=== PATIENT | male | born 1980 | race Caucasian/White ===

== ENCOUNTER 2017-12-28 00:28 | Inpatient (IN) | payer OTHER ==
--- NOTE | 2017-12-28 00:44 | EDPHY ---
H & P Stated Complaint: PS, NOT TALKING MUCH AT TRIAGE Source: Patient - Personal History Current Tetanus/Diphtheria Vaccine: Yes Current Tetanus Diphtheria and Acellular Pertussis (TDAP): Yes - Medical/Surgical History Hx Asthma: No Hx Chronic Respiratory Disease: No Hx Diabetes: No Hx Cardiac Disease: No Hx Renal Disease: No Hx Cirrhosis: No Hx Alcoholism: No Hx HIV/AIDS: No Hx Splenectomy or Spleen Trauma: No Other PMH: [id number], major depression. hx Grave's disease per mother. hx Asperger syndrome per mother - Social History Smoking Status: Never smoked Time Seen by Provider: 12/28/17 00:44 HPI/ROS: HPI CHIEF COMPLAINT: Not taking medications. Left assisted living facility. HISTORY OF PRESENT ILLNESS: 37-year-old male, presents emergency room by private vehicle with his mom. He lives in assisted living facility. He has severe schizophrenia, and at times had ECT. Suffers from catatonia. He left his assisted living facility early this morning. Was gone for over 8 hr they became concerned found him walking in the street. He did not have anything to eat or drink. His mom got involved in his care he appears catatonic and more flat than normal. She brought here by private vehicle. The patient refused answer any of my questions. Appears flat. Slow movements. Past Medical History: Past medical history significant for schizophrenia, catatonia, Asperger's, previous hospitalizations at [address] [place] [address]. Past Surgical History: No recent surgical history Social History: Denies daily use of drugs alcohol tobacco. Family History: Noncontributory ROS REVIEW OF SYSTEMS: Limited due to patient's interaction. Clinical state. Exam Constitutional nontoxic, triage nursing summary reviewed, vital signs reviewed , awake/alert. Eyes normal conjunctivae and sclera, EOMI, PERRLA. HENT normal inspection, atraumatic, moist mucus membranes, no epistaxis, neck supple/ no meningismus, no raccoon eyes. Respiratory clear to auscultation bilaterally, normal breath sounds, no respiratory distress, no wheezing. Cardiovascular rate normal, regular rhythm, no murmur, no edema, distal pulses normal. Gastrointestinal soft, non-tender, no rebound, no guarding, normal bowel sounds, no distension, no pulsatile mass. Genitourinary no CVA tenderness. Musculoskeletal no midline vertebral tenderness, full range of motion, no calf swelling, no tenderness of extremities, no meningismus, good pulses, neurovascularly intact. Skin pink, warm, & dry, no rash, skin atraumatic. Neurologic awake, alert and oriented x 3, AAOx3, moves all 4 extremities equally, motor intact, sensory intact, CN II-XII intact, normal cerebellar, normal vision, normal speech. Psychiatric flat affect, catatonic, slow movements. Heme/Lymph/Immune no lymphadenopathy. Differential Diagnosis: Includes but is not limited to in a particular order acute gaetano, depression, schizoaffective disorder, schizophrenia, catatonia Medical Decision Making: IV establishment blood draw, medical clearance. Patient need mental evaluation. M1 hold. Re-evaluation: Patient be placed on M1 hold for grave disability. Patient will need blood draw for medical clearance. Patient suffers from severe schizophrenia, catatonia, left [facility] earlier today. Mom concerned about and brought to the emergency room. Patient will need mental health evaluation and most likely hospitalization due to great disability , catatonia, schizophrenia. 0539: Patient resting no complaints. Patient signed over to Dr. Ron at 7:00 a.m. Shift change. Patient here schizophrenia. Gravely disabled. Catatonia. Left assisted living. On M1 home. Will need inpatient psychiatric hospitalization [facility]. (Samir Espinoza) Constitutional: Initial Vital Signs Temperature (C) 37.9 C 12/28/17 00:29 Heart Rate 114 H 12/28/17 00:29 Respiratory Rate 18 12/28/17 00:29 Blood Pressure 107/79 12/28/17 00:29 O2 Sat (%) 91 L 12/28/17 00:29 O2 Delivery Mode Room Air Allergies/Adverse Reactions: olanzapine [From Zyprexa] Allergy (Severe, Verified 12/28/17 00:34) catatonea propylthiouracil Allergy (Severe, Verified 12/28/17 00:34) impulsivity methazolamide Allergy (Unknown, Verified 12/28/17 00:34) Unknown risperidone [From Risperdal] Allergy (Unknown, Verified 12/28/17 00:34) Unknown Home Medications: Medication Instructions Recorded LORazepam [Ativan (*)] 1 mg PO TID #90 tab 06/02/15 cloZAPine [Clozaril (*)] 50 mg PO BID 12/28/17 Medical Decision Making - Diagnostics Imaging Results: Imaging Impressions Chest X-Ray 12/28/17 15:23 Impression: Nothing acute identified. No pneumonia. ED Course/Re-evaluation: I took over care of this patient at 3:00 p.m.. This patient is on an M1 hold for schizophrenia and catatonia. The patient is to be admitted to [address] [place] [address]. We are currently awaiting transfer. 3:50 p.m., the patient will be transferred to [address] [place] [address]. I filled out the appropriate transfer paperwork. The patient was given 1 mg of oral Ativan for anxiety under my care. The patient's remaining emergency department course under my care has been uneventful. The patient was transferred in stable condition. (Clair Melchor) Other Provider: Patient stable over course of my shift. Signed out to Dr. Melchor. ( Jori Ron) - Data Points Laboratory Results: Laboratory Results 12/28/17 00:57 12/28/17 00:57 12/28/17 00:58 TSH Pending Medications Given: Discontinued Medications Clozapine (Clozaril) 50 mg PO EDNOW ONE Stop: 12/28/17 11:44 Last Admin: 12/28/17 12:50 Dose: 50 mg Sodium Chloride (Ns) 1,000 mls @ 0 mls/hr IV EDNOW ONE; Wide Open PRN Reason: Protocol Stop: 12/28/17 01:03 Last Admin: 12/28/17 01:09 Dose: 1,000 mls Lorazepam (Ativan) 1 mg PO EDNOW ONE Stop: 12/28/17 11:45 Last Admin: 12/28/17 12:50 Dose: 1 mg Departure - Departure Disposition: [facility] IP Clinical Impression: Schizophrenia Condition: Fair Referrals: ROBE HEADLEY [Primary Care Provider] - As per Instructions
[2017-12-28] MEDS ORDERED: NS 1,000 ML IV ONE (01:02)
[2017-12-28 01:04] LABS: PLATELET COUNT 187 10^3/uL (150-400)
[2017-12-28] MEDS ORDERED: cloZAPine 25 MG TAB PO ONE (11:43)
[2017-12-28] MEDS ORDERED: LORazepam 1 MG TAB PO ONE ×2 (11:44→15:55)
--- NOTE | 2017-12-28 16:00 | ASMTTLCEVL ---
TLC Evaluation - Basic Information Evaluation Start Date and 12/28/2017 01:00 PM Time Hospital Status Answers: Voluntary 72-hr M1 Hold Start Date 12/28/2017 01:07 AM and Time Patient statement Notes: "We're stil waiting". Narrative Notes: Pt is a 37y/o male whose mother brought him to the ED with diagnosis of catatonia, schizoaffective disorder, bipolar type and Aspergers. Pt lives at an assisted living facility in [place]. His mother was notified that he had gone off the property and had been missing for 8 hours. They eventually found him near the facility. He has been increasingly internally preoccupied this past month and there are concerns that he is not swallowing his medication. The ED physician placed him on an M1, per M1, "Patient catatonic, hx schizophrenia, gravely disabled. The clinician met with pt and his mother. Clinician attempted to interact with pt. Pt remained unresponsive and internally preoccupied. T During the entire assessment pt sat on the bed, looked away from clinician, moved his right hand repetitively and stated "We're still waiting". His mother shared that he had been like that since 30 minutes prior to the assessment. because of pt being in this state clinician was unable to determine thought content or process, nor mood. Due to pt being unresponsive the information for this assessment was gathered from pt's mother and previous records.Pt has an extensive mental health hx complicated by a developmental disorder. He has previously been on [facility]'s behavioral unit and prior to that was in [facility]. Although he has never been aggressive his first 3 psychiatric admissions followed agitation and SI. He has never attempted suicide. He does have a hx of gaetano in which he acts on impulses. He once drove 100s of miles to [place] and was once arrested for evading police. Over the years he has been treated with both psychotropics and ECT. Diagnosis History Notes: Schizoaffective, bipolar type Catatonia Aspergers Prior suicide attempts Notes: None Prior hospitalizations Notes: Prior to 2010 he had 3 hospitalizations, 2 at [facility] and 1 at [facility] 01/2011 - [facility] following catatonia 11/2013 - catatonia 04/2014 - hearing voices that are threatening 05/2015 - [facility] with symptoms of severe negativism around fluid and food intake, where he is refusing to eat and has lost weight, being mute and immobile and at other times wandering away with no clear purpose. Treatment Responses Notes: Pt appears to responsd well to a series of ECT treatments followed by psychotropic medication. History of violence Notes: [facility] denies. Psychiatrist: Dr John Lewis at [facility] Medications (name, dosage, route, freq uency) Notes: Clozapine, 100mg at bedtime Clozapine, 50 mg at bedtime Ativan, 1mg, 3x daily Allergies/Reaction Notes: Olanzapine Propylthiouracil methazolamide Risperidone Sleep Notes: Unknown Appetite Notes: Weight appears normal to his mother, but he has not eaten since admission to ED. he states he will only drink Mountain dew. he has had 1 and is drinking a second soda. Medical/Surgical history Notes: Graves disease, PEG tube placement in 2009 and craniosynostosis. Substance use history (frequency, intensity, his tory, duration) Notes: None Family composition Notes: Mother, father has . Multiple siblings who do not live close by. Need for family Answers: Yes participation in patient's care Family psychiatric/substance abuse history Notes: FOP was a recovering alcoholic before he 2 years ago. He had been sober for 25 years. Pt's brother has served time in shelter for methamphetamine violations. One older sister has a hx of bipolar disorder. Developmental history Notes: Pt was born and raised in [place]. [facility] reports that he was "happy" while growing up. He earned a high school diploma. he has never had social relationshipsdiagnosed with pervasive development disorder. Abuse concerns Answers: None Marital status/children Notes: No Living situation Notes: Lives in an assisted living facility in [facility]. 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 Notes: None Legal Notes: None Faith/Spiritual Notes: None Leisure Notes: Computers Collateral Notes: [facility] and previous records. Patient's strengths Answers: Supportive Family (Please select at least TWO strengths): Willingness TLC Evaluation - Mental Status Exam Appearance: Answers: Appropriate Clean Eye Contact: Answers: Avoiding Affect: Answers: Flat Behavior: Answers: Inappropriate Cooperative Withdrawn Speech: Answers: Mumbling Perseverating Insight: Answers: Poor Judgement: Answers: Poor Depression Answers: Flat Affect Signs/Symptoms: Withdrawn Pt reported to have Answers: No suicidal/self-injuring ideation/behavior? Pt reported to be making Answers: No suicidal/self-injuring threats? Pt reported to have Answers: No aggression/assault ideation/behavior? Pt reported to be making Answers: No aggression/assault threats? Pt exhibits inability to Answers: Yes care for self/grave disability? Ideation/behavior is Answers: No chronic? Patient has a specific Answers: No plan? Pt has access to means to Answers: No execute the plan? Ideation involves Answers: No serious/lethal intent? Ideation has Answers: No delusional/hallucinatory content? History of Answers: Yes suicidal/self-injuring ideation, behavior, or threats? History of Answers: No aggressive/assaultive ideation, behavior, or threats? History of serious Answers: No physical harm to self/others while in treatment setting? TLC Evaluation - Suicide/Homicide Risk Suicide Risk Factors: Answers: Flat Affect Schizoaffective Disorder Homicide/violence risk Answers: None factors: Current Suicidal Answers: No Ideation? Current Suicidal Ideation Answers: No in the Past 48 Hours? Current Suicidal Answers: No Ideation, Worst Ever? Suicide Internal Answers: None Protective Factors: Suicide External Answers: Other Notes: Support from his mother Protective Factors: Ranking of patient's Answers: Low suicidal risk: Ranking of patient's Answers: Low homicidal risk: TLC Evaluation - Wrap-up BDI Total Score: Not completed BDI Question #2 Score: Not completed AXIS I Diagnosis (include DSM-V and ICD-10 codes), must also be entered in [place], which is the source of truth. Notes: Schizoaffective Disorder, Bipolar Type 295.70 (F25.0) Catatonia associated with another mental disorder 293.89 (F06.1) Autism Spectrum Disorder 299.0 (F84.0) Schizoaffective Disorder, Bipolar Type 295.70 (F25.0) In consultation with [facility] ED physician,Dr Ariadne MD ,and on-call psychiatrist, Dr Gautam MD , both concurred that Pt appears to meet 27-65 criteria requiring psychiatric hospitalization as Pt appears to be at risk of harm due to grave disability due to a mental illness condition. Pt was given the 3[facility] prohibited belongings list while in the ED. Evaluation End Date and 12/28/2017 03:30 PM Time (HH:MM): Date Signed: 12/28/2017 03:59 PM Electronically Signed By:Meggan Son
--- NOTE | 2017-12-28 16:00 | ASMTTCLDSP ---
TLC Discharge Disposition Disposition: Answers: Admit Discharge Concerns/Recommendations: Notes: In consultation with [facility] ED physician,Dr Ariadne MD ,and on-call psychiatrist, Dr Gautam MD , both concurred that Pt appears to meet 27-65 criteria requiring psychiatric hospitalization as Pt appears to be at risk of harm due to grave disability due to a mental illness condition. Pt was given the 3N prohibited belongings list while in the ED. Was patient given the Answers: Yes Inpatient Behavioral Health Prohibited Belongings List while in the ED? For inpatient Dr Gautam MD admission, the following psychiatrist agreed to accept patient for admission to Behavior[facility] ([facility]): Hold initiated by: Answers: ED Physician Date Signed: 12/28/2017 04:00 PM Electronically Signed By:Meggan Son
--- NOTE | 2017-12-28 18:51 | PDGENHP ---
History and Physical - Chief Complaint Acute catatonia - History of Present Illness Primary mental health provider: [facility] HPI: 37-year-old male presents with acute catatonia characterized as unresponsiveness with associated increasingly flat affect, with onset of symptoms noted on the day of presentation after he was found to be off of the grounds of his assisted living facility for approximately 8 hr. The patient was found wandering and was unable to provide any explanation. He had notably slow movements, flat affect, and then resultant catatonia. They also endorse that he has had reportedly low oral intake recently. The duration of his catatonia is ongoing, present on this evaluation of the patient several hours after presentation. The patient does not otherwise provide any additional history, but he is visibly coughing during our exam. I receive secondhand information that the patient may have been off of his home medications for the past couple months. In the emergency department he received 1 dose of Clozaril 50 mg as well as 1 dose of Ativan. History Information - Allergies/Home Medication List Allergies/Adverse Reactions: olanzapine [From Zyprexa] Allergy (Severe, Verified 12/28/17 00:34) catatonea propylthiouracil Allergy (Severe, Verified 12/28/17 00:34) impulsivity methazolamide Allergy (Unknown, Verified 12/28/17 00:34) Unknown risperidone [From Risperdal] Allergy (Unknown, Verified 12/28/17 00:34) Unknown Home Medications: cloZAPine [Clozaril (*)] 50 mg PO BID 12/28/17 [Last Taken Unknown] I have personally reviewed and updated: family history, medical history, social history, surgical history - Past Medical History Additional medical history: Schizoaffective disorder with catatonic features, requiring ECT therapy. Asperger's with developmental delay. Graves disease. Craniosynostosis treated as a child. Malnutrition requiring PEG tube in past - Surgical History Additional surgical history: Peg tube placement, removal - Family History Additional family history: Bipolar disease and alcoholism - Social History Smoking Status: Never smoked Alcohol Use: None Drug Use: None Additional social history: Lives in an assisted living facility locally Review of Systems Review of Systems: ROS: 10pt was reviewed & negative except for what was stated in HPI & below Respiratory: Reports: cough Neurological: Reports: other (Catatonia) Physical Exam Physical Exam: Temp Pulse Resp BP Pulse Ox 36.3 C 85 14 117/76 95 12/28/17 16:49 12/28/17 16:49 12/28/17 16:49 12/28/17 16:49 12/28/17 16:49 Constitutional: no apparent distress, appears nourished, not in pain, unkempt, other (Mildly malodorous) Eyes: PERRL, anicteric sclera, EOMI Ears, Nose, Mouth, Throat: moist mucous membranes, hearing normal, ears appear normal, no oral mucosal ulcers Cardiovascular: regular rate and rhythym, no murmur, rub, or gallop, No edema Respiratory: reduced air movement (Poor inspiratory effort bilaterally), No expiratory wheeze, No inspiratory crackles, No bronchial breath sounds, No respiratory distress Gastrointestinal: normoactive bowel sounds, soft, non-tender abdomen, no palpable masses, No distension Skin: warm, other (Flushed face) Neurologic: other (Normal muscular bulk and tone, no rigidity, does not follow 1 step commands consistently), No facial droop Psychiatric: not anxious, flat affect, other (Eyes open to voice, but otherwise unresponsive), No agitated Lab Data & Imaging Review 12/28/17 00:57 12/28/17 00:57 WBC 10.95 10^3/uL (3.80-9.50) H 12/28/17 00:57 RBC 4.41 10^6/uL (4.40-6.38) 12/28/17 00:57 Hgb 14.6 g/dL (13.7-17.5) 12/28/17 00:57 Hct 43.2 % (40.0-51.0) 12/28/17 00:57 MCV 98.0 fL (81.5-99.8) 12/28/17 00:57 MCH 33.1 pg (27.9-34.1) 12/28/17 00:57 MCHC 33.8 g/dL (32.4-36.7) 12/28/17 00:57 RDW 12.8 % (11.5-15.2) 12/28/17 00:57 Plt Count 187 10^3/uL (150-400) 12/28/17 00:57 MPV 11.6 fL (8.7-11.7) 12/28/17 00:57 Neut % (Auto) 71.9 % (39.3-74.2) 12/28/17 00:57 Lymph % (Auto) 16.5 % (15.0-45.0) 12/28/17 00:57 Mchenry % (Auto) 10.2 % (4.5-13.0) 12/28/17 00:57 Eos % (Auto) 0.1 % (0.6-7.6) L 12/28/17 00:57 Baso % (Auto) 0.6 % (0.3-1.7) 12/28/17 00:57 Nucleat RBC Rel Count 0.0 % (0.0-0.2) 12/28/17 00:57 Absolute Neuts (auto) 7.86 10^3/uL (1.70-6.50) H 12/28/17 00:57 Absolute Lymphs (auto) 1.81 10^3/uL (1.00-3.00) 12/28/17 00:57 Absolute Monos (auto) 1.12 10^3/uL (0.30-0.80) H 12/28/17 00:57 Absolute Eos (auto) 0.01 10^3/uL (0.03-0.40) L 12/28/17 00:57 Absolute Basos (auto) 0.07 10^3/uL (0.02-0.10) 12/28/17 00:57 Absolute Nucleated RBC 0.00 10^3/uL (0-0.01) 12/28/17 00:57 Immature Gran % 0.7 % (0.0-1.1) 12/28/17 00:57 Immature Gran # 0.08 10^3/uL (0.00-0.10) 12/28/17 00:57 Sodium 141 mEq/L (135-145) 12/28/17 00:57 Potassium 4.5 mEq/L (3.3-5.0) 12/28/17 00:57 Chloride 108 mEq/L (97-110) 12/28/17 00:57 Carbon Dioxide 20 mEq/l (22-31) L 12/28/17 00:57 Anion Gap 13 mEq/L (6-14) 12/28/17 00:57 BUN 14 mg/dL (7-23) 12/28/17 00:57 Creatinine 0.9 mg/dL (0.7-1.3) 12/28/17 00:57 Estimated GFR > 60 12/28/17 00:57 Glucose 107 mg/dL (70-100) H 12/28/17 00:57 Calcium 9.3 mg/dL (8.5-10.4) 12/28/17 00:57 TSH 2.150 uIU/mL (0.465-4.680) 12/28/17 00:58 Urine Opiates Screen NEGATIVE (NEGATIVE) 12/28/17 00:44 Urine Barbiturates NEGATIVE (NEGATIVE) 12/28/17 00:44 Ur Phencyclidine Scrn NEGATIVE (NEGATIVE) 12/28/17 00:44 Ur Amphetamine Screen NEGATIVE (NEGATIVE) 12/28/17 00:44 U Benzodiazepines Scrn NON-NEGATIVE (NEGATIVE) H 12/28/17 00:44 Urine Cocaine Screen NEGATIVE (NEGATIVE) 12/28/17 00:44 U Marijuana (THC) Screen NEGATIVE (NEGATIVE) 12/28/17 00:44 Ethyl Alcohol < 10 mg/dL (0-10) 12/28/17 00:57 Visualized and Interpreted Chest x-ray results: Yes Chest X-Ray results: no infiltrate, other (Gas in stomach, raised left diaphragm ) Assessment & Plan Assessment: 37-year-old male presents with acute catatonia in the setting of schizoaffective disorder with catatonic features Plan: 1. Catatonia. Acute, recurrent, new problem this provider, further workup indicated. Resulting in grave disability an M1 hold -potentially related to discontinuation of home medications a couple months ago , does not appear to have neuroleptic malignant syndrome -received Clozaril and Ativan in the emergency department -defer formal diagnosis and treatment to the primary mental health team -he is at risk for aspiration, and with white count of 11,000, reduced air movement in the bases, cough and some skin flushing, getting it is prudent to rule out pneumonia and URI with chest x-ray, respiratory viral panel -if both of those studies are negative, consider treat his cough with some Tessalon and Mucinex if needed 2. Graves disease. Reportedly untreated, repeated TSH and is within normal limits, no further treatment indicated at this time 3. Craniosynostosis. Reportedly treated as a child, review of his brain MRI from 11/18/2013 demonstrates a completely normal brain 4. Schizoaffective disorder with catatonic features and Asperger's with developmental delay. Reviewed outside records from 06/02/[address] Rey Merlos, he is assigned these diagnosis, reports the patient was started on Clozaril 50 mg and was continued on ECT therapy after discharge -is important to note that the discharge summary also mentions that the patient is particularly triggered by some conflicts which occasionally arise with the patient interacts with his mother, with concern that she may struggle with alcohol abuse, exacerbating these conflicts Hospital Medicine will sign off on this patient, please re-consult at or discussed with Dr. Aguilar if further assistance is required.
[2017-12-28] MEDS ORDERED: BENZONATATE 100 MG CAP PO PRN (19:01)
[2017-12-28] MEDS ORDERED: MAGNESIUM HYDROXIDE 30 ML UDCUP PO PRN (19:31)
[2017-12-28] MEDS ORDERED: ACETAMINOPHEN 325 MG TAB PO PRN (19:31)
[2017-12-28] MEDS ORDERED: LORazepam 0.5 MG TAB PO PRN (19:31)
[2017-12-28] MEDS ORDERED: MAG HYDROX/AL HYDROX/SIMETH 30 ML UDCUP PO PRN (19:31)
[2017-12-28] MEDS ORDERED: NICOTINE POLACRILEX 2 MG GUM B PRN (19:31)
[2017-12-28] MEDS: LORazepam 1 MG TAB PO SCH (21:03)
[2017-12-29] MEDS: LORazepam 1 MG TAB PO SCH ×4 (08:45→21:51)
--- NOTE | 2017-12-29 09:07 | ASMTBHMTP ---
Master Treatment Plan Master Treatment Plan Answers: Mood Instability with for: Psychosis Date: 12/29/2017 Diagnosis on Admission: Schizoaffective Disorder, Bipolar Type 295.70 Expected length of stay: 3-5 Days Reason for admission: Notes: Per TLC evaluation - Pt. is a 37 year old male whose mother brought him to the ED with diagnosis of catatonia, schizoaffective disorder, Biploar type and Asperger's Pt. lives at an assisted living facility in [place]. His mother was notified that he had gone off property and had been missing for 8 hours. They eventually found him near the facility. He has been increasingly internally preoccupied this past month and there are concerns that he is not swallowing his medication. The ED physician placed him on an M1, per M1 "Patient catatonic, hx schizophrenia gravely disabled. Patient's stated presenting problems: Notes: Patient unable to participated in MTP at this time. Patient's goals for treatment: Notes: Patient unable to participated in MTP at this time. Patient's strengths: Notes: Patient unable to participated in MTP at this time. Identify supports outside of hospital: Notes: Patient unable to participated in MTP at this time. Discharge criteria: Notes: Patient will demonstrate more stable mood by discharge. Initial disposition plan/considerations: Notes: Patient unable to participated in MTP at this time. Master Treatment Plan Required Signatures Psychiatrist signature: Answers: Psychiatrist: RN on-shift signature: Answers: RN: Patient signature: Answers: Patient: Date Signed: 12/29/2017 09:07 AM Electronically Signed By:Tanesha Boudreaux
[2017-12-29] MEDS ORDERED: ONDANSETRON DISINTEGRATING 4 MG TAB PO PRN (09:39)
[2017-12-29] MEDS ORDERED: CITRIC ACID/SODIUM CITRATE 30 ML UDCUP PO PRN (09:39)
[2017-12-29] MEDS ORDERED: CITRIC ACID/SODIUM CITRATE 30 ML UDCUP ONE (14:31)
[2017-12-29] MEDS ORDERED: ONDANSETRON DISINTEGRATING 4 MG TAB ONE (14:31)
[2017-12-29] MEDS: NS 1,000 ML IV PRN (14:51)
[2017-12-29] MEDS ORDERED: METHOHEXITAL SODIUM 100 MG/10 ML SYR IVP ONE (15:18)
[2017-12-29] MEDS ORDERED: MIDAZOLAM 2 MG/2 ML VIAL ONE (15:18)
[2017-12-29] MEDS ORDERED: GLYCOPYRROLATE 0.2 MG/1 ML VIAL ONE (15:19)
[2017-12-29] MEDS ORDERED: fentaNYL 100 MCG/2 ML INJ ONE (15:19)
[2017-12-29] MEDS ORDERED: ONDANSETRON 4 MG/2 ML VIAL ONE (15:19)
--- NOTE | 2017-12-29 15:21 | PDANEPAE ---
ECT Pre Anesthetic Evaluation Allergies/Adverse Reactions: olanzapine [From Zyprexa] Allergy (Severe, Verified 12/28/17 00:34) catatonea propylthiouracil Allergy (Severe, Verified 12/28/17 00:34) impulsivity methazolamide Allergy (Unknown, Verified 12/28/17 00:34) Unknown risperidone [From Risperdal] Allergy (Unknown, Verified 12/28/17 00:34) Unknown Patient ID confirmed: Yes H&P reviewed: Yes Pre-anesthetic history reviewed: Yes Heart: regular rate and rhythym, no murmur, rub, or gallop, pulses symmetric bilaterally Lungs: no respiratory distress, no rales or rhonchi, clear to auscultation Mallampati Score: Class 1 ASA Status: III Home Medications: Medication Instructions Recorded LORazepam [Ativan (*)] 1 mg PO TID #90 tab 06/02/15 cloZAPine [Clozaril (*)] 50 mg PO BID 12/28/17 Medication review: completed Patient interviewed: Yes Patient examined: Yes Anesthetic plan discussed with patient: Yes Anesthetic risks discussed with patient: Yes ECT Pre-Anesthetic History - Height & Weight Height: 182.88 cm Weight: 99.79 kg BMI: 29.86 - Anesthesia History Hx Anesthesia Complications (with details): Denies. Family Hx Anesthesia Complications: Denies. 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 - Pulmonary History ECT Hx Asthma: No Hx Abnormal Chest X-Ray: No Hx Oxygen in Use at Home: No - Cardiovascular History Hx Hypertension: No Currently Uses Hypertension Medication: No Hx Arrhythmias: No Hx Palpitations: No Hx Chest Pain: No Hx Coronary Artery / Peripheral Vascular Disease: No Hx Blood Clot: No - Neurologic History Hx Cerebrovascular Accident: No Hx CT Scan Or MRI Of The Brain: No Hx Epilepsy, Convulsions, Seizures, Or Blackouts: No Hx Frequent Or Severe Headaches: No Hx Numbness: No Hx Neurologic Disorder: No - Dental History Current Dental Issues: Dentures Dental History Comment: top and bottom - Endocrine History Hx Diabetes: No Current Daily Insulin Injections: No Hx Thyroid Problems: Yes Endocrine History Comment: hyperthyroidism resolved in 2008 - Renal/Urologic History Hx Renal Disorders: No Hx Urinary Tract Problems: No - Liver History Hx Hepatic Disorders: No - Cancer History Hx Cancer: No - Hematology History Hx Unexplained Bleeding Of Any Type: No Hx Ease Of Bruising: No Hx Anemia: No - Gastrointestinal History Hx Gastroesophogeal Reflux Disease: No Hx Ulcers: No Hx Hiatal Hernia: No Hx Difficulty Swallowing: No - Musculoskeletal Hisory Hx Chronic Pain: No Hx Arthritis: No - Opthalmic History Hx Glaucoma: No Visual Assistive Devices: Glasses Hx Opthalmic Disorders: No - Other Health History Physical Disabililty: No Recent Cough, Cold, or Fever: No Significant Weight Loss In The Last 4 Months: No Possible the Patient Might be : No
--- NOTE | 2017-12-29 15:21 | PDHPUP ---
History & Physical Update H&P update statement: This history and physical update is based on an assessment of the patient which was completed after admission or registration (within 24 hours), but prior to the surgery/procedure. H&P update: H&P reviewed & patient examined, no change in patient's condition since H&P completed
[2017-12-29] MEDS ORDERED: LORazepam 2 MG/ML INJ ONE (15:29)
--- NOTE | 2017-12-29 15:32 | PDECTPN ---
ECT Progress Note Patient Problems: Problems Problem Status Onset Code Schizoaffective disorder Acute F25.9 Schizophrenia Acute F20.9 Date: 12/29/17 Treatment#: 1 ECT provider: Forrest Mancilla Anesthesia: Sally Mahoney Stimulus dose (%): 50 Pulse width: 0.5 ECT EMG (sec): 27 ECT EEG (sec): 44 ECT treatment type: bilateral Next ECT date: 12/31/17 Next ECT time: 11:30 O/P psychiatrist follow up with Dr.: Dahiana Lewis O/P psychiatrist follow up: phone, voice message Home medications: Medication Instructions Recorded LORazepam [Ativan (*)] 1 mg PO TID #90 tab 06/02/15 cloZAPine [Clozaril (*)] 50 mg PO BID 12/28/17 Medication review: completed Current treatment plan: acute phase Treatment plan frequency: 3 times per week ECT narrative: see admit note. Of note, pt revealed his tacit willingness to undergo the ECT today in a number of ways observed by RNs,. For instance, he got right into wheelchair and, when rolled into ECT suite, got out of chair and walked on his own volition to [facility]. Likewise, he put his index finger out when the RN had pulsox finger monitor in eye shot, revealing his understanding of what was needed and not reacting negativistically to it. On the contrary....
[2017-12-29] MEDS ORDERED: PROMETHAZINE HCL 25 MG TAB PO PRN (15:33)
[2017-12-29] MEDS ORDERED: IBUPROFEN 600 MG TAB PO PRN (15:33)
[2017-12-29] MEDS ORDERED: HYDROCODONE/APAP 5/325 TAB PO PRN (15:33)
[2017-12-29] MEDS ORDERED: NALOXONE HCL 0.4 MG/ML INJ IVP PRN (15:33)
--- NOTE | 2017-12-29 15:36 | POSTANESTH ---
Post Anesthetic Evaluation Cardiovascular Status: Normal, Stable, Similar to Pre-Op Cond Respiratory Status: Normal, Stable, Similar to Pre-op Cond. Level of Consciousness/Mental Status: Unconscious Pain Control: Adequate, Prn Tx Ordered Nausea/Vomiting Control: Adequate, Prn Tx Ordered Complications Possibly Related to Anesthesia: None Noted
--- NOTE | 2017-12-29 16:26 | BAPA ---
IDENTIFYING DATA: The patient is a 37-year-old single white male well known to this business writer who had been treating him with maintenance ECT and multiple prior hospitalizations over the last 8 years. However, he had chosen to terminate maintenance ECT in February 2017 and had been lost to followup by our clinic. He is seen by Anant Lewis MD, at [facility]. His last psychiatric hospitalization at [facility] was in May 2015. Please consult the admission workup dated 05/26/15 for more information. Present sources of information include the patient's mother, with whom the business writer spoke by phone, as well as Dr. Lewis , who also provided collateral information by phone. The patient himself is unable to provide history given his catatonic/mute state. This patient carries a longstanding diagnosis of schizoaffective disorder, bipolar type; catatonia; and autism spectrum disorder. He had been at a stable, albeit quite impaired, baseline when he and Mother chose to discontinue ECT almost 1 year ago. He has followed up around medications with Dr. Lewis, who expressed to this business writer that there had been great resistance on Mother's part around medication choices. He understands by history that has been our experience working with patient and Mother; namely, that she has her own idiosyncratic beliefs about what has made him ill and what he needs for treatment and that often stands in contrast to the recommendations being made by the physicians. Mother presents that over the last year, he has been not having problems with behavioral dyscontrol but rather is isolative and had had virtually no interaction with her or anyone else for the last 10 months. She states that she had been giving medication to him as prescribed when he was under her care. However, her feelings about certain of those medications, such as clozapine, were made clear to Dr. Lewis, who shares this business writer's skepticism that the patient would have been receiving the full complement of medication as prescribed. Approximately 1 month ago, the patient was transferred from home to an assisted living program. It appears in good part as though Mother is getting older and feels unable to care for him much longer. In the assisted living program, he is supposed to have help and encouragement with meals and medication but it is unlikely that he is actually monitored for medication compliance. Mother-- revealing some irony--noted that he possibly would not have been taking his medication at the assisted living for that reason. Per Dr. Lewis, the prescribed medications are supposed to be: 1. Clozapine 50 mg p.o. b.i.d. 2. Ativan 1 mg p.o. t.i.d. In the last 24 hours, the patient had gone awol from the assisted living program and police were dispatched to find him. Mother then brought him to emergency room first at [facility] but then ultimately took him to [place], wishing him to have ECT and knowing that would be the easiest place for him to restart treatment. Dr. Lewis also provided his verbal acknowledgement to the business writer that ECT treatment for this patient's exacerbation of catatonic symptoms is indicated at this point. In the last 24 hours, he has refused food and fluid in the ER setting and hospital setting, perhaps indicative of some paranoia. While he was at home and in the assisted living program more recently , the patient has been eating at least 3 meals a day and, indeed, has gained weight as would be expected in a patient who has been compliant with clozapine. This is notable to this business writer as the patient had been thinner a year ago when he was also supposed to be on clozapine. The absence of weight gain a year ago might have indicated more evidence for noncompliance with the medication at that time. The patient does have history of Graves disease and his TSH was within normal limits. Other basic laboratory tests were done, including a CBC, that did reveal an elevated white count as well as elevated neutrophils. The patient was found to have a cough and did have chest x-ray that was negative and respiratory panel that was also negative. His vital signs are stable. He is afebrile and has 95% oxygen saturation on room air. His urine drug screen was only positive, as would be expected, for benzodiazepine. Mother is not aware of any other substance use history or change in medical status that could be contributing to this present clinical state. Other than going awol from the assisted living, the other behavioral change is psychomotor agitation in the form of pacing with nonsensical and mumbled repetition of the same statement repeatedly. Mother called it a form of chanting and believes he is saying the words "now I've seen it all." There was negativism, mutism. The pacing, according to Mother, had led to some skin abrasion on the bottom of his feet. For prior psychiatric history, medical history, family history, social history, alcohol and drug history, please see prior consultations by this business writer. MENTAL STATUS EXAM: Patient is a 37-year-old male appearing his stated age. He is overweight, which is a dramatic change from his last presentation. He is unkempt, disheveled, and edentulous, needing full dentures. He was engaged while pacing the hallways of [address] [place] [address], muttering incomprehensibly under his breath. There is virtually no engagement or eye contact with the business writer. However, he did shrug his shoulders finally in response to the question "you'll let me know if there is anything I can do for you while you are here?" While shrugging his shoulders, he gave a very brief glance in this business writer's direction as well. This small interaction leads me to believe that he is somewhat aware of his surroundings despite his degree of internal preoccupation. At present, he is nonverbal and too involuted to reveal any indication of delusional material or hallucinations, but by history, he has experienced these psychotic symptoms. Judgement and insight are grossly impaired. His recent impulse control is also clearly impaired given his recent awol from the assisted living program. IMPRESSION: Catatonia associated with schizoaffective disorder, bipolar type; autism spectrum disorder; history of Graves disease and craniosynostosis. Recent cough with elevated white blood cell count with normal chest x-ray and negative respiratory panel. RECOMMENDATIONS: There is some uncertainty as to the degree of adherence this patient has had on psychotropic medications prescribed by Dr. Lewis. The patient himself is a poor historian, even by history, and this is especially true at the present time. Mother furthermore has been so averse to medication, that it is unclear whether he was truly being treated adequately under her care , and furthermore, at the assisted living program, I would not expect there to be this sort of monitoring for medication adherence one would expect in a long term or inpatient facility. We do have a clozapine level pending that will help provide some evidence. The fact that he has gained weight would indicate that he is finally compliant with that medication. Dr. Lewis and this business writer agree that he is likely subtherapeutic in his dose at 100 mg total per day. Once a level is received, we will make the determination about how to titrate the medication further. If, in fact, he has been compliant with clozapine and Ativan (which seems more likely given the positive urine drug screen for benzodiazepine) and he is developing this catatonic excitement intermixed with periods of near immobility, unresponsiveness, and mutism, then ECT is clearly the treatment of choice. Historically, it has helped him come out of such states of grave disability, which would become life-threatening over time. The mother has medical power of securities attorney and has thus far given her thankfully unambivalent approval to reinitiate electroconvulsive therapy. Dr. Lewis had done likewise. We will clearly use bilateral treatment and provide intravenous Ativan following the treatment as we typically would have the inpatient unit hold the dose prior to that day's treatment. I will await clozapine and norclozapine level and then make decisions about further titration at that point in consultation with Dr. Lewis. Reviewed risks and side effects associated with ECT with Mother, who acknowledges the much greater risk of NOT treating pt with ECT /[id number]/MODL MTDD
[2017-12-29] MEDS: cloZAPine 25 MG TAB PO SCH ×2 (21:42→21:50)
[2017-12-30] MEDS: LORazepam 1 MG TAB PO SCH ×3 (08:24→18:05)
--- NOTE | 2017-12-30 09:37 | SOAPPROG ---
ROBBIE Progress Note Assessment/Plan: Assessment: Catatonia asscoicated with Schizoaffective Disorder; Autism Spectrum Disorder by history Plan: Pt s/p ECT #1. Pt noted to be alternating between pacing the unit, and then sitting in day area. The whole while, he was repeating the same non-sensical 4 word phrase, "Yep, now I see". He does not attend to even simple, structured questions, but clearly is aware that business writer is sitting (or walking) next to him as he glances my way briefly when a question is asked. Per RNs, he has asked--at times--for things with one word (ie, "soda", "ketchup"). He is eating and drinking ( arguably a change from last couple of days). Yesterday, he revealed waxy flexibility while on ECT catrina pre treatment. Awaiting CLoz level. SPoke with Dr Lewis about increasing this med. Notably, mother reported to RN that "he becomes agitated or aggressive on Clozapine" but mother, in a long standing way , often attributes what is truly SYMPTOM of disorder, to SIDE EFFECT of very treatment for that disorder....a commonly expressed bias which rendered her not the most reliable historian at times. One might consider other glutamate modulating medications, however, such as Depakote, to address the catatonia. Helio to call Assisted Living and determine if they will keep his space there and establish if they have a mechanism to ensure medication compliance (ie, monitored med intake, versus simply leaving meds in patient's possession to do as pt sees fit). Mostly, he requires an acute course of ECT, which has historically worked nicely to bring him out of these more severe catatonic exacerbations (back to a baseline that is marginally functional, but involves no behavior dyscontrol, or disorganized behavior and cooperativeness). At baseline, he is flat, quiet, poorly related. Only sporadically has this treatment team seen him in a different clinical state, marked by disorganized speech and eccentric TP, but at least brighter in affect, more engaged interpersonally, and more loquacious. Presently, no cough, VSS, afebrile, Pulsox 95% 12/30/17 09:21 12/30/17 09:37 Objective: Vital Signs Temp Pulse Resp BP Pulse Ox 36.9 C 96 14 115/59 L 95 10/15/18 18:36 12/30/17 06:00 12/30/17 06:00 12/30/17 06:00 12/30/17 06:00 12/29/17 12/30/17 12/31/17 05:59 05:59 05:59 Intake Total 1000 Balance 1000 ICD10 Worksheet Patient Problems: Problems Problem Status Onset Schizophrenia Acute Schizoaffective disorder Acute
--- NOTE | 2017-12-30 10:23 | CPEKG ---
Test Reason : OPEN Blood Pressure : / mmHG Vent. Rate : 111 BPM Atrial Rate : 112 BPM P-R Int : 160 ms QRS Dur : 080 ms QT Int : 344 ms P-R-T Axes : 050 043 043 degrees QTc Int : 468 ms SINUS TACHYCARDIA Confirmed by Trent Kilgore ([id number]) on 12/30/2017 10:22:59 AM Referred By: Confirmed By:Trent Kilgore
[2017-12-30] MEDS: cloZAPine 25 MG TAB PO SCH (19:20)
[2017-12-31] MEDS: LORazepam 1 MG TAB PO SCH ×3 (07:20→20:03)
[2017-12-31] MEDS: cloZAPine 25 MG TAB PO SCH ×2 (08:01→20:03)
--- NOTE | 2017-12-31 11:56 | ASMTCMCOM ---
CM Note CM Note Notes: CC contacts Marylou at [phone]; no answer left detailed VM with all necessary return contact information. Date Signed: 12/31/2017 11:55 AM Electronically Signed By:Helio Harrison
[2017-12-31] MEDS ORDERED: NS 1,000 ML IV PRN (11:59)
[2017-12-31] MEDS ORDERED: CITRIC ACID/SODIUM CITRATE 30 ML UDCUP PO PRN (11:59)
[2017-12-31] MEDS ORDERED: ONDANSETRON DISINTEGRATING 4 MG TAB PO PRN (11:59)
[2017-12-31] MEDS ORDERED: ONDANSETRON DISINTEGRATING 4 MG TAB ONE (12:05)
[2017-12-31] MEDS ORDERED: CITRIC ACID/SODIUM CITRATE 30 ML UDCUP ONE (12:05)
[2017-12-31] MEDS: NS 1,000 ML IV PRN (12:08)
--- NOTE | 2017-12-31 12:18 | PDANEPAE ---
ECT Pre Anesthetic Evaluation Allergies/Adverse Reactions: olanzapine [From Zyprexa] Allergy (Severe, Verified 12/28/17 00:34) catatonea propylthiouracil Allergy (Severe, Verified 12/28/17 00:34) impulsivity methazolamide Allergy (Unknown, Verified 12/28/17 00:34) Unknown risperidone [From Risperdal] Allergy (Unknown, Verified 12/28/17 00:34) Unknown Patient ID confirmed: Yes H&P reviewed: Yes Pre-anesthetic history reviewed: Yes Heart: regular rate and rhythym Lungs: no respiratory distress, no rales or rhonchi, clear to auscultation Mallampati Score: Class 1 ASA Status: III Home Medications: Medication Instructions Recorded LORazepam [Ativan (*)] 1 mg PO TID #90 tab 06/02/15 cloZAPine [Clozaril (*)] 50 mg PO BID 12/28/17 Medication review: completed Patient interviewed: Yes Patient examined: Yes Anesthetic plan discussed with patient: Yes Anesthetic risks discussed with patient: Yes ECT Pre-Anesthetic History - Height & Weight Height: 182.88 cm Weight: 99.79 kg BMI: 29.86 - Anesthesia History Hx Anesthesia Complications (with details): Denies. Family Hx Anesthesia Complications: Denies. 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 - Pulmonary History ECT Hx Asthma: No Hx Abnormal Chest X-Ray: No Hx Oxygen in Use at Home: No - Cardiovascular History Hx Hypertension: No Currently Uses Hypertension Medication: No Hx Arrhythmias: No Hx Palpitations: No Hx Chest Pain: No Hx Coronary Artery / Peripheral Vascular Disease: No Hx Blood Clot: No - Neurologic History Hx Cerebrovascular Accident: No Hx CT Scan Or MRI Of The Brain: No Hx Epilepsy, Convulsions, Seizures, Or Blackouts: No Hx Frequent Or Severe Headaches: No Hx Numbness: No Hx Neurologic Disorder: No - Dental History Current Dental Issues: Dentures Dental History Comment: top and bottom - Endocrine History Hx Diabetes: No Current Daily Insulin Injections: No Hx Thyroid Problems: Yes Endocrine History Comment: hyperthyroidism resolved in 2008 - Renal/Urologic History Hx Renal Disorders: No Hx Urinary Tract Problems: No - Liver History Hx Hepatic Disorders: No - Cancer History Hx Cancer: No - Hematology History Hx Unexplained Bleeding Of Any Type: No Hx Ease Of Bruising: No Hx Anemia: No - Gastrointestinal History Hx Gastroesophogeal Reflux Disease: No Hx Ulcers: No Hx Hiatal Hernia: No Hx Difficulty Swallowing: No - Musculoskeletal Hisory Hx Chronic Pain: No Hx Arthritis: No - Opthalmic History Hx Glaucoma: No Visual Assistive Devices: Glasses Hx Opthalmic Disorders: No - Other Health History Physical Disabililty: No Recent Cough, Cold, or Fever: No Significant Weight Loss In The Last 4 Months: No Possible the Patient Might be : No
[2017-12-31] MEDS ORDERED: MIDAZOLAM 2 MG/2 ML VIAL ONE (12:23)
[2017-12-31] MEDS ORDERED: LORazepam 2 MG/ML INJ ONE (12:23)
[2017-12-31] MEDS ORDERED: METHOHEXITAL SODIUM 100 MG/10 ML SYR IVP ONE (12:23)
[2017-12-31] MEDS ORDERED: fentaNYL 100 MCG/2 ML INJ ONE (12:23)
--- NOTE | 2017-12-31 12:31 | PDECTPN ---
ECT Progress Note Patient Problems: Problems Problem Status Onset Code Schizophrenia Acute F20.9 Schizoaffective disorder Acute F25.9 Date: 12/31/17 Treatment#: 2 ECT provider: Forrest Mancilla Anesthesia: Sally Stoabigail Stimulus dose (%): 55 Pulse width: 0.5 ECT EMG (sec): 35 ECT EEG (sec): 106 ECT treatment type: bilateral QIDS-SR Total Score: 12 QIDS-SR Question #12 Score: 1 Next ECT date: 01/02/18 Next ECT time: 13:00 O/P psychiatrist follow up with Dr.: Dahiana Lewis O/P psychiatrist follow up: phone, voice message Home medications: Medication Instructions Recorded LORazepam [Ativan (*)] 1 mg PO TID #90 tab 06/02/15 cloZAPine [Clozaril (*)] 50 mg PO BID 12/28/17 Medication review: completed Current treatment plan: acute phase Treatment plan frequency: 3 times per week ECT narrative: see admit note. Of note, pt revealed his tacit willingness to undergo the ECT today in a number of ways observed by RNs,. For instance, he got right into wheelchair and, when rolled into ECT suite, got out of chair and walked on his own volition to [facility]. Likewise, he put his index finger out when the RN had pulsox finger monitor in eye shot, revealing his understanding of what was needed and not reacting negativistically to it. On the contrary.... 12/31 Pt VSS stable. Afebrile Remains mute and yet able to follow simple commands, without negativism. No resistance at all to any facet of prepping him for treatment today, as on Friday. Received second opinion letter from Dr Lewis. CLoz level pnd for Friday. It appears, per the MAY, that patient is complying with meds. THis am, pre ECT, he reveals PMR, flat affect, nil eye contact, mutism, and slight waxy flexibility. Plan is to cont acute Bilateral ECT, titrate Cloz after level drawn and as tolerated. Cont Loraz. holding dose prior to ECT, but receiving IV lorazepam.
[2018-01-01] MEDS: LORazepam 1 MG TAB PO SCH ×3 (07:47→20:09)
[2018-01-01] MEDS: cloZAPine 25 MG TAB PO SCH ×2 (07:47→20:08)
--- NOTE | 2018-01-01 11:07 | SOAPPROG ---
ROBBIE Progress Note Assessment/Plan: Assessment: Catatonia asscoicated with Schizoaffective Disorder; Autism Spectrum Disorder by history Plan: Pt s/p ECT #1. Pt noted to be alternating between pacing the unit, and then sitting in day area. The whole while, he was repeating the same non-sensical 4 word phrase, "Yep, now I see". He does not attend to even simple, structured questions, but clearly is aware that video game script writer is sitting (or walking) next to him as he glances my way briefly when a question is asked. Per RNs, he has asked--at times--for things with one word (ie, "soda", "ketchup"). He is eating and drinking ( arguably a change from last couple of days). Yesterday, he revealed waxy flexibility while on ECT catrina pre treatment. Awaiting CLoz level. SPoke with Dr Lewis about increasing this med. Notably, mother reported to RN that "he becomes agitated or aggressive on Clozapine" but mother, in a long standing way , often attributes what is truly SYMPTOM of disorder, to SIDE EFFECT of very treatment for that disorder....a commonly expressed bias which rendered her not the most reliable historian at times. One might consider other glutamate modulating medications, however, such as Depakote, to address the catatonia. Helio to call Assisted Living and determine if they will keep his space there and establish if they have a mechanism to ensure medication compliance (ie, monitored med intake, versus simply leaving meds in patient's possession to do as pt sees fit). Mostly, he requires an acute course of ECT, which has historically worked nicely to bring him out of these more severe catatonic exacerbations (back to a baseline that is marginally functional, but involves no behavior dyscontrol, or disorganized behavior and cooperativeness). At baseline, he is flat, quiet, poorly related. Only sporadically has this treatment team seen him in a different clinical state, marked by disorganized speech and eccentric TP, but at least brighter in affect, more engaged interpersonally, and more loquacious. Presently, no cough, VSS, afebrile, Pulsox 95% 12/30/17 09:21 12/30/17 09:37 01/01/18 11:01 Pt has VSS, afebrile, Pulsox 95%, eating and drinking, and accepting medications. Will draw Cloz level in ECT Friday AM. Still mute. Interviewed while he was sitting along at dinning table in TV area, staring out window initially but clearly aware and non-verbally engaged with video game script writer when I sat across from him and asked him structured questions. he responsed non verbally and ambiguously with a shrug to most questions. He made some eye contact, which itself was an improvement as was the absence of pacing (or immobility for that matter) and of incessant repetition of same non sensical phrase. COnt acute ECT. Consider depakote vs further titration of CLoz. Objective: Vital Signs Temp Pulse Resp BP Pulse Ox 36.8 C 76 14 94/52 L 95 01/01/18 06:00 01/01/18 06:00 01/01/18 06:00 01/01/18 06:00 01/01/18 06:00 12/31/17 01/01/18 01/02/18 05:59 05:59 05:59 Intake Total 995 Balance 995 ICD10 Worksheet Patient Problems: Problems Problem Status Onset Schizophrenia Acute Schizoaffective disorder Acute
--- NOTE | 2018-01-01 11:54 | ASMTCMCOM ---
CM Note CM Note Notes: The patient was not responsive to this lead technical writer initially. The patient eventually shook his head "no" in response. He denied support at this time. This lead technical writer spoke with the patient's mother Angela [C#[phone], H#[phone]}, who reported that she planned to connect with [facility] and would notify [facility] with any updates. In addition, this lead technical writer contacted [facility] to confirm services with no response. Date Signed: 01/01/2018 11:53 AM Electronically Signed By:Elise Palomino
[2018-01-02] MEDS ORDERED: LIDOCAINE 2% 5 ML SDV ONE (05:28)
[2018-01-02] MEDS ORDERED: ONDANSETRON DISINTEGRATING 4 MG TAB ONE (10:31)
[2018-01-02] MEDS ORDERED: CITRIC ACID/SODIUM CITRATE 30 ML UDCUP ONE (10:31)
[2018-01-02] MEDS: NS 1,000 ML IV PRN (10:43)
[2018-01-02] MEDS ORDERED: NS 1,000 ML IV PRN (10:56)
[2018-01-02] MEDS ORDERED: CITRIC ACID/SODIUM CITRATE 30 ML UDCUP PO PRN (10:56)
[2018-01-02] MEDS ORDERED: ONDANSETRON DISINTEGRATING 4 MG TAB PO PRN (10:56)
[2018-01-02] MEDS ORDERED: NALOXONE HCL 0.4 MG/ML INJ IVP PRN (11:22)
[2018-01-02] MEDS ORDERED: HYDROCODONE/APAP 5/325 TAB PO PRN (11:22)
[2018-01-02] MEDS ORDERED: PROMETHAZINE HCL 25 MG TAB PO PRN (11:22)
--- NOTE | 2018-01-02 11:27 | PDECTPN ---
ECT Progress Note Patient Problems: Problems Problem Status Onset Code Schizophrenia Acute F20.9 Schizoaffective disorder Acute F25.9 Date: 01/02/18 Treatment#: 3 ECT provider: Forrest Mancilla Stimulus dose (%): 60 Pulse width: 0.5 ECT EMG (sec): 26 ECT EEG (sec): 52 ECT treatment type: bilateral QIDS-SR Total Score: 12 QIDS-SR Question #12 Score: 1 MMSE Total Score (Max = 21): 19 Next ECT date: 01/05/18 Next ECT time: 09:30 O/P psychiatrist follow up with Dr.: Dahiana Lewis O/P psychiatrist follow up: phone, voice message Home medications: Medication Instructions Recorded LORazepam [Ativan (*)] 1 mg PO TID #90 tab 06/02/15 cloZAPine [Clozaril (*)] 50 mg PO BID 12/28/17 Current treatment plan: acute phase Treatment plan frequency: 3 times per week ECT narrative: see admit note. Of note, pt revealed his tacit willingness to undergo the ECT today in a number of ways observed by RNs,. For instance, he got right into wheelchair and, when rolled into ECT suite, got out of chair and walked on his own volition to [facility]. Likewise, he put his index finger out when the RN had pulsox finger monitor in eye shot, revealing his understanding of what was needed and not reacting negativistically to it. On the contrary.... 12/31 Pt VSS stable. Afebrile Remains mute and yet able to follow simple commands, without negativism. No resistance at all to any facet of prepping him for treatment today, as on Friday. Received second opinion letter from Dr Lewis. CLoz level pnd for Friday. It appears, per the MAY, that patient is complying with meds. THis am, pre ECT, he reveals PMR, flat affect, nil eye contact, mutism, and slight waxy flexibility. Plan is to cont acute Bilateral ECT, titrate Cloz after level drawn and as tolerated. Cont Loraz. holding dose prior to ECT, but receiving IV lorazepam. 01/02 Pt cooperative with all aspect of ECT. Near Mute but answered personal information during time out with soft, monotone voice. No other spontaneous speech. PMR rather than agitation. Affect flat. Eye contact intermittant. Reviewed Psych testing re his Autism spectrum disorder. Full scale IQ 72. CLoz level drawn pre ECT today. Cont acute ECT into next week.
[2018-01-02] MEDS: LORazepam 1 MG TAB PO SCH ×3 (12:23→20:02)
[2018-01-02] MEDS: cloZAPine 25 MG TAB PO SCH ×2 (12:24→20:02)
--- NOTE | 2018-01-02 14:50 | ASMTCMCOM ---
CM Note CM Note Notes: CC spoke with [facility], who confirmed that the patient is able to return to the facility upon discharge. Angela Tammy confirmed that she was able to provide transportation at the time of discharge. Date Signed: 01/02/2018 02:49 PM Electronically Signed By:Elise Palomino
[2018-01-03] MEDS: cloZAPine 25 MG TAB PO SCH ×2 (08:04→19:25)
[2018-01-03] MEDS: LORazepam 1 MG TAB PO SCH ×3 (08:05→19:25)
--- NOTE | 2018-01-03 14:45 | ASMTCMCOM ---
CM Note CM Note Notes: CC attempted to meet with pt, but pt declined to respond to CC. Staff report pt. sleeping 10 hours and being medication compliant. Staff report pt. receiving ECT on Friday and is on the schedule for ECT on Friday. Date Signed: 01/03/2018 02:44 PM Electronically Signed By:Tanesha Boudreaux
--- NOTE | 2018-01-03 17:40 | SOAPPROG ---
SOAP Progress Note Assessment/Plan: Assessment: Per Dr. Mancilla's note: Pt s/p ECT #1. Pt noted to be alternating between pacing the unit, and then sitting in day area. The whole while, he was repeating the same non-sensical 4 word phrase, "Yep, now I see". He does not attend to even simple, structured questions, but clearly is aware that quality analyst/technical writer is sitting (or walking) next to him as he glances my way briefly when a question is asked. Per RNs, he has asked--at times--for things with one word (ie, "soda", "ketchup"). He is eating and drinking ( arguably a change from last couple of days). Yesterday, he revealed waxy flexibility while on ECT catrina pre treatment. Awaiting CLoz level. SPoke with Dr Lewis about increasing this med. Notably, mother reported to RN that "he becomes agitated or aggressive on Clozapine" but mother, in a long standing way , often attributes what is truly SYMPTOM of disorder, to SIDE EFFECT of very treatment for that disorder....a commonly expressed bias which rendered her not the most reliable historian at times. One might consider other glutamate modulating medications, however, such as Depakote, to address the catatonia. Helio to call Assisted Living and determine if they will keep his space there and establish if they have a mechanism to ensure medication compliance (ie, monitored med intake, versus simply leaving meds in patient's possession to do as pt sees fit). Mostly, he requires an acute course of ECT, which has historically worked nicely to bring him out of these more severe catatonic exacerbations (back to a baseline that is marginally functional, but involves no behavior dyscontrol, or disorganized behavior and cooperativeness). At baseline, he is flat, quiet, poorly related. Only sporadically has this treatment team seen him in a different clinical state, marked by disorganized speech and eccentric TP, but at least brighter in affect, more engaged interpersonally, and more loquacious. Presently, no cough, VSS, afebrile, Pulsox 95% 12/30/17 09:21 12/30/17 09:37 01/01/18 11:01 Pt has VSS, afebrile, Pulsox 95%, eating and drinking, and accepting medications. Will draw Cloz level in ECT Friday AM. Still mute. Interviewed while he was sitting along at dinning table in TV area, staring out window initially but clearly aware and non-verbally engaged with quality analyst/technical writer when I sat across from him and asked him structured questions. he responsed non verbally and ambiguously with a shrug to most questions. He made some eye contact, which itself was an improvement as was the absence of pacing (or immobility for that matter) and of incessant repetition of same non sensical phrase. COnt acute ECT. Consider depakote vs further titration of CLoz. PLAN: 01/03/18 17:36 1. Patient sitting at table staring out window. Other times he is pacing halls or sitting at desks in hallway. No verbal responses to questions, only shrugs his shoulders. 2. Per Dr. Mancilla's note, patient has responded well to ECT in past, likely will have positive response given sufficient time. Will await more ECT before deciding about med adjustments. 3. Patient ate 50% of lunch today. He slept 10hrs last night. Subjective: Patient presents very similar to the way Dr. Mancilla describes in his note. When this MD approached patient, he was sitting at table near TV area staring out window. He barely glanced at MD and showed minimal recognition that MD was present. He did not respond verbally to any of MD's questions, but occasionally shrugged his shoulders. Objective: Vital Signs Temp Pulse Resp BP Pulse Ox 36.8 C 78 14 98/54 L 98 01/03/18 06:00 01/03/18 06:00 01/03/18 06:00 01/03/18 06:00 01/03/18 06:00 01/02/18 01/03/18 01/04/18 05:59 05:59 05:59 Intake Total 1000 Balance 1000 MSE: Affect: Constricted Mood: No response TP: Paucity of speech TC: Impoverishment, mute Insight/Judgment: Impaired - Time Spent With Patient Time Spent With Patient: 15" - Pending Discharge Pending Discharge Within 24 Hours: No Pending Discharge Within 48 Hours: No ICD10 Worksheet Patient Problems: Problems Problem Status Onset Schizophrenia Acute Schizoaffective disorder Acute
[2018-01-04] MEDS: cloZAPine 25 MG TAB PO SCH ×2 (07:35→19:47)
[2018-01-04] MEDS: LORazepam 1 MG TAB PO SCH ×3 (07:35→15:51)
--- NOTE | 2018-01-04 16:13 | SOAPPROG ---
SOAP Progress Note Assessment/Plan: Assessment: Per Dr. Mancilla's note: Pt s/p ECT #1. Pt noted to be alternating between pacing the unit, and then sitting in day area. The whole while, he was repeating the same non-sensical 4 word phrase, "Yep, now I see". He does not attend to even simple, structured questions, but clearly is aware that commercial underwriter is sitting (or walking) next to him as he glances my way briefly when a question is asked. Per RNs, he has asked--at times--for things with one word (ie, "soda", "ketchup"). He is eating and drinking ( arguably a change from last couple of days). Yesterday, he revealed waxy flexibility while on ECT catrina pre treatment. Awaiting CLoz level. SPoke with Dr Lewis about increasing this med. Notably, mother reported to RN that "he becomes agitated or aggressive on Clozapine" but mother, in a long standing way , often attributes what is truly SYMPTOM of disorder, to SIDE EFFECT of very treatment for that disorder....a commonly expressed bias which rendered her not the most reliable historian at times. One might consider other glutamate modulating medications, however, such as Depakote, to address the catatonia. Helio to call Assisted Living and determine if they will keep his space there and establish if they have a mechanism to ensure medication compliance (ie, monitored med intake, versus simply leaving meds in patient's possession to do as pt sees fit). Mostly, he requires an acute course of ECT, which has historically worked nicely to bring him out of these more severe catatonic exacerbations (back to a baseline that is marginally functional, but involves no behavior dyscontrol, or disorganized behavior and cooperativeness). At baseline, he is flat, quiet, poorly related. Only sporadically has this treatment team seen him in a different clinical state, marked by disorganized speech and eccentric TP, but at least brighter in affect, more engaged interpersonally, and more loquacious. Presently, no cough, VSS, afebrile, Pulsox 95% 12/30/17 09:21 12/30/17 09:37 01/01/18 11:01 Pt has VSS, afebrile, Pulsox 95%, eating and drinking, and accepting medications. Will draw Cloz level in ECT Friday AM. Still mute. Interviewed while he was sitting along at dinning table in TV area, staring out window initially but clearly aware and non-verbally engaged with commercial underwriter when I sat across from him and asked him structured questions. he responsed non verbally and ambiguously with a shrug to most questions. He made some eye contact, which itself was an improvement as was the absence of pacing (or immobility for that matter) and of incessant repetition of same non sensical phrase. COnt acute ECT. Consider depakote vs further titration of CLoz. PLAN: 01/03/18 17:36 1. Patient sitting at table staring out window. Other times he is pacing halls or sitting at desks in hallway. No verbal responses to questions, only shrugs his shoulders. 2. Per Dr. Mancilla's note, patient has responded well to ECT in past, likely will have positive response given sufficient time. Will await more ECT before deciding about med adjustments. 3. Patient ate 50% of lunch today. He slept 10hrs last night. PLAN: 01/04/18 16:09 1. Not much change from yesterday. Patient still paces in halls and sits staring out the window. MD attempts to communicate with patient while he is walking. He glances at MD once, but after that keeps walking without looking in MD's direction. 2. Patient did do his laundry by himself once staff showed him where it was. He was also able to respond appropriately to question from RN about his . 3. Patient ate 95-100% of meals today. 4. CCM Subjective: Patient still pacing the halls or sitting staring out window. He asked RN to do his laundry and staff report he was able to wash his clothes by himself. He is eating > 95% of meals today. Objective: Vital Signs Temp Pulse Resp BP Pulse Ox 36.5 C 110 H 14 160/81 H 95 01/04/18 06:00 01/04/18 06:00 01/04/18 06:00 01/04/18 06:00 01/04/18 06:00 01/03/18 01/04/18 01/05/18 05:59 05:59 05:59 Intake Total 1000 Balance 1000 MSE: Affect: Blunted Mood: No response TP: Paucity of speech, almost nonverbal TC: Impoverishment Insight/Judgment: Impaired - Time Spent With Patient Time Spent With Patient: 15" - Pending Discharge Pending Discharge Within 24 Hours: No Pending Discharge Within 48 Hours: No ICD10 Worksheet Patient Problems: Problems Problem Status Onset Schizophrenia Acute Schizoaffective disorder Acute
[2018-01-05] MEDS ORDERED: MIDAZOLAM 2 MG/2 ML VIAL ONE (06:50)
[2018-01-05] MEDS ORDERED: fentaNYL 100 MCG/2 ML INJ ONE (06:50)
[2018-01-05] MEDS ORDERED: GLYCOPYRROLATE 0.2 MG/1 ML VIAL ONE (06:51)
[2018-01-05] MEDS ORDERED: ONDANSETRON 4 MG/2 ML VIAL ONE (06:51)
[2018-01-05] MEDS ORDERED: LORazepam 2 MG/ML INJ ONE (06:51)
[2018-01-05] MEDS ORDERED: SUCCINYLCHOLINE CHLORIDE 200 MG/10 ML VIAL ONE (06:52)
[2018-01-05] MEDS ORDERED: ROCURONIUM 50 MG/5 ML VIAL ONE (06:52)
[2018-01-05] MEDS ORDERED: METHOHEXITAL SODIUM 100 MG/10 ML SYR IVP ONE (06:52)
[2018-01-05] MEDS: cloZAPine 25 MG TAB PO SCH ×2 (09:24→19:41)
[2018-01-05] MEDS: LORazepam 1 MG TAB PO SCH ×3 (09:25→19:41)
[2018-01-05] MEDS ORDERED: NS 1,000 ML IV PRN (09:43)
[2018-01-05] MEDS ORDERED: CITRIC ACID/SODIUM CITRATE 30 ML UDCUP PO PRN (09:43)
[2018-01-05] MEDS ORDERED: ONDANSETRON DISINTEGRATING 4 MG TAB PO PRN (09:43)
[2018-01-05] MEDS ORDERED: CITRIC ACID/SODIUM CITRATE 30 ML UDCUP ONE (09:56)
[2018-01-05] MEDS ORDERED: ONDANSETRON DISINTEGRATING 4 MG TAB ONE (09:56)
--- NOTE | 2018-01-05 10:05 | PDANEPAE ---
ECT Pre Anesthetic Evaluation Allergies/Adverse Reactions: olanzapine [From Zyprexa] Allergy (Severe, Verified 12/28/17 00:34) catatonea propylthiouracil Allergy (Severe, Verified 12/28/17 00:34) impulsivity methazolamide Allergy (Unknown, Verified 12/28/17 00:34) Unknown risperidone [From Risperdal] Allergy (Unknown, Verified 12/28/17 00:34) Unknown Patient ID confirmed: Yes H&P reviewed: Yes Pre-anesthetic history reviewed: Yes Heart: regular rate and rhythym Lungs: no respiratory distress Mallampati Score: Class 1 ASA Status: I Home Medications: Medication Instructions Recorded LORazepam [Ativan (*)] 1 mg PO TID #90 tab 06/02/15 cloZAPine [Clozaril (*)] 50 mg PO BID 12/28/17 Medication review: completed Patient interviewed: Yes Patient examined: Yes Anesthetic plan discussed with patient: Yes Anesthetic risks discussed with patient: Yes ECT Pre-Anesthetic History - Height & Weight Height: 182.88 cm Weight: 93.576 kg BMI: 28.00 - Anesthesia History Hx Anesthesia Complications (with details): Denies. Family Hx Anesthesia Complications: Denies. 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 - Pulmonary History ECT Hx Asthma: No Hx Abnormal Chest X-Ray: No Hx Oxygen in Use at Home: No - Cardiovascular History Hx Hypertension: No Currently Uses Hypertension Medication: No Hx Arrhythmias: No Hx Palpitations: No Hx Chest Pain: No Hx Coronary Artery / Peripheral Vascular Disease: No Hx Blood Clot: No - Neurologic History Hx Cerebrovascular Accident: No Hx CT Scan Or MRI Of The Brain: No Hx Epilepsy, Convulsions, Seizures, Or Blackouts: No Hx Frequent Or Severe Headaches: No Hx Numbness: No Hx Neurologic Disorder: No - Dental History Current Dental Issues: Dentures Dental History Comment: top and bottom - Endocrine History Hx Diabetes: No Current Daily Insulin Injections: No Hx Thyroid Problems: Yes Endocrine History Comment: hyperthyroidism resolved in 2008 - Renal/Urologic History Hx Renal Disorders: No Hx Urinary Tract Problems: No - Liver History Hx Hepatic Disorders: No - Cancer History Hx Cancer: No - Hematology History Hx Unexplained Bleeding Of Any Type: No Hx Ease Of Bruising: No Hx Anemia: No - Gastrointestinal History Hx Gastroesophogeal Reflux Disease: No Hx Ulcers: No Hx Hiatal Hernia: No Hx Difficulty Swallowing: No - Musculoskeletal Hisory Hx Chronic Pain: No Hx Arthritis: No - Opthalmic History Hx Glaucoma: No Visual Assistive Devices: Glasses Hx Opthalmic Disorders: No - Other Health History Physical Disabililty: No Recent Cough, Cold, or Fever: No Significant Weight Loss In The Last 4 Months: No Possible the Patient Might be : No
--- NOTE | 2018-01-05 10:29 | PDECTPN ---
ECT Progress Note Patient Problems: Problems Problem Status Onset Code Schizophrenia Acute F20.9 Schizoaffective disorder Acute F25.9 Date: 01/05/18 ECT provider: Forrest Mancilla Stimulus dose (%): 100 Pulse width: 0.5 ECT EMG (sec): 41 ECT EEG (sec): 41 ECT treatment type: bilateral QIDS-SR Total Score: 6 QIDS-SR Question #12 Score: 0 MMSE Total Score (Max = 21): 19 Next ECT date: 01/07/18 Next ECT time: 10:45 O/P psychiatrist follow up with Dr.: Dahiana Lewis O/P psychiatrist follow up: phone, voice message Home medications: Medication Instructions Recorded LORazepam [Ativan (*)] 1 mg PO TID #90 tab 06/02/15 cloZAPine [Clozaril (*)] 50 mg PO BID 12/28/17 Current treatment plan: acute phase Treatment plan frequency: 3 times per week ECT narrative: see admit note. Of note, pt revealed his tacit willingness to undergo the ECT today in a number of ways observed by RNs,. For instance, he got right into wheelchair and, when rolled into ECT suite, got out of chair and walked on his own volition to [facility]. Likewise, he put his index finger out when the RN had pulsox finger monitor in eye shot, revealing his understanding of what was needed and not reacting negativistically to it. On the contrary.... 12/31 Pt VSS stable. Afebrile Remains mute and yet able to follow simple commands, without negativism. No resistance at all to any facet of prepping him for treatment today, as on Friday. Received second opinion letter from Dr Lewis. CLoz level pnd for Friday. It appears, per the MAY, that patient is complying with meds. THis am, pre ECT, he reveals PMR, flat affect, nil eye contact, mutism, and slight waxy flexibility. Plan is to cont acute Bilateral ECT, titrate Cloz after level drawn and as tolerated. Cont Loraz. holding dose prior to ECT, but receiving IV lorazepam. 01/02 Pt cooperative with all aspect of ECT. Near Mute but answered personal information during time out with soft, monotone voice. No other spontaneous speech. PMR rather than agitation. Affect flat. Eye contact intermittant. Reviewed Psych testing re his Autism spectrum disorder. Full scale IQ 72. CLoz level drawn pre ECT today. Cont acute ECT into next week. 01/05 Pt appears improving as he was more quick to respond, albeit still non- verbally, to questions. For instance, he was able to give his opinion about his mother's wish to have him off the Clozaril. He agreed with at least an affirming shrug. I do not feel he would fully be able to appreciated the necessary requirements to provide a fully informed decision about that change, but he is at least making a wish clear. He is not resistant to any aspect of ECT. I likewise indicated to him that if we d/c Cloz, then his reliance on mECT will be that much greater. He appears to be ok with that, in that he provided an affirming shrug and nod of head when telegraphic typewriter repairer indicated this plan to him. Mother has POA, and, in a written note, has emphatically asked that Onel be taken off Clozapine. In my opinion, however, she is misattributing some clinical worsening to a treatment intervention rather than an exacerbation of the illness itself (a common error of judgement she is wont to make, by history) . I called her and explained this but stated I would follow her wish. Truth is, the ECT and Lorazepam are FAR more important interventions for catanonia and the antipsychotics can indeed make things worse. IF allying with her around this decision increases her likelihood of promoting adeherence to mECT, it is worthwhile to do so. I will research other less well known interventions such as memantine or valproate. Also, a virtue of stopping CLoz is weight control, which is needed.
--- NOTE | 2018-01-05 12:46 | POSTANESTH ---
Post Anesthetic Evaluation Cardiovascular Status: Normal, Stable Respiratory Status: Normal, Stable Level of Consciousness/Mental Status: Can Participate in Eval Pain Control: Adequate, Prn Tx Ordered Nausea/Vomiting Control: Adequate, Prn Tx Ordered Complications Possibly Related to Anesthesia: None Noted
[2018-01-06] MEDS: cloZAPine 25 MG TAB PO SCH ×2 (07:50→19:04)
[2018-01-06] MEDS: LORazepam 1 MG TAB PO SCH ×2 (07:50→16:09)
[2018-01-06 08:11] LABS: PLATELET COUNT 239 10^3/uL (150-400)
--- NOTE | 2018-01-06 11:28 | SOAPPROG ---
ROBBIE Progress Note Assessment/Plan: Assessment: Catatonia asscoicated with Schizoaffective Disorder; Autism Spectrum Disorder by history Plan: Pt s/p ECT #1. Pt noted to be alternating between pacing the unit, and then sitting in day area. The whole while, he was repeating the same non-sensical 4 word phrase, "Yep, now I see". He does not attend to even simple, structured questions, but clearly is aware that typewriters functional tester is sitting (or walking) next to him as he glances my way briefly when a question is asked. Per RNs, he has asked--at times--for things with one word (ie, "soda", "ketchup"). He is eating and drinking ( arguably a change from last couple of days). Yesterday, he revealed waxy flexibility while on ECT catrina pre treatment. Awaiting CLoz level. SPoke with Dr Lewis about increasing this med. Notably, mother reported to RN that "he becomes agitated or aggressive on Clozapine" but mother, in a long standing way , often attributes what is truly SYMPTOM of disorder, to SIDE EFFECT of very treatment for that disorder....a commonly expressed bias which rendered her not the most reliable historian at times. One might consider other glutamate modulating medications, however, such as Depakote, to address the catatonia. Helio to call Assisted Living and determine if they will keep his space there and establish if they have a mechanism to ensure medication compliance (ie, monitored med intake, versus simply leaving meds in patient's possession to do as pt sees fit). Mostly, he requires an acute course of ECT, which has historically worked nicely to bring him out of these more severe catatonic exacerbations (back to a baseline that is marginally functional, but involves no behavior dyscontrol, or disorganized behavior and cooperativeness). At baseline, he is flat, quiet, poorly related. Only sporadically has this treatment team seen him in a different clinical state, marked by disorganized speech and eccentric TP, but at least brighter in affect, more engaged interpersonally, and more loquacious. Presently, no cough, VSS, afebrile, Pulsox 95% 12/30/17 09:21 12/30/17 09:37 01/01/18 11:01 Pt has VSS, afebrile, Pulsox 95%, eating and drinking, and accepting medications. Will draw Cloz level in ECT Friday AM. Still mute. Interviewed while he was sitting along at dinning table in TV area, staring out window initially but clearly aware and non-verbally engaged with typewriters functional tester when I sat across from him and asked him structured questions. he responsed non verbally and ambiguously with a shrug to most questions. He made some eye contact, which itself was an improvement as was the absence of pacing (or immobility for that matter) and of incessant repetition of same non sensical phrase. COnt acute ECT. Consider depakote vs further titration of CLoz. 01/06/18 11:25 Pt case reviewed in Tx planning, and he presented there for Rounds with the team. He was more verbal than I have seen in years, albeit still impoverished and monotone. Able to even make jokes (ie, when queried why he was not showing up in groups, he stated with a wry grin "I'm not a social butterfly"). Pt even willing to allow staff to take his wallet for safe keeping, despite his seeming inflexibility prior to that in relinquishing it to anyone. He affirmed that he preferred to be taken off CLozapine and that he was willing to do mECT after the acute course again. Cont Acute B ECT, taper Cloz, Cont ativan Objective: Vital Signs Temp Pulse Resp BP Pulse Ox 36.3 C 110 H 16 123/76 H 92 01/06/18 06:00 01/06/18 06:00 01/06/18 06:00 01/06/18 06:00 01/06/18 06:00 Laboratory Results 01/06/18 06:45 01/05/18 01/06/18 01/07/18 05:59 05:59 05:59 Intake Total 1020 Balance 1020 ICD10 Worksheet Patient Problems: Problems Problem Status Onset Schizophrenia Acute Schizoaffective disorder Acute
[2018-01-07] MEDS: cloZAPine 25 MG TAB PO SCH ×2 (07:30→20:44)
[2018-01-07] MEDS ORDERED: CITRIC ACID/SODIUM CITRATE 30 ML UDCUP ONE (10:35)
[2018-01-07] MEDS ORDERED: ONDANSETRON DISINTEGRATING 4 MG TAB ONE (10:35)
[2018-01-07] MEDS ORDERED: NS 1,000 ML IV PRN (11:03)
[2018-01-07] MEDS ORDERED: CITRIC ACID/SODIUM CITRATE 30 ML UDCUP PO PRN (11:03)
[2018-01-07] MEDS ORDERED: ONDANSETRON DISINTEGRATING 4 MG TAB PO PRN (11:03)
[2018-01-07] MEDS ORDERED: LORazepam 2 MG/ML INJ ONE (11:09)
[2018-01-07] MEDS ORDERED: GLYCOPYRROLATE 0.2 MG/1 ML VIAL ONE (11:09)
[2018-01-07] MEDS ORDERED: MIDAZOLAM 2 MG/2 ML VIAL ONE (11:09)
[2018-01-07] MEDS ORDERED: ROCURONIUM 50 MG/5 ML VIAL ONE (11:09)
[2018-01-07] MEDS ORDERED: fentaNYL 100 MCG/2 ML INJ ONE (11:09)
[2018-01-07] MEDS ORDERED: ONDANSETRON 4 MG/2 ML VIAL ONE (11:09)
[2018-01-07] MEDS ORDERED: METHOHEXITAL SODIUM 100 MG/10 ML SYR IVP ONE (11:10)
[2018-01-07] MEDS ORDERED: SUCCINYLCHOLINE CHLORIDE 200 MG/10 ML VIAL ONE (11:10)
[2018-01-07] MEDS ORDERED: PROMETHAZINE HCL 25 MG TAB PO PRN (11:23)
[2018-01-07] MEDS ORDERED: NALOXONE HCL 0.4 MG/ML INJ IVP PRN (11:23)
[2018-01-07] MEDS ORDERED: HYDROCODONE/APAP 5/325 TAB PO PRN (11:23)
--- NOTE | 2018-01-07 11:28 | PDECTPN ---
ECT Progress Note Patient Problems: Problems Problem Status Onset Code Schizophrenia Acute F20.9 Schizoaffective disorder Acute F25.9 Date: 01/07/18 Treatment#: 5 ECT provider: Forrest Mancilla Anesthesia: Scotty Weissjeffery Stimulus dose (%): 100 Pulse width: 0.5 ECT EMG (sec): 36 ECT EEG (sec): 39 ECT treatment type: bilateral QIDS-SR Total Score: 6 QIDS-SR Question #12 Score: 0 MMSE Total Score (Max = 21): 21 Next ECT date: 01/09/18 Next ECT time: 10:00 O/P psychiatrist follow up with Dr.: Dahiana Lewis O/P psychiatrist follow up: phone, voice message Home medications: Medication Instructions Recorded LORazepam [Ativan (*)] 1 mg PO TID #90 tab 06/02/15 cloZAPine [Clozaril (*)] 50 mg PO BID 12/28/17 Medication review: completed Current treatment plan: acute phase Treatment plan frequency: 3 times per week ECT narrative: see admit note. Of note, pt revealed his tacit willingness to undergo the ECT today in a number of ways observed by RNs,. For instance, he got right into wheelchair and, when rolled into ECT suite, got out of chair and walked on his own volition to [facility]. Likewise, he put his index finger out when the RN had pulsox finger monitor in eye shot, revealing his understanding of what was needed and not reacting negativistically to it. On the contrary.... 12/31 Pt VSS stable. Afebrile Remains mute and yet able to follow simple commands, without negativism. No resistance at all to any facet of prepping him for treatment today, as on Friday. Received second opinion letter from Dr Lewis. CLoz level pnd for Friday. It appears, per the MAY, that patient is complying with meds. THis am, pre ECT, he reveals PMR, flat affect, nil eye contact, mutism, and slight waxy flexibility. Plan is to cont acute Bilateral ECT, titrate Cloz after level drawn and as tolerated. Cont Loraz. holding dose prior to ECT, but receiving IV lorazepam. 01/02 Pt cooperative with all aspect of ECT. Near Mute but answered personal information during time out with soft, monotone voice. No other spontaneous speech. PMR rather than agitation. Affect flat. Eye contact intermittant. Reviewed Psych testing re his Autism spectrum disorder. Full scale IQ 72. CLoz level drawn pre ECT today. Cont acute ECT into next week. 01/05 Pt appears improving as he was more quick to respond, albeit still non- verbally, to questions. For instance, he was able to give his opinion about his mother's wish to have him off the Clozaril. He agreed with at least an affirming shrug. I do not feel he would fully be able to appreciated the necessary requirements to provide a fully informed decision about that change, but he is at least making a wish clear. He is not resistant to any aspect of ECT. I likewise indicated to him that if we d/c Cloz, then his reliance on mECT will be that much greater. He appears to be ok with that, in that he provided an affirming shrug and nod of head when rewriter indicated this plan to him. Mother has POA, and, in a written note, has emphatically asked that Onel be taken off Clozapine. In my opinion, however, she is misattributing some clinical worsening to a treatment intervention rather than an exacerbation of the illness itself (a common error of judgement she is wont to make, by history) . I called her and explained this but stated I would follow her wish. Truth is, the ECT and Lorazepam are FAR more important interventions for catanonia and the antipsychotics can indeed make things worse. IF allying with her around this decision increases her likelihood of promoting adeherence to mECT, it is worthwhile to do so. I will research other less well known interventions such as memantine or valproate. Also, a virtue of stopping CLoz is weight control, which is needed. 01/07 Pt continues to show some improvement. Better eye contact, more verbal ( albeit still taciturn), PMR (but not immobile, and certainly no agitation or pacing). Tapering off Clozapine without problem. More aware of and engaged with surroundings, responding appropriately to RN and MD questions or directions, in preparation for ECT
--- NOTE | 2018-01-07 13:25 | ASMTCMCOM ---
CM Note CM Note Notes: The patient appears to be improving. He is speaking in full sentences with less delay. He is observed participating in groups and engaging in the milieu. He achieved 8.5 hours of sleep overnight and is completing 80% of his meals. The patient participated in ECT treatment this morning. Date Signed: 01/07/2018 12:44 PM Electronically Signed By:Elise Palomino
[2018-01-07] MEDS: LORazepam 1 MG TAB PO SCH ×2 (16:02→20:44)
--- NOTE | 2018-01-08 06:48 | ASMTCMCOM ---
CM Note CM Note Notes: CC observed client briefly during check-in today while in the hallway of the unit. Client presents as alert, semi-focused, affect is appropriate to situation with slight delay in response to questions asked by short story writer. Client is doing better than previous days; however, slowly. Client describes his mood this morning as "alright," while denying any feelings of anxiety, depression, S/I-H/I or AVH. Patient did note, that "[my] sleep has been rough... I think I got 5 or 6 hours of sleep last night. Please, note that client was observed pacing hallway of the unit at 6:30am this morning. CC will check in with provider regarding any questions about ECT, etc. Date Signed: 01/08/2018 06:47 AM Electronically Signed By:Helio Harrison
[2018-01-08] MEDS: LORazepam 1 MG TAB PO SCH (11:08)
[2018-01-08] MEDS: cloZAPine 25 MG TAB PO SCH ×2 (11:08→19:15)
--- NOTE | 2018-01-08 15:48 | SOAPPROG ---
ROBBIE Progress Note Assessment/Plan: Assessment: Catatonia asscoicated with Schizoaffective Disorder; Autism Spectrum Disorder by history Plan: Pt s/p ECT #1. Pt noted to be alternating between pacing the unit, and then sitting in day area. The whole while, he was repeating the same non-sensical 4 word phrase, "Yep, now I see". He does not attend to even simple, structured questions, but clearly is aware that advertising copy writer is sitting (or walking) next to him as he glances my way briefly when a question is asked. Per RNs, he has asked--at times--for things with one word (ie, "soda", "ketchup"). He is eating and drinking ( arguably a change from last couple of days). Yesterday, he revealed waxy flexibility while on ECT catrina pre treatment. Awaiting CLoz level. SPoke with Dr Lewis about increasing this med. Notably, mother reported to RN that "he becomes agitated or aggressive on Clozapine" but mother, in a long standing way , often attributes what is truly SYMPTOM of disorder, to SIDE EFFECT of very treatment for that disorder....a commonly expressed bias which rendered her not the most reliable historian at times. One might consider other glutamate modulating medications, however, such as Depakote, to address the catatonia. Helio to call Assisted Living and determine if they will keep his space there and establish if they have a mechanism to ensure medication compliance (ie, monitored med intake, versus simply leaving meds in patient's possession to do as pt sees fit). Mostly, he requires an acute course of ECT, which has historically worked nicely to bring him out of these more severe catatonic exacerbations (back to a baseline that is marginally functional, but involves no behavior dyscontrol, or disorganized behavior and cooperativeness). At baseline, he is flat, quiet, poorly related. Only sporadically has this treatment team seen him in a different clinical state, marked by disorganized speech and eccentric TP, but at least brighter in affect, more engaged interpersonally, and more loquacious. Presently, no cough, VSS, afebrile, Pulsox 95% 12/30/17 09:21 12/30/17 09:37 01/01/18 11:01 Pt has VSS, afebrile, Pulsox 95%, eating and drinking, and accepting medications. Will draw Cloz level in ECT Friday AM. Still mute. Interviewed while he was sitting along at dinning table in TV area, staring out window initially but clearly aware and non-verbally engaged with advertising copy writer when I sat across from him and asked him structured questions. he responsed non verbally and ambiguously with a shrug to most questions. He made some eye contact, which itself was an improvement as was the absence of pacing (or immobility for that matter) and of incessant repetition of same non sensical phrase. COnt acute ECT. Consider depakote vs further titration of CLoz. 01/06/18 11:25 Pt case reviewed in Tx planning, and he presented there for Rounds with the team. He was more verbal than I have seen in years, albeit still impoverished and monotone. Able to even make jokes (ie, when queried why he was not showing up in groups, he stated with a wry grin "I'm not a social butterfly"). Pt even willing to allow staff to take his wallet for safe keeping, despite his seeming inflexibility prior to that in relinquishing it to anyone. He affirmed that he preferred to be taken off CLozapine and that he was willing to do mECT after the acute course again. Cont Acute B ECT, taper Cloz, Cont ativan 01/08/18 15:45 Onel is arguably the best I have seen him in years. He is able to make some "small talk" ("did you see that blackwood last night? really big, halloween blackwood") Made fair eye contact. was pleasant and engaged. A dramatic shift from his admission state of catatonia. he recognizes a shift, too. I indicated to him that we would likely wish to do 2-3 more acute ECTs, and then will dispo back to AL facility, with plans to resume mECT. He was agreeable to that. No ill effect in taper off Cloz. Objective: Vital Signs Temp Pulse Resp BP Pulse Ox 36.7 C 107 H 20 123/78 H 93 01/08/18 06:00 01/08/18 06:00 01/08/18 06:00 01/08/18 06:00 01/08/18 06:00 Laboratory Results 01/06/18 06:45 01/07/18 01/08/18 01/09/18 05:59 05:59 05:59 Intake Total 900 Balance 900 ICD10 Worksheet Patient Problems: Problems Problem Status Onset Schizophrenia Acute Schizoaffective disorder Acute
[2018-01-09] MEDS ORDERED: ONDANSETRON DISINTEGRATING 4 MG TAB PO PRN ×2 (04:00→10:33)
[2018-01-09] MEDS ORDERED: NS 1,000 ML IV PRN ×2 (04:00→10:33)
[2018-01-09] MEDS ORDERED: CITRIC ACID/SODIUM CITRATE 30 ML UDCUP PO PRN ×2 (04:00→10:33)
[2018-01-09] MEDS ORDERED: ONDANSETRON 4 MG/2 ML VIAL ONE (07:52)
[2018-01-09] MEDS ORDERED: LORazepam 2 MG/ML INJ ONE (07:52)
[2018-01-09] MEDS ORDERED: GLYCOPYRROLATE 0.2 MG/1 ML VIAL ONE (07:52)
[2018-01-09] MEDS ORDERED: MIDAZOLAM 2 MG/2 ML VIAL ONE (07:52)
[2018-01-09] MEDS ORDERED: fentaNYL 100 MCG/2 ML INJ ONE (07:52)
[2018-01-09] MEDS ORDERED: ROCURONIUM 50 MG/5 ML VIAL ONE (07:53)
[2018-01-09] MEDS ORDERED: METHOHEXITAL SODIUM 100 MG/10 ML SYR IVP ONE (07:53)
[2018-01-09] MEDS ORDERED: SUCCINYLCHOLINE CHLORIDE 200 MG/10 ML VIAL ONE (07:53)
[2018-01-09] MEDS ORDERED: CITRIC ACID/SODIUM CITRATE 30 ML UDCUP ONE (09:57)
[2018-01-09] MEDS ORDERED: ONDANSETRON DISINTEGRATING 4 MG TAB ONE (09:57)
[2018-01-09] MEDS ORDERED: PROMETHAZINE HCL 25 MG TAB PO PRN (10:33)
[2018-01-09] MEDS ORDERED: NALOXONE HCL 0.4 MG/ML INJ IVP PRN (10:33)
[2018-01-09] MEDS ORDERED: HYDROCODONE/APAP 5/325 TAB PO PRN (10:33)
--- NOTE | 2018-01-09 10:40 | PDECTPN ---
ECT Progress Note Patient Problems: Problems Problem Status Onset Code Schizophrenia Acute F20.9 Schizoaffective disorder Acute F25.9 Date: 01/09/18 ECT provider: Forrest Mancilla Anesthesia: Scotty Weissjeffery Stimulus dose (%): 100 Pulse width: 0.5 ECT EMG (sec): 23 ECT EEG (sec): 25 ECT treatment type: bilateral QIDS-SR Total Score: 3 QIDS-SR Question #12 Score: 0 MMSE Total Score (Max = 21): 20 Next ECT date: 01/12/18 Next ECT time: 11:00 O/P psychiatrist follow up with Dr.: Dahiana Lewis O/P psychiatrist follow up: phone, voice message Home medications: Medication Instructions Recorded LORazepam [Ativan (*)] 1 mg PO TID #90 tab 06/02/15 cloZAPine [Clozaril (*)] 50 mg PO BID 12/28/17 Medication review: completed Current treatment plan: acute phase Treatment plan frequency: 3 times per week ECT narrative: see admit note. Of note, pt revealed his tacit willingness to undergo the ECT today in a number of ways observed by RNs,. For instance, he got right into wheelchair and, when rolled into ECT suite, got out of chair and walked on his own volition to [facility]. Likewise, he put his index finger out when the RN had pulsox finger monitor in eye shot, revealing his understanding of what was needed and not reacting negativistically to it. On the contrary.... 12/31 Pt VSS stable. Afebrile Remains mute and yet able to follow simple commands, without negativism. No resistance at all to any facet of prepping him for treatment today, as on Friday. Received second opinion letter from Dr Lewis. CLoz level pnd for Friday. It appears, per the MAY, that patient is complying with meds. THis am, pre ECT, he reveals PMR, flat affect, nil eye contact, mutism, and slight waxy flexibility. Plan is to cont acute Bilateral ECT, titrate Cloz after level drawn and as tolerated. Cont Loraz. holding dose prior to ECT, but receiving IV lorazepam. 01/02 Pt cooperative with all aspect of ECT. Near Mute but answered personal information during time out with soft, monotone voice. No other spontaneous speech. PMR rather than agitation. Affect flat. Eye contact intermittant. Reviewed Psych testing re his Autism spectrum disorder. Full scale IQ 72. CLoz level drawn pre ECT today. Cont acute ECT into next week. 01/05 Pt appears improving as he was more quick to respond, albeit still non- verbally, to questions. For instance, he was able to give his opinion about his mother's wish to have him off the Clozaril. He agreed with at least an affirming shrug. I do not feel he would fully be able to appreciated the necessary requirements to provide a fully informed decision about that change, but he is at least making a wish clear. He is not resistant to any aspect of ECT. I likewise indicated to him that if we d/c Cloz, then his reliance on mECT will be that much greater. He appears to be ok with that, in that he provided an affirming shrug and nod of head when scenario writer indicated this plan to him. Mother has POA, and, in a written note, has emphatically asked that Onel be taken off Clozapine. In my opinion, however, she is misattributing some clinical worsening to a treatment intervention rather than an exacerbation of the illness itself (a common error of judgement she is wont to make, by history) . I called her and explained this but stated I would follow her wish. Truth is, the ECT and Lorazepam are FAR more important interventions for catanonia and the antipsychotics can indeed make things worse. IF allying with her around this decision increases her likelihood of promoting adeherence to mECT, it is worthwhile to do so. I will research other less well known interventions such as memantine or valproate. Also, a virtue of stopping CLoz is weight control, which is needed. 01/07 Pt continues to show some improvement. Better eye contact, more verbal ( albeit still taciturn), PMR (but not immobile, and certainly no agitation or pacing). Tapering off Clozapine without problem. More aware of and engaged with surroundings, responding appropriately to RN and MD questions or directions, in preparation for ECT 01/09 Pt a bit more quiet than yesterday, likely due to holding ativan pre ECT. Still quite a bit improved compared to pre ECT. Will cont acute ECT. Pt to be fully tapered off Clozaril--his wish--by Friday.
--- NOTE | 2018-01-09 11:12 | POSTANESTH ---
Post Anesthetic Evaluation Cardiovascular Status: Normal, Stable Respiratory Status: Normal, Stable Level of Consciousness/Mental Status: Mildly Sleepy, Arousable Pain Control: Adequate, Prn Tx Ordered Nausea/Vomiting Control: Adequate, Prn Tx Ordered Complications Possibly Related to Anesthesia: None Noted
[2018-01-09] MEDS: cloZAPine 25 MG TAB PO SCH ×2 (13:35→20:25)
[2018-01-09] MEDS: LORazepam 1 MG TAB PO SCH ×2 (16:07→20:25)
[2018-01-10] MEDS: LORazepam 1 MG TAB PO SCH ×3 (07:35→20:08)
--- NOTE | 2018-01-10 15:11 | ASMTCMCOM ---
CM Note CM Note Notes: Pt. reports feeling "alright". Pt. stated he slept "alright". Pt. reports eating well and attending "some" groups. Pt. reports no issues with his current medications. Pt. stated he had ECT on Friday, adding it went "just fine". Pt. stated he has ECT on Friday. When asked how he is keeping busy, pt stated "I just (pretended to zip mouth closed). That's all I do". Pt. denied SI, HI, AVH and paranoia. Pt. presents as alert, calm, soft spoken, engaging more with CC, smiling more, good eye contact and appearing groomed. Staff report pt. sleeping 9.5 hours and being medication complaint. Date Signed: 01/10/2018 03:10 PM Electronically Signed By:Tanesha Boudreaux
--- NOTE | 2018-01-10 18:53 | SOAPPROG ---
SOAP Progress Note Assessment/Plan: Assessment: Per Dr. Mancilla's note: Pt case reviewed in Tx planning, and he presented there for Rounds with the team. He was more verbal than I have seen in years, albeit still impoverished and monotone. Able to even make jokes (ie, when queried why he was not showing up in groups, he stated with a wry grin "I'm not a social butterfly"). Pt even willing to allow staff to take his wallet for safe keeping, despite his seeming inflexibility prior to that in relinquishing it to anyone. He affirmed that he preferred to be taken off CLozapine and that he was willing to do mECT after the acute course again. Cont Acute B ECT, taper Cloz, Cont ativan 01/08/18 15:45 Onel is arguably the best I have seen him in years. He is able to make some "small talk" ("did you see that blackwood last night? really big, halloween blackwood") Made fair eye contact. was pleasant and engaged. A dramatic shift from his admission state of catatonia. he recognizes a shift, too. I indicated to him that we would likely wish to do 2-3 more acute ECTs, and then will dispo back to [facility] facility, with plans to resume mECT. He was agreeable to that. No ill effect in taper off Cloz. PLAN: 01/10/18 18:49 1. Patient presented with more affect and increase speech, significantly improved since admission. 2. Much more engaged with surroundings, not staring out window, and responding to peers/staff. 3. CCM Subjective: Patient presents much different than last weekend. He is more engaged, responsive and alert. Last weekend, patient did not acknowledge MD or make eye contact. Today, he stopped pacing when MD inquired how he was doing. He met MD' s gaze and even volunteered answers to questions before MD could complete sentences. His responses are still brief, often 1-2 word answers. He seems to have much more awareness of what's going on around him. He doesn't just sit and stare out window. Objective: Vital Signs Temp Pulse Resp BP Pulse Ox 36.5 C 80 14 109/67 94 01/10/18 06:00 01/10/18 06:00 01/10/18 06:00 01/10/18 06:00 01/10/18 06:00 Laboratory Results 01/06/18 06:45 01/09/18 01/10/18 01/11/18 05:59 05:59 05:59 Intake Total 750 Balance 750 MSE: Affect: More range, but still pretty flat Mood: "OK" TP: More fluent and spontaneous TC: No SI/HI Insight/Judgment: Improving - Time Spent With Patient Time Spent With Patient: 15" - Pending Discharge Pending Discharge Within 24 Hours: No Pending Discharge Within 48 Hours: No ICD10 Worksheet Patient Problems: Problems Problem Status Onset Schizophrenia Acute Schizoaffective disorder Acute
[2018-01-10] MEDS: cloZAPine 25 MG TAB PO SCH (20:08)
[2018-01-11] MEDS: LORazepam 1 MG TAB PO SCH (07:38)
--- NOTE | 2018-01-11 14:25 | ASMTCMCOM ---
CM Note CM Note Notes: Pt. reports feeling "fine, beside being woken up early". Pt. stated he "slept though" the night. Pt. reports eating well and attending groups. Pt. report no issues with his medications "not that I am aware of". CC mentioned pt getting ECT tomorrow, pt stated "hoping it's the last". Pt. stated [place] [facility] and is wanting to return after discharge. Pt. stated he is fine with his mother's involvement with his care. Pt. denied SI, HI, AVH and paranoia. Pt. stated he is annoyed with a peer pt who is loud. Pt. presents as alert, good eye contact, engaging, cooperative, and with a friendly demeanor. Staff report pt. sleeping 8.5 hours and being medication compliant. Pt. was observed joking and being friendly with staff. Pt. is scheduled for ECT on Friday at 11:00am Date Signed: 01/11/2018 02:24 PM Electronically Signed By:Tanesha Boudreaux
--- NOTE | 2018-01-11 17:34 | SOAPPROG ---
SOAP Progress Note Assessment/Plan: Assessment: Per Dr. Mancilla's note: Pt case reviewed in Tx planning, and he presented there for Rounds with the team. He was more verbal than I have seen in years, albeit still impoverished and monotone. Able to even make jokes (ie, when queried why he was not showing up in groups, he stated with a wry grin "I'm not a social butterfly"). Pt even willing to allow staff to take his wallet for safe keeping, despite his seeming inflexibility prior to that in relinquishing it to anyone. He affirmed that he preferred to be taken off CLozapine and that he was willing to do mECT after the acute course again. Cont Acute B ECT, taper Cloz, Cont ativan 01/08/18 15:45 Onel is arguably the best I have seen him in years. He is able to make some "small talk" ("did you see that blackwood last night? really big, halloween blackwood") Made fair eye contact. was pleasant and engaged. A dramatic shift from his admission state of catatonia. he recognizes a shift, too. I indicated to him that we would likely wish to do 2-3 more acute ECTs, and then will dispo back to [facility] facility, with plans to resume mECT. He was agreeable to that. No ill effect in taper off Cloz. PLAN: 01/10/18 18:49 1. Patient presented with more affect and increase speech, significantly improved since admission. 2. Much more engaged with surroundings, not staring out window, and responding to peers/staff. 3. CCM PLAN: 01/11/18 17:31 1. Patient continues to show signs of significant improvement, much more expressive and interactive (relative to his presentation on admission). 2. Patient acknowledges he is doing "better." 3. CCM Subjective: Patient is sitting in chair watching football on TV. MD asks if patient likes football. He says "yes" and then holds up his thumb and smiles. This is the most expressive display MD has witnessed from patient since admission. Patient is now making appropriate eye contact, responding to questions, making requests of staff. Objective: Vital Signs Temp Pulse Resp BP Pulse Ox 36.6 C 106 H 16 114/73 93 01/11/18 06:00 01/11/18 06:00 01/11/18 06:00 01/11/18 06:00 01/11/18 06:00 Laboratory Results 01/06/18 06:45 01/10/18 01/11/18 01/12/18 05:59 05:59 05:59 Intake Total 750 Balance 750 MSE: Affect: More range of expression relative to admission Mood: "OK" TP: More fluency of speech TC: Denies SI/HI Insight/Judgment: Improving - Time Spent With Patient Time Spent With Patient: 15" - Pending Discharge Pending Discharge Within 24 Hours: No Pending Discharge Within 48 Hours: No ICD10 Worksheet Patient Problems: Problems Problem Status Onset Schizophrenia Acute Schizoaffective disorder Acute
[2018-01-11] MEDS: cloZAPine 25 MG TAB PO SCH (19:39)
[2018-01-12] MEDS ORDERED: ONDANSETRON DISINTEGRATING 4 MG TAB ONE (08:52)
[2018-01-12] MEDS ORDERED: CITRIC ACID/SODIUM CITRATE 30 ML UDCUP ONE (08:53)
[2018-01-12] MEDS ORDERED: METHOHEXITAL SODIUM 100 MG/10 ML SYR IVP ONE (09:15)
[2018-01-12] MEDS ORDERED: fentaNYL 100 MCG/2 ML INJ ONE (09:15)
[2018-01-12] MEDS ORDERED: MIDAZOLAM 2 MG/2 ML VIAL ONE (09:15)
[2018-01-12] MEDS ORDERED: LORazepam 2 MG/ML INJ ONE (09:16)
--- NOTE | 2018-01-12 09:17 | PDANEPAE ---
ECT Pre Anesthetic Evaluation Allergies/Adverse Reactions: olanzapine [From Zyprexa] Allergy (Severe, Verified 12/28/17 00:34) catatonea propylthiouracil Allergy (Severe, Verified 12/28/17 00:34) impulsivity methazolamide Allergy (Unknown, Verified 12/28/17 00:34) Unknown risperidone [From Risperdal] Allergy (Unknown, Verified 12/28/17 00:34) Unknown Patient ID confirmed: Yes H&P reviewed: Yes Pre-anesthetic history reviewed: Yes Heart: regular rate and rhythym, no murmur, rub, or gallop Lungs: no respiratory distress, no rales or rhonchi Mallampati Score: Class 1 ASA Status: II, III Home Medications: Medication Instructions Recorded LORazepam [Ativan (*)] 1 mg PO TID #90 tab 06/02/15 cloZAPine [Clozaril (*)] 50 mg PO BID 12/28/17 Medication review: completed Patient interviewed: Yes Patient examined: Yes Anesthetic plan discussed with patient: Yes Anesthetic risks discussed with patient: Yes ECT Pre-Anesthetic History - Height & Weight Height: 182.88 cm Weight: 95.51 kg BMI: 28.58 - Anesthesia History Hx Anesthesia Complications (with details): Denies. Family Hx Anesthesia Complications: Denies. 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 - Pulmonary History ECT Hx Asthma: No Hx Abnormal Chest X-Ray: No Hx Oxygen in Use at Home: No - Cardiovascular History Hx Hypertension: No Currently Uses Hypertension Medication: No Hx Arrhythmias: No Hx Palpitations: No Hx Chest Pain: No Hx Coronary Artery / Peripheral Vascular Disease: No Hx Blood Clot: No - Neurologic History Hx Cerebrovascular Accident: No Hx CT Scan Or MRI Of The Brain: No Hx Epilepsy, Convulsions, Seizures, Or Blackouts: No Hx Frequent Or Severe Headaches: No Hx Numbness: No Hx Neurologic Disorder: No - Dental History Current Dental Issues: Dentures Dental History Comment: top and bottom - Endocrine History Hx Diabetes: No Current Daily Insulin Injections: No Hx Thyroid Problems: Yes Endocrine History Comment: hyperthyroidism resolved in 2009 - Renal/Urologic History Hx Renal Disorders: No Hx Urinary Tract Problems: No - Liver History Hx Hepatic Disorders: No - Cancer History Hx Cancer: No - Hematology History Hx Unexplained Bleeding Of Any Type: No Hx Ease Of Bruising: No Hx Anemia: No - Gastrointestinal History Hx Gastroesophogeal Reflux Disease: No Hx Ulcers: No Hx Hiatal Hernia: No Hx Difficulty Swallowing: No - Musculoskeletal Hisory Hx Chronic Pain: No Hx Arthritis: No - Opthalmic History Hx Glaucoma: No Visual Assistive Devices: Glasses Hx Opthalmic Disorders: No - Other Health History Physical Disabililty: No Recent Cough, Cold, or Fever: No Significant Weight Loss In The Last 4 Months: No Possible the Patient Might be : No
--- NOTE | 2018-01-12 09:40 | PDECTPN ---
ECT Progress Note Patient Problems: Problems Problem Status Onset Code Schizophrenia Acute F20.9 Schizoaffective disorder Acute F25.9 Date: 01/12/18 Treatment#: 7 ECT provider: Forrest Mancilla Anesthesia: Sally Stoabigail Stimulus dose (%): 100 Pulse width: 0.5 ECT EMG (sec): 31 ECT EEG (sec): 57 ECT treatment type: bilateral QIDS-SR Total Score: 0 QIDS-SR Question #12 Score: 0 MMSE Total Score (Max = 21): 20 Next ECT date: 01/16/18 Next ECT time: 10:45 O/P psychiatrist follow up with Dr.: Dahiana Lewis O/P psychiatrist follow up: phone, voice message Home medications: Medication Instructions Recorded LORazepam [Ativan (*)] 1 mg PO TID #90 tab 06/02/15 cloZAPine [Clozaril (*)] 50 mg PO BID 12/28/17 Current treatment plan: acute phase Treatment plan frequency: 3 times per week ECT narrative: see admit note. Of note, pt revealed his tacit willingness to undergo the ECT today in a number of ways observed by RNs,. For instance, he got right into wheelchair and, when rolled into ECT suite, got out of chair and walked on his own volition to [facility]. Likewise, he put his index finger out when the RN had pulsox finger monitor in eye shot, revealing his understanding of what was needed and not reacting negativistically to it. On the contrary.... 12/31 Pt VSS stable. Afebrile Remains mute and yet able to follow simple commands, without negativism. No resistance at all to any facet of prepping him for treatment today, as on Friday. Received second opinion letter from Dr Lewis. CLoz level pnd for Friday. It appears, per the MAR, that patient is complying with meds. THis am, pre ECT, he reveals PMR, flat affect, nil eye contact, mutism, and slight waxy flexibility. Plan is to cont acute Bilateral ECT, titrate Cloz after level drawn and as tolerated. Cont Loraz. holding dose prior to ECT, but receiving IV lorazepam. 01/02 Pt cooperative with all aspect of ECT. Near Mute but answered personal information during time out with soft, monotone voice. No other spontaneous speech. PMR rather than agitation. Affect flat. Eye contact intermittant. Reviewed Psych testing re his Autism spectrum disorder. Full scale IQ 72. CLoz level drawn pre ECT today. Cont acute ECT into next week. 01/05 Pt appears improving as he was more quick to respond, albeit still non- verbally, to questions. For instance, he was able to give his opinion about his mother's wish to have him off the Clozaril. He agreed with at least an affirming shrug. I do not feel he would fully be able to appreciated the necessary requirements to provide a fully informed decision about that change, but he is at least making a wish clear. He is not resistant to any aspect of ECT. I likewise indicated to him that if we d/c Cloz, then his reliance on mECT will be that much greater. He appears to be ok with that, in that he provided an affirming shrug and nod of head when sign writer hand indicated this plan to him. Mother has POA, and, in a written note, has emphatically asked that Onel be taken off Clozapine. In my opinion, however, she is misattributing some clinical worsening to a treatment intervention rather than an exacerbation of the illness itself (a common error of judgement she is wont to make, by history) . I called her and explained this but stated I would follow her wish. Truth is, the ECT and Lorazepam are FAR more important interventions for catanonia and the antipsychotics can indeed make things worse. IF allying with her around this decision increases her likelihood of promoting adeherence to mECT, it is worthwhile to do so. I will research other less well known interventions such as memantine or valproate. Also, a virtue of stopping CLoz is weight control, which is needed. 01/07 Pt continues to show some improvement. Better eye contact, more verbal ( albeit still taciturn), PMR (but not immobile, and certainly no agitation or pacing). Tapering off Clozapine without problem. More aware of and engaged with surroundings, responding appropriately to RN and MD questions or directions, in preparation for ECT 01/09 Pt a bit more quiet than yesterday, likely due to holding ativan pre ECT. Still quite a bit improved compared to pre ECT. Will cont acute ECT. Pt to be fully tapered off Clozaril--his wish--by Friday. 01/12 Pt markedly improved. Talking fluently and yet still impoverished overall. WIll likely discharge tomorrow and follow up with ECT on Friday with plan then to go to weekly. Pt off Cloz. Joshua CBC today. WIll need to cont to monitor ANCs for a period of time post discontiuation per package insert. (this states that one must check ANC "Weekly for at least 4 weeks from day of discontinuation or until WBC 3500/mm3 and ANC >2000/mm")
[2018-01-12] MEDS ORDERED: CITRIC ACID/SODIUM CITRATE 30 ML UDCUP PO PRN (09:48)
[2018-01-12] MEDS ORDERED: HYDROCODONE/APAP 5/325 TAB PO PRN (09:48)
[2018-01-12] MEDS ORDERED: ONDANSETRON DISINTEGRATING 4 MG TAB PO PRN (09:48)
[2018-01-12] MEDS ORDERED: NS 1,000 ML IV PRN (09:48)
[2018-01-12] MEDS ORDERED: NALOXONE HCL 0.4 MG/ML INJ IVP PRN (09:48)
[2018-01-12 13:20] LABS: PLATELET COUNT 188 10^3/uL (150-400)
[2018-01-12] MEDS: LORazepam 1 MG TAB PO SCH ×2 (16:02→20:29)
[2018-01-13] MEDS: LORazepam 1 MG TAB PO SCH ×3 (08:21→18:01)
--- NOTE | 2018-01-13 12:34 | SOAPPROG ---
SOAP Progress Note Assessment/Plan: Assessment: Plan: 01/13/18 12:33 Mood: Much improved over catatonic presentation at admission. CCM with plan per Dr. Mancilla. Subjective: Pt seen in coverage for Dr. Mancilla. Case discussed with staff and Dr. Mancilla, chart reviewed. He is up and about the unit today, walking in the halls and talking with staff and other patients. He is cheerful and interactive with me. Notes subjective improvement with ECT. Voices desire to continue maintenance ECT after d/c. Compliant with all therapies and medications. Aware of his scheduled meds. Objective: Vital Signs Temp Pulse Resp BP Pulse Ox 36.3 C 76 14 125/69 H 96 01/13/18 06:00 01/13/18 06:00 01/13/18 06:00 01/13/18 06:00 01/13/18 06:00 Laboratory Results 01/12/18 09:26 01/12/18 01/13/18 01/14/18 05:59 05:59 05:59 Intake Total 350 Balance 350 MSE: Calm, coop, appropriately interactive. Affect is blunted, stable. Mood is "good." TP is slightly delayed, slow, but linear. TC reveals no overt psychosis. Denies any SI/HI/. - Time Spent With Patient Time Spent With Patient: 15" ICD10 Worksheet Patient Problems: Problems Problem Status Onset Schizophrenia Acute Schizoaffective disorder Acute
[2018-01-14] MEDS ORDERED: CITRIC ACID/SODIUM CITRATE 30 ML UDCUP PO PRN (04:00)
[2018-01-14] MEDS ORDERED: ONDANSETRON DISINTEGRATING 4 MG TAB PO PRN (04:00)
[2018-01-14] MEDS ORDERED: NS 1,000 ML IV PRN (04:00)
[2018-01-14] MEDS ORDERED: ONDANSETRON DISINTEGRATING 4 MG TAB ONE (10:36)
[2018-01-14] MEDS ORDERED: CITRIC ACID/SODIUM CITRATE 30 ML UDCUP ONE (10:36)
[2018-01-14] MEDS ORDERED: MIDAZOLAM 2 MG/2 ML VIAL ONE (11:17)
[2018-01-14] MEDS ORDERED: fentaNYL 100 MCG/2 ML INJ ONE (11:17)
[2018-01-14] MEDS ORDERED: PROPOFOL 200 MG/20 ML VIAL ONE (11:21)
[2018-01-14] MEDS ORDERED: LORazepam 2 MG/ML INJ ONE (11:21)
--- NOTE | 2018-01-14 11:24 | PDANEPAE ---
ECT Pre Anesthetic Evaluation Allergies/Adverse Reactions: olanzapine [From Zyprexa] Allergy (Severe, Verified 12/28/17 00:34) catatonea propylthiouracil Allergy (Severe, Verified 12/28/17 00:34) impulsivity methazolamide Allergy (Unknown, Verified 12/28/17 00:34) Unknown risperidone [From Risperdal] Allergy (Unknown, Verified 12/28/17 00:34) Unknown Patient ID confirmed: Yes H&P reviewed: Yes Pre-anesthetic history reviewed: Yes Heart: regular rate and rhythym, no murmur, rub, or gallop Lungs: no respiratory distress, no rales or rhonchi Mallampati Score: Class 1 ASA Status: II Home Medications: Medication Instructions Recorded LORazepam [Ativan (*)] 1 mg PO TID #90 tab 01/12/18 Medication review: completed Patient interviewed: Yes Patient examined: Yes See previous record: Yes Anesthetic plan discussed with patient: Yes Anesthetic risks discussed with patient: Yes ECT Pre-Anesthetic History - Height & Weight Height: 182.88 cm Weight: 95.51 kg BMI: 28.58 - Anesthesia History Hx Anesthesia Complications (with details): Denies. Family Hx Anesthesia Complications: Denies. 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 - Pulmonary History ECT Hx Asthma: No Hx Abnormal Chest X-Ray: No Hx Oxygen in Use at Home: No - Cardiovascular History Hx Hypertension: No Currently Uses Hypertension Medication: No Hx Arrhythmias: No Hx Palpitations: No Hx Chest Pain: No Hx Coronary Artery / Peripheral Vascular Disease: No Hx Blood Clot: No - Neurologic History Hx Cerebrovascular Accident: No Hx CT Scan Or MRI Of The Brain: No Hx Epilepsy, Convulsions, Seizures, Or Blackouts: No Hx Frequent Or Severe Headaches: No Hx Numbness: No Hx Neurologic Disorder: No - Dental History Current Dental Issues: Dentures Dental History Comment: top and bottom - Endocrine History Hx Diabetes: No Current Daily Insulin Injections: No Hx Thyroid Problems: Yes Endocrine History Comment: hyperthyroidism resolved in 2008 - Renal/Urologic History Hx Renal Disorders: No Hx Urinary Tract Problems: No - Liver History Hx Hepatic Disorders: No - Cancer History Hx Cancer: No - Hematology History Hx Unexplained Bleeding Of Any Type: No Hx Ease Of Bruising: No Hx Anemia: No - Gastrointestinal History Hx Gastroesophogeal Reflux Disease: No Hx Ulcers: No Hx Hiatal Hernia: No Hx Difficulty Swallowing: No - Musculoskeletal Hisory Hx Chronic Pain: No Hx Arthritis: No - Opthalmic History Hx Glaucoma: No Visual Assistive Devices: Glasses Hx Opthalmic Disorders: No - Other Health History Physical Disabililty: No Recent Cough, Cold, or Fever: No Significant Weight Loss In The Last 4 Months: No Possible the Patient Might be : No
[2018-01-14] MEDS ORDERED: PROMETHAZINE HCL 25 MG TAB PO PRN (11:38)
[2018-01-14] MEDS ORDERED: NALOXONE HCL 0.4 MG/ML INJ IVP PRN (11:38)
[2018-01-14] MEDS ORDERED: HYDROCODONE/APAP 5/325 TAB PO PRN (11:38)
--- NOTE | 2018-01-14 11:38 | PDECTPN ---
ECT Progress Note Patient Problems: Problems Problem Status Onset Code Schizophrenia Acute F20.9 Schizoaffective disorder Acute F25.9 Date: 01/14/18 ECT provider: Forrest Mancilla Anesthesia: Sally Stoabigail Stimulus dose (%): 100 Pulse width: 0.5 ECT EMG (sec): 19 ECT EEG (sec): 34 ECT treatment type: bilateral QIDS-SR Total Score: 0 QIDS-SR Question #12 Score: 0 MMSE Total Score (Max = 21): 18 Next ECT date: 01/16/18 Next ECT time: 10:45 O/P psychiatrist follow up with Dr.: Dahiana Lewis O/P psychiatrist follow up: phone, voice message Home medications: Medication Instructions Recorded LORazepam [Ativan (*)] 1 mg PO TID #90 tab 01/12/18 Current treatment plan: acute phase Treatment plan frequency: 3 times per week ECT narrative: see admit note. Of note, pt revealed his tacit willingness to undergo the ECT today in a number of ways observed by RNs,. For instance, he got right into wheelchair and, when rolled into ECT suite, got out of chair and walked on his own volition to [facility]. Likewise, he put his index finger out when the RN had pulsox finger monitor in eye shot, revealing his understanding of what was needed and not reacting negativistically to it. On the contrary.... 12/31 Pt VSS stable. Afebrile Remains mute and yet able to follow simple commands, without negativism. No resistance at all to any facet of prepping him for treatment today, as on Friday. Received second opinion letter from Dr Lewis. CLoz level pnd for Friday. It appears, per the MAR, that patient is complying with meds. THis am, pre ECT, he reveals PMR, flat affect, nil eye contact, mutism, and slight waxy flexibility. Plan is to cont acute Bilateral ECT, titrate Cloz after level drawn and as tolerated. Cont Loraz. holding dose prior to ECT, but receiving IV lorazepam. 01/02 Pt cooperative with all aspect of ECT. Near [place] but answered personal information during time out with soft, monotone voice. No other spontaneous speech. PMR rather than agitation. Affect flat. Eye contact intermittant. Reviewed Psych testing re his Autism spectrum disorder. Full scale IQ 72. CLoz level drawn pre ECT today. Cont acute ECT into next week. 01/05 Pt appears improving as he was more quick to respond, albeit still non- verbally, to questions. For instance, he was able to give his opinion about his mother's wish to have him off the Clozaril. He agreed with at least an affirming shrug. I do not feel he would fully be able to appreciated the necessary requirements to provide a fully informed decision about that change, but he is at least making a wish clear. He is not resistant to any aspect of ECT. I likewise indicated to him that if we d/c Cloz, then his reliance on mECT will be that much greater. He appears to be ok with that, in that he provided an affirming shrug and nod of head when commercial loan underwriter indicated this plan to him. Mother has POA, and, in a written note, has emphatically asked that Onel be taken off Clozapine. In my opinion, however, she is misattributing some clinical worsening to a treatment intervention rather than an exacerbation of the illness itself (a common error of judgement she is wont to make, by history) . I called her and explained this but stated I would follow her wish. Truth is, the ECT and Lorazepam are FAR more important interventions for catanonia and the antipsychotics can indeed make things worse. IF allying with her around this decision increases her likelihood of promoting adeherence to mECT, it is worthwhile to do so. I will research other less well known interventions such as memantine or valproate. Also, a virtue of stopping CLoz is weight control, which is needed. 01/07 Pt continues to show some improvement. Better eye contact, more verbal ( albeit still taciturn), PMR (but not immobile, and certainly no agitation or pacing). Tapering off Clozapine without problem. More aware of and engaged with surroundings, responding appropriately to RN and MD questions or directions, in preparation for ECT 01/09 Pt a bit more quiet than yesterday, likely due to holding ativan pre ECT. Still quite a bit improved compared to pre ECT. Will cont acute ECT. Pt to be fully tapered off Clozaril--his wish--by Friday. 01/12 Pt markedly improved. Talking fluently and yet still impoverished overall. WIll likely discharge tomorrow and follow up with ECT on Friday with plan then to go to weekly. Pt off Cloz. Joshua CBC today. WIll need to cont to monitor ANCs for a period of time post discontiuation per package insert. (this states that one must check ANC "Weekly for at least 4 weeks from day of discontinuation or until WBC 3500/mm3 and ANC >2000/mm") 01/14/18 Pt continues to show excellent benefits from acute ECT. Better eye contact, more conversational (albeit with some odd TC, c/w his schizotypal or autism spectrum issues), No catatonic symptoms. Off Cloz at this point with no W/D phenomenon.
[2018-01-14] MEDS: LORazepam 1 MG TAB PO SCH ×3 (13:27→20:41)
[2018-01-15] MEDS: LORazepam 1 MG TAB PO SCH ×3 (09:32→20:20)
[2018-01-16] MEDS ORDERED: NS 1,000 ML IV PRN (04:00)
[2018-01-16] MEDS ORDERED: CITRIC ACID/SODIUM CITRATE 30 ML UDCUP PO PRN (04:00)
[2018-01-16] MEDS ORDERED: ONDANSETRON DISINTEGRATING 4 MG TAB PO PRN (04:00)
[2018-01-16] MEDS ORDERED: LIDOCAINE 2% 5 ML SDV ONE (05:30)
[2018-01-16] MEDS ORDERED: ONDANSETRON DISINTEGRATING 4 MG TAB ONE (10:23)
[2018-01-16] MEDS ORDERED: fentaNYL 100 MCG/2 ML INJ ONE (11:18)
[2018-01-16] MEDS ORDERED: METHOHEXITAL SODIUM 100 MG/10 ML SYR IVP ONE (11:18)
[2018-01-16] MEDS ORDERED: MIDAZOLAM 2 MG/2 ML VIAL ONE (11:18)
[2018-01-16] MEDS ORDERED: LORazepam 2 MG/ML INJ ONE (11:19)
--- NOTE | 2018-01-16 11:24 | PDECTPN ---
ECT Progress Note Patient Problems: Problems Problem Status Onset Code Schizophrenia Acute F20.9 Schizoaffective disorder Acute F25.9 Date: 01/16/18 Treatment#: 9 ECT provider: Forrest Mancilla Anesthesia: Sally Stoabigail Stimulus dose (%): 100 Pulse width: 0.5 ECT EMG (sec): 40 ECT EEG (sec): 123 ECT treatment type: bilateral QIDS-SR Total Score: 3 QIDS-SR Question #12 Score: 0 MMSE Total Score (Max = 21): 18 Next ECT date: 01/23/18 Next ECT time: 10:00 O/P psychiatrist follow up with Dr.: Dahiana Lewis O/P psychiatrist follow up: phone, voice message Home medications: Medication Instructions Recorded LORazepam [Ativan (*)] 1 mg PO TID #90 tab 01/12/18 Current treatment plan: acute phase ECT narrative: see admit note. Of note, pt revealed his tacit willingness to undergo the ECT today in a number of ways observed by RNs,. For instance, he got right into wheelchair and, when rolled into ECT suite, got out of chair and walked on his own volition to [facility]. Likewise, he put his index finger out when the RN had pulsox finger monitor in eye shot, revealing his understanding of what was needed and not reacting negativistically to it. On the contrary.... 12/31 Pt VSS stable. Afebrile Remains mute and yet able to follow simple commands, without negativism. No resistance at all to any facet of prepping him for treatment today, as on Friday. Received second opinion letter from Dr Lewis. CLoz level pnd for Friday. It appears, per the MAY, that patient is complying with meds. THis am, pre ECT, he reveals PMR, flat affect, nil eye contact, mutism, and slight waxy flexibility. Plan is to cont acute Bilateral ECT, titrate Cloz after level drawn and as tolerated. Cont Loraz. holding dose prior to ECT, but receiving IV lorazepam. 01/02 Pt cooperative with all aspect of ECT. Near Mute but answered personal information during time out with soft, monotone voice. No other spontaneous speech. PMR rather than agitation. Affect flat. Eye contact intermittant. Reviewed Psych testing re his Autism spectrum disorder. Full scale IQ 72. CLoz level drawn pre ECT today. Cont acute ECT into next week. 01/05 Pt appears improving as he was more quick to respond, albeit still non- verbally, to questions. For instance, he was able to give his opinion about his mother's wish to have him off the Clozaril. He agreed with at least an affirming shrug. I do not feel he would fully be able to appreciated the necessary requirements to provide a fully informed decision about that change, but he is at least making a wish clear. He is not resistant to any aspect of ECT. I likewise indicated to him that if we d/c Cloz, then his reliance on mECT will be that much greater. He appears to be ok with that, in that he provided an affirming shrug and nod of head when jingle writer indicated this plan to him. Mother has POA, and, in a written note, has emphatically asked that Onel be taken off Clozapine. In my opinion, however, she is misattributing some clinical worsening to a treatment intervention rather than an exacerbation of the illness itself (a common error of judgement she is wont to make, by history) . I called her and explained this but stated I would follow her wish. Truth is, the ECT and Lorazepam are FAR more important interventions for catanonia and the antipsychotics can indeed make things worse. IF allying with her around this decision increases her likelihood of promoting adeherence to mECT, it is worthwhile to do so. I will research other less well known interventions such as memantine or valproate. Also, a virtue of stopping CLoz is weight control, which is needed. 01/07 Pt continues to show some improvement. Better eye contact, more verbal ( albeit still taciturn), PMR (but not immobile, and certainly no agitation or pacing). Tapering off Clozapine without problem. More aware of and engaged with surroundings, responding appropriately to RN and MD questions or directions, in preparation for ECT 01/09 Pt a bit more quiet than yesterday, likely due to holding ativan pre ECT. Still quite a bit improved compared to pre ECT. Will cont acute ECT. Pt to be fully tapered off Clozaril--his wish--by Friday. 01/12 Pt markedly improved. Talking fluently and yet still impoverished overall. WIll likely discharge tomorrow and follow up with ECT on [place] with plan then to go to weekly. Pt off Cloz. Joshua CBC today. WIll need to cont to monitor ANCs for a period of time post discontiuation per package insert. (this states that one must check ANC "Weekly for at least 4 weeks from day of discontinuation or until WBC 3500/mm3 and ANC >2000/mm") 01/14/18 Pt continues to show excellent benefits from acute ECT. Better eye contact, more conversational (albeit with some odd TC, c/w his schizotypal or autism spectrum issues), No catatonic symptoms. Off Cloz at this point with no W/D phenomenon. 01/16 Pt continues to do very well with no sign of catatonia, mood stable. Still quiet but this is his baseline. Plan to d/c to assisted living.
--- NOTE | 2018-01-16 11:57 | PDECTPN ---
ECT Progress Note Patient Problems: Problems Problem Status Onset Code Schizophrenia Acute F20.9 Schizoaffective disorder Acute F25.9 Date: 01/16/18 ECT provider: Forrest Mancilla Anesthesia: Sally Mahoney Stimulus dose (%): 100 Pulse width: 0.5 ECT EMG (sec): 40 ECT EEG (sec): 123 ECT treatment type: bilateral QIDS-SR Total Score: 3 QIDS-SR Question #12 Score: 0 MMSE Total Score (Max = 21): 18 Next ECT date: 01/23/18 Next ECT time: 11:30 O/P psychiatrist follow up with Dr.: Dahiana Lewis O/P psychiatrist follow up: phone, voice message Home medications: Medication Instructions Recorded LORazepam [Ativan (*)] 1 mg PO TID #90 tab 01/12/18 Medication review: completed Current treatment plan: maintenance Treatment plan frequency: 1 time per week ECT narrative: see admit note. Of note, pt revealed his tacit willingness to undergo the ECT today in a number of ways observed by RNs,. For instance, he got right into wheelchair and, when rolled into ECT suite, got out of chair and walked on his own volition to [facility]. Likewise, he put his index finger out when the RN had pulsox finger monitor in eye shot, revealing his understanding of what was needed and not reacting negativistically to it. On the contrary.... 12/31 Pt VSS stable. Afebrile Remains mute and yet able to follow simple commands, without negativism. No resistance at all to any facet of prepping him for treatment today, as on Friday. Received second opinion letter from Dr Lewis. CLoz level pnd for Friday. It appears, per the MAY, that patient is complying with meds. THis am, pre ECT, he reveals PMR, flat affect, nil eye contact, mutism, and slight waxy flexibility. Plan is to cont acute Bilateral ECT, titrate Cloz after level drawn and as tolerated. Cont Loraz. holding dose prior to ECT, but receiving IV lorazepam. 01/02 Pt cooperative with all aspect of ECT. Near Mute but answered personal information during time out with soft, monotone voice. No other spontaneous speech. PMR rather than agitation. Affect flat. Eye contact intermittant. Reviewed Psych testing re his Autism spectrum disorder. Full scale IQ 72. CLoz level drawn pre ECT today. Cont acute ECT into next week. 01/05 Pt appears improving as he was more quick to respond, albeit still non- verbally, to questions. For instance, he was able to give his opinion about his mother's wish to have him off the Clozaril. He agreed with at least an affirming shrug. I do not feel he would fully be able to appreciated the necessary requirements to provide a fully informed decision about that change, but he is at least making a wish clear. He is not resistant to any aspect of ECT. I likewise indicated to him that if we d/c Cloz, then his reliance on mECT will be that much greater. He appears to be ok with that, in that he provided an affirming shrug and nod of head when publicity writer indicated this plan to him. Mother has POA, and, in a written note, has emphatically asked that Onel be taken off Clozapine. In my opinion, however, she is misattributing some clinical worsening to a treatment intervention rather than an exacerbation of the illness itself (a common error of judgement she is wont to make, by history) . I called her and explained this but stated I would follow her wish. Truth is, the ECT and Lorazepam are FAR more important interventions for catanonia and the antipsychotics can indeed make things worse. IF allying with her around this decision increases her likelihood of promoting adeherence to mECT, it is worthwhile to do so. I will research other less well known interventions such as memantine or valproate. Also, a virtue of stopping CLoz is weight control, which is needed. 01/07 Pt continues to show some improvement. Better eye contact, more verbal ( albeit still taciturn), PMR (but not immobile, and certainly no agitation or pacing). Tapering off Clozapine without problem. More aware of and engaged with surroundings, responding appropriately to RN and MD questions or directions, in preparation for ECT 01/09 Pt a bit more quiet than yesterday, likely due to holding ativan pre ECT. Still quite a bit improved compared to pre ECT. Will cont acute ECT. Pt to be fully tapered off Clozaril--his wish--by Friday. 01/12 Pt markedly improved. Talking fluently and yet still impoverished overall. WIll likely discharge tomorrow and follow up with ECT on Friday with plan then to go to weekly. Pt off Cloz. Joshua CBC today. WIll need to cont to monitor ANCs for a period of time post discontiuation per package insert. (this states that one must check ANC "Weekly for at least 4 weeks from day of discontinuation or until WBC 3500/mm3 and ANC >2000/mm") 01/14/18 Pt continues to show excellent benefits from acute ECT. Better eye contact, more conversational (albeit with some odd TC, c/w his schizotypal or autism spectrum issues), No catatonic symptoms. Off Cloz at this point with no W/D phenomenon. 01/16 Pt continues to do very well with no sign of catatonia, mood stable. Still quiet but this is his baseline. Plan to d/c to assisted living.
--- NOTE | 2018-01-16 14:14 | ASMTBHDC ---
Notes Note: Notes: CC spoke with pt's mother, Angela. [facility] stated she can pick pt. up on Friday01/17/18 around 1:00pm. [facility] requested that pt's prescriptions be faxed and a copy given to pt when he discharges. CC briefly met with pt after ECT today. Pt. reports feeling fine, adding ECT when "fine". Pt. denies any headaches or nausea. Date Signed: 01/16/2018 02:13 PM Electronically Signed By:Tanesha Boudreaux
[2018-01-16] MEDS: LORazepam 1 MG TAB PO SCH ×2 (16:25→21:00)
--- NOTE | 2018-01-16 20:51 | GDS ---
IDENTIFYING DATA: The patient is a 37-year-old single, white male, well known to this press writer, who has been treating him with maintenance ECT and on multiple prior hospitalizations over the past 8 years. Outpatient, he is treated by Anant Lewis MD, at [facility]. He was last hospitalized at [facility] in May 2016. He decided to terminate maintenance ECT almost 1 year ago, in February 2017, against medical advice. The patient was admitted on 12/28/2017, and will be discharged on 01/17/2018. REASON FOR ADMISSION: The patient presented to the emergency room in a catatonic state, with periods of near immobility, varying with agitation and purposeless pacing, and repeating of the same phrase, diminished p.o. intake, and negativism. He had been transferred from his mother's home to assisted living a month prior, and it is unclear whether he had remained compliant with his medications, which included lorazepam and clozapine, during that time. He was clearly gravely disabled, prompting the admission. The press writer had spoken to Mother at time of admission, who was adamant that she wanted the patient off clozapine, feeling that it historically had made things worse. She also acknowledged that maintenance ECT likely had been helping for all those years, and as his medical [id number]-[id number], provided her opinion and consent that he resume acute ECT and continue with maintenance beyond that. PHYSICAL EXAMINATION: Done by Trent Mendoza, which reveals: 1. Catatonia, acute, recurrent. Potentially related to discontinuation of home medications a couple months ago. He has at high risk for aspiration and had a white count of 11,000, with reduced air movement at the bases, along with cough and skin flushing. He wished to rule out pneumonia and URI with chest x-ray and respiratory viral panel. Those tests were negative. He did provide treatment with Tessalon and Mucinex. 2. Graves disease. Reportedly untreated. Repeated TSH and is within normal limits. No further treatment indicated at this time. 3. Craniosynostosis. Reportedly treated as a child. Review of his brain MRI of 11/2013 demonstrates a completely normal brain. 4. Schizoaffective disorder with catatonic features and Asperger's with developmental delay. LABORATORY DATA: Routine lab work: Patient's serial white blood cell counts done because of his clozapine. The white blood cell was initially elevated, as just discussed, but did revert to normal. He did not have any indication of reduced absolute neutrophil count. Biochem profile was within normal limits. Calcium was normal at 9.3. TSH was normal at 2.15. Urine drug screen was positive only for benzodiazepines, as expected. His clozapine level reflective of a dose of 100 mg was low at 111, with combined clozapine and norclozapine at 167. EKG results read by Dr. Kilgore which reveals sinus tachycardia with a rate of 111. His QTc interval was 468. Chest x-ray done in the emergency department was read as "Nothing acute identified. No pneumonia." HOSPITAL COURSE: The patient underwent a taper off clozapine even though it was unclear whether the patient had been compliant with that medication at his assisted living program. He tolerated that well and discontinued it 3 days prior to this discharge. He remained on Ativan 1 mg p.o. t.i.d. throughout the course of hospitalization. He underwent a total of 7 bilateral acute ECT treatments. All of this was to good clinical effect, as he fairly quickly emerged from his severe catatonic state, back to a baseline that, in this press writer 's assessment, is arguably the best he has seen this patient in these last 8 years. He is still impoverished in speech and constricted, if not blunted, in affect, but can speak cogently and fluently in full sentences, and even reveals some wry sense of humor. When asked for instance, by the press writer and nurse case manager, why he was not attending groups, he said with a smirk "I'm not really a social butterfly." He is eating and drinking adequately. He is compliant with medication and has complied from the start, even when in the initial catatonic state, with the ECT treatments. He expressed an interest consistent with his mother's of coming off the Clozaril and the willingness to continue with maintenance ECT as he had done for many years, acknowledging that it had helped him and kept him out of the hospital. DISCHARGE MEDICATION: Lorazepam 1 mg p.o. t.i.d. DISPOSITION: The patient is to return to his assisted living facility. It should be emphasized to them that he should have his medications dispensed to him with the staff ensuring that he is actually taking them rather than just leaving them for him. I would recommend that this process continue beyond the next few weeks when cognitive impairment from ECT may be a limiting factor, and continue indefinitely, given the nature of this patient's condition and need for that sort of monitoring. He is scheduled for outpatient ECT next on 2017. He should follow up with Dr. Lewis and his primary care provider. Although he is off clozapine, he will need 3 more weekly complete blood count tests, the next one being on about 01/19/2018, to ensure that he does not have a drop in his absolute neutrophil count. DISCHARGE DIAGNOSIS: [place]: Schizoaffective disorder, bipolar type; autism spectrum disorder; recent catatonia. /[id number]/MODL and [id number]/[facility]L [facility]
[2018-01-17 07:04] VITALS: BP 124/87
[2018-01-17] MEDS: LORazepam 1 MG TAB PO SCH (08:03)
--- NOTE | 2018-01-17 14:05 | ASMTBHDC ---
Notes Note: Notes: Pt. reports feeling "decent". Pt. stated he slept "decent". When asked how he feels about discharging, pt stated "decent" and began to smile and joke with CC. Pt. stated he has been attending some groups. Pt. reports eating fine. Pt. stated he had no issues from ECT yesterday. Pt. stated he would like to do his laundry at home. Pt. denied SI, HI, AVH and paranoia. When asked how he has changed while in the hospital, pt stated he's "not sure what's changed". Pt. presents as alert, calm, good eye contact, joking with CC, and with a friendly demeanor. Staff report pt. sleeping 8.5 hours and being medication compliant. Pt's follow up appointments are: [facility] [address] [place] [address], 2nd [place] [address] O#[phone] M/W: 09:00-14:[address] Lewis on January 22 (01/22/18) at 9:45am* Date Signed: 01/17/2018 02:04 PM Electronically Signed By:Tanesha Boudreaux
== END 2018-01-17 14:35 | DRG 885 ==
LOC: BBEH 16:35
PROVIDERS: ADMIT Psychiatry & Neurology Psychiatry; ATTEND Psychiatry & Neurology Psychiatry
PROC: GZB2ZZZ Electroconvulsive Therapy, Bilateral-Single Seizure (ICD-10-PCS; principal; 2017-12-29)
DX: F20.2 Catatonic schizophrenia (principal); E86.9 Volume depletion, unspecified; T43.506A Underdosing of unspecified antipsychotics and neuroleptics, initial encounter; E05.00 Thyrotoxicosis with diffuse goiter without thyrotoxic crisis or storm; F84.5 Asperger's syndrome
CPT/HCPCS: 80159-90; 80305; G0480; J0330; J2060; J2250; J2405; J2704; J3010

== ENCOUNTER 2018-02-04 10:35 | Inpatient (IN) | payer OTHER ==
--- NOTE | 2018-02-04 10:44 | EDPHY ---
H & P Stated Complaint: depression/sent for ect Source: Family (Mother), RN/MD, Old records Exam Limitations: Clinical condition - Personal History Current Tetanus Diphtheria and Acellular Pertussis (TDAP): Yes - Medical/Surgical History Hx Asthma: No Hx Chronic Respiratory Disease: No Hx Diabetes: No Hx Cardiac Disease: No Hx Renal Disease: No Hx Cirrhosis: No Hx Alcoholism: No Hx HIV/AIDS: No Hx Splenectomy or Spleen Trauma: No Other PMH: lfofw-bftwli-yrdzzsryp, major depression. hx Grave's disease per mother. hx Asperger syndrome per mother. craniosynostosis - Social History Smoking Status: Former smoker Time Seen by Provider: 02/04/18 10:43 HPI/ROS: HPI: This is a 37-year-old male who presents with Chief Complaint: Medical clearance for ECT Location: psych Quality: Medical clearance Duration: catatonic Signs and Symptoms: No suicidal ideation, no homicidal ideation Timing: Acute on chronic Severity: Severe Context: Patient has a history of schizoaffective disorder as well as ECT therapy presents for medical clearance prior to admission to [address] [place] [address] for electroconvulsive therapy. [facility] is following the patient. Mother reports that patient had ECT on Friday but patient continues to be nonverbal and non interactive. He has been receiving ECT for 10 years. Modifying Factors: Takes Ativan as needed Comment: ROS: A comprehensive 10 system review of systems is otherwise negative aside from elements mentioned in the history of present illness. MEDICAL/SURGICAL/SOCIAL HISTORY: Medical history: [id number]-sshxsy-ctzhaifcm, major depression, hx Grave's disease per mother, hx Asperger syndrome per mother Surgical history: craniosynostosis Social history: Former smoker. Denies drug, alcohol, tobacco use. Family history noncontributory. CONSTITUTIONAL: awake and alert, no obvious distress HEENT: Atraumatic and normocephalic, PERRL, EOMI. Nares patent; no rhinorrhea; no nasal mucosal edema. Tympanic membranes clear. Oropharynx clear, no exudate and moist pink mucosa. Airway patent. No lymphadenopathy. No meningismus. Cardiovascular: Normal S1/S2, regular rate, regular rhythm, without murmur rub or gallop. PULMONARY/CHEST: Symmetrical and nontender. Clear to auscultation bilaterally. Good air movement. No accessory muscle usage. ABDOMEN: Soft, nondistended, nontender, no rebound, no guarding, no peritoneal signs, no masses or organomegaly. No CVAT. EXTREMITIES: 2/2 pulses, strength 5/5, no deformities, no clubbing, no cyanosis or edema. NEUROLOGICAL: no focal neuro deficits. GCS 15. SKIN: Warm and dry, no erythema. no rash. Good capillary refill. PSYCH: Poor eye contact, non interactive, will not speak to me or his mother, does not eye track, look straight ahead at all times. (Ines Norris) Constitutional: Initial Vital Signs Temperature (C) 37.2 C 02/04/18 10:39 Heart Rate 88 02/04/18 10:39 Respiratory Rate 18 02/04/18 10:39 Blood Pressure 120/69 02/04/18 10:39 O2 Sat (%) 98 02/04/18 10:39 O2 Delivery Mode Room Air Allergies/Adverse Reactions: olanzapine [From Zyprexa] Allergy (Severe, Verified 02/04/18 10:38) catatonea propylthiouracil Allergy (Severe, Verified 02/04/18 10:38) impulsivity methazolamide Allergy (Unknown, Verified 02/04/18 10:38) Unknown risperidone [From Risperdal] Allergy (Unknown, Verified 02/04/18 10:38) Unknown Home Medications: Medication Instructions Recorded LORazepam [Ativan (*)] 1 mg PO TID #90 tab 01/12/18 Medical Decision Making ED Course/Re-evaluation: Vital signs reviewed and stable upon arrival. Labs and UDS ordered. I agree that patient does need admission to [address] [place] [address] for continued inpatient psychiatric treatment and ECT therapy. 1135: Labs and grossly unremarkable. Urine drug screen positive for benzos. Patient has a prescription for Ativan. Medically clear for mental health evaluation. 1155: Accepted by Dr. Merlos for transfer to [address] [place] [address]. EMTALA form completed. This patient was seen under the supervision of my secondary supervising physician. I evaluated care for this patient independently. Discussed this patient with Dr. Dela Cruz who did not see the patient. (Ines Norris) Differential Diagnosis: Differential diagnosis includes but is not limited to major depression, anxiety disorder, schizophrenia, bipolar disorder, intoxicant use, suicidal ideation, psychosis, gaetano. (Ines Norris) Other Provider: The patient was evaluated and managed by the Physician Harvest Supervisor. I discussed the patient's presentation and course with the midlevel provider with them and agree with the evaluation. My co-signature indicates that I have reviewed this chart and I agree with the findings and plan of care as documented. I am the secondary supervising physician. (Vida Dela Cruz) - Data Points Laboratory Results: Laboratory Results 02/04/18 10:50 02/04/18 10:50 Medications Given: Lorazepam (Ativan) 0.5 - 1 mg PO Q6HRS PRN PRN Reason: Anxiety, Able to Take PO Stop: 08/03/18 14:20 Last Admin: 02/08/18 07:11 Dose: 1 mg Lorazepam (Ativan) 1 mg PO TID SAMPSON Stop: 08/03/18 15:59 Last Admin: 02/08/18 08:17 Dose: 1 mg Discontinued Medications Citric Acid/Sodium Citrate (Bicitra) 30 ml PO ONCALL PRN PRN Reason: Pre ECT Last Admin: 02/06/18 07:24 Dose: 30 ml Sodium Chloride (Ns) 1,000 mls @ 1,000 mls/hr IV PRN PRN PRN Reason: Pre ECT Stop: 08/05/18 04:59 Last Admin: 02/06/18 07:24 Dose: 1,000 mls Ondansetron HCl (Zofran Odt) 4 mg PO ONCALL PRN PRN Reason: Pre ECT Last Admin: 02/06/18 07:24 Dose: 4 mg Departure - Departure Disposition: [facility] IP Clinical Impression: Schizoaffective disorder, bipolar type, with catatonia Condition: Fair
[2018-02-04 11:05] LABS: PLATELET COUNT 192 10^3/uL (150-400)
--- NOTE | 2018-02-04 12:04 | ASMTTLCEVL ---
TLC Evaluation - Basic Information Evaluation Start Date and 02/04/2018 11:30 AM Time Hospital Status Answers: Voluntary Narrative Notes: Pt is a 37 yo, single, male, well known to [facility] with history of schizoaffective disorder bipolar type with catatonic features and Aspergers with developmental delay, whose mother brought him to the ED at the advisement of [facility] psychiatrist, Rey Merlos MD to come to the ED for medical clearance then voluntary admission to . Pt had been living at an assisted living facility in [place]. He had recently been acting violent and throwing things and [facility] wanted for pt to come in for outpatient ECT today, however, Dr. Merlos advised from [facility] to bring pt to the ED. [facility] reported that pt had ECT on Friday but pt continues to be nonverbal and non-interactive. Pt has an extensive mental health history complicated by a developmental disorder. He has previously been on [facility]'s behavioral unit and prior to that was at [facility]. Although he has never been aggressive, his first 3 psychiatric admissions followed agitation and SI. He has never attempted suicide. He does have a history of gaetano in which he acts on impulses. He once drove 100s of miles to [place] and was once arrested for evading police. Over the years he has been treated with both psychotropics and ECT. Diagnosis History Notes: Schizoaffective disorder bipolar type with catatonic features and Aspergers with developmental delay. Prior suicide attempts Notes: None. Prior hospitalizations Notes: Prior to 2010 he had 3 hospitalizations, 2 at [facility] and 1 at [facility] 01/2011 - [facility] following catatonia 11/2013 - catatonia 04/2014 - hearing voices that are threatening 05/2015 - [facility] with symptoms of severe negativism around fluid and food intake, where he is refusing to eat and has lost weight, being mute and immobile and at other times wandering away with no clear purpose. 12/28/17 to 01/16/18 [facility] for catatonic state, periods of near immobility, varying with agitation and purposeless pacing, repeating of the same phrase, diminished oral intake, and negativism. Treatment Responses Notes: Pt appears to respond well to a series of ECT treatments followed by psychotropic medication. History of violence Notes: [facility] denies. Psychiatrist: Dr John Lewis at [facility] Medications (name, dosage, route, freq uency) Notes: Upon his discharge on 01/16/18, Lorazepam 1 mg po tid. Allergies/Reaction Notes: Olanzapine Propylthiouracil Methazolamide Risperidone Sleep Notes: Decreased. Appetite Notes: MOC reported that pts weight appears normal. Medical/Surgical history Notes: Graves disease, PEG tube placement in 2009 and craniosynostosis. MRI 11/2013 demonstated a completely normal brain. Substance use history (frequency, intensity, his tory, duration) Notes: None. Family composition Notes: Mother still living and supportive. Father had . Multiple siblings who do not live close by. Need for family Answers: Yes participation in patient's care Family psychiatric/substance abuse history Notes: FOC was a recovering alcoholic before he 2 years ago. He had been sober for 25 years. Pt's brother has served time in [facility] for methamphetamine violations. One older sister has a history of bipolar disorder. Developmental history Notes: Pt was born and raised in [place]. [facility] reports that he was "happy" while growing up. He earned a high school diploma. He has never had social relationships and was diagnosed with pervasive development disorder. Abuse concerns Answers: None Marital status/children Notes: Single, never , no dependents. Living situation Notes: Lives in an assisted living facility in [facility]. Sexual history/orientation Notes: Not active. Heterosexual. Peer support/family strengths Notes: Mother. Education level/history Notes: High school diploma. 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 Notes: None. Legal Notes: He once drove 100s of miles to [place] and was once arrested for evading police Hindu/Spiritual Notes: None identified which might impact treatment. Leisure Notes: Computers. Collateral Notes: Per mother and prior [facility] records. Patient's strengths Answers: Supportive Family (Please select at least TWO strengths): Willingness TLC Evaluation - Mental Status Exam Appearance: Answers: Appropriate Clean Neat Eye Contact: Answers: Avoiding Mood: Answers: Depressed Irritable Affect: Answers: Angry Blunted Congruent w/ Mood Guarded Sad Subdued Behavior: Answers: Uncooperative Guarded Passive Withdrawn Speech: Answers: Mute Thought Process: Answers: Disorganized Alert Insight: Answers: Poor Judgement: Answers: Poor Manic Signs/Symptoms Answers: Distractibility Impulsivity Irritability Mood Swings Depression Answers: Difficulty Concentrating Signs/Symptoms: Flat Affect Psychomotor Retardation Sad Mood Hallucinations: Answers: None Pt reported to have Answers: No suicidal/self-injuring ideation/behavior? Pt reported to be making Answers: No suicidal/self-injuring threats? Pt reported to have Answers: No aggression/assault ideation/behavior? Pt reported to be making Answers: No aggression/assault threats? Pt exhibits inability to Answers: Yes care for self/grave disability? Ideation/behavior is Answers: Yes chronic? Pt has access to means to Answers: No execute the plan? Ideation involves Answers: No serious/lethal intent? Ideation has Answers: No delusional/hallucinatory content? History of Answers: No aggressive/assaultive ideation, behavior, or threats? History of serious Answers: No physical harm to self/others while in treatment setting? TLC Evaluation - Suicide/Homicide Risk Suicide Risk Factors: Answers: Agitation Anhedonia Bipolar Disorder Flat Affect Impulsivity Lack of Hindu Support Schizoaffective Disorder Single Current Suicidal Answers: No Ideation? Current Suicidal Ideation Answers: No in the Past 48 Hours? Current Suicidal Answers: No Ideation, Worst Ever? Suicide Internal Answers: Meredith with Stress Protective Factors: Suicide External Answers: Positive Therapeutic Protective Factors: Relationships Ranking of patient's Answers: Low suicidal risk: Ranking of patient's Answers: Low homicidal risk: TLC Evaluation - Wrap-up AXIS I Diagnosis (include DSM-V and ICD-10 codes), must also be entered in [place], which is the source of truth. Notes: Pt unable to complete BDI/BSS questionnaires as pt appears catatonic. Schizoaffective Disorder, Bipolar Type 295.70 (F25.0) Autism Spectrum Disorder (Aspergers) 299.00 (F84.0) Per directive and order from [facility] on-call psychiatrist, Rey Merlos MD, Dr. Merlos agreed to accept pt for voluntary admission to . Evaluation End Date and 02/04/2018 12:00 PM Time (HH:MM): Date Signed: 02/04/2018 12:04 PM Electronically Signed By:Daniel Porter
--- NOTE | 2018-02-04 12:05 | ASMTTCLDSP ---
TLC Discharge Disposition Disposition: Answers: Admit Disposition Notes: Notes: Admit 3N. Discharge Concerns/Recommendations: Notes: Per directive and order from [facility] on-call psychiatrist, Rey Merlos MD, Dr. Merlos agreed to accept pt for voluntary admission to . Was patient given the Answers: Yes Inpatient [facility] Prohibited Belongings List while in the ED? For inpatient Rey Merlos MD admission, the following psychiatrist agreed to accept patient for admission to [facility]): Date Signed: 02/04/2018 12:05 PM Electronically Signed By:Daniel Porter
--- NOTE | 2018-02-04 14:17 | ASMTBHMTP ---
Master Treatment Plan Master Treatment Plan Answers: Impaired Reality for: Date: 02/04/2018 Diagnosis on Admission: Schizoaffective Disorder Expected length of stay: 3-5 days Reason for admission: Notes: Per Report: Pt is a 37 yo, single, male, well known to [facility] with history of schizoaffective disorder bipolar type with catatonic features and Aspergers with developmental delay, whose mother brought him to the ED at the advisement of [facility] psychiatrist, Rey Merlos MD to come to the ED for medical clearance then voluntary admission to . Pt had been living at an assisted living facility in [place]. He had recently been acting violent and throwing things and [facility] wanted for pt to come in for outpatient ECT today, however, Dr. Merlos advised from [facility] to bring pt to the ED. [facility] reported that pt had ECT on Friday but pt continues to be nonverbal and non-interactive. Pt has an extensive mental health history complicated by a developmental disorder. He has previously been on [facility]'s behavioral unit and prior to that was at [facility]. Although he has never been aggressive, his first 3 psychiatric admissions followed agitation and SI. He has never attempted suicide. He does have a history of gaetano in which he acts on impulses. He once drove 100s of miles to [place] and was once arrested for evading police. Over the years he has been treated with both psychotropics and ECT. Patient's stated presenting problems: Notes: Client was unable to answer Patient's goals for treatment: Notes: Client was unable to answer Patient's strengths: Notes: Client was unable to answer Identify supports outside of hospital: Notes: Client was unable to answer Discharge criteria: Notes: Psychotic symptoms will be reduced or eliminated with return to baseline functioning in affect, thinking and behavior prior to discharge. Initial disposition plan/considerations: Notes: Client was unable to answer Master Treatment Plan Required Signatures Psychiatrist signature: Answers: Psychiatrist: RN on-shift signature: Answers: RN: Patient signature: Answers: Patient: Date Signed: 02/04/2018 02:16 PM Electronically Signed By:Helio Harrison
[2018-02-04] MEDS ORDERED: MAG HYDROX/AL HYDROX/SIMETH 30 ML UDCUP PO PRN (14:21)
[2018-02-04] MEDS ORDERED: OLANZapine DISINTEGR 10 MG TAB PO PRN (14:21)
[2018-02-04] MEDS ORDERED: ACETAMINOPHEN 325 MG TAB PO PRN (14:21)
[2018-02-04] MEDS ORDERED: MAGNESIUM HYDROXIDE 30 ML UDCUP PO PRN (14:21)
[2018-02-04] MEDS: LORazepam 1 MG TAB PO SCH ×2 (15:44→19:05)
--- NOTE | 2018-02-04 16:56 | PDHOSCONS ---
History and Physical - Chief Complaint medical mgmt - History of Present Illness We have been asked by Chelita Pan to provide medical mgmt for this pt who is being admitted to our behavioral unit for ECT. He has a hx of schizoaffective d/ o bipolar type with catatonic symptoms. There has been some concern about violent behavior while at his assisted living. He had ECT on Friday but continues to be non verbal and non interactive. He has a hx of ECT treatments for 10 years. Mother denies any fever, n/v/d, cough, sob. ROS: unable to obtain other than what mother reported Medical history: [id number], major depression, hx Grave's disease per mother, hx Asperger syndrome per mother Surgical history: craniosynostosis Social history: Former smoker. Denies drug, alcohol, tobacco use. Family history noncontributory. Labs: reviewed, no abnormalities noted Tox Screen: positive for Benzo (he is chronically on this) Vital signs stable, afebrile History Information - Allergies/Home Medication List Allergies/Adverse Reactions: olanzapine [From Zyprexa] Allergy (Severe, Verified 02/04/18 10:38) catatonea propylthiouracil Allergy (Severe, Verified 02/04/18 10:38) impulsivity methazolamide Allergy (Unknown, Verified 02/04/18 10:38) Unknown risperidone [From Risperdal] Allergy (Unknown, Verified 02/04/18 10:38) Unknown I have personally reviewed and updated: medical history, social history - Past Medical History Additional medical history: Schizoaffective disorder with catatonic features, requiring ECT therapy. Asperger's with developmental delay. Graves disease. Craniosynostosis treated as a child. Malnutrition requiring PEG tube in past - Surgical History Additional surgical history: Peg tube placement, removal - Family History Additional family history: Bipolar disease and alcoholism - Social History Smoking Status: Former smoker Additional social history: Lives in an assisted living facility locally Review of Systems Review of Systems: Physical Exam Physical Exam: Temp Pulse Resp BP Pulse Ox 37.0 C 88 14 120/79 93 02/04/18 14:56 02/04/18 14:56 02/04/18 14:56 02/04/18 14:56 02/04/18 14:56 Constitutional: no apparent distress Eyes: PERRL, EOMI Ears, Nose, Mouth, Throat: moist mucous membranes Cardiovascular: regular rate and rhythym, No edema Respiratory: no respiratory distress Gastrointestinal: soft, non-tender abdomen Skin: warm Neurologic: No AAOx3 Psychiatric: No interacting appropriately Lymph, Heme, Immunologic: No petechiae Lab Data & Imaging Review 02/04/18 10:50 02/04/18 10:50 WBC 8.33 10^3/uL (3.80-9.50) 02/04/18 10:50 RBC 4.51 10^6/uL (4.40-6.38) 02/04/18 10:50 Hgb 14.9 g/dL (13.7-17.5) 02/04/18 10:50 Hct 44.2 % (40.0-51.0) 02/04/18 10:50 MCV 98.0 fL (81.5-99.8) 02/04/18 10:50 MCH 33.0 pg (27.9-34.1) 02/04/18 10:50 MCHC 33.7 g/dL (32.4-36.7) 02/04/18 10:50 RDW 13.0 % (11.5-15.2) 02/04/18 10:50 Plt Count 192 10^3/uL (150-400) 02/04/18 10:50 MPV 11.3 fL (8.7-11.7) 02/04/18 10:50 Neut % (Auto) 66.1 % (39.3-74.2) 02/04/18 10:50 Lymph % (Auto) 25.1 % (15.0-45.0) 02/04/18 10:50 Burke % (Auto) 6.7 % (4.5-13.0) 02/04/18 10:50 Eos % (Auto) 0.7 % (0.6-7.6) 02/04/18 10:50 Baso % (Auto) 0.6 % (0.3-1.7) 02/04/18 10:50 Nucleat RBC Rel Count 0.0 % (0.0-0.2) 02/04/18 10:50 Absolute Neuts (auto) 5.50 10^3/uL (1.70-6.50) 02/04/18 10:50 Absolute Lymphs (auto) 2.09 10^3/uL (1.00-3.00) 02/04/18 10:50 Absolute Monos (auto) 0.56 10^3/uL (0.30-0.80) 02/04/18 10:50 Absolute Eos (auto) 0.06 10^3/uL (0.03-0.40) 02/04/18 10:50 Absolute Basos (auto) 0.05 10^3/uL (0.02-0.10) 02/04/18 10:50 Absolute Nucleated RBC 0.00 10^3/uL (0-0.01) 02/04/18 10:50 Immature Gran % 0.8 % (0.0-1.1) 02/04/18 10:50 Immature Gran # 0.07 10^3/uL (0.00-0.10) 02/04/18 10:50 Sodium 142 mEq/L (135-145) 02/04/18 10:50 Potassium 3.4 mEq/L (3.3-5.0) 02/04/18 10:50 Chloride 105 mEq/L (97-110) 02/04/18 10:50 Carbon Dioxide 29 mEq/l (22-31) 02/04/18 10:50 Anion Gap 8 mEq/L (6-14) 02/04/18 10:50 BUN 10 mg/dL (7-23) 02/04/18 10:50 Creatinine 0.8 mg/dL (0.7-1.3) 02/04/18 10:50 Estimated GFR > 60 02/04/18 10:50 Glucose 88 mg/dL (70-100) 02/04/18 10:50 Calcium 9.4 mg/dL (8.5-10.4) 02/04/18 10:50 Urine Opiates Screen NEGATIVE (NEGATIVE) 02/04/18 11:06 Urine Barbiturates NEGATIVE (NEGATIVE) 02/04/18 11:06 Ur Phencyclidine Scrn NEGATIVE (NEGATIVE) 02/04/18 11:06 Ur Amphetamine Screen NEGATIVE (NEGATIVE) 02/04/18 11:06 U Benzodiazepines Scrn NON-NEGATIVE (NEGATIVE) H 02/04/18 11:06 Urine Cocaine Screen NEGATIVE (NEGATIVE) 02/04/18 11:06 U Marijuana (THC) Screen NEGATIVE (NEGATIVE) 02/04/18 11:06 Ethyl Alcohol < 10 mg/dL (0-10) 02/04/18 10:50 Assessment & Plan Assessment: Schizoaffective disorder, bipolar type, with catatonia (Acute) Plan: proceed with ECT per Psych will check TSH please call if questions
[2018-02-05] MEDS: LORazepam 1 MG TAB PO SCH ×2 (08:31→16:20)
--- NOTE | 2018-02-05 10:22 | BAPA ---
REASON FOR ADMISSION: Patient is a 37-year-old male, well known to us from previous admiss ions, who was actually here most recently from 12/28/2017 until 01/17/2018. He is an outpatient of [facility] and has received maintenance ECT for some time. He had been actually out of treat ment for about a year, living in an assisted living facility and apparently had regressed and become more psychotic and catatonic. He has a history of developmental issues and schizoaffective disorder and had typically lived with his mother throughout his life. He moved to the independent [facility] where he had maintained without any ECT treatment for approximately a year. He is followed by Dinorah Lewis at [facility], but had taken primarily Ativan for the last several year s. Dr. Mancilla treated him with ECT during his stay here for 5 weeks and he improved greatly. He was discharged back to the assisted living circumstance. His mother states that he did well until about 5 days prior to this admission. At that time, she stated he was becoming more agitated, "like jenny morfin flipped a switch." She was concerned that he was going to act out at the facility, so she cony t him to her house where he remained agitated. She states that he was pacing and would abruptly jump up and yell at her or make statements such as "I am out of here." She states that this is something he says when he is feeling suicidal. He then would leave her home and go for a walk or just disappe ar with her having no idea where he went for approximately an hour at a time and then returned. This gradually progressed to where he was more physically aggressive and did destroy some property in the home and his mother called our outpatient ECT office on the day of admission. She was instructed sp ecifically to call the police and have them take him to the nearest emergency department, but instead she put him in her car and drove him across the [facility] area to our office. When she arrived a t her office, we instructed her again to take him to the emergency department or offered to call the police and she took him to the emergency department where he was evaluated and admitted. When I see him today, he is moderately agitated, pacing, though slept well last night and has not had any aggres sive behaviors. He is completely mute, will not answer any questions, but he does engage for brief p eriods of time, maintaining reasonable eye contact before he will suddenly turn and walk off. I aske d him if he believes he needs to continue ECT treatment and he does not give any indication 1 way or the other. PAST PSYCHIATRIC HISTORY: Largely as above. He is currently seen by Dr. Lewis at [facility] and Dr. Mancilla through the [facility] for maintenance ECT. It is not known to me at this moment what his ongoing ECT plan is. ALLERGIES: Listed to olanzapine, propylthiouracil, methazolamide, and risperidone. CURRENT MEDICATIONS: Ativan 1 mg p.o. t.i.d. PAST MEDICAL HISTORY: Graves disease, cranial synostosis. Developmental delay. SOCIAL HISTORY: Patient lives alone in the assisted living. His mother is his primary support in [facility] [place]. He receives disability income and has never worked or lived independently. SUBSTANCE ABUSE HISTORY: Noncontributory. ADMITTING LABORATORY: CBC is normal. Serum chemistries are normal. Urine drug screen is positive f or benzodiazepines only. MENTAL STATUS EXAMINATION: Reveals a moderately obese, adequately groomed male. He appear s anxious, severely agitated, pacing. His affect is constricted, almost flat. His mood is not descr ibed. He is nonverbal and will not respond even with head nods or other indications to yes or no que stions. He maintains brief eye contact and will abruptly terminate interaction in the middle of a se ntence indicating significant level of disorganization. IMPRESSION: Schizoaffective disorder, bipolar type, chronic with acute exacerbation, unspecified dev elopmental disorder, chronic illness, recurrent illness, recent agitation, recent suicidal thinking. The patient is a 37-year-old male, well known to us with a history of schizoaffective disor giacomo and developmental issues. He presents here due to the acute agitation and thoughts of suicide. I neglected to mention in the history of present illness that he actually began taking his fingernail s and scratching at his wrist, stating to his mother that he wanted to prior to her taking him to the hospital. PLAN: 1. Admit to [facility] inpatient unit on an M1 hold. 2. Continue his outpatient medications. I noticed that he was treated with Clozaril at 1 point, but apparently was not discharged on that. I assume that he is being actively managed between Dr. Kaylee malcolm and Dr. Lewis and as today is Thanksgiving, I know I cannot reach Dr. Lewis. I will therefore de brigid this until the of the week when I am able to discuss with both of them or hand the case back to Dr. Mancilla, who presumably knows that plan. Will begin ECT treatment tomorrow as patient is not d isagreeable with this and his mother is supportive. Will also schedule for treatment on Friday matthew marin and defer to Dr. Mancilla's preference on that. Estimated length of stay is 5-7 days. /[id number]/MODL
--- NOTE | 2018-02-05 11:29 | ASMTCMCOM ---
CM Note CM Note Notes: Pt. unable to participated in daily check in with CC. Pt. observed pacing the halls. Staff report pt. sleeping 11.5 hours and being medication complaint. Pt. is scheduled for ECT on Friday at 0730 Date Signed: 02/05/2018 11:28 AM Electronically Signed By:Tanesha Boudreaux
[2018-02-06] MEDS ORDERED: NS 1,000 ML IV PRN (05:00)
[2018-02-06] MEDS ORDERED: ONDANSETRON DISINTEGRATING 4 MG TAB PO PRN (05:00)
[2018-02-06] MEDS ORDERED: CITRIC ACID/SODIUM CITRATE 30 ML UDCUP PO PRN (05:00)
[2018-02-06] MEDS ORDERED: ROCURONIUM 50 MG/5 ML VIAL ONE (07:45)
[2018-02-06] MEDS ORDERED: GLYCOPYRROLATE 0.2 MG/1 ML VIAL ONE (07:45)
[2018-02-06] MEDS ORDERED: ONDANSETRON 4 MG/2 ML VIAL ONE (07:45)
[2018-02-06] MEDS ORDERED: fentaNYL 100 MCG/2 ML INJ ONE (07:45)
[2018-02-06] MEDS ORDERED: LORazepam 2 MG/ML INJ ONE (07:45)
[2018-02-06] MEDS ORDERED: METHOHEXITAL SODIUM 100 MG/10 ML SYR IVP ONE (07:46)
[2018-02-06] MEDS ORDERED: SUCCINYLCHOLINE CHLORIDE 200 MG/10 ML VIAL ONE (07:46)
--- NOTE | 2018-02-06 07:49 | PDECTPN ---
ECT Progress Note Patient Problems: Problems Problem Status Onset Code Schizoaffective disorder, bipolar type, with catatonia Acute F25.0, F06.1 Schizoaffective disorder Acute F25.9 Schizophrenia Acute F20.9 Date: 02/06/18 ECT provider: Mango Merlos Anesthesia: Scotty Emerson Stimulus dose (%): 100 Pulse width: 0.5 ECT EMG (sec): 16 ECT EEG (sec): 30 ECT treatment type: bilateral QIDS-SR Total Score: 8 QIDS-SR Question #12 Score: 1 MMSE Total Score (Max = 21): 21 Next ECT date: 02/09/18 Next ECT time: 09:00 Home medications: Medication Instructions Recorded LORazepam [Ativan (*)] 1 mg PO TID #90 tab 01/12/18 Medication review: completed Current treatment plan: acute phase Treatment plan frequency: 3 times per week ECT narrative: Pt seen, discussed with staff. Calm and cooperative, though aloof and mute on the unit. Mute here this morning as well. Does not answer questions or interact meaningfully with staff or myself. Eating and sleeping adequately. Offers no c/o's. No aggression or agitation noted outside of pacing the halls. Mute, minimal eye contact. Affect flat, stable. Mood is not stated. TP appears disorganized, internally preoccupied. TC reveals possible AH's/RIS.
--- NOTE | 2018-02-06 08:32 | PDANEPAE ---
ECT Pre Anesthetic Evaluation Allergies/Adverse Reactions: olanzapine [From Zyprexa] Allergy (Severe, Verified 02/04/18 10:38) catatonea propylthiouracil Allergy (Severe, Verified 02/04/18 10:38) impulsivity methazolamide Allergy (Unknown, Verified 02/04/18 10:38) Unknown risperidone [From Risperdal] Allergy (Unknown, Verified 02/04/18 10:38) Unknown Patient ID confirmed: Yes H&P reviewed: Yes Pre-anesthetic history reviewed: Yes Heart: regular rate and rhythym Lungs: no respiratory distress Mallampati Score: Class 2 ASA Status: I Home Medications: Medication Instructions Recorded LORazepam [Ativan (*)] 1 mg PO TID #90 tab 01/12/18 Medication review: completed Patient interviewed: Yes Patient examined: Yes Anesthetic plan discussed with patient: Yes Anesthetic risks discussed with patient: Yes ECT Pre-Anesthetic History - Height & Weight Height: 175.26 cm Weight: 90 kg BMI: 29.32 - Anesthesia History Hx Anesthesia Complications (with details): Denies. Family Hx Anesthesia Complications: Denies. 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 - Pulmonary History ECT Hx Asthma: No Hx Abnormal Chest X-Ray: No Hx Oxygen in Use at Home: No - Cardiovascular History Hx Hypertension: No Currently Uses Hypertension Medication: No Hx Arrhythmias: No Hx Palpitations: No Hx Chest Pain: No Hx Coronary Artery / Peripheral Vascular Disease: No Hx Blood Clot: No - Neurologic History Hx Cerebrovascular Accident: No Hx CT Scan Or MRI Of The Brain: No Hx Epilepsy, Convulsions, Seizures, Or Blackouts: No Hx Frequent Or Severe Headaches: No Hx Numbness: No Hx Neurologic Disorder: No - Dental History Current Dental Issues: Dentures Dental History Comment: top and bottom - Endocrine History Hx Diabetes: No Current Daily Insulin Injections: No Hx Thyroid Problems: Yes Endocrine History Comment: hyperthyroidism resolved in 2008 - Renal/Urologic History Hx Renal Disorders: No Hx Urinary Tract Problems: No - Liver History Hx Hepatic Disorders: No - Cancer History Hx Cancer: No - Hematology History Hx Unexplained Bleeding Of Any Type: No Hx Ease Of Bruising: No Hx Anemia: No - Gastrointestinal History Hx Gastroesophogeal Reflux Disease: No Hx Ulcers: No Hx Hiatal Hernia: No Hx Difficulty Swallowing: No - Musculoskeletal Hisory Hx Chronic Pain: No Hx Arthritis: No - Opthalmic History Hx Glaucoma: No Visual Assistive Devices: Glasses Hx Opthalmic Disorders: No - Other Health History Physical Disabililty: No Recent Cough, Cold, or Fever: No Significant Weight Loss In The Last 4 Months: No Possible the Patient Might be : No
--- NOTE | 2018-02-06 09:11 | ASMTCMCOM ---
CM Note CM Note Notes: Client is observed on the unit pacing, non verbal when spoken to. Client presents as disorganized, non verbal, no eye contact, guarded body language, etc. Date Signed: 02/06/2018 09:10 AM Electronically Signed By:Helio Harrison
--- NOTE | 2018-02-06 10:12 | PDMN ---
Medical Necessity Medical [place] [facility] [id number] Schizophrenia Spectrum Disorders, Adult: Inpatient Care: 37 yo w/ schizoaffective d/o, bipolar type, acute on chronic, M1 hold for suicidal ideology. Hx Developmental d/o
[2018-02-06] MEDS: LORazepam 0.5 MG TAB PO PRN ×2 (14:08→20:07)
[2018-02-06] MEDS: LORazepam 1 MG TAB PO SCH ×2 (15:55→21:09)
[2018-02-07] MEDS: LORazepam 0.5 MG TAB PO PRN ×2 (07:16→14:03)
[2018-02-07] MEDS: LORazepam 1 MG TAB PO SCH ×3 (09:34→20:41)
--- NOTE | 2018-02-07 11:07 | SOAPPROG ---
SOAP Progress Note Assessment/Plan: Assessment: 37yo with Schizoaffective d/o bipolar type, acute exacerbation with recent increase in agitation and suicidality, and hx of unspecified developmental d/o, admitted for ECT and restabilization 02/07/18 15:00 per staff, slept well through night. has appeared tense, pacing, staff initiated placing pt on assault awareness given recent hx of throwing objects prior to admission. On interview, pt reports readmitted b/c "It was the Holidays, I got depressed, and violent, again." States his thoughts "weren't good when I got here...better now". Declined to elaborate. States ECT "treatment on Friday" and is in agreement to cont ECT. Initially didn't recall if had ECT yesterday. Otherwise "I just roam around". Declined having any interest in groups, reading or writing materials etc. fair e/c, casually dressed, allowed interview although seemed somewhat guarded. little/no spont speech but with normal rate and articulation when did respond to questions, although fairly monotonous. affect blunted/almost flat. mood "fine ". no overt delusions or paranoia, did respond linearly to some questions with brief responses as noted above, other times did not respond or gave brief response. admitted to thoughts being not good on admission but better now. Denied current physical problems or any medication s/e or issues with ECT. Denied SI or thoughts to harm others, "no", and regarding if he feels safe in hospital "yes". pt terminated interview by walking away. PLAN: seems may have had some benefit from ECT yesterday given his apparent slight incr in verbal responsiveness cont current meds Ativan 1mg TID and prn, and ECT course cont current precautions Objective: Vital Signs Temp Pulse Resp BP Pulse Ox 36.7 C 108 H 20 110/74 93 02/07/18 06:00 02/07/18 06:00 02/07/18 06:00 02/07/18 06:00 02/07/18 06:00 02/06/18 02/07/18 02/08/18 05:59 05:59 05:59 Intake Total 635 Balance 635 - Time Spent With Patient Time Spent With Patient: 10min - Pending Discharge Pending Discharge Within 24 Hours: No Pending Discharge Within 48 Hours: No ICD10 Worksheet Patient Problems: Problems Problem Status Onset Schizoaffective disorder, bipolar type, with catatonia Acute Schizoaffective disorder Acute Schizophrenia Acute
--- NOTE | 2018-02-07 13:18 | ASMTCMCOM ---
CM Note CM Note Notes: Pt. declined to speak with CC. Pt. has been pacing the halls most of the day. Staff report pt. sleeping 10.5 hours and is medication compliant. Date Signed: 02/07/2018 01:17 PM Electronically Signed By:Tanesha Boudreaux
[2018-02-08] MEDS: LORazepam 0.5 MG TAB PO PRN ×2 (07:11→14:12)
[2018-02-08] MEDS: LORazepam 1 MG TAB PO SCH ×3 (08:17→20:38)
--- NOTE | 2018-02-08 13:18 | ASMTBHDC ---
Notes Note: Notes: Pt. was pacing the halls when CC approached him. Pt. reports feeling "fine" and sleeping "fine". Pt. stated he "doesn't eat to much anymore". Pt. stated he thinks his last appointment with Dr. Lewis is in February, adding "don't think I'm going to see him anymore". Pt. stated he had ECT on Friday and will have it again on Friday. Pt. stated he hopes to discharge on Friday. Pt. presents as alert, calm, pacing, fair eye contact, cooperative, soft speech, and with a mostly friendly demeanor. Staff report pt. sleeping 11 hours and being medication compliant. Pt. is scheduled for ECT on Friday at 0900. Date Signed: 02/08/2018 01:18 PM Electronically Signed By:Tanesha Boudreaux
--- NOTE | 2018-02-08 23:59 | SOAPPROG ---
SOAP Progress Note Assessment/Plan: Assessment: 37yo with Schizoaffective d/o bipolar type, acute exacerbation with recent increase in agitation and suicidality, and hx of unspecified developmental d/o, admitted for ECT and restabilization 02/07/18 15:00 per staff, slept well through night. has appeared tense, pacing, staff initiated placing pt on assault awareness given recent hx of throwing objects prior to admission. On interview, pt reports readmitted b/c "It was the Holidays, I got depressed, and violent, again." States his thoughts "weren't good when I got here...better now". Declined to elaborate. States ECT "treatment on Friday" and is in agreement to cont ECT. Initially didn't recall if had ECT yesterday. Otherwise "I just roam around". Declined having any interest in groups, reading or writing materials etc. fair e/c, casually dressed, allowed interview although seemed somewhat guarded. little/no spont speech but with normal rate and articulation when did respond to questions, although fairly monotonous. affect blunted/almost flat. mood "fine ". no overt delusions or paranoia, did respond linearly to some questions with brief responses as noted above, other times did not respond or gave brief response. admitted to thoughts being not good on admission but better now. Denied current physical problems or any medication s/e or issues with ECT. Denied SI or thoughts to harm others, "no", and regarding if he feels safe in hospital "yes". pt terminated interview by walking away. PLAN: seems may have had some benefit from ECT yesterday given his apparent slight incr in verbal responsiveness cont current meds Ativan 1mg TID and prn, and ECT course cont current precautions 02/08/18 14:28 slept 11hr per staff. scheduled for ECT tomorrow. States he does not want Dr. Lewis. paces up/down halls. takes meds. often requesting prn ativan. unable to state to [facility] [place] [place] staff why he requests the ativan. pt briefly interviewed. aware he has ECT scheduled tomorrow. denied any concerns , denied problems with sleep, appetite. no physical compliants. fair e/c. gave brief yes/no responses to questions asked. flattened affect, mood "fine". denied SI or thoughts to harm others, denied AH/VH. poverty of speech content with little/no spontaneity. i/j limited PLAN: cont ECT as planned cont Ativan 1mg TID with prns avail staff report mother has questions about medications, will defer to primary team who is very familiar with pt Objective: Vital Signs Temp Pulse Resp BP Pulse Ox 36.7 C 107 H 16 137/93 H 93 02/08/18 06:00 02/08/18 06:00 02/08/18 06:00 02/08/18 06:00 02/08/18 06:00 02/07/18 02/08/18 02/09/18 05:59 05:59 05:59 Intake Total 635 Balance 635 - Time Spent With Patient Time Spent With Patient: 5min - Pending Discharge Pending Discharge Within 24 Hours: No Pending Discharge Within 48 Hours: No ICD10 Worksheet Patient Problems: Problems Problem Status Onset Schizoaffective disorder, bipolar type, with catatonia Acute Schizoaffective disorder Acute Schizophrenia Acute
[2018-02-09] MEDS ORDERED: CITRIC ACID/SODIUM CITRATE 30 ML UDCUP PO PRN (06:17)
[2018-02-09] MEDS ORDERED: ONDANSETRON DISINTEGRATING 4 MG TAB PO PRN (06:17)
[2018-02-09] MEDS ORDERED: NS 1,000 ML IV PRN (06:17)
[2018-02-09] MEDS: LORazepam 1 MG TAB PO SCH ×3 (07:37→19:17)
[2018-02-09] MEDS ORDERED: fentaNYL 100 MCG/2 ML INJ ONE (09:08)
[2018-02-09] MEDS ORDERED: GLYCOPYRROLATE 0.2 MG/1 ML VIAL ONE (09:09)
[2018-02-09] MEDS ORDERED: ONDANSETRON 4 MG/2 ML VIAL ONE (09:09)
[2018-02-09] MEDS ORDERED: LORazepam 2 MG/ML INJ ONE (09:09)
[2018-02-09] MEDS ORDERED: ROCURONIUM 50 MG/5 ML VIAL ONE (09:09)
[2018-02-09] MEDS ORDERED: METHOHEXITAL SODIUM 100 MG/10 ML SYR IVP ONE (09:09)
[2018-02-09] MEDS ORDERED: SUCCINYLCHOLINE CHLORIDE 200 MG/10 ML VIAL ONE (09:09)
--- NOTE | 2018-02-09 09:12 | PDANEPAE ---
ECT Pre Anesthetic Evaluation Allergies/Adverse Reactions: olanzapine [From Zyprexa] Allergy (Severe, Verified 02/04/18 10:38) catatonea propylthiouracil Allergy (Severe, Verified 02/04/18 10:38) impulsivity methazolamide Allergy (Unknown, Verified 02/04/18 10:38) Unknown risperidone [From Risperdal] Allergy (Unknown, Verified 02/04/18 10:38) Unknown Patient ID confirmed: Yes H&P reviewed: Yes Pre-anesthetic history reviewed: Yes Heart: regular rate and rhythym Lungs: no respiratory distress Mallampati Score: Class 1 ASA Status: I Home Medications: Medication Instructions Recorded LORazepam [Ativan (*)] 1 mg PO TID #90 tab 01/12/18 Medication review: completed Patient interviewed: Yes Patient examined: Yes Anesthetic plan discussed with patient: Yes Anesthetic risks discussed with patient: Yes ECT Pre-Anesthetic History - Height & Weight Height: 175.26 cm Weight: 92.6 kg BMI: 30.17 - Anesthesia History Hx Anesthesia Complications (with details): Denies. Family Hx Anesthesia Complications: Denies. 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 - Pulmonary History ECT Hx Asthma: No Hx Abnormal Chest X-Ray: No Hx Oxygen in Use at Home: No - Cardiovascular History Hx Hypertension: No Currently Uses Hypertension Medication: No Hx Arrhythmias: No Hx Palpitations: No Hx Chest Pain: No Hx Coronary Artery / Peripheral Vascular Disease: No Hx Blood Clot: No - Neurologic History Hx Cerebrovascular Accident: No Hx CT Scan Or MRI Of The Brain: No Hx Epilepsy, Convulsions, Seizures, Or Blackouts: No Hx Frequent Or Severe Headaches: No Hx Numbness: No Hx Neurologic Disorder: No - Dental History Current Dental Issues: Dentures Dental History Comment: top and bottom - Endocrine History Hx Diabetes: No Current Daily Insulin Injections: No Hx Thyroid Problems: Yes Endocrine History Comment: hyperthyroidism resolved in 2008 - Renal/Urologic History Hx Renal Disorders: No Hx Urinary Tract Problems: No - Liver History Hx Hepatic Disorders: No - Cancer History Hx Cancer: No - Hematology History Hx Unexplained Bleeding Of Any Type: No Hx Ease Of Bruising: No Hx Anemia: No - Gastrointestinal History Hx Gastroesophogeal Reflux Disease: No Hx Ulcers: No Hx Hiatal Hernia: No Hx Difficulty Swallowing: No - Musculoskeletal Hisory Hx Chronic Pain: No Hx Arthritis: No - Opthalmic History Hx Glaucoma: No Visual Assistive Devices: Glasses Hx Opthalmic Disorders: No - Other Health History Physical Disabililty: No Recent Cough, Cold, or Fever: No Significant Weight Loss In The Last 4 Months: No Possible the Patient Might be : No
[2018-02-09] MEDS ORDERED: NALOXONE HCL 0.4 MG/ML INJ IVP PRN (09:35)
[2018-02-09] MEDS ORDERED: PROMETHAZINE HCL 25 MG TAB PO PRN (09:35)
[2018-02-09] MEDS ORDERED: HYDROCODONE/APAP 5/325 TAB PO PRN (09:35)
--- NOTE | 2018-02-09 09:35 | PDECTPN ---
ECT Progress Note Patient Problems: Problems Problem Status Onset Code Schizoaffective disorder, bipolar type, with catatonia Acute F25.0, F06.1 Schizoaffective disorder Acute F25.9 Schizophrenia Acute F20.9 Date: 02/09/18 ECT provider: Forrest Mancilla Anesthesia: Scotty Emerson Stimulus dose (%): 100 Pulse width: 0.5 ECT EMG (sec): 18 ECT EEG (sec): 71 ECT treatment type: bilateral QIDS-SR Total Score: 0 QIDS-SR Question #12 Score: 0 MMSE Total Score (Max = 21): 20 Next ECT date: 02/11/18 Next ECT time: 10:45 O/P psychiatrist follow up with Dr.: Joshua O/P psychiatrist follow up: direct communication Home medications: Medication Instructions Recorded LORazepam [Ativan (*)] 1 mg PO TID #90 tab 01/12/18 Current treatment plan: acute phase Treatment plan frequency: 3 times per week ECT narrative: Reviewed Admit note, spoke with Dr Merlos, Genna Winters, mother Angela, and Dr Lewis today. Pt had been taken out of AL facility by mother for an overnight as he appeared worse to her there. But, once home, he became agitated and erratic in behavior "every couple of hours" in which he would yell, "I'm outta here!" and stomp loudly, then leave, but ultimately come back home. Mother feels he may need more medication. She also believes he feels she has abandoned him. I suspect that with his psychotic mood disorder (and the paranoia that comes with it) plus is ASD issues, changes in routine (i,e, being taken out of assisted living and then brought back) is destabilizing for him and I suggested she only visit him, but not take him home. Dr Lewis and mother agree to have trial for Onel of Depakote. Mother reports that his mind races, he has intermittant agitation, etc. This could all be c/w a mixed manic state or manic/catatonic excitement. These symptoms can be putatively addressable with Depakote given its anti manic benefits, mood stablilization, and through some glutaminergic modulation, some benefit in catatonia. It is certainly better tolerated than Clozaril. Mother consents and patient provides willingness to try it, too. he remains near mute, but answers concrete questions in monotone, low volume, impoverished way with only intermittant eye contact. No aggression or agitation noted today,nor clear responsding to internal stimuli. No odd repetition of phrases. His QIDS score of 0 is clearly not reliable. I query whether he is ingesting the ativan at the ID facility and brought that up with mom. She has asked the staff there who indicate that they are giving it to him. Unclear, if they actually watch him ingest it. I believe he has insight into ativan's benefit to him and would therefore not reject it. But, on the other hand,he is prone to paranoia and this may outweigh any rational ideas.
[2018-02-09] MEDS: LORazepam 0.5 MG TAB PO PRN (11:00)
--- NOTE | 2018-02-09 14:13 | ASMTCMCOM ---
CM Note CM Note Notes: Client continues to pace the hallways, however, was able to answer short "yes, or no" questions when asked. Client appears to be more vocal than previous days. Date Signed: 02/09/2018 02:12 PM Electronically Signed By:Helio Harrison
[2018-02-09] MEDS: DIVALPROEX ER 250 MG TAB PO SCH ×2 (15:13→19:17)
[2018-02-10] MEDS: LORazepam 0.5 MG TAB PO PRN ×2 (06:44→16:07)
[2018-02-10] MEDS: LORazepam 1 MG TAB PO SCH (07:44)
[2018-02-10] MEDS: DIVALPROEX ER 250 MG TAB PO SCH ×2 (07:44→16:07)
--- NOTE | 2018-02-10 11:08 | ASMTCMCOM ---
CM Note CM Note Notes: Client presents as non verbal (most of the time), during interaction. Client walks up and down the hallways. Affect restricted, guarded. Date Signed: 02/10/2018 11:07 AM Electronically Signed By:Helio Harrison
--- NOTE | 2018-02-10 16:26 | SOAPPROG ---
SOAP Progress Note Assessment/Plan: Assessment: Plan: 02/10/18 16:26 Catatonia: Appears brighter, perhaps more fluent. Plan per Dr. Mancilla with ECT tomorrow. Subjective: Pt seen in coverage for Dr. Mancilla, discussed with staff, chart reviewed. Case discussed in Treatment Team meeting. He remains generally mute, but more interactive. Pacing, but more calmly. Engages when approached, but does not speak. Able to nod his head to simple questions. Slept 10 hours last night. No behavioral issues or aggression noted. Tolerating ECT well with no c/o's or obvious side effects. Objective: Vital Signs Temp Pulse Resp BP Pulse Ox 36.6 C 101 H 16 114/69 94 02/10/18 06:00 02/10/18 06:00 02/10/18 06:00 02/10/18 06:00 02/10/18 06:00 02/09/18 02/10/18 02/11/18 05:59 05:59 05:59 Intake Total 950 Balance 950 MSE: Moderately agitated, pacing. Engages briefly with fleeting eye contact. Does not speak, but nods head appropriately. Affect is blunted to flat. Mood is not stated. No overt psychosis. - Time Spent With Patient Time Spent With Patient: 15" ICD10 Worksheet Patient Problems: Problems Problem Status Onset Schizoaffective disorder, bipolar type, with catatonia Acute Schizoaffective disorder Acute Schizophrenia Acute
[2018-02-11] MEDS ORDERED: ONDANSETRON DISINTEGRATING 4 MG TAB PO PRN (04:39)
[2018-02-11] MEDS ORDERED: CITRIC ACID/SODIUM CITRATE 30 ML UDCUP PO PRN (04:39)
[2018-02-11] MEDS ORDERED: NS 1,000 ML IV PRN (04:39)
[2018-02-11] MEDS ORDERED: THEOPHYLLINE ORAL SOLUTION 80 MG/15 ML UDCUP PO ONE ×2 (04:39→08:45)
[2018-02-11] MEDS ORDERED: LIDOCAINE 2% 5 ML SDV ONE (05:50)
[2018-02-11] MEDS ORDERED: fentaNYL 100 MCG/2 ML INJ ONE (11:27)
[2018-02-11] MEDS ORDERED: LORazepam 2 MG/ML INJ ONE ×2 (11:27→11:32)
[2018-02-11] MEDS ORDERED: PROMETHAZINE HCL 25 MG TAB PO PRN (12:10)
[2018-02-11] MEDS ORDERED: HYDROCODONE/APAP 5/325 TAB PO PRN (12:10)
--- NOTE | 2018-02-11 12:17 | PDECTPN ---
ECT Progress Note Patient Problems: Problems Problem Status Onset Code Schizoaffective disorder, bipolar type, with catatonia Acute F25.0, F06.1 Schizoaffective disorder Acute F25.9 Schizophrenia Acute F20.9 Date: 02/11/18 ECT provider: Forrest Mancilla Anesthesia: Sally Stoabigail Stimulus dose (%): 100 Pulse width: 0.5 ECT EMG (sec): 39 ECT EEG (sec): 42 ECT treatment type: bilateral QIDS-SR Total Score: 0 QIDS-SR Question #12 Score: 0 MMSE Total Score (Max = 21): 21 Next ECT date: 02/13/18 O/P psychiatrist follow up with Dr.: Joshua O/P psychiatrist follow up: direct communication Home medications: Medication Instructions Recorded LORazepam [Ativan (*)] 1 mg PO TID #90 tab 01/12/18 Medication review: completed Current treatment plan: acute phase Treatment plan frequency: 3 times per week ECT narrative: 02/09/18 Reviewed Admit note, spoke with Dr Merlos, Genna Winters, mother Angela, and Dr Lewis today. Pt had been taken out of AL facility by mother for an overnight as he appeared worse to her there. But, once home, he became agitated and erratic in behavior "every couple of hours" in which he would yell, "I'm outta here!" and stomp loudly, then leave, but ultimately come back home. Mother feels he may need more medication. She also believes he feels she has abandoned him. I suspect that with his psychotic mood disorder (and the paranoia that comes with it) plus is ASD issues, changes in routine (i,e, being taken out of assisted living and then brought back) is destabilizing for him and I suggested she only visit him, but not take him home. Dr Lewis and mother agree to have trial for Onel of Depakote. Mother reports that his mind races, he has intermittant agitation, etc. This could all be c/w a mixed manic state or manic/catatonic excitement. These symptoms can be putatively addressable with Depakote given its anti manic benefits, mood stablilization, and through some glutaminergic modulation, some benefit in catatonia. It is certainly better tolerated than Clozaril. Mother consents and patient provides willingness to try it, too. he remains near mute, but answers concrete questions in monotone, low volume, impoverished way with only intermittant eye contact. No aggression or agitation noted today,nor clear responsding to internal stimuli. No odd repetition of phrases. His QIDS score of 0 is clearly not reliable. I query whether he is ingesting the ativan at the [place] facility and brought that up with mom. She has asked the staff there who indicate that they are giving it to him. Unclear, if they actually watch him ingest it. I believe he has insight into ativan's benefit to him and would therefore not reject it. But, on the other hand,he is prone to paranoia and this may outweigh any rational ideas. 02/11/18 Reviewed chart notes and Dr Ugalde coverage. Pt clinically improving, albeit not back to baseline. He remains near mute, but was able to ask a question and express a SE in written note to me (he wishes to shave, and indicated "new med is making me dizzy"). I reassured him the VPA SE will marvin in next few days and if it did not, we would reduce dose. He nods to acknowledge information. Nil eye contact. Impov behavior, but not agitated or pacing erratically either. WIll cont acute B ECT on friday and cont VPA dose unchanged for now.
[2018-02-11] MEDS: DIVALPROEX ER 250 MG TAB PO SCH ×2 (15:51→20:19)
[2018-02-11] MEDS: LORazepam 1 MG TAB PO SCH ×2 (15:51→20:19)
[2018-02-12] MEDS: LORazepam 1 MG TAB PO SCH ×3 (07:46→17:10)
[2018-02-12] MEDS: DIVALPROEX ER 250 MG TAB PO SCH (07:46)
[2018-02-12] MEDS: LORazepam 0.5 MG TAB PO PRN (12:06)
--- NOTE | 2018-02-12 12:35 | ASMTCMCOM ---
CM Note CM Note Notes: Pt. was eating breakfast when CC approached. Pt. reports feeling "fine". Pt. stated he is eating well and not attending groups. Pt. stated he is "just wondering why I got a new pill added" notified. Pt. stated he had ECT yesterday, and will have it again on Friday. Pt. stated he is sleeping "much better". Pt. denied SI, HI, AVH and paranoia. Pt. stated he has been pacing because "that's what I do". Pt. presents as alert, calm, quiet, passive in his answers, cooperative, with fair eye contact, and with a mostly friendly demeanor. Staff report pt. sleeping 10 hours and being medication compliant. Pt. is scheduled for ECT tomorrow at 1030am Date Signed: 02/12/2018 12:34 PM Electronically Signed By:Tanesha Boudreaux
--- NOTE | 2018-02-12 21:39 | SOAPPROG ---
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 Still, however, is quite improverished in behavior and speech, he dressed casually in sweat pants and shirt. Ungroomed. No respnding to int stimuli. He endorses some on going dizziness with depakote, but has no objective ataxia, dysarthria. He was reassured re transitory nature of that SE. Plan to cont acute ECT for resovling catatonia. 02/12/18 21:34 Objective: Vital Signs Temp Pulse Resp BP Pulse Ox 36.3 C 106 H 16 112/63 91 L 02/12/18 06:00 02/12/18 06:00 02/12/18 06:00 02/12/18 06:00 02/12/18 06:00 02/11/18 02/12/18 02/13/18 05:59 05:59 05:59 Intake Total 1000 Balance 1000 ICD10 Worksheet Patient Problems: Problems Problem Status Onset Schizoaffective disorder, bipolar type, with catatonia Acute Schizoaffective disorder Acute Schizophrenia Acute
[2018-02-13] MEDS ORDERED: CITRIC ACID/SODIUM CITRATE 30 ML UDCUP PO PRN (04:12)
[2018-02-13] MEDS ORDERED: THEOPHYLLINE ORAL SOLUTION 80 MG/15 ML UDCUP PO ONE ×2 (04:12→08:15)
[2018-02-13] MEDS ORDERED: NS 1,000 ML IV PRN (04:12)
[2018-02-13] MEDS ORDERED: ONDANSETRON DISINTEGRATING 4 MG TAB PO PRN (04:12)
[2018-02-13] MEDS ORDERED: ONDANSETRON DISINTEGRATING 4 MG TAB ONE (10:38)
[2018-02-13] MEDS ORDERED: CITRIC ACID/SODIUM CITRATE 30 ML UDCUP ONE (10:38)
--- NOTE | 2018-02-13 10:52 | ASMTBHDC ---
Notes Note: Notes: CC met with pt while pacing the halls with him. Pt. reports feeling "just fine". Pt. stated he slept "just fine". Pt. stated he is getting "plenty" to eat. Pt. stated he attended the sound bath yesterday, adding "that was interesting". Pt. stated he is a little off balanced from his new medication. Pt. stated he will hopefully discuss his discharge plan with Dr. Mancilla today at ECT. Pt. is scheduled for ECT at 10:30am. Pt. denied SI, HI, AVH and paranoia. Pt. stated he plans to return to living at [facility]. Pt. presents as alert, calm, pacing, soft spoken, cooperative, lacking eye contact and with a mostly friendly demeanor. Staff report pt. sleeping 10.5 hours and being medication compliant. Pt. attended the treatment team meeting this morning as well. Date Signed: 02/13/2018 10:51 AM Electronically Signed By:Tanesha Boudreaux
--- NOTE | 2018-02-13 11:12 | PDANEPAE ---
ECT Pre Anesthetic Evaluation Allergies/Adverse Reactions: olanzapine [From Zyprexa] Allergy (Severe, Verified 02/04/18 10:38) catatonea propylthiouracil Allergy (Severe, Verified 02/04/18 10:38) impulsivity methazolamide Allergy (Unknown, Verified 02/04/18 10:38) Unknown risperidone [From Risperdal] Allergy (Unknown, Verified 02/04/18 10:38) Unknown Patient ID confirmed: Yes H&P reviewed: Yes Pre-anesthetic history reviewed: Yes Heart: regular rate and rhythym, no murmur, rub, or gallop Lungs: no respiratory distress, no rales or rhonchi Mallampati Score: Class 1 ASA Status: II Home Medications: Medication Instructions Recorded LORazepam [Ativan (*)] 1 mg PO TID #90 tab 01/12/18 Medication review: completed Patient interviewed: Yes Patient examined: Yes Anesthetic plan discussed with patient: Yes Anesthetic risks discussed with patient: Yes ECT Pre-Anesthetic History - Height & Weight Height: 175.26 cm Weight: 92.6 kg BMI: 30.17 - Anesthesia History Hx Anesthesia Complications (with details): Denies. Family Hx Anesthesia Complications: Denies. 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 - Pulmonary History ECT Hx Asthma: No Hx Abnormal Chest X-Ray: No Hx Oxygen in Use at Home: No - Cardiovascular History Hx Hypertension: No Currently Uses Hypertension Medication: No Hx Arrhythmias: No Hx Palpitations: No Hx Chest Pain: No Hx Coronary Artery / Peripheral Vascular Disease: No Hx Blood Clot: No - Neurologic History Hx Cerebrovascular Accident: No Hx CT Scan Or MRI Of The Brain: No Hx Epilepsy, Convulsions, Seizures, Or Blackouts: No Hx Frequent Or Severe Headaches: No Hx Numbness: No Hx Neurologic Disorder: No - Dental History Current Dental Issues: Dentures Dental History Comment: top and bottom - Endocrine History Hx Diabetes: No Current Daily Insulin Injections: No Hx Thyroid Problems: Yes Endocrine History Comment: hyperthyroidism resolved in 2008 - Renal/Urologic History Hx Renal Disorders: No Hx Urinary Tract Problems: No - Liver History Hx Hepatic Disorders: No - Cancer History Hx Cancer: No - Hematology History Hx Unexplained Bleeding Of Any Type: No Hx Ease Of Bruising: No Hx Anemia: No - Gastrointestinal History Hx Gastroesophogeal Reflux Disease: No Hx Ulcers: No Hx Hiatal Hernia: No Hx Difficulty Swallowing: No - Musculoskeletal Hisory Hx Chronic Pain: No Hx Arthritis: No - Opthalmic History Hx Glaucoma: No Visual Assistive Devices: Glasses Hx Opthalmic Disorders: No - Other Health History Physical Disabililty: No Recent Cough, Cold, or Fever: No Significant Weight Loss In The Last 4 Months: No Possible the Patient Might be : No
[2018-02-13] MEDS ORDERED: HYDROCODONE/APAP 5/325 TAB PO PRN (11:55)
[2018-02-13] MEDS ORDERED: NALOXONE HCL 0.4 MG/ML INJ IVP PRN (11:55)
[2018-02-13] MEDS ORDERED: PROMETHAZINE HCL 25 MG TAB PO PRN (11:55)
--- NOTE | 2018-02-13 11:55 | PDECTPN ---
ECT Progress Note Patient Problems: Problems Problem Status Onset Code Schizoaffective disorder, bipolar type, with catatonia Acute F25.0, F06.1 Schizoaffective disorder Acute F25.9 Schizophrenia Acute F20.9 Date: 02/13/18 ECT provider: Forrest Mancilla Anesthesia: Sally Stoabigail Stimulus dose (%): 100 Pulse width: 0.5 ECT EMG (sec): 36 ECT EEG (sec): 36 ECT treatment type: bilateral QIDS-SR Total Score: 0 QIDS-SR Question #12 Score: 0 MMSE Total Score (Max = 21): 19 Next ECT date: 02/16/18 Next ECT time: 11:30 O/P psychiatrist follow up with Dr.: Joshua O/P psychiatrist follow up: direct communication Home medications: Medication Instructions Recorded LORazepam [Ativan (*)] 1 mg PO TID #90 tab 01/12/18 Current treatment plan: acute phase Treatment plan frequency: 3 times per week ECT narrative: 02/09/18 Reviewed Admit note, spoke with Dr Merlos, Genna Winters, mother Angela, and Dr Lewis today. Pt had been taken out of AL facility by mother for an overnight as he appeared worse to her there. But, once home, he became agitated and erratic in behavior "every couple of hours" in which he would yell, "I'm outta here!" and stomp loudly, then leave, but ultimately come back home. Mother feels he may need more medication. She also believes he feels she has abandoned him. I suspect that with his psychotic mood disorder (and the paranoia that comes with it) plus is ASD issues, changes in routine (i,e, being taken out of assisted living and then brought back) is destabilizing for him and I suggested she only visit him, but not take him home. Dr Lewis and mother agree to have trial for Onel of Depakote. Mother reports that his mind races, he has intermittant agitation, etc. This could all be c/w a mixed manic state or manic/catatonic excitement. These symptoms can be putatively addressable with Depakote given its anti manic benefits, mood stablilization, and through some glutaminergic modulation, some benefit in catatonia. It is certainly better tolerated than Clozaril. Mother consents and patient provides willingness to try it, too. he remains near mute, but answers concrete questions in monotone, low volume, impoverished way with only intermittant eye contact. No aggression or agitation noted today,nor clear responsding to internal stimuli. No odd repetition of phrases. His QIDS score of 0 is clearly not reliable. I query whether he is ingesting the ativan at the [facility] facility and brought that up with mom. She has asked the staff there who indicate that they are giving it to him. Unclear, if they actually watch him ingest it. I believe he has insight into ativan's benefit to him and would therefore not reject it. But, on the other hand,he is prone to paranoia and this may outweigh any rational ideas. 02/11/18 Reviewed chart notes and Dr Ugalde coverage. Pt clinically improving, albeit not back to baseline. He remains near mute, but was able to ask a question and express a SE in written note to me (he wishes to shave, and indicated "new med is making me dizzy"). I reassured him the VPA SE will marvin in next few days and if it did not, we would reduce dose. He nods to acknowledge information. Nil eye contact. Impov behavior, but not agitated or pacing erratically either. WIll cont acute B ECT on friday and cont VPA dose unchanged for now. 02/13 Spoke with mother who is now "afraid of depakote" and correlates its being started to SEs that in this signwriter's opinion, are either more c/w ECT or simply have no association to anything ("he is eating chocolate candies...I've never seen him do that....Is that the Depakote?!"). This is repeated patter of mother who often misconstrues what are really SYMPTOMS of pts condition with SIDE EFFECT of whatever treatment, med or ECT , that is being done concurrently. Pt denies any significant dizziness. I encouraged mother to let us "see through " the Depakote and reminded her that acute ECT will affect memory and orientation, more so than low dose depakote. Will check level too to see.
[2018-02-13] MEDS: LORazepam 1 MG TAB PO SCH ×2 (15:36→20:48)
[2018-02-13] MEDS: DIVALPROEX ER 250 MG TAB PO SCH ×2 (15:36→20:48)
[2018-02-14] MEDS: DIVALPROEX ER 250 MG TAB PO SCH ×3 (08:25→20:23)
[2018-02-14] MEDS: LORazepam 1 MG TAB PO SCH ×3 (08:25→20:23)
--- NOTE | 2018-02-14 11:43 | ASMTCMCOM ---
CM Note CM Note Notes: Pt. was pacing the halls when CC approached to speak. Pt. stated he is feeling "fine". Pt. reports sleeping "fine". Pt. stated he is eating well and not attending groups. Pt. stated his medications are "fine". Pt. stated he had ECT yesterday and it went "fine". Pt. stated he is "just wondering when discharge will be". Pt. denied SI, HI, AVH and paranoia. Pt. presents as alert, calm, some eye contacts, cooperative, pacing, and with a friendly demeanor. Staff report pt. sleeping 10 hours and being medication compliant. Staff report pt speaking up more, but only a few words each time. Date Signed: 02/14/2018 11:43 AM Electronically Signed By:Tanesha Boudreaux
--- NOTE | 2018-02-14 19:13 | SOAPPROG ---
SOAP Progress Note Assessment/Plan: Assessment: 37yo with Schizoaffective d/o bipolar type, acute exacerbation with recent increase in agitation and suicidality, and hx of unspecified developmental d/o, admitted for ECT and restabilization. Improving. 02/14/18 12:42 per staff, slept 10hr. has been making appropriate requests, brief responses, more spontaneous in engaging verbally. continues to walk halls. started on depakote and c/o occ feeing off balance. On interview, pt reports feeling "stable". affect constricted but noted with more smiling at times during interview (appropriately) and more spontaneous verbally. states thoughts are "fine" and denies any SI or hallucinations. does not appear RIS. t/p are linear and goal-directed. does feel better since admission. denies problems with ECT, had ECT yesterday. denies physical complaints or s/e with new med depakote (250mg tid) except perhaps "bruising?"- asked to show what he is concerned about-pulls up pants legs and shows thighs with what appear to be notable varicose veins LLE>RLE. denies any pain from these and admits this is not new and thus do not seem to be related to medication. denies feeling presently off balance, altho states he has experienced such sensation occasionally. denies akathesia/restlessness, states he paces halls b/c that's what he likes to do. i/j seem improved. cognition conversationally intact. PLAN: cont ECT as planned cont current meds Objective: Vital Signs Temp Pulse Resp BP Pulse Ox 36.5 C 94 14 105/69 96 02/14/18 06:00 02/14/18 06:00 02/14/18 06:00 02/14/18 06:00 02/14/18 06:00 02/13/18 02/14/18 02/15/18 05:59 05:59 05:59 Intake Total 870 Balance 870 - Time Spent With Patient Time Spent With Patient: 15min - Pending Discharge Pending Discharge Within 24 Hours: No Pending Discharge Within 48 Hours: No ICD10 Worksheet Patient Problems: Problems Problem Status Onset Schizoaffective disorder, bipolar type, with catatonia Acute Schizoaffective disorder Acute Schizophrenia Acute
[2018-02-15 07:41] LABS: PLATELET COUNT 154 10^3/uL (150-400)
[2018-02-15] MEDS: DIVALPROEX ER 250 MG TAB PO SCH ×2 (08:13→15:22)
[2018-02-15] MEDS: LORazepam 1 MG TAB PO SCH ×2 (08:14→15:22)
--- NOTE | 2018-02-15 12:52 | SOAPPROG ---
SOAP Progress Note Assessment/Plan: Assessment: 37yo with Schizoaffective d/o bipolar type, acute exacerbation with recent increase in agitation and suicidality, and hx of unspecified developmental d/o, admitted for ECT and restabilization. Improving. 02/14/18 12:42 per staff, slept 10hr. has been making appropriate requests, brief responses, more spontaneous in engaging verbally. continues to walk halls. started on depakote and c/o occ feeing off balance. On interview, pt reports feeling "stable". affect constricted but noted with more smiling at times during interview (appropriately) and more spontaneous verbally. states thoughts are "fine" and denies any SI or hallucinations. does not appear RIS. t/p are linear and goal-directed. does feel better since admission. denies problems with ECT, had ECT yesterday. denies physical complaints or s/e with new med depakote (250mg tid) except perhaps "bruising?"- asked to show what he is concerned about-pulls up pants legs and shows thighs with what appear to be notable varicose veins LLE>RLE. denies any pain from these and admits this is not new and thus do not seem to be related to medication. denies feeling presently off balance, altho states he has experienced such sensation occasionally. denies akathesia/restlessness, states he paces halls b/c that's what he likes to do. i/j seem improved. cognition conversationally intact. PLAN: cont ECT as planned cont current meds 02/15/18 12:52 slept 10hr last night. no behav issues. has been compliant with meds and more engaged verbally on eval, pt with nml e/c, nml speech rate/vol, more spontaneous engagement, reports feeling "fine". affect quite constricted but somewhat more range noted with conversation. denied any SI or AH/VH. i'j seem improved. denied med s/e. no tremor or ataxia noted. asks if his primary team plans to d/c him on this new medication. (vpa 250 tid) discussed likely so since noted doing well clinically and improved, also noting this is a low dose for him given his body weight, and seems to be tolerating this well. offered to change med to BID or QHS dosing, but pt preferred to discuss any changes with Dr. Mancilla and Dr. Merlos. PLAN: cont ECT as planned cont current meds labs today: unremarkable chem panel, cbc, lfts. VPA 42. Objective: Vital Signs Temp Pulse Resp BP Pulse Ox 36.8 C 104 H 16 130/80 H 94 02/15/18 06:00 02/15/18 06:00 02/15/18 06:00 02/15/18 06:00 02/15/18 06:00 Laboratory Results 02/15/18 06:30 02/15/18 06:30 02/14/18 02/15/18 02/16/18 05:59 05:59 05:59 Intake Total 870 Balance 870 Medications Generic Name Dose Route Start Last Admin Trade Name Freq PRN Reason Stop Dose Admin Lorazepam 0.5 - 1 mg 02/04/18 14:21 02/10/18 16:07 Ativan PO 08/03/18 14:20 1 mg Q6HRS PRN Anxiety, Able to Take PO Lorazepam 1 mg 02/04/18 16:00 02/15/18 08:14 Ativan PO 08/03/18 15:59 1 mg TID SAMPSON Divalproex Sodium 250 mg 02/09/18 16:00 02/15/18 08:13 Depakote Er PO 08/08/18 15:59 250 mg TID SAMPSON - Time Spent With Patient Time Spent With Patient: 15min - Pending Discharge Pending Discharge Within 24 Hours: No Pending Discharge Within 48 Hours: No ICD10 Worksheet Patient Problems: Problems Problem Status Onset Schizoaffective disorder, bipolar type, with catatonia Acute Schizoaffective disorder Acute Schizophrenia Acute
[2018-02-16] MEDS ORDERED: DIVALPROEX ER 250 MG TAB PO SCH
[2018-02-16] MEDS ORDERED: THEOPHYLLINE ORAL SOLUTION 80 MG/15 ML UDCUP PO ONE ×3 (04:01→10:30)
[2018-02-16] MEDS ORDERED: CITRIC ACID/SODIUM CITRATE 30 ML UDCUP PO PRN (04:01)
[2018-02-16] MEDS ORDERED: NS 1,000 ML IV PRN (04:01)
[2018-02-16] MEDS ORDERED: ONDANSETRON DISINTEGRATING 4 MG TAB PO PRN (04:01)
--- NOTE | 2018-02-16 11:55 | POSTANESTH ---
Post Anesthetic Evaluation Cardiovascular Status: Normal, Stable Respiratory Status: Normal, Stable Level of Consciousness/Mental Status: Can Participate in Eval, Mildly Sleepy, Arousable Pain Control: Adequate, Prn Tx Ordered Nausea/Vomiting Control: Adequate, Prn Tx Ordered Complications Possibly Related to Anesthesia: None Noted
--- NOTE | 2018-02-16 11:56 | PDANEPAE ---
ECT Pre Anesthetic Evaluation Allergies/Adverse Reactions: olanzapine [From Zyprexa] Allergy (Severe, Verified 02/04/18 10:38) catatonea propylthiouracil Allergy (Severe, Verified 02/04/18 10:38) impulsivity methazolamide Allergy (Unknown, Verified 02/04/18 10:38) Unknown risperidone [From Risperdal] Allergy (Unknown, Verified 02/04/18 10:38) Unknown Patient ID confirmed: Yes H&P reviewed: Yes Pre-anesthetic history reviewed: Yes Heart: tachycardia Lungs: clear to auscultation Mallampati Score: Class 3 ASA Status: II Home Medications: Medication Instructions Recorded LORazepam [Ativan (*)] 1 mg PO TID #90 tab 01/12/18 Patient interviewed: Yes Patient examined: Yes See previous record: Yes Anesthetic plan discussed with patient: Yes Anesthetic risks discussed with patient: Yes ECT Pre-Anesthetic History - Height & Weight Height: 175.26 cm Weight: 92.079 kg BMI: 30.00 - Anesthesia History Hx Anesthesia Complications (with details): Denies. Family Hx Anesthesia Complications: Denies. 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 - Pulmonary History ECT Hx Asthma: No Hx Abnormal Chest X-Ray: No Hx Oxygen in Use at Home: No - Cardiovascular History Hx Hypertension: No Currently Uses Hypertension Medication: No Hx Arrhythmias: No Hx Palpitations: No Hx Chest Pain: No Hx Coronary Artery / Peripheral Vascular Disease: No Hx Blood Clot: No - Neurologic History Hx Cerebrovascular Accident: No Hx CT Scan Or MRI Of The Brain: No Hx Epilepsy, Convulsions, Seizures, Or Blackouts: No Hx Frequent Or Severe Headaches: No Hx Numbness: No Hx Neurologic Disorder: No - Dental History Current Dental Issues: Dentures Dental History Comment: top and bottom - Endocrine History Hx Diabetes: No Current Daily Insulin Injections: No Hx Thyroid Problems: Yes Endocrine History Comment: hyperthyroidism resolved in 2008 - Renal/Urologic History Hx Renal Disorders: No Hx Urinary Tract Problems: No - Liver History Hx Hepatic Disorders: No - Cancer History Hx Cancer: No - Hematology History Hx Unexplained Bleeding Of Any Type: No Hx Ease Of Bruising: No Hx Anemia: No - Gastrointestinal History Hx Gastroesophogeal Reflux Disease: No Hx Ulcers: No Hx Hiatal Hernia: No Hx Difficulty Swallowing: No - Musculoskeletal Hisory Hx Chronic Pain: No Hx Arthritis: No - Opthalmic History Hx Glaucoma: No Visual Assistive Devices: Glasses Hx Opthalmic Disorders: No - Other Health History Physical Disabililty: No Recent Cough, Cold, or Fever: No Significant Weight Loss In The Last 4 Months: No Possible the Patient Might be : No
--- NOTE | 2018-02-16 11:56 | PDHPUP ---
History & Physical Update H&P update statement: This history and physical update is based on an assessment of the patient which was completed after admission or registration (within 24 hours), but prior to the surgery/procedure. H&P update: H&P reviewed & patient examined, no change in patient's condition since H&P completed (no changes since last ECT treatment.)
--- NOTE | 2018-02-16 12:08 | PDECTPN ---
ECT Progress Note Patient Problems: Problems Problem Status Onset Code Schizoaffective disorder, bipolar type, with catatonia Acute F25.0, F06.1 Schizoaffective disorder Acute F25.9 Schizophrenia Acute F20.9 Date: 02/16/18 ECT provider: Forrest Mancilla Anesthesia: Symone Jamison Stimulus dose (%): 100 Pulse width: 0.5 ECT EMG (sec): 39 ECT EEG (sec): 53 ECT treatment type: bilateral QIDS-SR Total Score: 0 QIDS-SR Question #12 Score: 0 MMSE Total Score (Max = 21): 21 Next ECT date: 02/23/18 Next ECT time: 10:45 O/P psychiatrist follow up with Dr.: Joshua O/P psychiatrist follow up: direct communication Home medications: Medication Instructions Recorded LORazepam [Ativan (*)] 1 mg PO TID #90 tab 01/12/18 Current treatment plan: acute phase Treatment plan frequency: 3 times per week ECT narrative: 02/09/18 Reviewed Admit note, spoke with Dr Merlos, Genna Winters, mother Angela, and Dr Lewis today. Pt had been taken out of AL facility by mother for an overnight as he appeared worse to her there. But, once home, he became agitated and erratic in behavior "every couple of hours" in which he would yell, "I'm outta here!" and stomp loudly, then leave, but ultimately come back home. Mother feels he may need more medication. She also believes he feels she has abandoned him. I suspect that with his psychotic mood disorder (and the paranoia that comes with it) plus is ASD issues, changes in routine (i,e, being taken out of assisted living and then brought back) is destabilizing for him and I suggested she only visit him, but not take him home. Dr Lewis and mother agree to have trial for Onel of Depakote. Mother reports that his mind races, he has intermittant agitation, etc. This could all be c/w a mixed manic state or manic/catatonic excitement. These symptoms can be putatively addressable with Depakote given its anti manic benefits, mood stablilization, and through some glutaminergic modulation, some benefit in catatonia. It is certainly better tolerated than Clozaril. Mother consents and patient provides willingness to try it, too. he remains near mute, but answers concrete questions in monotone, low volume, impoverished way with only intermittant eye contact. No aggression or agitation noted today,nor clear responsding to internal stimuli. No odd repetition of phrases. His QIDS score of 0 is clearly not reliable. I query whether he is ingesting the ativan at the [place] facility and brought that up with mom. She has asked the staff there who indicate that they are giving it to him. Unclear, if they actually watch him ingest it. I believe he has insight into ativan's benefit to him and would therefore not reject it. But, on the other hand,he is prone to paranoia and this may outweigh any rational ideas. 02/11/18 Reviewed chart notes and Dr Ugalde coverage. Pt clinically improving, albeit not back to baseline. He remains near mute, but was able to ask a question and express a SE in written note to me (he wishes to shave, and indicated "new med is making me dizzy"). I reassured him the VPA SE will marvin in next few days and if it did not, we would reduce dose. He nods to acknowledge information. Nil eye contact. Impov behavior, but not agitated or pacing erratically either. WIll cont acute B ECT on friday and cont VPA dose unchanged for now. 02/13 Spoke with mother who is now "afraid of depakote" and correlates its being started to SEs that in this web content writer's opinion, are either more c/w ECT or simply have no association to anything ("he is eating chocolate candies...I've never seen him do that....Is that the Depakote?!"). This is repeated patter of mother who often misconstrues what are really SYMPTOMS of pts condition with SIDE EFFECT of whatever treatment, med or ECT , that is being done concurrently. Pt denies any significant dizziness. I encouraged mother to let us "see through " the Depakote and reminded her that acute ECT will affect memory and orientation, more so than low dose depakote. Will check level too to see. 02/16/18 Pt much improved and ready for d/c. Tolerating Depakote with no SEs, dizziness resolved.
--- NOTE | 2018-02-16 13:53 | GDS ---
IDENTIFYING DATA: The patient is a 37-year-old white male, well known to this marine underwriter, who is present ly living in an assisted living program. He is treated by Dr. Anant Lewis at [facility]. He was admitted on 02/04/2018 and discharged 02/16/2018. REASON FOR ADMISSION: The patient's mother had indicated that he had become more agitated while at t he assisted living facility and brought him home, where things only worsened. He went AWOL from her a number of times, returning an hour later, mumbling incoherently, making statements such as "I am ou t of here," which she associates in him with his being suicidal. PHYSICAL EXAMINATION: Physical exam performed by Rich Menard MD, which enumerated his prior medic al issues, including thyroid disturbance and craniosynostosis. He counseled about getting a thyroid function test. ROUTINE LAB WORK: The patient's CBC done twice revealed normal white blood cell count and absolute n eutrophil count (he is about a month out from being off clozapine). Bio Chem profile was within norm al limits. Urine toxicology was negative, except for benzodiazepine, which is a standing medication. His valproic acid level based on a dose of 750 mg was 42.2. HOSPITAL COURSE: The patient and mother consented to restart further acute ECT treatments. He had a total of 4 treatments. She also consented for him to start a new medication. I spoke with Dr. Jonny goode. He agreed with the marine underwriter's idea of starting Depakote ER 250 mg t.i.d. given the patient's recen t agitation and mood instability. There is also some putative evidence for having some benefit with catatonia given its glutamate modulating affect. The patient tolerated this medicine well after init ially having some dizziness with it. No GI upset, over sedation, ataxia, or increased LFTs or decrea sed white count noted with the medication. He had resolution of the catatonic excitement that cony t him in, and there was no evidence of agitation for the last few days at least. He is eating and dr inking and able to respond appropriately to questions with at least a sentence, which is far better t drake his baseline near mutism or gross impoverishment. DISPOSITION: The patient is to return to assisted living program. He should follow up with Dr. Almo ny as soon as possible. The Depakote dose can probably afford to be increased as his level was 42 on 750 mg, but this can be done slowly as an outpatient. I have scheduled him for weekly ECT, with his next treatment being Friday, 02/23. DISCHARGE MEDICATIONS: Lorazepam 1 mg p.o. t.i.d., divalproex ER 250 mg p.o. t.i.d. DISCHARGE DIAGNOSES: [place] I: Schizoaffective disorder, bipolar type; catatonia; autism spectrum dis order; history of hypothyroidism; and craniosynostosis. /[id number]/MODL
--- NOTE | 2018-02-16 14:06 | ASMTCMCOM ---
CM Note CM Note Notes: Ct. is being discharge this afternoon going back to [facility]. [facility] will pick him up. Date Signed: 02/16/2018 02:06 PM Electronically Signed By:Helena Velazquez
[2018-02-16 14:27] VITALS: BP 126/71
[2018-02-16] MEDS: LORazepam 1 MG TAB PO SCH (15:32)
[2018-02-16] MEDS: DIVALPROEX ER 250 MG TAB PO SCH (15:32)
[2018-02-17] MEDS ORDERED: DIVALPROEX ER 250 MG TAB PO SCH (09:00)
== END 2018-02-16 15:50 | DRG 885 ==
LOC: BBEH 13:30
PROVIDERS: ADMIT Psychiatry & Neurology Psychiatry; ATTEND Psychiatry & Neurology Psychiatry
PROC: GZB2ZZZ Electroconvulsive Therapy, Bilateral-Single Seizure (ICD-10-PCS; principal; 2018-02-06)
DX: F25.0 Schizoaffective disorder, bipolar type (principal); F84.0 Autistic disorder; E03.9 Hypothyroidism, unspecified; E66.9 Obesity, unspecified; Z75.0 Medical services not available in home
CPT/HCPCS: 80305; G0480; J0330; J2060; J2405; J3010

== ENCOUNTER 2018-03-16 11:37 | Emergency (ER) | payer OTHER, MEDICAID ==
--- NOTE | 2018-03-16 12:20 | EDPHY ---
HPI/HX/ROS/PE/MDM Narrative: CHIEF COMPLAINT: Bilateral swollen ankles HPI: 37 year old male with history of schizo-affective disorder, major depression. He was at his regularly scheduled ECT appointment this morning and nurses there recommended he present to the ED for evaluation of bilateral ankle swelling, left greater than left. Patient reportedly told ECT nurses they began hurting yesterday, but he is nonverbal here in the emergency department and does not confirm or deny this. No other known complaints at this time. HPI difficult to obtain as patient is nonverbal at this time. Limited HPI obtained from patient's mother at bedside. REVIEW OF SYSTEMS: A comprehensive 10 system review of systems is otherwise negative aside from elements mentioned in the history of present illness and medical decision making. PMH: Schizo-affective disorder, major depression. History of Grave's disease and Asperger's per mother. SOCIAL HISTORY: Single. Mother at bedside. Does not abuse tobacco, drugs, or alcohol. PHYSICAL EXAM: General:Patient is alert, in no acute distress. ENT:Eyes are normal to inspection. ENT inspection normal. Neck: Normal inspection. Full range of motion. Respiratory:No respiratory distress. Breath sounds normal bilaterally. Cardiovascular: Regular rate and rhythm. Strong peripheral pulses. Normal cap refill. Abdomen:The abdomen is nontender to palpation. There are no peritoneal signs. There are normal bowel sounds. Back: Normal to inspection. No tenderness to palpation. Skin: Normal color. No rash. Warm and dry. Extremities: 1+ pitting edema bilaterally. Ecchymosis, primarily to left ankle which is slightly bigger. Neuro: Normal motor function. Normal sensory function. ED Course: 37 y/o male presents with bilateral lower extremity edema. HPI limited as patient is not speaking and his mother does not have much information. 1+ pitting edema bilaterally. There is ecchymosis primarily to left ankle which is also slightly bigger. Plan for x-ray to r/o acute osseous abnormalities. X-rays show diffuse lower extremity edema and probable varicose veins in medial bilateral calves. Otherwise normal ankles. No bone lesion or arthropathy. 13:[address] Cary, radiologist. Negative US bilaterally. Reassessed. Discussed imaging results. Plan to discharge home in good condition. Follow up and return precautions discussed. The patient and his mother are comfortable with this plan. MDM: This patient presents with bilateral ankle swelling, left greater than right, that was noticed at ECT appointment today. Patient unable or unwilling to really provide us any history, and mother has no idea when this began. Given lack of reliable history, we performed an extensive workup including US, labs and XR, all of which are negative. I suspect the patient likely sprained his ankle and is just not telling us, but this is hard to determine. Regardless, I think he is safe for discharge home. - Data Points Imaging Results: Imaging Impressions Ankle X-Ray 03/16/18 12:20 Impression: 1. Diffuse lower extremity edema and probable varicose veins in medial bilateral calves. 2. Normal ankles. No bone lesion or arthropathy. Ankle X-Ray 03/16/18 12:20 Impression: 1. Diffuse lower extremity edema and probable varicose veins in medial bilateral calves. 2. Normal ankles. No bone lesion or arthropathy. Extremity Venous Study 03/16/18 13:06 Impression: No source for bilateral leg swelling identified. No deep vein thrombosis in the right or left lower extremity. Results discussed with Dr. Jori Casanova at 1:57 PM. Imaging: Discussed imaging studies w/ scalloper Radiologist Laboratory Results: Laboratory Results 03/16/18 12:29 03/16/18 12:29 03/16/18 03/16/18 03/16/18 12:29 12:29 12:29 WBC 6.83 10^3/uL 10^3/uL (3.80-9.50) RBC 4.34 10^6/uL L 10^6/uL (4.40-6.38) Hgb 14.6 g/dL g/dL (13.7-17.5) Hct 43.3 % % (40.0-51.0) MCV 99.8 fL fL (81.5-99.8) MCH 33.6 pg pg (27.9-34.1) MCHC 33.7 g/dL g/dL (32.4-36.7) RDW 12.5 % % (11.5-15.2) Plt Count 154 10^3/uL 10^3/uL (150-400) MPV 11.4 fL fL (8.7-11.7) Neut % (Auto) 74.0 % % (39.3-74.2) Lymph % (Auto) 16.8 % % (15.0-45.0) [place] % (Auto) 8.1 % % (4.5-13.0) Eos % (Auto) 0.3 % L % (0.6-7.6) Baso % (Auto) 0.4 % % (0.3-1.7) Nucleat RBC Rel Count 0.0 % % (0.0-0.2) Absolute Neuts (auto) 5.05 10^3/uL 10^3/uL (1.70-6.50) Absolute Lymphs (auto) 1.15 10^3/uL 10^3/uL (1.00-3.00) Absolute Monos (auto) 0.55 10^3/uL 10^3/uL (0.30-0.80) Absolute Eos (auto) 0.02 10^3/uL L 10^3/uL (0.03-0.40) Absolute Basos (auto) 0.03 10^3/uL 10^3/uL (0.02-0.10) Absolute Nucleated RBC 0.00 10^3/uL 10^3/uL (0-0.01) Immature Gran % 0.4 % % (0.0-1.1) Immature Gran # 0.03 10^3/uL 10^3/uL (0.00-0.10) Sodium 140 mEq/L mEq/L (135-145) Potassium 3.8 mEq/L mEq/L (3.5-5.2) Chloride 107 mEq/L mEq/L (97-110) Carbon Dioxide 28 mEq/l mEq/l (22-31) Anion Gap 5 mEq/L L mEq/L (6-14) BUN 8 mg/dL mg/dL (7-23) Creatinine 0.7 mg/dL mg/dL (0.7-1.3) Estimated GFR > 60 Glucose 101 mg/dL H mg/dL (70-100) Calcium 8.6 mg/dL mg/dL (8.5-10.4) Total Bilirubin 0.6 mg/dL mg/dL (0.1-1.4) Conjugated Bilirubin 0.3 mg/dL mg/dL (0.0-0.5) Unconjugated Bilirubin 0.3 mg/dL mg/dL (0.0-1.1) AST 15 IU/L L IU/L (17-59) ALT 13 IU/L L IU/L (21-72) Alkaline Phosphatase 63 IU/L IU/L (38-126) Total Protein 6.2 g/dL L g/dL (6.3-8.2) Albumin 3.7 g/dL g/dL (3.5-5.0) General Initial Vital Signs: Initial Vital Signs Temperature (C) 37 C 03/16/18 11:47 Heart Rate 107 H 03/16/18 11:47 Respiratory Rate 16 03/16/18 11:47 Blood Pressure 122/85 H 03/16/18 11:47 O2 Sat (%) 95 03/16/18 11:47 O2 Delivery Mode Room Air Allergies/Adverse Reactions: olanzapine [From Zyprexa] Allergy (Severe, Verified 03/16/18 11:47) catatonea propylthiouracil Allergy (Severe, Verified 03/16/18 11:47) impulsivity methazolamide Allergy (Unknown, Verified 03/16/18 11:47) Unknown risperidone [From Risperdal] Allergy (Unknown, Verified 03/16/18 11:47) Unknown Home Medications: Medication Instructions Recorded LORazepam [Ativan (*)] 1 mg PO TID #90 tab 01/12/18 LORazepam [Ativan (*)] 0.5 - 1 mg PO Q6HRS PRN tab 02/16/18 Divalproex ER [Depakote ER 250 MG 250 mg PO BID 03/13/18 (*)] Departure - Departure Disposition: Home, Routine, Self-Care Clinical Impression: Bilateral swelling of feet and ankles Condition: Good Instructions: Leg Edema (ED) Additional Instructions: Follow up with your primary care provider for further evaluation. Return to the emergency department for fever, chest pain, difficulty breathing, worsening pain or swelling in your legs, or other worsening of condition or further complaints. Referrals: ROBE HEADLEY [Primary Care Provider] - As per Instructions Report Scribed for: Jori Ron Report Scribed by: Delia Marquez Date of Report: 03/16/18 Time of Report: 13:57 Physician Review and Approval Statement: Portions of this note were transcribed by an ED scribe. I personally performed the history, physical exam, and medical decision making; and confirm the accuracy of the information in the transcribed note.
[2018-03-16 12:46] LABS: PLATELET COUNT 154 10^3/uL (150-400)
[2018-03-16 13:17] VITALS: BP 108/70
== END 2018-03-16 15:12 | disposition home or self-care (01) ==
DX: R60.0 Localized edema (principal)

== ENCOUNTER 2018-04-03 11:07 | Inpatient (IN) | payer OTHER ==
--- NOTE | 2018-04-03 11:43 | EDPHY ---
H & P Stated Complaint: Sent by psych for eval od "imagining things" (not a new problem for pt) - Personal History Current Tetanus Diphtheria and Acellular Pertussis (TDAP): Yes - Medical/Surgical History Hx Asthma: No Hx Chronic Respiratory Disease: No Hx Diabetes: No Hx Cardiac Disease: No Hx Renal Disease: No Hx Cirrhosis: No Hx Alcoholism: No Hx HIV/AIDS: No Hx Splenectomy or Spleen Trauma: No Other PMH: [id number], major depression. hx Grave's disease per mother. hx Asperger syndrome per mother. craniosynostosis - Social History Smoking Status: Former smoker Time Seen by Provider: 04/03/18 11:19 HPI/ROS: CHIEF COMPLAINT: Visual hallucination HISTORY OF PRESENT ILLNESS: 37 year old male history of schizophrenia, schizoaffective disorder, currently receiving ECT, sent by his psychiatrist for evaluation of visual hallucinations. No auditory hallucination. Denies suicidal or homicidal ideation. No complaints of pain or discomfort. REVIEW OF SYSTEMS: 10 systems reviewed and negative with the exception of the elements mentioned in the history of present illness PAST MEDICAL & SURGICAL HISTORY: Schizophrenia. Schizoaffective disorder. ECT. SOCIAL HISTORY:Denies acute alcohol or drug use PHYSICAL EXAM (Prior to examination, patient consented to physical exam, hands were washed and my usual and customary physical exam procedures followed) 1) GENERAL: Well-developed, well-nourished, alert and oriented. Appears to be in no acute distress. 2) HEAD: Normocephalic, atraumatic 3) HEENT: Pupils equal, round, reactive to light bilaterally. Sclera anicteric. 4) NECK: Full range of motion, no meningeal signs. 5) LUNGS: Clear auscultation bilaterally, no wheezes, no rhonchi, no retractions. 6) HEART: Regular rate and rhythm, no murmur, no heave, no gallop. 7) ABDOMEN: No guarding, no rebound, no focal tenderness, negative McBurney's, negative Ball's, negative Rovsing's, negative peritoneal sign, 8) MUSCULOSKELETAL: Moving all extremities, no focal areas of tenderness, no obvious trauma. No peripheral edema or discoloration. 9) BACK: No CVA tenderness, no midline vertebral tenderness, no fluctuance, no step-off, no obvious trauma, no visual or palpable abnormality. 10) SKIN: No rash, no petechiae. 11) Psychiatric: Patient is oriented X 3, there is no agitation. DIFFERENTIAL DIAGNOSIS: In no particular order including but not limited to schizophrenia, schizoaffective disorder, depression (Dinorah Velasquez Chioma) Constitutional: Initial Vital Signs Temperature (C) 36.8 C 04/03/18 11:09 Heart Rate 92 04/03/18 11:09 Respiratory Rate 16 04/03/18 11:09 Blood Pressure 122/76 H 04/03/18 11:09 O2 Sat (%) 98 04/03/18 11:09 O2 Delivery Mode Room Air Allergies/Adverse Reactions: olanzapine [From Zyprexa] Allergy (Severe, Verified 04/03/18 11:08) catatonea propylthiouracil Allergy (Severe, Verified 04/03/18 11:08) impulsivity clozapine Allergy (Mild, Verified 04/03/18 11:13) anger methazolamide Allergy (Unknown, Verified 04/03/18 11:08) Unknown risperidone [From Risperdal] Allergy (Unknown, Verified 04/03/18 11:08) Unknown Home Medications: Medication Instructions Recorded LORazepam [Ativan (*)] 1 mg PO TID #90 tab 01/12/18 Divalproex ER [Depakote ER 250 MG 250 mg PO BID 03/13/18 (*)] Medical Decision Making ED Course/Re-evaluation: 11:20 a.m.: Consulted with [facility] health [facility], has been contacted the patient's psychiatrist Dr. Mancilla recommended laboratory studies in the ER. Patient denies suicidal or homicidal ideation. I do not believe the patient is gravely disabled. He is in the ER voluntarily at this time. At this time I do not think he meets criteria for an M1 hold or mental health detainer. 3:29 p.m.: Informed By mental health library page the patient has been accepted for transfer , Dr. Aditya Merlos accepting physician, [address], indication: psychiatric services for schizoaffective disorder.. EMTALA paperwork completed. The patient was previously placed on M1 hold by the mental health library page. (Eva,D Chioma) Other Provider: PHYSICIAN DOCUMENTATION: The patient was evaluated and managed by the Physician Merchant Patroller and myself. I have reviewed the chart and agree with the findings and plan of care as documented. In addition, I examined the patient myself at 1520. History confirmed as history of schizoaffective disorder, confirmed by his family. Physical findings as follows: Patient is relatively quiet not really wanting to answer questions, wearing headphones. Patient placed on a mental health hold and consultation with library page for grave disability. He is"hallucinating and per caregiver continuing to decompensate. Patient is nonverbal and appears to be responding to internal stimuli." The patient will be transferred to [facility] for inpatient psychiatric hospital bed not available at this facility, in stable condition; accepting physician is Dr. Rey Merlos. EMTALA form completed. I am the secondary supervising physician. (Sage Begum) - Data Points Laboratory Results: Laboratory Results 04/03/18 12:25 04/03/18 12:25 04/03/18 04/03/18 04/03/18 13:00 12:25 12:25 WBC 6.53 10^3/uL 10^3/uL (3.80-9.50) RBC 4.74 10^6/uL 10^6/uL (4.40-6.38) Hgb 15.4 g/dL g/dL (13.7-17.5) Hct 46.2 % % (40.0-51.0) MCV 97.5 fL fL (81.5-99.8) MCH 32.5 pg pg (27.9-34.1) MCHC 33.3 g/dL g/dL (32.4-36.7) RDW 12.6 % % (11.5-15.2) Plt Count 166 10^3/uL 10^3/uL (150-400) MPV 11.4 fL fL (8.7-11.7) Neut % (Auto) 64.0 % % (39.3-74.2) Lymph % (Auto) 26.6 % % (15.0-45.0) [place] % (Auto) 6.9 % % (4.5-13.0) Eos % (Auto) 0.9 % % (0.6-7.6) Baso % (Auto) 1.1 % % (0.3-1.7) Nucleat RBC Rel Count 0.0 % % (0.0-0.2) Absolute Neuts (auto) 4.18 10^3/uL 10^3/uL (1.70-6.50) Absolute Lymphs (auto) 1.74 10^3/uL 10^3/uL (1.00-3.00) Absolute Monos (auto) 0.45 10^3/uL 10^3/uL (0.30-0.80) Absolute Eos (auto) 0.06 10^3/uL 10^3/uL (0.03-0.40) Absolute Basos (auto) 0.07 10^3/uL 10^3/uL (0.02-0.10) Absolute Nucleated RBC 0.00 10^3/uL 10^3/uL (0-0.01) Immature Gran % 0.5 % % (0.0-1.1) Immature Gran # 0.03 10^3/uL 10^3/uL (0.00-0.10) Sodium 139 mEq/L mEq/L (135-145) Potassium 3.8 mEq/L mEq/L (3.5-5.2) Chloride 106 mEq/L mEq/L (97-110) Carbon Dioxide 27 mEq/l mEq/l (22-31) Anion Gap 6 mEq/L mEq/L (6-14) BUN 11 mg/dL mg/dL (7-23) Creatinine 0.9 mg/dL mg/dL (0.7-1.3) Estimated GFR > 60 Glucose 88 mg/dL mg/dL (70-100) Calcium 8.9 mg/dL mg/dL (8.5-10.4) Salicylates < 1.0 mg/dL L mg/dL (2.0-20.0) Urine Opiates Screen NEGATIVE (NEGATIVE) Acetaminophen < 10 mcg/mL L mcg/mL (10-30) Urine Barbiturates NEGATIVE (NEGATIVE) Ur Phencyclidine Scrn NEGATIVE (NEGATIVE) Ur Amphetamine Screen NEGATIVE (NEGATIVE) U Benzodiazepines Scrn NEGATIVE (NEGATIVE) Urine Cocaine Screen NEGATIVE (NEGATIVE) U Marijuana (THC) Screen NEGATIVE (NEGATIVE) Ethyl Alcohol < 10 mg/dL mg/dL (0-10) Departure - Departure Disposition: [facility] IP Clinical Impression: Schizoaffective disorder Qualifiers: Schizoaffective disorder type: unspecified Qualified Code(s): F25.9 - Schizoaffective disorder, unspecified Condition: Fair
[2018-04-03 13:02] LABS: PLATELET COUNT 166 10^3/uL (150-400)
--- NOTE | 2018-04-03 14:23 | ASMTTLCEVL ---
[facility] Evaluation - Basic Information Evaluation Start Date and 04/03/2018 12:30 PM Time Hospital Status Answers: Voluntary Patient statement Notes: Pt is nonverbal at this time Narrative Notes: Pt is a 37 yo, single, male, well known to [facility] 3 with history of schizoaffective disorder bipolar type with catatonic features and Aspergers with developmental delay, whose mother brought him to the ED at the advisement of Dr Goodwin (ECT Psychiatrist's) office because the pt is having hallucinations and the pt's mother would like an ECT treatment. Pt has been having hallucinations and doing thing "like talking to Mountain Dew Bottles" [facility] reported that pt had ECT a couple weeks ago but has been decompensating. Per Previous records "The Pt has an extensive mental health history complicated by a developmental disorder. He has previously been on [facility]'s behavioral unit and prior to that was at [facility]. Although he has never been aggressiveon a unit , his first 3 psychiatric admissions followed agitation and SI. He has never attempted suicide. He does have a history of gaetano in which he acts on impulses. He once drove 100s of miles to [place] and was once arrested for evading police. Over the years he has been treated with both psychotropics and ECT. " Diagnosis History Notes: Schizoaffective disorder bipolar type with catatonic features and Aspergers with developmental delay. Prior suicide attempts Notes: None Prior hospitalizations Notes: Prior to 2010 he had 3 hospitalizations, 2 at [facility] and 1 at [facility] 01/2011 - [facility] following catatonia 11/2013 - catatonia 04/2014 - hearing voices that are threatening 05/2015 - [facility] with symptoms of severe negativism around fluid and food intake, where he is refusing to eat and has lost weight, being mute and immobile and at other times wandering away with no clear purpose. 12/28/17 to 01/16/18 [facility] for catatonic state, periods of near immobility, varying with agitation and purposeless pacing, repeating of the same phrase, diminished oral intake, and negativism. 02/04/18 - 02/16/18 The patient's mother had indicated that he had become more agitated while at the assisted living facility and brought him home, where things only worsened. He went AWOL from her a number of times, returning an hour later, mumbling incoherently, making statements such as "I am out of here," which she associates in him with his being suicidal. Treatment Responses Notes: Pt appears to respond well to a series of ECT treatments followed by psychotropic medication. === Pt's previous and most recent inpatient DC summary listed below: [facility] Patient Name: MARIEL HERNANDEZ Unit Number: [id number] Attending/ER Physician: Mango Merlos MD Patient Type: DIS IN Adm Date/Source: 02/04/18 EMR Discharge Date: 02/16/18 Primary Carrier: [employer] [facility] [employer] Signed General Discharge Summary IDENTIFYING DATA: The patient is a 37-year-old white male, well known to this commercial underwriter, who is presently living in an assisted living program. He is treated by Dr. Anant Leiws at [facility]. He was admitted on 02/04/2018 and discharged 02/16/2018. REASON FOR ADMISSION: The patient's mother had indicated that he had become more agitated while at the assisted living facility and brought him home, where things only worsened. He went AWOL from her a number of times, returning an hour later, mumbling incoherently, making statements such as "I am out of here," which she associates in him with his being suicidal. PHYSICAL EXAMINATION: Physical exam performed by Rich Menard MD, which enumerated his prior medical issues, including thyroid disturbance and craniosynostosis. He counseled about getting a thyroid function test. ROUTINE LAB WORK: The patient's CBC done twice revealed normal white blood cell count and absolute neutrophil count (he is about a month out from being off clozapine). Bio Chem profile was within normal limits. Urine toxicology was negative, except for benzodiazepine, which is a standing medication. His valproic acid level based on a dose of 750 mg was 42.2. HOSPITAL COURSE: The patient and mother consented to restart further acute ECT treatments. He had a total of 4 treatments. She also consented for him to start a new medication. I spoke with Dr. Lewis. He agreed with the commercial underwriter's idea of starting Depakote ER 250 mg t.i.d. given the patient's recent agitation and mood instability. There is also some putative evidence for having some benefit with catatonia given its glutamate modulating affect. The patient tolerated this medicine well after initially having some dizziness with it. No GI upset, over sedation, ataxia, or increased LFTs or decreased white count noted with the medication. He had resolution of the catatonic excitement that brought him in, and there was no evidence of agitation for the last few days at least. He is eating and drinking and able to respond appropriately to questions with at least a sentence, which is far better than his baseline near mutism or gross impoverishment. DISPOSITION: The patient is to return to assisted living program. He should follow up with Dr. Lewis as soon as possible. The Depakote dose can probably afford to be increased as his level was 42 on 750 mg, but this can be done slowly as an outpatient. I have scheduled him for weekly ECT, with his next treatment being Friday, 02/23. DISCHARGE MEDICATIONS: Lorazepam 1 mg p.o. t.i.d., divalproex ER 250 mg p.o. t.i.d. DISCHARGE DIAGNOSES: [place] I: Schizoaffective disorder, bipolar type; catatonia; autism spectrum disorder; history of hypothyroidism; and craniosynostosis. History of violence Notes: [facility] denies. Psychiatrist: Dr John Lewis at [facility] Medications (name, dosage, route, freq uency) Notes: Upon his discharge on 01/16/18, Lorazepam 1 mg po tid. Allergies/Reaction Notes: Olanzapine Propylthiouracil Methazolamide Risperidone Sleep Notes: Decreased Appetite Notes: Graves disease, PEG tube placement in 2009 and craniosynostosis. MRI 11/2013 demonstated a completely normal brain. Medical/Surgical history Notes: Graves disease, PEG tube placement in 2009 and craniosynostosis. MRI 11/2013 demonstated a completely normal brain. Substance use history (frequency, intensity, his tory, duration) Notes: None. Family composition Notes: Mother still living and supportive. Father had . Multiple siblings who do not live close by. Need for family Answers: Yes participation in patient's care Family psychiatric/substance abuse history Notes: FOC was a recovering alcoholic before he 2 years ago. He had been sober for 25 years. Pt's brother has served time in intermediate for methamphetamine violations. One older sister has a history of bipolar disorder. Developmental history Notes: Pt was born and raised in [place]. [facility] reports that he was "happy" while growing up. He earned a high school diploma. He has never had social relationships and was diagnosed with pervasive development disorder. Abuse concerns Answers: None Marital status/children Notes: Single, never , no dependents. Living situation Notes: Lives in an assisted living facility in [facility]. Sexual history/orientation Notes: Not active. Heterosexual. 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 Notes: None Legal Notes: He once drove 100s of miles to [place] and was once arrested for evading police Gnosticism/Spiritual Notes: None identified which might impact treatment. Leisure Notes: Computers Collateral Notes: Per mother and prior [facility] records. Patient's strengths Answers: Supportive Family (Please select at least TWO strengths): Willingness TLC Evaluation - Mental Status Exam Appearance: Answers: Appropriate Clean Bizarre Eye Contact: Answers: Staring Mood: Answers: Depressed Affect: Answers: Appropriate Blunted Calm Constricted Flat Guarded Subdued Behavior: Answers: Appropriate Cooperative Restless Speech: Answers: Mute Thought Process: Answers: Oriented Alert Insight: Answers: Poor Judgement: Answers: Poor Manic Signs/Symptoms Answers: Impulsivity Mood Swings Depression Answers: Difficulty Concentrating Signs/Symptoms: Diminished Interest Diminished Pleasure Flat Affect Withdrawn Hallucinations: Answers: Auditory Pt reported to have Answers: No suicidal/self-injuring ideation/behavior? Pt reported to be making Answers: No suicidal/self-injuring threats? Pt reported to have Answers: No aggression/assault ideation/behavior? Pt exhibits inability to Answers: No care for self/grave disability? Ideation/behavior is Answers: Yes chronic? Patient has a specific Answers: No plan? Pt has access to means to Answers: No execute the plan? Ideation involves Answers: No serious/lethal intent? Ideation has Answers: No delusional/hallucinatory content? History of Answers: No suicidal/self-injuring ideation, behavior, or threats? History of Answers: No aggressive/assaultive ideation, behavior, or threats? History of serious Answers: No physical harm to self/others while in treatment setting? TLC Evaluation - Suicide/Homicide Risk Suicide Risk Factors: Answers: Agitation Anhedonia Bipolar Disorder Flat Affect Impulsivity Lack of Gnosticism Support Schizoaffective Disorder Single Homicide/violence risk Answers: None factors: Current Suicidal Answers: No Ideation? Current Suicidal Ideation Answers: No in the Past 48 Hours? Current Suicidal Ideation Answers: No in the Past Month? Suicide Internal Answers: Meredith with Stress Protective Factors: Suicide External Answers: Positive Therapeutic Protective Factors: Relationships Ranking of patient's Answers: Low suicidal risk: Ranking of patient's Answers: Low homicidal risk: TLC Evaluation - Wrap-up AXIS I Diagnosis (include DSM-V and ICD-10 codes), must also be entered in [employer], which is the source of truth. Notes: Pt unable to complete BDI/BSS questionnaires as pt appears catatonic. Schizoaffective Disorder, Bipolar Type 295.70 (F25.0) Autism Spectrum Disorder (Aspergers) 299.00 (F84.0) Evaluation End Date and 04/03/2018 03:30 PM Time (HH:CHILO): Date Signed: 04/03/2018 02:22 PM Electronically Signed By:Jori Harrison
--- NOTE | 2018-04-03 14:47 | ASMTTCLDSP ---
TLC Discharge Disposition Disposition: Answers: Admit Disposition Notes: Notes: In consultation with [facility] ED physician, MD Lamine and on-call psychiatrist, Dr. Chelita MD, both concurred that pt appears to meet 27-65 criteria requiring psychiatric hospitalization as pt appears to be at gravely disabled due to a mental illness condition. For inpatient Rey Merlos MD admission, the following psychiatrist agreed to accept patient for admission to [facility] ([facility]): Type of Hold: Answers: M1/72-hour Hold Hold initiated by: Answers: ED Physician Date Signed: 04/03/2018 02:46 PM Electronically Signed By:Jori Harrison
[2018-04-03] MEDS ORDERED: ACETAMINOPHEN 325 MG TAB PO PRN (18:08)
[2018-04-03] MEDS ORDERED: MAGNESIUM HYDROXIDE 30 ML UDCUP PO PRN (18:08)
[2018-04-03] MEDS ORDERED: MAG HYDROX/AL HYDROX/SIMETH 30 ML UDCUP PO PRN (18:08)
[2018-04-03] MEDS: DIVALPROEX ER 250 MG TAB PO SCH (19:01)
[2018-04-03] MEDS: LORazepam 1 MG TAB PO SCH (20:43)
[2018-04-04] MEDS: LORazepam 1 MG TAB PO SCH ×2 (08:05→18:54)
[2018-04-04] MEDS: DIVALPROEX ER 250 MG TAB PO SCH ×2 (08:05→18:53)
--- NOTE | 2018-04-04 10:38 | ASMTBHMTP ---
Master Treatment Plan Master Treatment Plan Answers: Impaired Reality for: Date: 04/04/2018 Diagnosis on Admission: Schizoaffective Disorder, Bipolar Type (295.70) Expected length of stay: 5-7 Days Reason for admission: Notes: Per TLC Evaluation - Pt. is a 37 year old, single, male, well known to [facility] with history of schizoaffective disorder, bipolar type with catatonic features and Asperger's with developmental delay, whose mother brought him to the ED at the advisement of Dr. Mancilla (ECT Psychiatrist's) office because the pt is having hallucinations and the pt's mother would like an ECT treatment. Pt. has been having hallucinations and doing things "like talking to Mountain Dew Bottles" [facility] reported that pt had ECT a couple of weeks ago but has been decompensating. Patient's stated presenting problems: Notes: Patient unable to participated in MTP at this time Patient's goals for treatment: Notes: Patient unable to participated in MTP at this time Patient's strengths: Notes: Patient unable to participated in MTP at this time Identify supports outside of hospital: Notes: Patient unable to participated in MTP at this time Discharge criteria: Notes: Psychotic symptoms will be reduced or eliminated with return to baseline functioning in affect, thinking, and behavior prior to discharge. Initial disposition plan/considerations: Notes: Patient unable to participated in MTP at this time Master Treatment Plan Required Signatures Psychiatrist signature: Answers: Teddy Florez MD: RN on-shift signature: Answers: RN: Patient signature: Answers: Patient: Date Signed: 04/04/2018 10:37 AM Electronically Signed By:Tanehsa Boudreaux
--- NOTE | 2018-04-04 11:28 | GCON ---
INTERNAL MEDICINE CONSULTATION. DATE OF CONSULTATION: 04/04/2018 REASON FOR CONSULTATION: Medical opinion regarding stability for inpatient psychiatric hospitalizati on. HISTORY: The patient is a 37-year-old male with schizoaffective disorder, with catatonic features. He received ECT. Reported to his psychiatrist that he was having visual hallucinations. The psychia trist recommended coming to the emergency room. He was placed an M1 hold and accepted in the psychia tric unit. Reportedly, he was talking to Mountain Dew bottles. He is now catatonic and minimally ve rbal. When I see him, he answers yes/no questions appropriately, but is otherwise nonverbal and mini franklyn interactive. He denies any physical complaints, including pain, fever, GI disturbance, or any recent illnesses. PAST MEDICAL HISTORY: 1. Schizoaffective disorder with catatonic features. 2. Graves disease. 3. Asperger's with developmental delay. 4. Craniosynostosis. PAST SURGICAL HISTORY: Tonsillectomy, hernia repair, previous PEG tube. MEDICATIONS: Please see computerized record for full detailed list. ALLERGIES: Olanzapine, PTU, methazolamide, risperidone. SOCIAL HISTORY: No reported drug or alcohol abuse. He lives at [facility]. He has a supportive mother. REVIEW OF SYSTEMS: Negative regarding constitutional, HEENT, GI, pulmonary, vascular, , hematology , skin, muscle, endocrine, and psych, except for positives as in HPI. FAMILY HISTORY: Reviewed, noncontributory to presenting complaint. PHYSICAL EXAMINATION: GENERAL: Well-developed, well-nourished male, in no acute distress. Somewhat catatonic at this time. VITALS: Temperature is 36.5, pulse 84, blood pressure 124/71, saturating 9 5% on room air. EYES: Normal conjunctivae. Pupils react to light. ENT: Normal ears, nose. Heari ng intact. Normal teeth. Oropharynx moist. NECK: Trachea midline. No thyromegaly. CHEST: Rhianna l effort. LUNGS: Clear to auscultation bilaterally. CARDIOVASCULAR: Regular rhythm. No murmur. No lower extremity edema. ABDOMEN: Soft, nontender. No hepatosplenomegaly. SKIN: Warm, dry, inta ct. No rash. MUSCULOSKELETAL: No cyanosis or clubbing. Strength 5/5 upper and lower extremities. NEURO: Cranial nerves intact. Normal sensation to light touch. PSYCH: He is awake and alert, but nonverbal. Does answer appropriately yes and no questions with head nods or shakes. Catatonic, mini franklyn responsive otherwise, but looks around appropriately and follows directions regarding physical exam. LABORATORY DATA: White count 6.53, hematocrit 46.2, platelets 166. Sodium 139, potassium 3.8, chlor jesika 106, bicarb 27, BUN 11, creatinine 0.9, glucose 88. Tox screen is negative.0. MEDICAL RECORD REVIEW: He has not really had much in the way of medical care regarding medical diagn oses, but many, many admissions to the psychiatric unit. ASSESSMENT/PLAN: 1. Schizoaffective disorder with catatonia. [facility] is [facility], [facility] Visual hallucinations management per Psychiatry. He seems medically appropr iate at this time. 2. History of Graves disease. We will check a TSH. He is not on any thyroid medications. His TSH was normal last January. 3. Asperger's syndrome with developmental delay. He lives in assisted living. His mother does advo theodora for him. Thank you very much for this consultation. Please re-contact Hospitalist Medicine if anything furthe r is needed. /[id number]/MODL
--- NOTE | 2018-04-04 14:34 | BAPA ---
DATE OF SERVICE: 04/04/2018 INITIAL PSYCHIATRIC ASSESSMENT. CHIEF COMPLAINT: The patient endorsed visual hallucinations at his assisted living facility. HISTORY OF PRESENT ILLNESS: The patient is a 37-year-old, unmarried, unemployed, man, well known to [facility], recently discharged from [address] [place] [address] in February 2018, has a history of schizoaffective disorder, bipolar type, with catatonic features and developmental delay. His [facility] er brought him to the emergency department because the patient was reporting visual hallucinations an d mother, who is his primary caregiver, felt that the patient was decompensating, so she contacted Dr Soo Mancilla who had previously done ECT for the patient when he was on [address] [place] [address] in February, but Mother s aid that she would like the patient to get more ECT and was recommended that she bring him to the [facility] department for an evaluation. The patient told staff in the emergency department that he was "talking to Mountain Dew bottles." Mother says that the patient's last ECT treatment was a couple we eks ago, but says that he has been doing worse since then. He lives in an assisted living facility, [facility] in [place]. The patient was initially selectively mute in the ED, nonresponsive to questi ons by the ED staff, did not participate in the TLC evaluation, was very withdrawn, guarded, shut domingo n. On the inpatient Behavioral Health Unit when this MD met with the patient, he was pacing the halls, s tating that he was feeling anxious, saying that he was hearing voices that were "mean" and also repea branden several times, "I do not know why I am here." Other than those brief comments, the patient had v buddy little verbal interaction with staff or with peers. He stayed mostly in his room, except when he was pacing the halls. He did say that he was having thoughts about hurting himself, but denied havi ng any specific plan and denied having the intent to hurt himself while he was on the inpatient unit. He said that he was not planning on acting on his thoughts, and he was willing to engage in activit ies to distract himself, but said that mostly what he wanted to do was pace. PAST PSYCHIATRIC HISTORY: The patient is followed by Dr. Lewis at [facility]. He has b een hospitalized at [facility] twice in 2017. He was here from 12/28 to 01/17/2018, an d then he was here again 02/04 to 02/16. Prior to that, he had been admitted in April 2014 and [facility], and in May 2015. In December 2017, the patient was in a catatonic state, periods near immobility varied with periods of agitation and purposeless pacing. He was treated by Dr. Mancilla wi th ECT for 5 weeks and patient improved significantly. The patient was readmitted in February and re started further acute ECT treatments. He had 4 treatments while he was in the hospital. He was also started on Depakote 250 mg p.o. t.i.d. due to his recent agitation and mood instability. Depakote w as also recommended for putative benefits for catatonia. He tolerated this medication well and was d ischarged to follow up with Dr. Lewis. ALLERGIES: The patient has multiple drug allergies including allergy to propylthiouracil, methazolam jesika, clozapine, risperidone, and olanzapine. CURRENT MEDICATIONS: The patient is currently taking Depakote 250 mg p.o. twice daily and lorazepam 1 mg p.o. t.i.d. PAST MEDICAL HISTORY: The patient does have a history of Grave's disease and he had craniosynostosis in 2009. LABORATORY DATA: Labs from 04/03/2018 in the ED: White cell count 6.53, hemoglobin 15.4, hematocrit 46.2, platelet count 166, sodium 139, potassium 3.8, chloride 106, BUN 11, creatinine 0.9, glucose 8 8, calcium 8.9, TSH 1.620. Urine drug screen was negative for all drugs of abuse. SOCIAL HISTORY: Mother is still living. The patient's father has . He has multiple sibl ings, but none of them live close by. The patient is living in an assisted living facility at [facility]. He earned a high school diploma, but always had difficulty with social relationships due to hi s developmental delay. At times, he has been diagnosed with Asperger's disorder because of some of t hose social and emotional delays and his difficulty making and maintaining relationships. His mother is his primary caregiver. FAMILY HISTORY: Father was an alcoholic. Brother served time in [facility] for methamphetamine and 1 ol giacomo sister has a reported history of bipolar disorder. SUBSTANCE USE HISTORY: The patient denies using any illicit or recreational drugs. Denies alcohol u se. TRAUMA HISTORY: No report of physical, sexual, or emotional abuse. LEGAL HISTORY: No known legal issues have been reported. MENTAL STATUS EXAMINATION: This is an average height, overweight man, wearing baggy sweat pants and a russ sweatshirt, pacing in the halls. He is alert and oriented x4. His affect is anxious. His de meanor is restless. He does not make very good eye contact. He stares at the ground while he is pac ing. Patient is selectively mute, very minimal responses to questions. This is similar to prior pre sentations, although the patient is not nearly as immobile or catatonic as he has been on previous ad missions. His intellectual function is below average based upon his vocabulary, fund of knowledge, a nd educational history. He denies feeling helpless, hopeless, worthless, although he does endorse fe eling sad and anxious. He reports having thoughts about suicide, but denies any intent or plan to ac t on those thoughts. He denies currently experiencing hallucinations and denies paranoid delusions. However, he did endorse auditory and visual hallucination, which was one of his presenting symptoms. He does not appear to be responding to internal stimuli currently. There are no signs or symptoms of gaetano present. He does not have racing thoughts, pressured speech, increased goal-directed activi ty, or decreased need for sleep. His insight and judgment are both impaired. IMPRESSION: 1. Schizoaffective disorder, bipolar type, by history. 2. History of catatonia, not present on this admission. 3. History of pervasive developmental delay. 4. History of autism spectrum disorder. 5. Social isolation, limited family contact, living in assisted living facility, unemployed. PLAN: 1. Admit to the inpatient Behavioral Health Services Unit on [address] on an M1 hold. 2. We will continue his outpatient medications. The patient was discharged on Depakote and Ativan a fter his last admission. He had his dose of Depakote decreased by Dr. Lewis to 250 mg p.o. twice da maurice. We will continue that dose for now. Medication may need to be further adjusted during this adm ission. 3. We will continue to monitor and observe the patient. In the past, he has presented as nearly imm obile with catatonia. He does not have a catatonic presentation this time, although he is selectivel y mute and minimally engaged. 4. The patient will be evaluated by Dr. Mancilla to determine whether or not an acute course of ECT is necessary again. 5. Estimated length of stay is 3-5 days. /[id number]/MODL
[2018-04-04] MEDS: LORazepam 0.5 MG TAB PO PRN (14:40)
--- NOTE | 2018-04-05 06:58 | PDMN ---
Medical Necessity Medical necessity: Pt meets int criteria per MD order and [id number], 37 y/o admitted w/schizoaffective disorder w/catatonia, visual hallucinations, on M1 hold requiring inpt psychiatric hospitalization.
[2018-04-05] MEDS: DIVALPROEX ER 250 MG TAB PO SCH ×2 (08:13→18:56)
[2018-04-05] MEDS: LORazepam 1 MG TAB PO SCH ×3 (08:13→18:56)
--- NOTE | 2018-04-05 14:50 | ASMTCMCOM ---
CM Note CM Note Notes: Pt. reports feeling "just fine". Pt. stated he slept "just fine". Pt. shook his head "yes" when asked if he is getting enough to eat. Pt. shook his head "no" when asked if there were any issues with his current medications. Pt. shook his head "no" when asked about SI, HI, AVH and paranoia. Pt. gave a note to staff this morning, written to Dr. Merlos and Dr. Mancilla about pt. not needing ECT at this time. Pt. presents as alert, passive, not speaking much, fair to poor eye contact, pacing at times, guarded, and not very cooperative. Staff noticed pt's ankles are swollen but pt declined to let RN look at his ankles. Staff report pt. sleeping 11 hours and being medication compliant. Date Signed: 04/05/2018 02:50 PM Electronically Signed By:Tanesha Boudreaux
--- NOTE | 2018-04-05 16:28 | SOAPPROG ---
SOAP Progress Note Assessment/Plan: Assessment: 37 yo man with schizoaffective disorder and h/o catatonia came to ED at suggestion of ECT provider d/t MO's concerns that patient was becoming catatonic again. Patient was initially selectively mute with psychomotor retardation. Plan: 04/05/18 16:24 1. Patient out of his room, pacing more often. He will respond to brief questions with "yes" or "no" or shoulder shrug. 2. Patient doesn't want ECT b/c he doesn't think "I need it." 3. Denies any SI today. 4. CCM Subjective: Patient wearing same russ sweatpants and sweatshirt as prior admissions. He is pacing up and down hallway. When MD tries to engage him in conversation, patient keeps walking past MD without making eye contact. MD tries to walk with patient, but patient won't respond to questions. At one point, he turns and looks at MD and shrugs his shoulders, then walks away. Staff report he told them "Tell Dr. Mancilla and Dr. Merlos I don't need ECT." That was the most patient has talked since admission. Patient says "no" when asked if he is having any thoughts about suicide. Objective: Vital Signs Temp Pulse Resp BP Pulse Ox 36.7 C 88 16 110/52 L 99 04/05/18 06:00 04/05/18 06:00 04/05/18 06:00 04/05/18 06:00 04/05/18 06:00 MSE: Affect: Blunted Mood: "Just fine" TP: Slow, selectively mute TC: Paucity of speech, denies any SI Insight/Judgment: Poor a/e/b refusing ECT - Time Spent With Patient Time Spent With Patient: 15" - Pending Discharge Pending Discharge Within 24 Hours: No Pending Discharge Within 48 Hours: No ICD10 Worksheet Patient Problems: Problems Problem Status Onset Schizoaffective disorder Acute Schizoaffective disorder, bipolar type, with catatonia Acute Schizophrenia Acute
[2018-04-06] MEDS: LORazepam 1 MG TAB PO SCH ×3 (08:48→19:04)
[2018-04-06] MEDS: DIVALPROEX ER 250 MG TAB PO SCH ×2 (08:49→19:04)
--- NOTE | 2018-04-06 11:30 | SOAPPROG ---
SOAP Progress Note Assessment/Plan: Assessment: Major Depressive Disorder, Severe. Current severe depression with SI. No improvement noted (see subjective/objective note). Patient could benefit from continued inpatient hospitalization for crisis stabilization, safety, and medication evaluation. Consider ECT. Plan: 1. Psychotropic medications: After reviewing options, risks, and benefits patient agrees to continue current medications. No medication changes at this time as more time is needed to determine ongoing tolerability and efficacy. Plan is to continue to observe patient for response and side effects from medications, and ongoing monitoring and evaluation. 2. Review with patient informed consent and recommendations for psychotropic medication treatment listed below 3. Labs: no additional labs at this time 4. Therapy: continue milieu and group therapy 5. Further investigation including gathering information from patients relatives and review of past case records to inform treatment plan. 6. Safety/Wellness plan and follow-up outpatient appointments to be established prior to discharge. Next steps are for patient to meet with childcare provider to plan a safe discharge plan and establish outpatient services for ongoing treatment. 7. Confer with inpatient treatment team regarding treatment plan. 8. Psychosocial stressors addressed through director of casework services. 9. Legal status: voluntary 10. Consider discharge next week if patient is in stable condition, safe, and has a safe discharge plan. PSYCHOTROPIC MEDICATION TREATMENT INFORMED CONSENT and RECOMMENDATIONS: Review nature of condition, diagnosis, and prognosis. Review nature and purpose of psychotropic medication treatment. Review type of psychotropic medications being ordered. Review risk and benefits of psychotropic medication treatment. Review probable length of time patient will need to take medications. Review risk and benefits of not undergoing psychotropic medication treatment. Review alternative treatments to psychotropic medications. Review psychotropic medications contraindications, drug-drug interactions, side effects, and importance of reporting any side effects to a psychiatric provider or nurse during inpatient hospitalization, and upon discharge to patients psychiatric outpatient provider, primary care provider, or other health toddler caregiver. Review importance of asking a nurse, psychiatric provider, or primary care provider any questions or problems concerning the psychotropic medications. Verify patient understands the information that has been provided, and understands, accepts, and agrees to psychotropic medications. Review patients safety plan and importance of patient to report to staff while hospitalized if patient is ever a danger to self/others, or unable to care for self, and upon discharge, the importance for patient to contact [facility] or [facility], or go to the nearest emergency room, if patient is ever a danger to self/others, or unable to care for self. Recommend that upon discharge patient establish medication management treatment with a psychiatric provider, establishes routine therapy appointments, and follow-up with primary care provider. Verify patient understands and agrees to these recommendations. 04/06/18 11:30 Subjective: Following up with patient for evaluation of depression and safety. Patient reports, "Feeling pretty low." Patient expresses the following psychiatric symptoms severe depression. Patient reports taking medications as prescribed, and describes response to medications as not sure. Patient does not report undesirable side effects from the medications, and agrees to continue current medications. Patient agrees to stay in hospital voluntarily. Objective: Vital Signs Temp Pulse Resp BP Pulse Ox 36.3 C 67 20 104/64 89 L 04/06/18 06:00 04/06/18 06:00 04/06/18 06:00 04/06/18 06:00 04/06/18 06:00 NURSING REPORT: Consulted with nursing for update on patients progress in treatment. Nurses report patient is not engaged in treatment, is not attending groups, slept 8 hours, expresses the following psychiatric symptoms: severe depression, exhibits the following psychiatric symptoms: flat affect; nonverbal ; is eating all meals, is agreeable to medications and taking as prescribed with no report of side effects, with no s/s of EPS/akathisia, and denies HI, reports SI (8/10) denies A/V hallucinations, and denies delusions. MSE: The patient is a well-nourished male looking stated chronological age. Attire is appropriate dress is casual. Grooming status is appropriate. Ambulation is independent. Gait is normal and coordinated. Posture is normal and relaxed. Eye contact is appropriate. Motor activity is appropriate with purposeful, organized, coordinated movements; with no involuntary movements. Attitude is cooperative. Patient appears attentive and relates well to this interviewer. Language production is unspontaneous. Rate is hesitant, latency of response is prolonged, with low volume. Articulation is clear. Patient reports mood as depressed with congruent affect. Patients thought process is non-linear. Patient does report suicidal thoughts, denies homicidal thoughts. Patient denies auditory, visual hallucinations. Patient does not report delusions. Patient does not appear to be attending to internal stimuli. Patients attention and concentration are fair. Patient is oriented to person, place, time. Patients insight is poor. Patients judgment is poor. - Time Spent With Patient Time Spent With Patient: 15 minutes, patient met with this HUMAN RESOURCES COORDINATOR and treatment team. - Pending Discharge Pending Discharge Within 24 Hours: No Pending Discharge Within 48 Hours: No ICD10 Worksheet Patient Problems: Problems Problem Status Onset Schizoaffective disorder Acute Schizoaffective disorder, bipolar type, with catatonia Acute Schizophrenia Acute
[2018-04-07] MEDS: DIVALPROEX ER 250 MG TAB PO SCH ×2 (07:50→19:02)
[2018-04-07] MEDS: LORazepam 1 MG TAB PO SCH ×3 (07:50→18:37)
--- NOTE | 2018-04-07 11:59 | SOAPPROG ---
SOAP Progress Note Assessment/Plan: Assessment: Schizoaffective D/O bipolar type, H/O Catatonia; ASD by h/o Plan: Reviewed ER notes, RN Notes, MD notes. Unclear what prompted this admit, but I understand that mother is highly anxious and worried that his cardiac w/u was impeding his capacity to have mECT. My clinical assessment of pt today is that he is pacing and endorsing irritability and racing thoughts, but is not frankly catatonic, and is eating and drinking adequately. His mother has proclivity to induce increase in agitation in this patient. However, he is "late" in receiving mECT due to bilateral lower edema, with recent intraoperative episode of arrthymia during last ECT that prompted cardiac eval. My understanding is that ECHO is pending and without that, I am loathe to do ECT. RN to work on finding out if and when that is scheduled and to perhaps expedite that. On MSE, he makes intermittant eye contact, pacing through boyd while does interview, answers Qs with one work answers. Does endorse racing thoughts and nods yes that he is irritable. This status is not too different from his "baseline" but the pacing does reflect some agitation which has historically responds to ECT. 04/07/18 11:52 Objective: Vital Signs Temp Pulse Resp BP Pulse Ox 36.6 C 104 H 14 118/68 95 04/07/18 08:00 04/07/18 08:00 04/07/18 08:00 04/07/18 08:00 04/07/18 08:00 Laboratory Tests 02/15/18 04/03/18 04/03/18 06:30 12:25 12:25 WBC 6.53 Glucose 88 TSH Urine Opiates Screen Urine Barbiturates Valproic Acid 42.2 L Ur Phencyclidine Scrn Ur Amphetamine Screen U Benzodiazepines Scrn Urine Cocaine Screen U Marijuana (THC) Screen 04/03/18 04/03/18 12:25 13:00 WBC Glucose TSH 1.620 Urine Opiates Screen NEGATIVE Urine Barbiturates NEGATIVE Valproic Acid Ur Phencyclidine Scrn NEGATIVE Ur Amphetamine Screen NEGATIVE U Benzodiazepines Scrn NEGATIVE Urine Cocaine Screen NEGATIVE U Marijuana (THC) Screen NEGATIVE ICD10 Worksheet Patient Problems: Problems Problem Status Onset Schizoaffective disorder Acute Schizoaffective disorder, bipolar type, with catatonia Acute Schizophrenia Acute
[2018-04-07] MEDS ORDERED: CITRIC ACID/SODIUM CITRATE 30 ML UDCUP PO PRN (14:26)
[2018-04-07] MEDS ORDERED: ONDANSETRON DISINTEGRATING 4 MG TAB PO PRN (14:26)
[2018-04-08] MEDS ORDERED: fentaNYL 100 MCG/2 ML INJ ONE (06:44)
[2018-04-08] MEDS ORDERED: LORazepam 2 MG/ML INJ ONE (06:44)
[2018-04-08] MEDS ORDERED: METHOHEXITAL SODIUM 100 MG/10 ML SYR IVP ONE (06:45)
[2018-04-08] MEDS: LORazepam 1 MG TAB PO SCH ×3 (09:54→19:20)
[2018-04-08] MEDS: NS 1,000 ML IV PRN (11:18)
--- NOTE | 2018-04-08 11:18 | PDECTPN ---
ECT Progress Note Patient Problems: Problems Problem Status Onset Code Schizoaffective disorder Acute F25.9 Schizoaffective disorder, bipolar type, with catatonia Acute F25.0, F06.1 Schizophrenia Acute F20.9 Date: 04/08/18 ECT provider: Forrest Mancilla Anesthesia: Symone Jamison Stimulus dose (%): 100 Pulse width: 0.5 ECT EMG (sec): 21 ECT EEG (sec): 72 ECT treatment type: bilateral QIDS-SR Total Score: 12 QIDS-SR Question #12 Score: 1 MMSE Total Score (Max = 21): 21 Next ECT date: 04/10/18 Next ECT time: 12:30 O/P psychiatrist follow up with Dr.: Joshua O/P psychiatrist follow up: phone, voice message Home medications: Medication Instructions Recorded LORazepam [Ativan (*)] 1 mg PO TID #90 tab 01/12/18 Divalproex ER [Depakote ER 250 MG 250 mg PO BID 03/13/18 (*)] Medication review: completed Current treatment plan: acute phase Treatment plan frequency: 3 times per week ECT narrative: Pt able to re-start ECT. Discussed with anesthesia the Cardiology consult and ECHO findings (ruled out CHF). Pt remains near mute, and with poor eye contact , and relatedness, but o/w cooperative and not negativistic. Will plan to do at least a couple of acute treatments while in patient. Discussed case with Dr Lewis,who indicated that pt was supposed to be up to Depakote 500 bid, as his level on 250 TID was on 40. Will increase dose to 1000mg total and check level on Friday.
--- NOTE | 2018-04-08 11:25 | POSTANESTH ---
Post Anesthetic Evaluation Cardiovascular Status: Normal, Stable Respiratory Status: Normal, Stable Level of Consciousness/Mental Status: Other, See Comment (Pt not very communicative. Similar to baseline.) Pain Control: Adequate, Prn Tx Ordered Nausea/Vomiting Control: Adequate, Prn Tx Ordered Complications Possibly Related to Anesthesia: None Noted
--- NOTE | 2018-04-08 11:25 | PDHPUP ---
History & Physical Update H&P update statement: This history and physical update is based on an assessment of the patient which was completed after admission or registration (within 24 hours), but prior to the surgery/procedure. H&P update: H&P reviewed & patient examined, changes noted (Now inpt psych unit)
--- NOTE | 2018-04-08 11:26 | PDANEPAE ---
ECT Pre Anesthetic Evaluation Allergies/Adverse Reactions: olanzapine [From Zyprexa] Allergy (Severe, Verified 04/03/18 11:08) catatonea propylthiouracil Allergy (Severe, Verified 04/03/18 11:08) impulsivity clozapine Allergy (Mild, Verified 04/03/18 11:13) anger methazolamide Allergy (Unknown, Verified 04/03/18 11:08) Unknown risperidone [From Risperdal] Allergy (Unknown, Verified 04/03/18 11:08) Unknown Patient ID confirmed: Yes H&P reviewed: Yes Pre-anesthetic history reviewed: Yes Heart: tachycardia Lungs: clear to auscultation, reduced air movement Mallampati Score: Class 3 ASA Status: II Home Medications: Medication Instructions Recorded LORazepam [Ativan (*)] 1 mg PO TID #90 tab 01/12/18 Divalproex ER [Depakote ER 250 MG 250 mg PO BID 03/13/18 (*)] Medication review: completed Patient interviewed: Yes Patient examined: Yes See previous record: Yes Anesthetic plan discussed with patient: Yes Anesthetic risks discussed with patient: Yes ECT Pre-Anesthetic History - Height & Weight Height: 182.88 cm Weight: 89.896 kg BMI: 26.90 - Anesthesia History Hx Anesthesia Complications (with details): Denies. Family Hx Anesthesia Complications: Denies. - Tobacco/Alcohol/Drug Use Smoking Status: Former smoker Hx Drug/Substance Abuse: No Alcohol Use: No - Prior Surgeries/Hospitalizations Prior Surgeries: craniosynostosis (6mo old), tonsillectomy (3yo), umbilical hernia (5yo), knee scope (15yo) Prior Medical Hospitalizations: Denies. - Pulmonary History ECT Hx Asthma: No Hx Abnormal Chest X-Ray: No Hx Oxygen in Use at Home: No - Cardiovascular History Hx Hypertension: No Currently Uses Hypertension Medication: No Hx Arrhythmias: No Hx Palpitations: No Hx Chest Pain: No Hx Coronary Artery / Peripheral Vascular Disease: No Hx Blood Clot: No - Neurologic History Hx Cerebrovascular Accident: No Hx CT Scan Or MRI Of The Brain: No Hx Epilepsy, Convulsions, Seizures, Or Blackouts: No Hx Frequent Or Severe Headaches: No Hx Numbness: No Hx Neurologic Disorder: No - Dental History Current Dental Issues: Dentures Dental History Comment: top and bottom - Endocrine History Hx Diabetes: No Current Daily Insulin Injections: No Hx Thyroid Problems: Yes Endocrine History Comment: hyperthyroidism resolved in 2009 - Renal/Urologic History Hx Renal Disorders: No Hx Urinary Tract Problems: No - Liver History Hx Hepatic Disorders: No - Cancer History Hx Cancer: No - Hematology History Hx Unexplained Bleeding Of Any Type: No Hx Ease Of Bruising: No Hx Anemia: No - Gastrointestinal History Hx Gastroesophogeal Reflux Disease: No Hx Ulcers: No Hx Hiatal Hernia: No Hx Difficulty Swallowing: No - Musculoskeletal Hisory Hx Chronic Pain: No Hx Arthritis: No - Opthalmic History Hx Glaucoma: No Visual Assistive Devices: Glasses Hx Opthalmic Disorders: No - Other Health History Physical Disabililty: No Recent Cough, Cold, or Fever: No Significant Weight Loss In The Last 4 Months: No Possible the Patient Might be : No
[2018-04-08] MEDS ORDERED: PROMETHAZINE HCL 25 MG TAB PO PRN (11:36)
[2018-04-08] MEDS ORDERED: HYDROCODONE/APAP 5/325 TAB PO PRN (11:36)
[2018-04-08] MEDS ORDERED: NALOXONE HCL 0.4 MG/ML INJ IVP PRN (11:36)
[2018-04-08] MEDS: DIVALPROEX ER 250 MG TAB PO SCH ×2 (13:11→19:21)
--- NOTE | 2018-04-08 13:35 | ASMTCMCOM ---
CM Note CM Note Notes: CC attempted to meet with pt. Pt. was sitting on his bed prior to leaving for ECT. Pt. didn't speak with CC, but only nodded his head yes or no. Pt. declined to answer how he is feeling today. Pt. nodded yes when CC asked if staff can speak with his mom. Pt. didn't reply when CC asked how he feels about getting ECT today. Pt. nodded his head "no" when asked about SI, HI, AVH and paranoia. Pt. later approached CC after ECT and requested Mountain Dew and his lunch. Pt. presents as alert, guarded, quiet, lacking eye contact, and not cooperative. Staff report pt. sleeping 10.5 hours and being medication complaint. Staff report pt. pacing more outside his room. Pt. began his ECT treatments today, CC will reach out to Dr. Lewis after speaking with MD about pt's potential length of stay. Date Signed: 04/08/2018 01:35 PM Electronically Signed By:Tanesha Boudreaux
[2018-04-09] MEDS: DIVALPROEX ER 250 MG TAB PO SCH (08:28)
[2018-04-09] MEDS: LORazepam 1 MG TAB PO SCH ×3 (08:28→18:00)
--- NOTE | 2018-04-09 09:24 | SOAPPROG ---
SOAP Progress Note Assessment/Plan: Assessment: Schizoaffective D/O bipolar type, H/O Catatonia; ASD by h/o Plan: Reviewed ER notes, RN Notes, MD notes. Unclear what prompted this admit, but I understand that mother is highly anxious and worried that his cardiac w/u was impeding his capacity to have mECT. My clinical assessment of pt today is that he is pacing and endorsing irritability and racing thoughts, but is not frankly catatonic, and is eating and drinking adequately. His mother has proclivity to induce increase in agitation in this patient. However, he is "late" in receiving mECT due to bilateral lower edema, with recent intraoperative episode of arrthymia during last ECT that prompted cardiac eval. My understanding is that ECHO is pending and without that, I am loathe to do ECT. RN to work on finding out if and when that is scheduled and to perhaps expedite that. On MSE, he makes intermittant eye contact, pacing through boyd while does interview, answers Qs with one work answers. Does endorse racing thoughts and nods yes that he is irritable. This status is not too different from his "baseline" but the pacing does reflect some agitation which has historically responds to ECT. 04/07/18 11:52 04/09/18 09:15 Interviewed pt at 8:45 this am, while he was pacing the boyd. He remains with little eye contact, near mute, and only nods yes or no in a difficult to discern way to questions. Often, his gesture is a shrug that seems to indicate "not sure". He provided such a shrug to my question about whether he is continuing to feel irritable, agitated or having racing thoughts. He nodding no to ECT related SE yesterday (FRITZ and N/V). His very mutism and pacing suggest that there is little progress made thus far. He is made aware of re-increase in Depakote dose. He nods "yes" in agreement to doing ECT tomorrow (and likely into next week.) Vaplroic acid level pnd for SDunday. Objective: Vital Signs Temp Pulse Resp BP Pulse Ox 36.6 C 95 16 106/64 91 L 04/09/18 06:00 04/09/18 06:00 04/09/18 06:00 04/09/18 06:00 04/09/18 06:00 04/08/18 04/09/18 04/10/18 05:59 05:59 05:59 Intake Total 520 Balance 520 ICD10 Worksheet Patient Problems: Problems Problem Status Onset Schizoaffective disorder Acute Schizoaffective disorder, bipolar type, with catatonia Acute Schizophrenia Acute
--- NOTE | 2018-04-09 12:03 | ASMTCMCOM ---
CM Note CM Note Notes: Pt. was eating breakfast when CC approached. Pt. declined to speak with CC, but instead nodded his head "yes" or "no" when asked questions. Pt. reports getting enough to eat on his tray at each meal. Pt. nodded "yes" when asked if he slept well. Pt. nodded "no" when asked about any issues while on the unit. Pt. shrugged his shoulder "unknown" when asked if he was feeling any different since ECT. Pt. nodded "non" when asked about SI, HI, AVH and paranoia. Pt. presents as alert, calm, guarded, not speaking, lacking eye contact, and uncooperative. Staff report pt. sleeping 11 hours and being medication compliant. Pt. is scheduled for ECT on Monday 04/10 at 1:15pm. CC with speak with Dr. Mancilla about pt's estimated length of stay on Friday. Date Signed: 04/09/2018 12:02 PM Electronically Signed By:Tanesha Boudreaux
[2018-04-10] MEDS ORDERED: ONDANSETRON DISINTEGRATING 4 MG TAB PO PRN (04:00)
[2018-04-10] MEDS ORDERED: CITRIC ACID/SODIUM CITRATE 30 ML UDCUP PO PRN (04:00)
[2018-04-10] MEDS ORDERED: NS 1,000 ML IV PRN (04:00)
[2018-04-10] MEDS: LORazepam 1 MG TAB PO SCH ×3 (08:38→19:23)
[2018-04-10] MEDS: NS 1,000 ML IV PRN (13:23)
--- NOTE | 2018-04-10 13:51 | PDECTPN ---
ECT Progress Note Patient Problems: Problems Problem Status Onset Code Schizoaffective disorder Acute F25.9 Schizoaffective disorder, bipolar type, with catatonia Acute F25.0, F06.1 Schizophrenia Acute F20.9 Date: 04/10/18 ECT provider: Forrest Mancilla Anesthesia: Symone Jamison Stimulus dose (%): 100 Pulse width: 0.5 ECT EMG (sec): 23 ECT EEG (sec): 41 QIDS-SR Total Score: 4 QIDS-SR Question #12 Score: 0 MMSE Total Score (Max = 21): 21 Next ECT date: 04/13/18 Next ECT time: 09:15 O/P psychiatrist follow up with Dr.: Joshua O/P psychiatrist follow up: phone, voice message Home medications: Medication Instructions Recorded LORazepam [Ativan (*)] 1 mg PO TID #90 tab 01/12/18 Divalproex ER [Depakote ER 250 MG 250 mg PO BID 03/13/18 (*)] Medication review: completed Current treatment plan: acute phase Treatment plan frequency: 3 times per week ECT narrative: Pt able to re-start ECT. Discussed with anesthesia the Cardiology consult and ECHO findings (ruled out CHF). Pt remains near mute, and with poor eye contact , and relatedness, but o/w cooperative and not negativistic. Will plan to do at least a couple of acute treatments while in patient. Discussed case with Dr Lewis,who indicated that pt was supposed to be up to Depakote 500 bid, as his level on 250 TID was on 40. Will increase dose to 1000mg total and check level on Friday. 04/10/18 Pt is still virtually mute, but cooperative and non-negativistic, agreeable to complying with instructions during ECT, for instance. Nods head yes or no to basic questions, or shrugs shoulders in a "not sure" gesture. Eating/drinking. Was pacing yesterday. Anesthesia MD noted greater compliance with her instructions. Denies any GI upset with depakote increase.
--- NOTE | 2018-04-10 14:08 | PDANEPAE ---
ECT Pre Anesthetic Evaluation Allergies/Adverse Reactions: olanzapine [From Zyprexa] Allergy (Severe, Verified 04/03/18 11:08) catatonea propylthiouracil Allergy (Severe, Verified 04/03/18 11:08) impulsivity clozapine Allergy (Mild, Verified 04/03/18 11:13) anger methazolamide Allergy (Unknown, Verified 04/03/18 11:08) Unknown risperidone [From Risperdal] Allergy (Unknown, Verified 04/03/18 11:08) Unknown Patient ID confirmed: Yes H&P reviewed: Yes Pre-anesthetic history reviewed: Yes Heart: regular rate and rhythym Lungs: clear to auscultation, reduced air movement Mallampati Score: Class 2 ASA Status: II Home Medications: Medication Instructions Recorded LORazepam [Ativan (*)] 1 mg PO TID #90 tab 01/12/18 Divalproex ER [Depakote ER 250 MG 250 mg PO BID 03/13/18 (*)] Patient interviewed: Yes Patient examined: Yes See previous record: Yes Anesthetic plan discussed with patient: Yes Anesthetic risks discussed with patient: Yes ECT Pre-Anesthetic History - Height & Weight Height: 182.88 cm Weight: 89.896 kg BMI: 26.90 - Anesthesia History Hx Anesthesia Complications (with details): Denies. Family Hx Anesthesia Complications: Denies. - Tobacco/Alcohol/Drug Use Smoking Status: Former smoker Hx Drug/Substance Abuse: No Alcohol Use: No - Prior Surgeries/Hospitalizations Prior Surgeries: craniosynostosis (6mo old), tonsillectomy (3yo), umbilical hernia (5yo), knee scope (15yo) Prior Medical Hospitalizations: Denies. - Pulmonary History ECT Hx Asthma: No Hx Abnormal Chest X-Ray: No Hx Oxygen in Use at Home: No - Cardiovascular History Hx Hypertension: No Currently Uses Hypertension Medication: No Hx Arrhythmias: No Hx Palpitations: No Hx Chest Pain: No Hx Coronary Artery / Peripheral Vascular Disease: No Hx Blood Clot: No - Neurologic History Hx Cerebrovascular Accident: No Hx CT Scan Or MRI Of The Brain: No Hx Epilepsy, Convulsions, Seizures, Or Blackouts: No Hx Frequent Or Severe Headaches: No Hx Numbness: No Hx Neurologic Disorder: No - Dental History Current Dental Issues: Dentures Dental History Comment: top and bottom - Endocrine History Hx Diabetes: No Current Daily Insulin Injections: No Hx Thyroid Problems: Yes Endocrine History Comment: hyperthyroidism resolved in 2009 - Renal/Urologic History Hx Renal Disorders: No Hx Urinary Tract Problems: No - Liver History Hx Hepatic Disorders: No - Cancer History Hx Cancer: No - Hematology History Hx Unexplained Bleeding Of Any Type: No Hx Ease Of Bruising: No Hx Anemia: No - Gastrointestinal History Hx Gastroesophogeal Reflux Disease: No Hx Ulcers: No Hx Hiatal Hernia: No Hx Difficulty Swallowing: No - Musculoskeletal Hisory Hx Chronic Pain: No Hx Arthritis: No - Opthalmic History Hx Glaucoma: No Visual Assistive Devices: Glasses Hx Opthalmic Disorders: No - Other Health History Physical Disabililty: No Recent Cough, Cold, or Fever: No Significant Weight Loss In The Last 4 Months: No Possible the Patient Might be : No
--- NOTE | 2018-04-10 14:56 | ASMTBHFAM ---
Notes Note: Notes: CC spoke with STANFORD Angela ([phone]). MOC stated pt. is in the hospital due to not getting ECT for "2 1/2 - 3 months". MOC stated she "saw this coming", adding "wasn't anybody's fault". MOC stated pt often "thinks he's a idiot", and "thinks he's there because of his behavior", adding "he thinks he is doing something wrong". MOC stated she visits every night. MOC stated pt. "blanks out" and "doesn't remember doing or saying when doesn't get ECT". MOC stated pt "can't get him to reorganize when he's struggling". MOC stated pt. "has nothing to do" during the day, both in the hospital and at [facility]. MOC asked about services for pt to "find something for Onel to do". MOC shared about how pt volunteered in the past with [employer] and how that was beneficial for the pt. MOC stated pt needs help "reenforcing he's a good courtney". MOC asked about assisted living centers in [place]. MOC stated pt thinks Dr. Mancilla doesn't like him. MOC stated ECT nurse called and canceled pt's outpatient appointments since his admission. Date Signed: 04/10/2018 02:55 PM Electronically Signed By:Tanesha Boudreaux
[2018-04-10] MEDS: LORazepam 0.5 MG TAB PO PRN (19:02)
[2018-04-10] MEDS: DIVALPROEX ER 250 MG TAB PO SCH (19:02)
[2018-04-11] MEDS: DIVALPROEX ER 250 MG TAB PO SCH ×2 (08:49→19:00)
[2018-04-11] MEDS: LORazepam 1 MG TAB PO SCH ×3 (08:49→19:02)
--- NOTE | 2018-04-11 10:09 | ASMTCMCOM ---
CM Note CM Note Notes: CC checked in with ct. who said that he feels "the same, normal". Affect is flat and ct. has a hard time engaging in conversation. Date Signed: 04/11/2018 10:08 AM Electronically Signed By:Helena Velazquez
--- NOTE | 2018-04-11 15:21 | SOAPPROG ---
SOAP Progress Note Assessment/Plan: Assessment: 37yo with SZA d/o and hx of catatonia also developmental delay admitted due to decompensation in outpt setting, with VH and reported SI. Admitted for restabilization and ECT 04/11/18 14:11 per staff, slept 10.5hr. paces halls, prefers to not attend groups. on eval, pt with good eye contact, decr spont speech but appropriately engages in interview. nml speech rate/vol. calm and without any psychomotor agitation. no akathesia evident. states he paces halls b/c bored and prefers to do so. denied any experiences of AH or VH recently and denied SI/HI. Denied medication s/e. A&Ox3. reports sleeping well. mentioned family got him an iPod b/c he likes computer related things. 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 denied physical complaints, except some BLE swelling for which he is wearing compression stockings. and shows some varicose veins. denies any of this is new. PLAN: cont current meds and ECT seems improved from admission Objective: Vital Signs Temp Pulse Resp BP Pulse Ox 36.5 C 80 14 117/76 93 04/11/18 06:00 04/11/18 06:00 04/11/18 06:00 04/11/18 06:00 04/11/18 06:00 04/10/18 04/11/18 04/12/18 05:59 05:59 05:59 Intake Total 700 Balance 700 - Time Spent With Patient Time Spent With Patient: 15min - Pending Discharge Pending Discharge Within 24 Hours: No Pending Discharge Within 48 Hours: No ICD10 Worksheet Patient Problems: Problems Problem Status Onset Schizoaffective disorder Acute Schizoaffective disorder, bipolar type, with catatonia Acute Schizophrenia Acute
[2018-04-12] MEDS: LORazepam 1 MG TAB PO SCH ×3 (09:24→16:10)
[2018-04-12] MEDS: DIVALPROEX ER 250 MG TAB PO SCH ×2 (09:24→19:03)
--- NOTE | 2018-04-12 19:26 | SOAPPROG ---
SOAP Progress Note Assessment/Plan: Assessment: 37yo with SZA d/o and hx of catatonia also developmental delay admitted due to decompensation in outpt setting, with VH and reported SI. Admitted for restabilization and ECT 04/11/18 14:11 per staff, slept 10.5hr. paces halls, prefers to not attend groups. on eval, pt with good eye contact, decr spont speech but appropriately engages in interview. nml speech rate/vol. calm and without any psychomotor agitation. no akathesia evident. states he paces halls b/c bored and prefers to do so. denied any experiences of AH or VH recently and denied SI/HI. Denied medication s/e. A&Ox3. reports sleeping well. mentioned family got him an iPod b/c he likes computer related things. 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 denied physical complaints, except some BLE swelling for which he is wearing compression stockings. and shows some varicose veins. denies any of this is new. PLAN: cont current meds and ECT seems improved from admission 04/12/18 19:26 slept 12hr. requested to shave. taking meds. no complaints. sleeping well. reports feeling "fine". plans on ECT in AM. continues to prefer not to attend groups. denied med s/e. noted with mild tremor in BUE hands with outstretched arms, states he doesn't notice/not bothersome/not new. mse: good ec, nml speech, engaging in conversation, smiling briefly at times, but overall with restricted affect and some slight delay in response. did not appear responding to int stim. Denied AH/VH or any SI/HI. A&Ox3. PLAN: cont current meds and ECT. VPA this AM= 61 Objective: Vital Signs Temp Pulse Resp BP Pulse Ox 36.4 C 80 16 115/81 H 96 04/12/18 06:00 04/12/18 06:00 04/12/18 06:00 04/12/18 06:00 04/12/18 06:00 04/11/18 04/12/18 04/13/18 05:59 05:59 05:59 Intake Total 700 Balance 700 - Time Spent With Patient Time Spent With Patient: 10min - Pending Discharge Pending Discharge Within 24 Hours: No Pending Discharge Within 48 Hours: No ICD10 Worksheet Patient Problems: Problems Problem Status Onset Schizoaffective disorder Acute Schizoaffective disorder, bipolar type, with catatonia Acute Schizophrenia Acute
[2018-04-13] MEDS: DIVALPROEX ER 250 MG TAB PO SCH ×2 (09:06→19:02)
[2018-04-13] MEDS: LORazepam 1 MG TAB PO SCH ×3 (09:06→19:02)
[2018-04-13] MEDS ORDERED: CITRIC ACID/SODIUM CITRATE 30 ML UDCUP ONE (09:09)
[2018-04-13] MEDS ORDERED: ONDANSETRON DISINTEGRATING 4 MG TAB ONE (09:09)
[2018-04-13] MEDS: NS 1,000 ML IV PRN (09:10)
--- NOTE | 2018-04-13 09:49 | PDANEPAE ---
ANE Past Medical History - Cardiovascular History Hx Hypertension: No Hx Arrhythmias: No Hx Chest Pain: No Hx Coronary Artery / Peripheral Vascular Disease: No Hx Palpitations: No - Pulmonary History Hx COPD: No Hx Oxygen in Use at Home: No Hx Sleep Apnea: No - Neurologic History Hx Cerebrovascular Accident: No - Endocrine History Hx Diabetes: No - Renal History Hx Renal Disorders: No - Liver History Hx Hepatic Disorders: No - Cancer History Hx Cancer: No - Chronic Pain History Chronic Pain: No - Surgical History Prior Surgeries: craniosynostosis (6mo old), tonsillectomy (3yo), umbilical hernia (5yo), knee scope (15yo) ANE Review of Systems Review of Systems: ANE Patient History - Allergies Allergies/Adverse Reactions: olanzapine [From Zyprexa] Allergy (Severe, Verified 04/03/18 11:08) catatonea propylthiouracil Allergy (Severe, Verified 04/03/18 11:08) impulsivity clozapine Allergy (Mild, Verified 04/03/18 11:13) anger methazolamide Allergy (Unknown, Verified 04/03/18 11:08) Unknown risperidone [From Risperdal] Allergy (Unknown, Verified 04/03/18 11:08) Unknown - Home Medications Home Medications: Divalproex ER [Depakote ER 250 MG (*)] 250 mg PO BID 03/13/18 [Last Taken 19:30] - NPO status NPO Status: no food or drink >8 hours - Smoking Hx Smoking Status: Former smoker - Family Anes Hx Family Hx Anesthesia Complications: Denies. ANE Labs/Vital Signs - Labs Result Diagrams: 04/03/18 12:25 04/03/18 12:25 - Vital Signs Blood Pressure: 146/104 Heart Rate: 125 Respiratory Rate: 8 O2 Sat (%): 94 Height: 182.88 cm Weight: 90.718 kg ANE Physical Exam - Airway Neck exam: FROM Mallampati Score: Class 3 Mouth exam: normal dental/mouth exam - Pulmonary Pulmonary: no respiratory distress, no rales or rhonchi, clear to auscultation - Cardiovascular Cardiovascular: regular rate and rhythym, no murmur, rub, or gallop - ASA Status ASA Status: II ANE Anesthesia Plan Anesthesia Plan: GA with mask
[2018-04-13] MEDS ORDERED: ONDANSETRON DISINTEGRATING 4 MG TAB PO PRN (09:50)
[2018-04-13] MEDS ORDERED: CITRIC ACID/SODIUM CITRATE 30 ML UDCUP PO ONE (09:50)
--- NOTE | 2018-04-13 09:56 | PDECTPN ---
ECT Progress Note Patient Problems: Problems Problem Status Onset Code Schizoaffective disorder Acute F25.9 Schizoaffective disorder, bipolar type, with catatonia Acute F25.0, F06.1 Schizophrenia Acute F20.9 Date: 04/13/18 ECT provider: Forrest Mancilla Anesthesia: Samir Leal Stimulus dose (%): 100 Pulse width: 0.5 ECT EMG (sec): 23 ECT EEG (sec): 37 ECT treatment type: bilateral QIDS-SR Total Score: 0 QIDS-SR Question #12 Score: 0 MMSE Total Score (Max = 21): 20 Next ECT date: 04/15/18 Next ECT time: 12:00 O/P psychiatrist follow up with Dr.: Joshua O/P psychiatrist follow up: phone, voice message Home medications: Medication Instructions Recorded LORazepam [Ativan (*)] 1 mg PO TID #90 tab 01/12/18 Divalproex ER [Depakote ER 250 MG 250 mg PO BID 03/13/18 (*)] Current treatment plan: acute phase Treatment plan frequency: 3 times per week ECT narrative: Pt able to re-start ECT. Discussed with anesthesia the Cardiology consult and ECHO findings (ruled out CHF). Pt remains near mute, and with poor eye contact , and relatedness, but o/w cooperative and not negativistic. Will plan to do at least a couple of acute treatments while in patient. Discussed case with Dr Lewis,who indicated that pt was supposed to be up to Depakote 500 bid, as his level on 250 TID was on 40. Will increase dose to 1000mg total and check level on Friday. 04/10/18 Pt is still virtually mute, but cooperative and non-negativistic, agreeable to complying with instructions during ECT, for instance. Nods head yes or no to basic questions, or shrugs shoulders in a "not sure" gesture. Eating/drinking. Was pacing yesterday. Anesthesia MD noted greater compliance with her instructions. Denies any GI upset with depakote increase. 04/14 Read MD notes from weekend. Interviewed pt. He is more engaged, talking in short phrases, and making better eye contact. A clear improvement. VPA level is 61. Will cont acute ECT but likely d/c by friday if he remains this well or better.
--- NOTE | 2018-04-13 10:02 | POSTANESTH ---
Post Anesthetic Evaluation Cardiovascular Status: Normal, Stable, Similar to Pre-Op Cond Respiratory Status: Normal, Stable, Similar to Pre-op Cond. Level of Consciousness/Mental Status: Unconscious Complications Possibly Related to Anesthesia: None Noted
[2018-04-13] MEDS ORDERED: HYDROCODONE/APAP 5/325 TAB PO PRN (10:03)
[2018-04-13] MEDS ORDERED: PROMETHAZINE HCL 25 MG TAB PO PRN (10:03)
[2018-04-13] MEDS ORDERED: NALOXONE HCL 0.4 MG/ML INJ IVP PRN (10:03)
--- NOTE | 2018-04-13 13:27 | ASMTBHDC ---
Notes Note: Notes: Pt. was eating a late breakfast when CC approached. Pt. did not speak to CC, but nodded his head yes or no. Pt. stated he slept average, shrugging his shoulders when asked about sleep. Pt. nodded yes to eating well. Pt. nodded no when asked about any issues with his medications. Pt. nodded no when asked if he has a headache or nausea Pt. nodded yes when asked if his mom can pick him up at discharge. Pt. nodded no when asked about SI, HI, AVH and paranoia. Pt. presents as alert, calm, guarded, mute, lacking eye contact, and somewhat cooperative. Staff report pt. sleeping 10.5 hours, receiving ECT today and being medication compliant. Provider stated pt. will be discharging on Friday04/15/18. scheduled pt for next available appointment with provider, Dr. Lewis, which is on 05/20/18 at 10:30am. CC informed pt's mother about discharge date. CC left a message at [facility] about pt's discharge date. Date Signed: 04/13/2018 01:23 PM Electronically Signed By:Tanesha Boudreaux
--- NOTE | 2018-04-13 13:57 | ASMTBHDC ---
Notes Note: Notes: Update Pt's appointment has been changed to 04/16/18 @ 1:30pm Dr. John Lewis [address] [place] [id number] [address] Lewis - March (04/16/18) at 1:30pm Date Signed: 04/13/2018 01:57 PM Electronically Signed By:Tanesha Boudreaux
[2018-04-14] MEDS: DIVALPROEX ER 250 MG TAB PO SCH (07:29)
[2018-04-14] MEDS: LORazepam 1 MG TAB PO SCH ×3 (07:29→20:28)
[2018-04-14] MEDS ORDERED: IBUPROFEN 600 MG TAB PO PRN (14:06)
--- NOTE | 2018-04-14 16:21 | SOAPPROG ---
SOAP Progress Note Assessment/Plan: Assessment: Plan: 04/14/18 16:21 Mood: Much improved today. Is approximately baseline. Will treat tomorrow and then likely d/c. Plan per Dr. Mancilla. Subjective: Pt seen, discussed with staff and Dr. Mancilla, chart reviewed. He is quite animated today. Conversant with myself and staff. Making jokes and laughing. States he wants to work here as he knows all the protocols. Looking forward to going home tomorrow after treatment. Aware of his treatment and d/c plans. Compliant with meds. Minimal group participation. Slept well last night though he states he "woke up a lot" due to nasal congestion." He is insistent on getting ibuprofen to help with this and "body aches." Objective: Vital Signs Temp Pulse Resp BP Pulse Ox 36.9 C 99 16 115/79 99 04/14/18 06:00 04/14/18 06:00 04/14/18 06:00 04/14/18 06:00 04/14/18 06:00 04/13/18 04/14/18 04/15/18 05:59 05:59 05:59 Intake Total 600 Balance 600 MSE: Calm, coop., much more interactive. Affect is brighter, smiling, stable, approp. Mood is "pretty good." TP is generally linear, somewhat abbreviated. TC reveals no psychosis. No SI. - Time Spent With Patient Time Spent With Patient: 25" ICD10 Worksheet Patient Problems: Problems Problem Status Onset Schizoaffective disorder Acute Schizoaffective disorder, bipolar type, with catatonia Acute Schizophrenia Acute
[2018-04-15] MEDS ORDERED: NS 1,000 ML IV PRN (04:00)
[2018-04-15] MEDS ORDERED: CITRIC ACID/SODIUM CITRATE 30 ML UDCUP PO PRN (04:00)
[2018-04-15] MEDS ORDERED: ONDANSETRON DISINTEGRATING 4 MG TAB PO PRN (04:00)
[2018-04-15] MEDS ORDERED: fentaNYL 100 MCG/2 ML INJ ONE (06:51)
[2018-04-15] MEDS ORDERED: KETOROLAC 30 MG/1 ML SDV ONE (06:51)
[2018-04-15] MEDS ORDERED: GLYCOPYRROLATE 0.2 MG/1 ML VIAL ONE (06:52)
[2018-04-15] MEDS ORDERED: LORazepam 2 MG/ML INJ ONE (06:53)
[2018-04-15] MEDS ORDERED: SUCCINYLCHOLINE CHLORIDE 200 MG/10 ML VIAL ONE (06:53)
[2018-04-15] MEDS ORDERED: METHOHEXITAL SODIUM 100 MG/10 ML SYR IVP ONE (06:53)
--- NOTE | 2018-04-15 11:52 | ASMTBHDC ---
Notes Note: Notes: Pt. was pacing the hallways when CC approached. Pt. reports "feel great". Pt. stated he slept "okay". Pt. reports no issues with his current medications, adding he thinks he has a cold. Pt. reports eating well. Pt. stated ECT "it's going well". CC discussed pt's discharge today, which pt stated "fine by me". CC informed pt he will be leaving around 5:30pm, as his mom will pick him up and take him to [facility]. Pt. denied SI, HI, AVH and paranoia. Pt. presents as alert, calm, friendly, joking, more talkative than previously, good eye contact, and cooperative. Staff report pt. sleeping 10 hours and being medication compliant. Pt. will have ECT at noon and will be picked up by his mother at 5:30pm today. Date Signed: 04/15/2018 11:51 AM Electronically Signed By:Tanesha Boudreaxu
[2018-04-15] MEDS: LORazepam 1 MG TAB PO SCH ×2 (11:56→14:51)
--- NOTE | 2018-04-15 13:26 | PDANEPAE ---
ANE Past Medical History - Cardiovascular History Hx Hypertension: No Hx Arrhythmias: No Hx Chest Pain: No Hx Coronary Artery / Peripheral Vascular Disease: No Hx Palpitations: No - Pulmonary History Hx COPD: No Hx Oxygen in Use at Home: No Hx Sleep Apnea: No - Neurologic History Hx Cerebrovascular Accident: No - Endocrine History Hx Diabetes: No Obesity: mild - Renal History Hx Renal Disorders: No - Liver History Hx Hepatic Disorders: No - Cancer History Hx Cancer: No - Chronic Pain History Chronic Pain: No - Surgical History Prior Surgeries: craniosynostosis (6mo old), tonsillectomy (3yo), umbilical hernia (5yo), knee scope (15yo) ANE Review of Systems Review of Systems: ANE Patient History - Allergies Allergies/Adverse Reactions: olanzapine [From Zyprexa] Allergy (Severe, Verified 04/03/18 11:08) catatonea propylthiouracil Allergy (Severe, Verified 04/03/18 11:08) impulsivity clozapine Allergy (Mild, Verified 04/03/18 11:13) anger methazolamide Allergy (Unknown, Verified 04/03/18 11:08) Unknown risperidone [From Risperdal] Allergy (Unknown, Verified 04/03/18 11:08) Unknown - NPO status NPO Status: no food or drink >8 hours - Anes Hx Anes Hx: no prior problems - Smoking Hx Smoking Status: Former smoker - Family Anes Hx Family Hx Anesthesia Complications: Denies. ANE Labs/Vital Signs - Labs Result Diagrams: 04/03/18 12:25 04/03/18 12:25 - Vital Signs Blood Pressure: 132/80 Heart Rate: 122 Respiratory Rate: 16 O2 Sat (%): 93 Height: 182.88 cm Weight: 90.718 kg ANE Physical Exam - Airway Neck exam: FROM Mallampati Score: Class 3 Mouth exam: dentures - Pulmonary Pulmonary: no respiratory distress, no rales or rhonchi, clear to auscultation - Cardiovascular Cardiovascular: regular rate and rhythym, no murmur, rub, or gallop - ASA Status ASA Status: II ANE Anesthesia Plan Anesthesia Plan: GA with mask
--- NOTE | 2018-04-15 13:36 | PDECTPN ---
ECT Progress Note Patient Problems: Problems Problem Status Onset Code Schizoaffective disorder Acute F25.9 Schizoaffective disorder, bipolar type, with catatonia Acute F25.0, F06.1 Schizophrenia Acute F20.9 Date: 04/15/18 ECT provider: Forrest Mancilla Anesthesia: Samir Leal Stimulus dose (%): 100 Pulse width: 0.5 ECT EMG (sec): 16 ECT EEG (sec): 24 ECT treatment type: bilateral QIDS-SR Total Score: 0 QIDS-SR Question #12 Score: 0 MMSE Total Score (Max = 21): 21 Next ECT date: 04/20/18 Next ECT time: 09:30 O/P psychiatrist follow up with .: Joshua O/P psychiatrist follow up: phone, voice message Home medications: Medication Instructions Recorded LORazepam [Ativan (*)] 1 mg PO TID #90 tab 01/12/18 Divalproex ER [Depakote ER 250 MG 500 mg PO BID 30 Days #60 tab 04/15/18 (*)] LORazepam [Ativan (*)] 1 mg PO 0900,1400,2100 tab 04/15/18 Medication review: completed Current treatment plan: acute phase Treatment plan frequency: 3 times per week ECT narrative: Pt able to re-start ECT. Discussed with anesthesia the Cardiology consult and ECHO findings (ruled out CHF). Pt remains near mute, and with poor eye contact , and relatedness, but o/w cooperative and not negativistic. Will plan to do at least a couple of acute treatments while in patient. Discussed case with Dr Lewis,who indicated that pt was supposed to be up to Depakote 500 bid, as his level on 250 TID was on 40. Will increase dose to 1000mg total and check level on Friday. 04/10/18 Pt is still virtually mute, but cooperative and non-negativistic, agreeable to complying with instructions during ECT, for instance. Nods head yes or no to basic questions, or shrugs shoulders in a "not sure" gesture. Eating/drinking. Was pacing yesterday. Anesthesia MD noted greater compliance with her instructions. Denies any GI upset with depakote increase. 04/14 Read MD notes from weekend. Interviewed pt. He is more engaged, talking in short phrases, and making better eye contact. A clear improvement. VPA level is 61. Will cont acute ECT but likely d/c by friday if he remains this well or better. 04/15 Please see dictate discharge report as pt is going back to Assisted Living after tx today. Left message with Dr Lewis
--- NOTE | 2018-04-15 13:45 | POSTANESTH ---
Post Anesthetic Evaluation Cardiovascular Status: Similar to Pre-Op Cond Respiratory Status: Normal, Stable, Similar to Pre-op Cond. Level of Consciousness/Mental Status: Unconscious Complications Possibly Related to Anesthesia: None Noted
--- NOTE | 2018-04-15 14:18 | GDS ---
[f rep st] DISCHARGE SUMMARY IDENTIFYING DATA: This patient is a 37-year-old single white male, well known to the report writer and [facility]. He was recently discharged prior to this admission in February of 2018. He christianson s a longstanding history of schizoaffective disorder, bipolar type with catatonic features and develo pmental delay. REASON FOR ADMISSION: This patient's mother had brought him into the Emergency Department due to inc reased visual hallucinations and disorganized behavior and agitation. He was "talking to [place] [employer] bottles." He appeared selectively mute and nonresponsive to questions, withdrawn, guarded and shut down per Dr. Florez's admission workup. This is consistent with his presentation when he becomes psyc hotic and enters a near catatonic state. ROUTINE PHYSICAL EXAM: Performed by Luz Block which reveals: 1. Schizoaffective disorder with catatonia. He is undergoing E[facility], [facility] He seems medically appropriate at this time. 2. History of Graves disease. We will check a TSH. He is not on any thyroid medications. His TSH was normal last January. 3. Asperger syndrome with developmental delay. He lives in assisted living. His mother advocates f or him. LAB WORK: The patient's CBC was within normal limits. Bio Chem profile was within normal limits. T SH was normal at 1.62. Urine toxicology was negative for substances and his valproic acid level was 61.1, reflective of a dose of 500 mg twice b.i.d. HOSPITAL COURSE: The patient required cardiac testing in order to restart ECT. He had had some vent ricular arrhythmia noted during his last treatment prior to this inpatient stay, which coupled with h is bilateral lower extremity edema prompted the treatment team to recommend cardiology consultation a nd testing. He underwent that including echocardiogram which revealed no evidence of heart failure. We were able to restart acute ECT, therefore, while he was in the hospital and did 4 bilateral acute treatments to good effect. Also, his Depakote which mother had, against medical advice, reduced to 250 mg twice daily was increased back to 500 mg b.i.d. with a level in the low therapeutic range at 6 1. I have left a message for Dr. Lewis regarding this dose and level, as he may wish to further tit rate that medication. Otherwise, he was left on his lorazepam 1 mg t.i.d. During the last couple of days of his stay, he became much more verbal and engaged, albeit still ecce ntric and odd in his thought content, which is consistent with his illness. He was affable and denie d that he was having racing thoughts, irritability or agitation. He denied suicidal ideation. He wa s smiling. When asked if he felt confident and ready to return to the assisted living, he stated in some humorous but somewhat inappropriate way, "you should check out my CV." He nodded his head no wh en I asked if he was having severe racing thoughts or irritability. DISCHARGE MEDICATION: Lorazepam 1 mg p.o. t.i.d., divalproex ER 500 mg b.i.d. DISPOSITION: The patient will return to assisted living. coordinator of online programs has reached out to mother about this. They will provide the necessary 24/7 supervision. He gets his meals and medication man aged there. He is to not drive. His next ECT is scheduled in 5 days and he should be seeing Dr. Shanell marquez in the next few days. A text message was left about the Depakote level with the idea of possibly titrating his dose further as an outpatient. He is to hold his Depakote dose the nights prior to an y ECT treatment. I will likely keep him on at least a weekly ECT schedule for the foreseeable future . DISCHARGE DIAGNOSES: Schizoaffective disorder, bipolar type. Autism spectrum disorder/developmental delay. History of thyroid disturbance with normal TSH. History of craniosynostosis. History of cat atonia. /[id number]/MODL
[2018-04-15 14:42] VITALS: BP 107/60
== END 2018-04-15 18:00 | DRG 885 ==
LOC: BBEH 16:40
PROVIDERS: ADMIT Psychiatry & Neurology Psychiatry; ATTEND Psychiatry & Neurology Psychiatry
PROC: GZB2ZZZ Electroconvulsive Therapy, Bilateral-Single Seizure (ICD-10-PCS; principal; 2018-04-08)
DX: F25.0 Schizoaffective disorder, bipolar type (principal); F84.0 Autistic disorder; Z87.891 Personal history of nicotine dependence
CPT/HCPCS: 80305; G0480; J0330; J1885; J2060; J3010

== ENCOUNTER 2018-05-08 13:13 | Inpatient (IN) | payer OTHER ==
--- NOTE | 2018-05-08 14:09 | BAPA ---
[f rep st] ADMISSION PSYCHIATRIC ASSESSMENT IDENTIFYING DATA: The patient is a 37-year-old single white male, well known to this documentation writer who has been treating him with maintenance ECT and through multiple prior hospitalizations over the past 8 ye ars. He is treated outpatient by psychiatrist, Anant Lewis MD, at [facility]. He was l ast admitted to [facility] inpatient on 04/03/2018, and discharged on 04/15/2018. He has a long-standing hi story of schizoaffective disorder bipolar type with catatonic features and autism spectrum disorder. HISTORY OF PRESENT ILLNESS: This patient had a recent hospitalization in which he had a treatment co urse of 4 bilateral acute treatments. His medications have been left unchanged with Depakote at 500 mg twice daily with a level at 61, and lorazepam at 1 mg 3 times a day. At the end of that hospital stay, which was prompted by increased catatonic excitement, agitation and aggression, he was much mor e verbal and engaged, albeit still eccentric and odd in his thought content, which is consistent with his illness. He was affable and denied that he was having racing thoughts, irritability or agitatio n, or suicidal ideation. He was smiling. At that point, he returned to assisted living. Since then , he has followed up with weekly maintenance ECT treatment on 04/22/2018, 04/29/2018, and then again on 05/06/2018. Over the course of those few weeks, he did seem to become increasingly more reserved, internally preoccupied and impoverished in speech with psychomotor slowing. However, it was not unt il the last day that his mother noted more significant behavioral changes. He had been back at his a ssisted living program and went AWOL. When the nurse found him outside and asked him to return in to the building and to his room, he stared at her blankly. Mother came at midnight to retrieve him. Jesenia galloway has had diminished hygiene and self-care and he has been pacing with no clear purpose. Although he had dinner last night, he had refused to drink this morning. Mother brought him in for ECT 2 days a fter his last one due to this exacerbation of his catatonic state and presumed psychosis. In ECT, he is seen as mute, with nil eye contact, significant increased psychomotor slowing, more disheveled an d flat in affect. This is all consistent with mother's observations. She does not believe that ther e is any substance use playing a role. She also confirmed with assisted living that he had been gett ing his medication, although she questions their capacity to truly monitor and ensure that. He does appear internally preoccupied, but it is unclear whether he is responding to internal stimuli. He is an exceedingly poor historian given his mutism. PAST PSYCHIATRIC HISTORY: Please see prior consultations. SOCIAL HISTORY: Please see prior consultations. FAMILY HISTORY: Please see prior consultations. PAST MEDICAL HISTORY: The patient has no change in his medical status and remains with history of hy pothyroidism and craniosynostosis. Recent lab work from March revealed normal complete blood count and complete metabolic profile. TS H on 04/03/2018, was 1.62. Valproic acid level on 04/12/2018, was 61.1. Urine drug screens were neg ative except for benzodiazepine. MENTAL STATUS EXAM: The patient is a 37-year-old white male who appears his stated age. He is marke dly unkempt and disheveled, mute and near immobile with flat affect. He is able, however, to follow the requisite instructions required to undergo ECT and showed no negativism or resistance to undergoi ng the treatment. Judgment and insight are clearly impaired. Impulse control is somewhat impaired, but he is absent of any recent aggressive behavior, although his mother noted him to be pacing with n o apparent purpose, which sometimes seems to correlate with increasing agitation and tendency toward aggressive behaviors. ADMITTING DIAGNOSIS: [place] I: Schizoaffective disorder, bipolar type; catatonia; Graves disease by history; craniosynostos is; Asperger spectrum disorder by history. PLAN: The patient will be admitted given an exacerbation of his catatonic state with its unclear pre cipitant. My suspicion is that he is still dealing with the same relapse that brought him in in [facility], which had been symptomatically improved upon with acute ECT, but now that we have reverted back to weekly maintenance treatments, that has been inadequate to keep the symptoms fully at bay. It is, however, possible that he is not adhering fully to his medication regimen when he is at the assisted living. I will check blood level of valproic acid and urine drug screen to ensure there is benzodia zepine. Given his valproic acid level when he was last in the hospital with known compliance at 61.1 , it is reasonable to increase this dose to 1500 mg a day. Mother still would like him not to be jany k on antipsychotics such as clozapine, as she believes that he has had no episodes of outright aggres bhavesh since being off that medication. Clearly, he is also in a better state metabolically, having lo st quite a bit of weight since discontinuing that medication. I will also proceed with further [place] acute ECT treatments through the next week. This patient in truth may not be sustainable in an assisted living program and may need an increased level of support on a chronic inpatient unit if one is available to him. /[id number]/MODL
[2018-05-08] MEDS ORDERED: MAG HYDROX/AL HYDROX/SIMETH 30 ML UDCUP PO PRN (15:30)
[2018-05-08] MEDS ORDERED: MAGNESIUM HYDROXIDE 30 ML UDCUP PO PRN (15:30)
[2018-05-08] MEDS ORDERED: LORazepam 0.5 MG TAB PO PRN (15:30)
[2018-05-08] MEDS: LORazepam 1 MG TAB PO SCH ×2 (16:23→19:42)
--- NOTE | 2018-05-08 16:24 | ASMTTLCEVL ---
TLC Evaluation - Basic Information Evaluation Start Date and 05/08/2018 03:00 PM Time Hospital Status Answers: Voluntary Patient statement Notes: Pt to be admitted directly from outpt ECT due to functional decline and difficulty managing in the home environment. Pt was seen in ECT this morning and determined in need of inpt. admission. Information for the following assessment was obtained from previous records. Pt is well known to [facility] inpt unit. Narrative Notes: Pt is a 37 year old, single, male well known to [facility] with a hx of schizoaffective disorder bipolar type with catatonic features and Aspergers with developmental delay. Pt was brought to [facility] this am for ECT and determined in need of inpt admission due to decompensating mental health. Per previous records pt has an extensive mental health hx complicated by a developmental disorder. He has been on [facility] unit multiple times along with [facility]. Although pt has no hx of aggressive behavior on an inpt unit, his 1st 3 psychiatric admissions followed agitation and SI. Pt has no reported hx of suicide attempts. He does have a hx of gaetano in which he acts on impulses. He once drove 100 miles to [place] and was once arrested for evading a master police detective. Over the years he has been treated with both psychotropic medications and ECT. Diagnosis History Notes: Schizoaffective disorder bipolar type with catatonic features, and Aspergers with developmental delay. Prior suicide attempts Notes: No known suicide attempts. Prior hospitalizations Notes: Prior to 2010 he had 3 hospitalizations, 2 at [facility] and 1 at [facility], 01/2011 [facility] for Catatonia, 12/04/13 catatonia, 05/01 hearing voices and threatening others. [facility] 05/30 with symptoms of severe negativism around fluid and food intake, where he was refusing to eat and has lost weight, being mute and immobile and at other times wandering away with no clear purpose. 01/01 [facility] for catatonic state, periods of near immobility, varying with agitation and purposeless pacing, repeating of the same phrase, diminished oral intake, and negativism, 02/04/18 the pt.s mother had indicated that he became more agitated while at the [facility] and brought him home where things only worsened. He went AWOL from her a number of times, returning an hour later, mumbling incoherently, making statements such as am out of here, which she associates in him being suicidal. Pts last admission at [facility] was on 04/03/18 when pt had reported pt was again decompensating having hallucinations and doing things such as talking to [employer]. Treatment Responses Notes: Pt has a hx of ECT treatments. History of violence Notes: No hx of violence was reported. Psychiatrist: Referring Psychiatrist, Dr. Anant Hardin Medications (name, dosage, route, freq uency) Notes: Maalox Susp, Citric Acid/Soduim Citrate, Divalproex Sodium, Lorazepam, Magnesium Hydroxide, Ondansetron, Sodium Chloride, Ativan and Depakote. Allergies/Reaction Notes: Olanzapine, Propylthiouracil, Methazolamide, Risperidone, and Clozapine Sleep Notes: Decreased Appetite Notes: Not reported. Medical/Surgical history Notes: craniosynostosis (5mo old), tonsillectomy (3yo), umbilical hernia (5yo), knee scope (15yo). No prior medical hospitalizations reported. Substance use history (frequency, intensity, his tory, duration) Notes: No known substance abuse known. Family composition Notes: Pt is still living and supportive. Father is . Pt has multiple siblings but none of them live close by. Need for family Answers: Yes participation in patient's care Family psychiatric/substance abuse history Notes: Father was a recovering alcoholic before his over 2 years ago. He had been sober for 25 years. Pts brother has served time in [facility] for methamphetamine violations. One older sister has a hx of bipolar disorder. Developmental history Notes: Pt as born and raised in [place]. Mother reports that he was a happy child while growing up. He earned a high school diploma. He never had social relationships and was diagnosed with pervasive developmental disorder. Abuse concerns Answers: None Marital status/children Notes: Single, never with no children. Living situation Notes: Pt lives in an [facility]. Sexual history/orientation Notes: Heterosexual, not active. Peer support/family strengths Notes: Pts mother is his primary support. He has experienced difficulty with social relationships throughout his life. Education level/history Notes: Pt completed his high school education. 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 Notes: None Legal Notes: Pt once drove 100 miles to [place] and was once arrested for evading police. Congregational/Spiritual Notes: There was no report of any pentecostal or spiritual beliefs impacting his treatment. Leisure Notes: Pt enjoys working with computers. Collateral Notes: Collateral inform obtained from prior admissions. Patient's strengths Answers: Supportive Family (Please select at least TWO strengths): Willingness [facility] Evaluation - Mental Status Exam Appearance: Answers: Appropriate Eye Contact: Answers: Absent Affect: Answers: Guarded Indifferent Subdued Suspicious Behavior: Answers: Inappropriate Fearful Thought Process: Answers: Distracted Insight: Answers: Poor Judgement: Answers: Poor Depression Answers: Flat Affect Signs/Symptoms: Withdrawn Current Stage of Change Answers: Relapse Pt reported to be making Answers: No suicidal/self-injuring threats? Pt reported to have Answers: No aggression/assault ideation/behavior? Pt reported to be making Answers: No aggression/assault threats? Pt exhibits inability to Answers: Yes care for self/grave disability? [facility] Evaluation - Suicide/Homicide Risk Suicide Risk Factors: Answers: Bipolar Disorder Psychotic Disorder Schizoaffective Disorder None Current Suicidal Answers: No Ideation? Current Suicidal Ideation Answers: No in the Past 48 Hours? Current Suicidal Ideation Answers: No in the Past Month? Suicide Internal Answers: Other Notes: Unable to assess Protective Factors: None Suicide External Answers: Positive Therapeutic Protective Factors: Relationships Ranking of patient's Answers: Low suicidal risk: Ranking of patient's Answers: Low homicidal risk: [facility] Evaluation - Wrap-up AXIS I Diagnosis (include DSM-V and ICD-10 codes), must also be entered in [employer], which is the source of truth. Notes: Schizophrenia, Bipolar Type 295.70 (F25.0) Autism Spectrum Disorder (Aspergers) 299.00 (F84.0) Pt was admitted to [facility] 3N Evaluation End Date and 05/08/2018 04:20 PM Time (HH:MM): Date Signed: 05/08/2018 04:23 PM Electronically Signed By:Elodia Mack
--- NOTE | 2018-05-08 16:25 | ASMTTCLDSP ---
TLC Discharge Disposition Disposition: Answers: Admit Disposition Notes: Notes: Pt was seen in outpt. ECT treatment this am and determined in need of inpt admission. Discharge Concerns/Recommendations: Notes: Admit to 3 For inpatient Forrest Mancilla MD admission, the following psychiatrist agreed to accept patient for admission to [facility] ([facility]): Date Signed: 05/08/2018 04:25 PM Electronically Signed By:Elodia Mack
[2018-05-08] MEDS: DIVALPROEX ER 500 MG TAB PO SCH (19:42)
[2018-05-08] MEDS ORDERED: DIVALPROEX ER 500 MG TAB PO SCH (21:00)
[2018-05-09] MEDS: DIVALPROEX ER 500 MG TAB PO SCH ×2 (09:19→20:51)
[2018-05-09] MEDS: LORazepam 1 MG TAB PO SCH ×3 (09:19→20:51)
--- NOTE | 2018-05-09 15:16 | GCON ---
[f rep st] CONSULTATION MEDICINE CONSULTATION. This is a medicine consultation at the request of Psychiatric Service for medical clearance for ongoi ng treatment including ECT. It should be noted patient was actively pacing the floor and nonverbal, refused to answer any questio ns or stop pacing in order to allow me to examine him, therefore, this history is entirely obtained b y chart review. CHIEF COMPLAINT: Worsening catatonic features despite outpatient ECT treatment. HISTORY OF PRESENT ILLNESS: This is a 37-year-old man who has a past medical history that includes s chizoaffective disorder, bipolar type with catatonic features as well as autism spectrum who has rece ntly been residing at an assisted living and was noted to be showing features of increased catatonic- like symptoms with poor hygiene and self-care, noted to be pacing, and not interacting with family or other members of the assisted living facility. Again, this history is obtained per chart review, bu t it seems as though he has been treated recently as a with maintenance ECT following a last hospital ization at [facility] in March, at which time he was discharged on April 15. At th e end of that stay, apparently patient was more verbal and engaged and able to interact and answer qu estions appropriately. He has been on weekly maintenance ECT throughout the month of April, but h as been noted to be increasingly reserved, preoccupied and recently essentially went AWOL at his [facility]. When he was found and brought back to the facility, he was staring at people, n ot answering questions, pacing and otherwise unable to interact with others. At the time my evaluati on, patient continues to pace, again, does not make any eye contact. Does not respond to my request to speak with him and just continues pacing right past me. I am unable to obtain any answers to ques tions given his mental status. PAST MEDICAL HISTORY: 1. Schizoaffective disorder, bipolar type with catatonic features. 2. Autism spectrum. 3. Hypothyroidism. 4. Craniosynostosis. PAST SURGICAL HISTORY: Tonsillectomy, hernia repair, and previous PEG tube. FAMILY HISTORY: Nothing pertinent per chart review. SOCIAL HISTORY: Patient is residing at [facility]. His mother is involved in his car e. REVIEW OF SYSTEMS: Unobtainable secondary to patient's mental status. PHYSICAL EXAMINATION: VITAL SIGNS: BP 139/71, heart rate 115, respiratory rate 14, O2 sats 94% on r oom air, temperature is 36.9. GENERAL: The patient appears well nourished, well developed. Again, he is pacing. He has a normal gait. He does not make eye contact. He does not respond to questions . He does not slow down to speak to me. Remainder of exam is deferred given his mental status. CLINICAL DATA: Labs from March were reviewed. CBC and BMP were unremarkable. TSH was within norm al limits. U tox at that time was negative. ASSESSMENT AND PLAN: This is a 37-year-old man with schizoaffective disorder, bipolar type with meredith tonic features, presenting with decompensated schizoaffective disorder. 1. Decompensated schizoaffective disorder. In review of records, it does seem as though patient has had severe refractory disease, currently undergoing maintenance ECT as an outpatient, which he has f catalina to respond significantly to. He remains preoccupied with internal stimuli and does not interac t with me whatsoever. At this point, defer any further management to his psychiatric team. Do not s ee any reason to defer any treatment felt to be indicated by their care. 2. Autism. Again, patient is on the autism spectrum. This is likely contributing to above. 3. Reported history of Graves disease. Recent TSH is within normal limits. 4. Inpatient status. The patient is new to my care. Old records reviewed, summarized as per HPI an d Past Medical History. Care plan reviewed with psychiatric nurse. Thank you for this consultation. Medicine will be available peripherally should questions arise chasidy marin patient's hospitalization. /[id number]/MODL
--- NOTE | 2018-05-09 17:59 | ASMTBHMTP ---
Master Treatment Plan Master Treatment Plan Answers: Impaired Reality for: Date: 05/08/2018 Diagnosis on Admission: Schizoaffective Expected length of stay: 3-5 Days Reason for admission: Notes: Direct Admission from ECT per Dr. Mancilla Patient's stated presenting problems: Notes: Pt. stated he has "no idea" why he is in the hospital. Patient's goals for treatment: Notes: Pt. stated he doesn't have any goals. Patient's strengths: Notes: Pt. shrugged his shoulders unsure when asked about his strengths. Identify supports outside of hospital: Notes: Pt. stated his mom. Discharge criteria: Notes: Psychotic symptoms will be reduced or eliminated with return to baseline functioning in affect, thinking, and behavior prior to discharge. Initial disposition plan/considerations: Notes: Pt. stated he plans to return to [facility]. Master Treatment Plan Required Signatures Psychiatrist signature: Answers: Teddy Florez MD: RN on-shift signature: Answers: RN: Patient signature: Answers: Patient: Date Signed: 05/09/2018 05:59 PM Electronically Signed By:Elise Palomino
--- NOTE | 2018-05-09 19:16 | SOAPPROG ---
SOAP Progress Note Assessment/Plan: Assessment: 37 with h/o schizophrenia and prior trials of ECT. Decompensated recently and left his assisted living facility without permission. Plan: 05/09/18 19:[address] Mancilla recently increased patient's Depakote from 500mg BID to 500mg QAM and 1,000mg QHS. Patient has not reported any SE's. 2. Patient has been selectively mute. He paces in halls, but otherwise has little to no other goal-directed activity or engagement with staff. 3. Plan to increase ECT treatments. Subjective: Patient is pacing in halls, refuses to make eye contact or even turn his head when MD attempts to speak with him. MD tries to make eye contact while addressing patient, but he increases speed of his walking and continues to ignore MD. Other staff have tried to interact with patient today with no success. Objective: Vital Signs Temp Pulse Resp BP Pulse Ox 36.9 C 115 H 14 139/71 H 94 05/09/18 06:00 05/09/18 06:00 05/09/18 06:00 05/09/18 06:00 05/09/18 06:00 MSE: Affect: Blunted Mood: No response TP: Unable to assess TC: internally preoccupied, unable to assess delusional thoughts, etc Perception: Appears preoccupied by IS, does not appear to respond to external stimuli Insight/ Judgment: Poor - Time Spent With Patient Time Spent With Patient: 5" - Pending Discharge Pending Discharge Within 24 Hours: No Pending Discharge Within 48 Hours: No ICD10 Worksheet Patient Problems: Problems Problem Status Onset Schizoaffective disorder Acute Schizoaffective disorder, bipolar type, with catatonia Acute Schizophrenia Acute
[2018-05-10] MEDS: DIVALPROEX ER 500 MG TAB PO SCH ×2 (08:21→18:19)
[2018-05-10] MEDS: LORazepam 1 MG TAB PO SCH ×3 (08:21→15:39)
--- NOTE | 2018-05-10 15:57 | ASMTCMCOM ---
CM Note CM Note Notes: The patient was not verbally/nonverbally responsive to this sba underwriter. He was observed pacing the hallway. The patient wrote a note to nursing staff that read "E T C;" nursing responded with his next appointment date and time in writing. Nursing staff assisted the patient in completing his breakfast today; prior to this meal support he had reportedly not been completing meals. Date Signed: 05/10/2018 11:53 AM Electronically Signed By:Elise Palomino
[2018-05-10] MEDS ORDERED: ACETAMINOPHEN 325 MG TAB PO PRN (18:58)
--- NOTE | 2018-05-10 19:17 | SOAPPROG ---
SOAP Progress Note Assessment/Plan: Assessment: 37 with h/o schizophrenia and prior trials of ECT. Decompensated recently and left his assisted living facility without permission. Plan: 05/09/18 19:[address] Mancilla recently increased patient's Depakote from 500mg BID to 500mg QAM and 1,000mg QHS. Patient has not reported any SE's. 2. Patient has been selectively mute. He paces in halls, but otherwise has little to no other goal-directed activity or engagement with staff. 3. Plan to increase ECT treatments. 05/10/18 19:12 1. Patient with more psychomotor retardation and mutism today. 2. Patient did not eat any meals yesterday and only drank 1 cup of OJ. Today, RN helped patient eat his food, and he finished 100% of breakfast and lunch. 3. Patient approached MD several times throughout the day and stared intensely. MD asked multiple questions to understand if patient required any help. Occasionally patient would shake his head, but never answered verbally. He ate 50% of dinner per staff. 4. Continue to monitor for catatonia. Has responded well to ECT during prior episodes. 5. Anticipate ECT tomorrow. Subjective: Patient pacing in halls, but more slowly. He is moving around and not standing in one spot. He ate more of his meals today with assistance from staff. He also drank more fluids. Objective: Vital Signs Temp Pulse Resp BP Pulse Ox 36.9 C 115 H 14 139/71 H 94 05/09/18 06:00 05/09/18 06:00 05/09/18 06:00 05/09/18 06:00 05/09/18 06:00 MSE: Affect: Constricted Mood: No response TP: Unable to assess TC: Unable to assess Insight/Judgment: Impaired - Time Spent With Patient Time Spent With Patient: 15" - Pending Discharge Pending Discharge Within 24 Hours: No Pending Discharge Within 48 Hours: No ICD10 Worksheet Patient Problems: Problems Problem Status Onset Schizoaffective disorder Acute Schizoaffective disorder, bipolar type, with catatonia Acute Schizophrenia Acute
[2018-05-11] MEDS ORDERED: NS 1,000 ML IV PRN (04:00)
[2018-05-11] MEDS ORDERED: ONDANSETRON DISINTEGRATING 4 MG TAB PO PRN (04:00)
[2018-05-11] MEDS ORDERED: CITRIC ACID/SODIUM CITRATE 30 ML UDCUP PO PRN (04:00)
[2018-05-11] MEDS ORDERED: ONDANSETRON DISINTEGRATING 4 MG TAB ONE (08:27)
[2018-05-11] MEDS ORDERED: CITRIC ACID/SODIUM CITRATE 30 ML UDCUP ONE (08:28)
--- NOTE | 2018-05-11 08:48 | PDANEPAE ---
ANE Past Medical History - Cardiovascular History Hx Hypertension: No Hx Arrhythmias: No Hx Chest Pain: No Hx Coronary Artery / Peripheral Vascular Disease: No Hx Palpitations: No - Pulmonary History Hx COPD: No Hx Oxygen in Use at Home: No Hx Sleep Apnea: No - Neurologic History Hx Cerebrovascular Accident: No - Endocrine History Hx Diabetes: No Obesity: mild - Renal History Hx Renal Disorders: No - Liver History Hx Hepatic Disorders: No - Cancer History Hx Cancer: No - Chronic Pain History Chronic Pain: No - Surgical History Prior Surgeries: craniosynostosis (6mo old), tonsillectomy (3yo), umbilical hernia (5yo), knee scope (15yo) ANE Review of Systems Review of Systems: ANE Patient History - Allergies Allergies/Adverse Reactions: olanzapine [From Zyprexa] Allergy (Severe, Verified 04/03/18 11:08) catatonea propylthiouracil Allergy (Severe, Verified 04/03/18 11:08) impulsivity clozapine Allergy (Mild, Verified 04/03/18 11:13) anger methazolamide Allergy (Unknown, Verified 04/03/18 11:08) Unknown risperidone [From Risperdal] Allergy (Unknown, Verified 04/03/18 11:08) Unknown - Home Medications Home medications: home medication list seen and reviewed Home Medications: Divalproex ER [Depakote ER 500 MG (*)] 500 mg PO BID 05/06/18 [Last Taken 19:00] - NPO status NPO Status: no food or drink >8 hours - Anes Hx Anes Hx: no prior problems - Smoking Hx Smoking Status: Former smoker - Family Anes Hx Family Hx Anesthesia Complications: Denies. ANE Labs/Vital Signs - Vital Signs Blood Pressure: 139/71 Heart Rate: 115 Respiratory Rate: 14 O2 Sat (%): 94 Height: 177.8 cm Weight: 90.22 kg ANE Physical Exam - Airway Neck exam: FROM Mallampati Score: Class 3 Mouth exam: dentures - Pulmonary Pulmonary: no respiratory distress, no rales or rhonchi, clear to auscultation - Cardiovascular Cardiovascular: regular rate and rhythym, no murmur, rub, or gallop - ASA Status ASA Status: II ANE Anesthesia Plan Anesthesia Plan: GA with mask
[2018-05-11] MEDS ORDERED: NALOXONE HCL 0.4 MG/ML INJ IVP PRN (09:25)
[2018-05-11] MEDS ORDERED: HYDROCODONE/APAP 5/325 TAB PO PRN (09:25)
[2018-05-11] MEDS ORDERED: PROMETHAZINE HCL 25 MG TAB PO PRN (09:25)
--- NOTE | 2018-05-11 09:25 | PDECTPN ---
ECT Progress Note Patient Problems: Problems Problem Status Onset Code Schizoaffective disorder Acute F25.9 Schizoaffective disorder, bipolar type, with catatonia Acute F25.0, F06.1 Schizophrenia Acute F20.9 Date: 05/11/18 ECT provider: Forrest Mancilla Anesthesia: Samir Leal Stimulus dose (%): 100 Pulse width: 0.5 ECT EMG (sec): 18 ECT EEG (sec): 175 ECT treatment type: bilateral QIDS-SR Total Score: 0 QIDS-SR Question #12 Score: 0 MMSE Total Score (Max = 21): 18 Next ECT date: 05/13/18 Next ECT time: 11:30 O/P psychiatrist follow up with Dr.: sally O/P psychiatrist follow up: phone, voice message Home medications: Medication Instructions Recorded LORazepam [Ativan (*)] 1 mg PO TID #90 tab 01/12/18 Divalproex ER [Depakote ER 500 MG 500 mg PO BID 05/06/18 (*)] Medication review: completed Current treatment plan: acute phase, increased frequency cycle d/t exacerbation of symptoms Treatment plan frequency: 3 times per week ECT narrative: Laboratory Tests 04/12/18 05/08/18 05/08/18 08:58 16:03 16:03 Vitamin B12 746 TSH 0.826 Valproic Acid 61.1 65.9 Thyroperoxidase Ab 3.7 Thyroglobulin Ab Screen <1.8 Labs reveal no increase in anti thyroid Abs and nl B12, Tsh, and VPA level that is therapeutic but arguably with room for improvement, hence the increased dose to 1500 mg. Will cont acute ECT, as pt continues to have worsened catatonia, mutism, blunting, poor relatedness, psychomotor slowing bordering on catalepsy. Willingly undergoes ECT, with no resistance or negativism and even, in low volume and slowed speech, speaks his name and during the time out.
[2018-05-11] MEDS: DIVALPROEX ER 500 MG TAB PO SCH ×2 (11:41→19:31)
[2018-05-11] MEDS: LORazepam 1 MG TAB PO SCH ×3 (11:41→19:31)
[2018-05-12] MEDS: LORazepam 1 MG TAB PO SCH ×3 (08:15→18:34)
[2018-05-12] MEDS: DIVALPROEX ER 500 MG TAB PO SCH ×2 (08:15→18:34)
--- NOTE | 2018-05-12 11:47 | SOAPPROG ---
SOAP Progress Note Assessment/Plan: Assessment: 37-year-old male who was admitted voluntarily for inpatient ECT after outpatient treatment due to decompensation in functioning and concerns of catatonia while living at assisted living facility. 05/12/18 13:03 Pt seen and evaluated today, with VEGET[employer]LES [employer] student Ki Payne conducting primary interview I agree with assessment and plan as documented. Subjective: S: Patient states both his mood and cognition are "better". He notes that his sleep is "fine" and appetite is ok while eating 75% of meals though he's "not too hungry". He denies suicidal impulses and states his depression overall is "improving". He denies side effects related to recent increases in Depakote and feels ECT is helping, with scheduled session for tomorrow at 11:30. He denies AV/VH and shares that he's "closer to normal" but is unable to clarify what this truly means. He denies showering today and replies "I don't have any shower supplies. I do want to shave though". He denies wanting to participate in groups or socialize with peers and states for fun he likes "listening to music." He states he often "paces" on the unit to pass the time and looks forward to his Mom visiting him each day. His mother shows up during the interview and shares her concerns about his condition and ongoing psychiatric challenges, however the patient does not respond to her concerns nor feed into her worry for him. Objective: Vital Signs Temp Pulse Resp BP Pulse Ox 36.7 C 93 14 111/62 92 05/12/18 06:00 05/12/18 06:00 05/12/18 06:00 05/12/18 06:00 05/12/18 06:00 05/11/18 05/12/18 05/13/18 05:59 05:59 05:59 Intake Total 850 Balance 850 Patient presents unkempt and unclean without having showered, while still having piece of ECT electronic assembler his forehead from the day prior. He presents with poor, intermittent eye contact and relates reluctantly with this examiner. His speech is slowed and soft and his gait is slowed though steady, posture slumped, and he reveals no involuntary movements. His mood is "ok" and affect blunted, constricted, and flat. His TP is delayed and concrete and TC is limited and not spontaneous. He denies SI, HI, AV/VH, and reveals no delusions. He is oriented to person, place, and situation but not by time by a few days. His insight and judgment remain limited and attention and concentration are poor. Recent memory is limited but remote memory appears fair. Abstract thinking is poor. Sleep is good and appetite is fair. A: Improving cognition and mood with slowly resolving catatonic features. Still quite delayed and limited in motivation with noted behavioral inhibition. No current psychosis noted. P: Continue with ECT tomorrow at 1130 while continuing current medications. Encourage participation in groups and socialization with peers and staff as willing. Dr. Mancilla to write order "ok to use shaving device". Not currently on SP1. Dr. Mancilla to take over care tomorrow. - Time Spent With Patient Time Spent With Patient: 15 minutes - Pending Discharge Pending Discharge Within 24 Hours: No Pending Discharge Within 48 Hours: No ICD10 Worksheet Patient Problems: Problems Problem Status Onset Schizoaffective disorder Acute Schizoaffective disorder, bipolar type, with catatonia Acute Schizophrenia Acute
[2018-05-13] MEDS ORDERED: NS 1,000 ML IV PRN (04:00)
[2018-05-13] MEDS ORDERED: CITRIC ACID/SODIUM CITRATE 30 ML UDCUP PO PRN (04:00)
[2018-05-13] MEDS ORDERED: ONDANSETRON DISINTEGRATING 4 MG TAB PO PRN (04:00)
[2018-05-13] MEDS ORDERED: PROPOFOL 200 MG/20 ML VIAL ONE (06:55)
[2018-05-13] MEDS ORDERED: GLYCOPYRROLATE 0.2 MG/1 ML VIAL ONE (06:55)
[2018-05-13] MEDS ORDERED: fentaNYL 100 MCG/2 ML INJ ONE (06:55)
[2018-05-13] MEDS ORDERED: KETOROLAC 30 MG/1 ML SDV ONE (06:55)
[2018-05-13] MEDS ORDERED: LORazepam 2 MG/ML INJ ONE (06:55)
[2018-05-13] MEDS ORDERED: SUCCINYLCHOLINE CHLORIDE 200 MG/10 ML VIAL ONE (06:56)
[2018-05-13] MEDS ORDERED: METHOHEXITAL SODIUM 100 MG/10 ML SYR IVP ONE (06:57)
[2018-05-13] MEDS ORDERED: ONDANSETRON DISINTEGRATING 4 MG TAB ONE (11:57)
[2018-05-13] MEDS ORDERED: CITRIC ACID/SODIUM CITRATE 30 ML UDCUP ONE (11:57)
--- NOTE | 2018-05-13 12:32 | PDANEPAE ---
ANE Past Medical History - Cardiovascular History Hx Hypertension: No Hx Arrhythmias: No Hx Chest Pain: No Hx Coronary Artery / Peripheral Vascular Disease: No Hx Palpitations: No - Pulmonary History Hx COPD: No Hx Oxygen in Use at Home: No Hx Sleep Apnea: No - Neurologic History Hx Cerebrovascular Accident: No - Endocrine History Hx Diabetes: No Obesity: mild - Renal History Hx Renal Disorders: No - Liver History Hx Hepatic Disorders: No - Cancer History Hx Cancer: No - Chronic Pain History Chronic Pain: No - Surgical History Prior Surgeries: craniosynostosis (6mo old), tonsillectomy (3yo), umbilical hernia (5yo), knee scope (15yo) ANE Review of Systems Review of Systems: ANE Patient History - Allergies Allergies/Adverse Reactions: olanzapine [From Zyprexa] Allergy (Severe, Verified 04/03/18 11:08) catatonea propylthiouracil Allergy (Severe, Verified 04/03/18 11:08) impulsivity clozapine Allergy (Mild, Verified 04/03/18 11:13) anger methazolamide Allergy (Unknown, Verified 04/03/18 11:08) Unknown risperidone [From Risperdal] Allergy (Unknown, Verified 04/03/18 11:08) Unknown - Home Medications Home Medications: Divalproex ER [Depakote ER 500 MG (*)] 500 mg PO BID 05/06/18 [Last Taken 19:00] - NPO status NPO Status: no food or drink >8 hours - Anes Hx Anes Hx: no prior problems - Smoking Hx Smoking Status: Former smoker - Family Anes Hx Family Hx Anesthesia Complications: Denies. ANE Labs/Vital Signs - Vital Signs Blood Pressure: 107/68 Heart Rate: 95 Respiratory Rate: 20 O2 Sat (%): 92 Height: 177.8 cm Weight: 90.22 kg ANE Physical Exam - Airway Neck exam: FROM Mallampati Score: Class 3 Mouth exam: dentures - Pulmonary Pulmonary: no respiratory distress, no rales or rhonchi, clear to auscultation - Cardiovascular Cardiovascular: regular rate and rhythym, no murmur, rub, or gallop - ASA Status ASA Status: II ANE Anesthesia Plan Anesthesia Plan: GA with mask
--- NOTE | 2018-05-13 13:03 | PDECTPN ---
ECT Progress Note Patient Problems: Problems Problem Status Onset Code Schizoaffective disorder Acute F25.9 Schizoaffective disorder, bipolar type, with catatonia Acute F25.0, F06.1 Schizophrenia Acute F20.9 Date: 05/13/18 ECT provider: Forrest Mancilla Anesthesia: Samir Leal Stimulus dose (%): 100 Pulse width: 0.5 ECT EMG (sec): 17 ECT EEG (sec): 23 ECT treatment type: bilateral QIDS-SR Total Score: 0 QIDS-SR Question #12 Score: 0 MMSE Total Score (Max = 21): 19 Next ECT date: 05/15/18 Next ECT time: 09:15 O/P psychiatrist follow up with Dr.: sally O/P psychiatrist follow up: phone, voice message Home medications: Medication Instructions Recorded LORazepam [Ativan (*)] 1 mg PO TID #90 tab 01/12/18 Divalproex ER [Depakote ER 500 MG 500 mg PO BID 05/06/18 (*)] Medication review: completed Current treatment plan: acute phase Treatment plan frequency: 3 times per week ECT narrative: Laboratory Tests 04/12/18 05/08/18 05/08/18 08:58 16:03 16:03 Vitamin B12 746 TSH 0.826 Valproic Acid 61.1 65.9 Thyroperoxidase Ab 3.7 Thyroglobulin Ab Screen <1.8 Labs reveal no increase in anti thyroid Abs and nl B12, Tsh, and VPA level that is therapeutic but arguably with room for improvement, hence the increased dose to 1500 mg. Will cont acute ECT, as pt continues to have worsened catatonia, mutism, blunting, poor relatedness, psychomotor slowing bordering on catalepsy. Willingly undergoes ECT, with no resistance or negativism and even, in low volume and slowed speech, speaks his name and during the time out. 05/13 Appreciate PN from yesterday. Pt calm and cooperative, pleasant, making fair to good eye contact, yet remains near mute, answering basic Qs with one word answers in low volume speech. No agitation, aggression, or extreme pacing. VPA level pnd for tomorrow that will reflect present dose of 1500 mg. He is eating and drinking, and, per MSE of yesterday, more verbal than upon admission , although he is near mute in procedure room today. Shake head "no" to whether he is having any unpleasant SE with increased VPA such as GI upset or sedation /dizziness. Laboratory Tests 05/08/18 16:03 Vitamin B12 746 TSH 0.826
[2018-05-13] MEDS ORDERED: NALOXONE HCL 0.4 MG/ML INJ IVP PRN (13:05)
[2018-05-13] MEDS ORDERED: HYDROCODONE/APAP 5/325 TAB PO PRN (13:05)
[2018-05-13] MEDS: LORazepam 1 MG TAB PO SCH ×2 (17:21→22:13)
[2018-05-13] MEDS: DIVALPROEX ER 500 MG TAB PO SCH (18:07)
[2018-05-14] MEDS: LORazepam 1 MG TAB PO SCH ×2 (08:15→14:14)
[2018-05-14] MEDS: DIVALPROEX ER 500 MG TAB PO SCH ×3 (08:15→19:36)
--- NOTE | 2018-05-14 11:07 | SOAPPROG ---
SOPHILIP Progress Note Assessment/Plan: Assessment: Schizoaffective disorder, Catatonia, h/o Graves and Craniosynistosis. Plan: Pt appears improved today, interviewed in his room where he was seen simply staring out of the window. He is calm, pleasant, more verbal but overall still quite impoverished with low volume speech, and idiosyncratic TC that was only vaguely and peripherally relevent to question being asked (ie, I queried what might happen when he is discharged, as last time, looking so well, but then reverting quickly into the "catatonic state". I asked if anything stressful is occurring at [facility]. [facility]. He simply stated, in an odd almost whispered delivery that "there are old people there". Also, he attributed relapse to vitamins he's taking). He has virtually nil insight. But is fundamentally stable in mood with no signs of agitation, pacing without purpose, or frankly diminished oral intake. He is even groomed today. Hence, may discharge by this weekend if bed available. He is also tolerating new increased dose of depakote , with VPA level of 97 05/14/18 10:59 Objective: Vital Signs Temp Pulse Resp BP Pulse Ox 36.7 C 89 16 107/61 96 05/14/18 06:00 05/14/18 06:00 05/14/18 06:00 05/14/18 06:00 05/14/18 06:00 05/13/18 05/14/18 05/15/18 05:59 05:59 05:59 Intake Total 650 Balance 650 Laboratory Tests 05/08/18 05/14/18 16:03 06:15 Valproic Acid 65.9 97.0 ICD10 Worksheet Patient Problems: Problems Problem Status Onset Schizoaffective disorder Acute Schizoaffective disorder, bipolar type, with catatonia Acute Schizophrenia Acute
--- NOTE | 2018-05-14 13:14 | ASMTCMCOM ---
CM Note CM Note Notes: CC spoke to [facility] at ; she noted that I have been visiting the client every night, etc. He noted, " I think I know what is going on... client not having a real job or a purpose." MOC proceed to speak about client's condition; she noted that "is doing better, he always gets better.... then he leaves and does not do anything then [he] crashs." MOC noted I am sorry and grumpy. MOC suggests that client is doing well "and better;" however, this technical proposal writer provider mother additional resources with [facility], [facility] for case management for client to provide additional services, including volunteer services. CC also out reached Alicia BOBO at ; transferred to a system. CC left all necessary return contact information as well as requesting a status on if client would be able to return. Waiting to hear back. Date Signed: 05/14/2018 01:13 PM Electronically Signed By:Helio Harrison
[2018-05-15] MEDS ORDERED: ONDANSETRON DISINTEGRATING 4 MG TAB PO PRN (04:00)
[2018-05-15] MEDS ORDERED: CITRIC ACID/SODIUM CITRATE 30 ML UDCUP PO PRN (04:00)
[2018-05-15] MEDS ORDERED: NS 1,000 ML IV PRN (04:00)
--- NOTE | 2018-05-15 09:26 | PDANEPAE ---
ANE Past Medical History - Cardiovascular History Hx Hypertension: No Hx Arrhythmias: No Hx Chest Pain: No Hx Coronary Artery / Peripheral Vascular Disease: No Hx Palpitations: No - Pulmonary History Hx COPD: No Hx Oxygen in Use at Home: No Hx Sleep Apnea: No - Neurologic History Hx Cerebrovascular Accident: No - Endocrine History Hx Diabetes: No Obesity: mild - Renal History Hx Renal Disorders: No - Liver History Hx Hepatic Disorders: No - Cancer History Hx Cancer: No - Chronic Pain History Chronic Pain: No - Surgical History Prior Surgeries: craniosynostosis (6mo old), tonsillectomy (3yo), umbilical hernia (5yo), knee scope (15yo) ANE Review of Systems Review of Systems: ANE Patient History - Allergies Allergies/Adverse Reactions: olanzapine [From Zyprexa] Allergy (Severe, Verified 04/03/18 11:08) catatonea propylthiouracil Allergy (Severe, Verified 04/03/18 11:08) impulsivity clozapine Allergy (Mild, Verified 04/03/18 11:13) anger methazolamide Allergy (Unknown, Verified 04/03/18 11:08) Unknown risperidone [From Risperdal] Allergy (Unknown, Verified 04/03/18 11:08) Unknown - Home Medications Home Medications: Divalproex ER [Depakote ER 500 MG (*)] 500 mg PO BID 05/06/18 [Last Taken 19:00] - NPO status NPO Status: no food or drink >8 hours - Anes Hx Anes Hx: no prior problems - Smoking Hx Smoking Status: Former smoker - Family Anes Hx Family Hx Anesthesia Complications: Denies. ANE Labs/Vital Signs - Vital Signs Blood Pressure: 112/71 Heart Rate: 87 Respiratory Rate: 20 O2 Sat (%): 94 Height: 177.8 cm Weight: 90.22 kg ANE Physical Exam - Airway Neck exam: FROM Mallampati Score: Class 3 Mouth exam: dentures - Pulmonary Pulmonary: no respiratory distress, no rales or rhonchi, clear to auscultation - Cardiovascular Cardiovascular: regular rate and rhythym, no murmur, rub, or gallop - ASA Status ASA Status: II ANE Anesthesia Plan Anesthesia Plan: GA with mask
--- NOTE | 2018-05-15 09:51 | PDECTPN ---
ECT Progress Note Patient Problems: Problems Problem Status Onset Code Schizoaffective disorder Acute F25.9 Schizoaffective disorder, bipolar type, with catatonia Acute F25.0, F06.1 Schizophrenia Acute F20.9 Date: 05/15/18 ECT provider: Forrest Mancilla Anesthesia: Samir Leal Stimulus dose (%): 100 Pulse width: 0.5 ECT EMG (sec): 17 ECT EEG (sec): 80 ECT treatment type: bilateral QIDS-SR Total Score: 0 QIDS-SR Question #12 Score: 0 MMSE Total Score (Max = 21): 19 Next ECT date: 05/20/18 Next ECT time: 10:45 O/P psychiatrist follow up with Dr.: sally O/P psychiatrist follow up: phone, voice message Home medications: Medication Instructions Recorded LORazepam [Ativan (*)] 1 mg PO TID #90 tab 01/12/18 Divalproex ER [Depakote ER 500 MG 500 mg PO BID 05/06/18 (*)] Medication review: completed Current treatment plan: acute phase Treatment plan frequency: 2 times per week ECT narrative: Laboratory Tests 04/12/18 05/08/18 05/08/18 08:58 16:03 16:03 Vitamin B12 746 TSH 0.826 Valproic Acid 61.1 65.9 Thyroperoxidase Ab 3.7 Thyroglobulin Ab Screen <1.8 Labs reveal no increase in anti thyroid Abs and nl B12, Tsh, and VPA level that is therapeutic but arguably with room for improvement, hence the increased dose to 1500 mg. Will cont acute ECT, as pt continues to have worsened catatonia, mutism, blunting, poor relatedness, psychomotor slowing bordering on catalepsy. Willingly undergoes ECT, with no resistance or negativism and even, in low volume and slowed speech, speaks his name and during the time out. 05/13 Appreciate PN from yesterday. Pt calm and cooperative, pleasant, making fair to good eye contact, yet remains near mute, answering basic Qs with one word answers in low volume speech. No agitation, aggression, or extreme pacing. VPA level pnd for tomorrow that will reflect present dose of 1500 mg. He is eating and drinking, and, per MSE of yesterday, more verbal than upon admission , although he is near mute in procedure room today. Shake head "no" to whether he is having any unpleasant SE with increased VPA such as GI upset or sedation /dizziness. Laboratory Tests 05/08/18 16:03 Vitamin B12 746 TSH 0.826 05/15/18 Pt quiet today in treatment room, but RN indicated that he was more verbal and better engaged in recovery room pre-tx. He does feel he wants to go home and when asked why, he states "Amelia I'm done with treatment here"
[2018-05-15 13:09] VITALS: BP 117/68
--- NOTE | 2018-05-15 13:15 | ASMTBHDC ---
Notes Note: Notes: Pt. reports feeling "fine". Pt. reports getting enough to eat. Pt. stated "not so much" about attending groups. PT. reports sleeping "just fine...normal". Pt. stated "none that I'm aware of" when asked if he is having any side effects from his medications. Pt. stated ECT is "going just fine". Pt. denied SI, HI, AVH and paranoia. Pt. presents as alert, calm, pacing the halls, good eye contact, soft voice, and cooperative. Staff report pt. sleeping 11 hours and being medication compliant. Pt.'s follow up appointments are: Dr. Mancilla - ECT Next ECT Treatment - Friday, May 18, 2018 (05/18/18) at 9:15am Dr. John Lewis [address] [place] [id number] [address] Dr. Lewis - Friday (05/19/18) at 3:00pm Date Signed: 05/15/2018 01:15 PM Electronically Signed By:Tanesha Boudreaux
--- NOTE | 2018-05-15 15:10 | GDS ---
[f rep st] DISCHARGE SUMMARY IDENTIFYING DATA: The patient is a 37-year-old single white male, well known to this com writer who has been treating him with maintenance ECT and through multiple prior hospitalizations over the past 8 ye ars. He is treated outpatient by psychiatrist Anant Lewis MD at [facility]. He had a r ecent admission to [facility] in late March 2018. He has a longstanding history of s chizoaffective disorder, bipolar type with catatonic features and autism spectrum disorder. He was a dmitted on 05/08/2018, and discharged today, 05/15/2018. REASON FOR ADMISSION: The patient was in a relatively good clinical state upon his last discharge, b ut despite supposed compliance with medications (per assisted living program) and following up with ivan falk ECT weekly, he developed increasing symptoms of catatonia, becoming more reserved, interna lly preoccupied, impoverished in speech and with significant psychomotor slowing. He went AWOL from his assisted living, and his mother needed to retrieve him at midnight. He was having diminished hyg iene and self-care and decreased p.o. intake. PHYSICAL EXAMINATION: Routine physical exam was performed by Andrew Fam MD, which revealed: 1. Reported history of Graves disease. Recent TSH is within normal limits. 2. She notes history of craniosynostosis as well along with tonsillectomy, hernia repair, and previo us PEG tube. ROUTINE LAB: His B12 level was normal at 746 and TSH was normal at 0.826. Valproic acid level on a 1000 mg was 65 and on 1500 mg was 97. Antithyroid antibodies including thyroperoxidase and thyroglob ulin antibodies were within normal limits. HOSPITAL COURSE: The patient underwent 4 acute bilateral ECT treatments. Furthermore, his Depakote dose was increased to 1500 mg a day in divided doses up from a 1000 mg with a more robust blood level . He was tolerating that medication without GI upset, headache, over sedation or ataxia. He once ag ain had a fairly quick resolution of the more profound catatonic symptoms. He was eating the majorit y of his meals, attending better to self-care and hygiene and able to engage in brief conversations p roviding at least short answers sometimes, which revealed a psychotic thought process and some disorg anization of thought. There was no pacing, agitation, or catalepsy. In sum, he has returned to a mu ch better, albeit still quite imperfect, baseline. He does not wish to be in the hospital any longer and as he has the support of his mother in assisted living, there is no compelling reason at this ti me to keep him here. However, mother is well aware that she can always bring him back if he starts t o deteriorate again. DISCHARGE MEDICATIONS: Depakote ER 500 mg p.o. q.a.m. and 1000 mg p.o. at bedtime, lorazepam 1 mg p. o. three times daily. DISPOSITION: The patient will return to assisted living. We will provide him 24/ supervision and p rovide medication management and provision of meals. He will not need to drive and will be taken to any medical visits by mother. He is to follow up with ECT in [address] Lewis at [facility] as soon as possible. DISCHARGE DIAGNOSES: Schizoaffective disorder, bipolar type; catatonia; autism spectrum disorder; hi story of Graves disease with normal thyroid functioning; and history of craniosynostosis. /[id number]/MODL
== END 2018-05-15 14:23 | DRG 885 ==
LOC: BBEH 14:25
PROVIDERS: ADMIT Psychiatry & Neurology Psychiatry; ATTEND Psychiatry & Neurology Psychiatry
PROC: GZB2ZZZ Electroconvulsive Therapy, Bilateral-Single Seizure (ICD-10-PCS; principal; 2018-05-11)
DX: F25.0 Schizoaffective disorder, bipolar type (principal); F06.1 Catatonic disorder due to known physiological condition; F84.0 Autistic disorder; E03.9 Hypothyroidism, unspecified
CPT/HCPCS: 82607-90; 86376-90; 86800-90; J0330; J1885; J2060; J2704; J3010

== ENCOUNTER 2018-06-21 12:14 | Inpatient (IN) | payer OTHER ==
[2018-06-21 13:15] LABS: PLATELET COUNT 152 10^3/uL (150-400)
--- NOTE | 2018-06-21 13:27 | EDPHY ---
H & P Time Seen by Provider: 06/21/18 12:59 HPI/ROS: HPI Catatonic behavior. 37-year-old male by private vehicle with his mother. This patient has a history of schizoaffective disorder and major depression. He also has a history of intermittent catatonia. He had ECT on Friday. Since his ECT he has been in a semi catatonic state. He has been in an out of [address] [place] [address] almost on a monthly basis secondary to this behavior since December. There is no history of trauma. He currently lives in a longterm but his mother is present with him now. ROS: Unable to obtain. Past medical history: Schizoaffective, major depression, Asperger's syndrome, Graves disease. Social history: Lives in a longterm. Mother present with him currently. No alcohol. No IV drugs or street drugs. Physical Exam: General Appearance: Laying on his left side on the gurney, eyes flutter. He will not respond to my questions. His mother tells me that he hears me and is just not willing to respond. This patient appears well-hydrated and well- nourished. Eyes: Pupils equal and round no pallor or injection. No lid edema, erythema or injection. Respiratory: There are no retractions, lungs are clear to auscultation with good air movement bilaterally. Cardiovascular: Regular rate and rhythm. No murmur. Gastrointestinal: Abdomen is soft and nontender, no masses, bowel sounds normal. No focal tenderness at McBurney's point. No Ball sign. Neurological: Motor sensory function is grossly intact. Cranial nerves are normal. Skin: Warm and dry, no rashes. Musculoskeletal: Neck is supple and nontender. Extremities are symmetrical. All joints range without pain or impingement. Psychiatric: No agitation. As above. Database: EKG: Imaging: Procedures: Emergency department course: Triage vital signs reviewed. He is borderline tachycardic. Triage vital signs are otherwise within normal limits. IV was placed. Appropriate blood work sent. [facility] notified. 2:00 p.m., the patient requested his afternoon dosing of Ativan. He was given this. [facility] notified. He is medically cleared. 3:00 p.m., the patient has been seen and evaluated by [facility]. The patient will be transferred to [address] [place] [address] for inpatient psychiatric management. Accepting psychiatrist is Dr. Florez. I filled out the appropriate transfer paperwork. The patient's remaining emergency department course under my care has been uneventful. He was transferred in stable condition. Differential Diagnosis: The differential diagnosis on this patient includes but is not limited to schizoaffective disorder, catatonia. CVA, comatose state unlikely. This represents a partial list of diagnoses considered. These considerations are based on history, physical exam, past history, reassessment and diagnostic testing. Smoking Status: Former smoker Constitutional: Initial Vital Signs Temperature (C) 37.7 C 06/21/18 12:18 Heart Rate 102 H 06/21/18 12:18 Respiratory Rate 18 06/21/18 12:18 Blood Pressure 133/86 H 06/21/18 12:18 O2 Sat (%) 95 06/21/18 12:18 O2 Delivery Mode Room Air Allergies/Adverse Reactions: olanzapine [From Zyprexa] Allergy (Severe, Verified 06/21/18 12:18) catatonea propylthiouracil Allergy (Severe, Verified 06/21/18 12:18) impulsivity clozapine Allergy (Mild, Verified 06/21/18 12:18) anger methazolamide Allergy (Unknown, Verified 06/21/18 12:18) Unknown risperidone [From Risperdal] Allergy (Unknown, Verified 06/21/18 12:18) Unknown Home Medications: Medication Instructions Recorded LORazepam [Ativan (*)] 1 mg PO TID #90 tab 05/15/18 Divalproex ER [Depakote ER 500 MG 500 mg PO BID 06/21/18 (*)] Medical Decision Making - Data Points Laboratory Results: Laboratory Results 06/21/18 12:43 06/21/18 12:43 06/21/18 06/21/18 06/21/18 13:15 12:43 12:43 WBC 7.05 10^3/uL 10^3/uL (3.80-9.50) RBC 4.44 10^6/uL 10^6/uL (4.40-6.38) Hgb 14.7 g/dL g/dL (13.7-17.5) Hct 43.2 % % (40.0-51.0) MCV 97.3 fL fL (81.5-99.8) MCH 33.1 pg pg (27.9-34.1) MCHC 34.0 g/dL g/dL (32.4-36.7) RDW 12.4 % % (11.5-15.2) Plt Count 152 10^3/uL 10^3/uL (150-400) MPV 11.1 fL fL (8.7-11.7) Neut % (Auto) 66.1 % % (39.3-74.2) Lymph % (Auto) 24.0 % % (15.0-45.0) [place] % (Auto) 8.8 % % (4.5-13.0) Eos % (Auto) 0.1 % L % (0.6-7.6) Baso % (Auto) 0.6 % % (0.3-1.7) Nucleat RBC Rel Count 0.0 % % (0.0-0.2) Absolute Neuts (auto) 4.66 10^3/uL 10^3/uL (1.70-6.50) Absolute Lymphs (auto) 1.69 10^3/uL 10^3/uL (1.00-3.00) Absolute Monos (auto) 0.62 10^3/uL 10^3/uL (0.30-0.80) Absolute Eos (auto) 0.01 10^3/uL L 10^3/uL (0.03-0.40) Absolute Basos (auto) 0.04 10^3/uL 10^3/uL (0.02-0.10) Absolute Nucleated RBC 0.00 10^3/uL 10^3/uL (0-0.01) Immature Gran % 0.4 % % (0.0-1.1) Immature Gran # 0.03 10^3/uL 10^3/uL (0.00-0.10) Sodium 141 mEq/L mEq/L (135-145) Potassium 3.7 mEq/L mEq/L (3.5-5.2) Chloride 104 mEq/L mEq/L (97-110) Carbon Dioxide 28 mEq/l mEq/l (22-31) Anion Gap 9 mEq/L mEq/L (6-14) BUN 7 mg/dL mg/dL (7-23) Creatinine 0.8 mg/dL mg/dL (0.7-1.3) Estimated GFR > 60 Glucose 89 mg/dL mg/dL (70-100) Calcium 9.3 mg/dL mg/dL (8.5-10.4) Urine Opiates Screen NEGATIVE (NEGATIVE) Urine Barbiturates NEGATIVE (NEGATIVE) Ur Phencyclidine Scrn NEGATIVE (NEGATIVE) Ur Amphetamine Screen NEGATIVE (NEGATIVE) U Benzodiazepines Scrn NON-NEGATIVE H (NEGATIVE) Urine Cocaine Screen NEGATIVE (NEGATIVE) U Marijuana (THC) Screen NEGATIVE (NEGATIVE) Ethyl Alcohol < 10 mg/dL mg/dL (0-10) Medications Given: Discontinued Medications Lorazepam (Ativan) 1 mg PO EDNOW ONE Stop: 06/21/18 13:43 Last Admin: 06/21/18 13:55 Dose: Not Given Departure - Departure Disposition: [facility] IP Clinical Impression: Catatonic state, Schizoaffective disorder Referrals: NONE *PRIMARY CARE P,. [Primary Care Provider] - As per Instructions
[2018-06-21] MEDS ORDERED: LORazepam 1 MG TAB PO ONE (13:42)
--- NOTE | 2018-06-21 14:10 | ASMTLCPROG ---
Notes Note: Notes: Pt is currently lying down with his eyes closed and though he appears to be responding t internal stiuli (laughing, grimacing) he will not respond to this speech writer or to his mother who is currently in the room with him. Given his extensive history with [facility] and that is currently on maintenance ECT, pt will be transferred to imminently. Date Signed: 06/21/2018 02:10 PM Electronically Signed By:Zarina Lacy
--- NOTE | 2018-06-21 15:05 | ASMTTLCEVL ---
TLC Evaluation - Basic Information Evaluation Start Date and 06/21/2018 01:30 PM Time Hospital Status Answers: Voluntary Patient statement Notes: Pt did not make a statement - he sat up and pointed to the juan. Narrative Notes: This 37 y/o , single male, well known to [facility] and an out-pt at [facility] - last treatment was Friday, was brought to the ED by his mother. Pt returned to his Assisted Living Apartment following his treatment. Mother then picked him up on Friday and he seemed to be at baseline. He returned to his home last night - had his evening meds - woke up today - took his morning meds and then wandered off. Mother was called and found him, and brought him to the ED as he appeared to be catatonic and not responding to her. He was cooperative to the admission process though he would not speak or participate. He is drinking fluids and eating. As he is a current ECT pt, he will be admitted to the unit. Diagnosis History Notes: Pt has a history of Schizoaffective Disorder bipolar type, with catatonic features. He is diagnosed with Autism Spectrum Disorder as well. Pt has an extensive treatment history with multiple hospitalizations - including [address] [place] [address] this past April and March. He has also been hospitalized at [facility]. Pt has been treated with psychotropic medications and ECT. He is currently prescribed Depakote 500mg AM and 1000mg PM and lorazepam 1 mg three times daily. an is on ECT maintenance - last treatment 06/19/18. Prior suicide attempts Notes: None reported Prior hospitalizations Notes: Pt has history of multiple hospitalizations both at [facility] and [facility] primarily for Catatonia; Auditory Hallulcinations and refusal to eat or drink. Pt's last admission to was from 05-08-2018 and was also in-pt on in March 2018. Pt had maintenance ECT on 06/19/2018. Treatment Responses Notes: Pt has apparently had many trials of psychotropic medication and he is considered allergic to olanzapine, clozapine, respiridone, prophylthioracil and methazolamide. Pt has also been treated with ECT and is currently on maintenance ECT. History of violence Notes: None reported - though at times he can become disoriented/agitated Therapist: Dr Anant Hardin [facility] Medications (name, dosage, route, freq uency) Notes: Lorazepam 1 mg three times daily; Depakote 500mg in AM; 1000mg PM Allergies/Reaction Notes: Olanzapine; Prophylthioracil; Clozapine;Methazolamide; Respiridone Sleep Notes: within normal limits Appetite Notes: Is hydrated and is eating Medical/Surgical history Notes: Craniosyntosis at 6 months; tonsillectomy; umbilical hernia and knee scope in childhood. Substance use history (frequency, intensity, his tory, duration) Notes: No knoww substance abuse. Family composition Notes: Mother - alive and well and supportive; Father . Need for family Answers: Yes participation in patient's care Family psychiatric/substance abuse history Notes: Father was a recovering alcoholic sober 25 years until his 2 years ago. 1 older sister with a history of Bi-Polar; 1 brother has been in [facility] for meth violations. Developmental history Notes: Pt was born and raised in [place]. Mother reports that he was a happy child. He earned a HS diploma. He never had social relationships and was diagnosed with Pervaive Developmental Disorder. Abuse concerns Answers: None Marital status/children Notes: Single, no children Living situation Notes: Lives at [facility] in his own apartment. Mother lives close by. 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 Notes: NA Legal Notes: None reported Faith/Spiritual Notes: None reported Leisure Notes: Computers Collateral Notes: Talked with mother and reviewed past medical records Patient's strengths Answers: Supportive Family (Please select at least TWO strengths): Willingness TLC Evaluation - Mental Status Exam Appearance: Answers: Bizarre Eye Contact: Answers: Absent Mood: Answers: Labile Affect: Answers: Confused Guarded Inappropriate Behavior: Answers: Inappropriate Uncooperative Sedated Speech: Answers: Mute Thought Process: Answers: Disoriented Judgement: Answers: Poor Hallucinations: Answers: Auditory Pt reported to have Answers: No suicidal/self-injuring ideation/behavior? Pt reported to be making Answers: No suicidal/self-injuring threats? Pt reported to have Answers: No aggression/assault ideation/behavior? Pt reported to be making Answers: No aggression/assault threats? Pt exhibits inability to Answers: Yes care for self/grave disability? History of Answers: No suicidal/self-injuring ideation, behavior, or threats? History of Answers: No aggressive/assaultive ideation, behavior, or threats? History of serious Answers: No physical harm to self/others while in treatment setting? TLC Evaluation - Suicide/Homicide Risk Suicide Risk Factors: Answers: Schizoaffective Disorder Homicide/violence risk Answers: None factors: Current Suicidal Answers: No Ideation? Current Suicidal Ideation Answers: No in the Past 48 Hours? Ranking of patient's Answers: Low suicidal risk: Ranking of patient's Answers: Low homicidal risk: TLC Evaluation - Wrap-up AXIS I Diagnosis (include DSM-V and ICD-10 codes), must also be entered in [employer], which is the source of truth. Notes: 295.70 (F25.0) Schizophrenia, Bipolar Type 299.0 (F84.0) Autism Spectrum Disorder Evaluation End Date and 06/21/2018 03:00 PM Time (HH:MM): Date Signed: 06/21/2018 03:05 PM Electronically Signed By:Zarina Lacy
--- NOTE | 2018-06-21 15:07 | ASMTLCPROG ---
Notes Note: Notes: Paged Hospitalist - informed him of an ED patient who will be transferred to Date Signed: 06/21/2018 03:06 PM Electronically Signed By:Zarina Lacy
--- NOTE | 2018-06-21 15:09 | ASMTTCLDSP ---
TLC Discharge Disposition Disposition: Answers: Admit Disposition Notes: Notes: Pt is a Voluntary Admission to . He was unable to participate in TLC Evaluation or to do complete a BSS and BDI For inpatient Teddy Florez MD admission, the following psychiatrist agreed to accept patient for admission to [facility] ([facility]): Date Signed: 06/21/2018 03:08 PM Electronically Signed By:Zarina Lacy
[2018-06-21] MEDS ORDERED: NICOTINE POLACRILEX 2 MG GUM B PRN (18:42)
[2018-06-21] MEDS ORDERED: MAGNESIUM HYDROXIDE 30 ML UDCUP PO PRN (18:42)
[2018-06-21] MEDS ORDERED: MAG HYDROX/AL HYDROX/SIMETH 30 ML UDCUP PO PRN (18:42)
[2018-06-21] MEDS: LORazepam 0.5 MG TAB PO PRN (19:14)
[2018-06-21] MEDS: LORazepam 1 MG TAB PO SCH (21:13)
[2018-06-21] MEDS: DIVALPROEX ER 500 MG TAB PO SCH (21:18)
[2018-06-22] MEDS ORDERED: fentaNYL 100 MCG/2 ML INJ ONE (06:42)
--- NOTE | 2018-06-22 06:42 | ASMTBHMTP ---
Master Treatment Plan Master Treatment Plan Answers: Mood Instability with for: Psychosis Date: 06/21/2018 Diagnosis on Admission: 295.70 (F25.0) Schizophrenia, Bipolar Type Expected length of stay: 3-5 days Reason for admission: Notes: This 37 y/o , single male, well known to [facility] and an out-pt at [facility] - last treatment was Friday, was brought to the ED by his mother. Pt returned to his Assisted Living Apartment following his treatment. Mother then picked him up on Friday and he seemed to be at baseline. He returned to his home last night - had his evening meds - woke up today - took his morning meds and then wandered off. Mother was called and found him, and brought him to the ED as he appeared to be catatonic and not responding to her. He was cooperative to the admission process though he would not speak or participate. He is drinking fluids and eating. As he is a current ECT pt, he will be admitted to the unit. Patient's stated presenting problems: Notes: "I don't know." Patient's goals for treatment: Notes: "I don't know" Patient's strengths: Notes: None Identify supports outside of hospital: Notes: None Discharge criteria: Notes: Patient will demonstrate more stable mood by discharge.* Initial disposition plan/considerations: Notes: "I don't know yet, I need to think.* Master Treatment Plan Required Signatures Psychiatrist signature: Answers: Psychiatrist: RN on-shift signature: Answers: RN: Patient signature: Answers: Patient: Date Signed: 06/22/2018 06:41 AM Electronically Signed By:Helio Harrison
[2018-06-22] MEDS ORDERED: LORazepam 2 MG/ML INJ ONE (06:44)
[2018-06-22] MEDS ORDERED: METHOHEXITAL SODIUM 100 MG/10 ML SYR IVP ONE (06:44)
--- NOTE | 2018-06-22 08:52 | GCON ---
[f rep st] CONSULTATION INTERNAL MEDICINE CONSULT DATE OF CONSULTATION: 06/22/2018 REASON FOR CONSULT: Medical opinion regarding suitability for inpatient psychiatric hospitalization and ECT. HPI: The patient is a 37-year-old with schizoaffective disorder with catatonic features. He has rec eived ECT over the past few months and has had a good response to it. Friday, he was in his usual st ate of health after ECT. Mother took him home, and he seemed to do well Friday; however, Friday he wandered off and, when she found him, he was fairly unresponsive and catatonic, so she brought him i nto the emergency room. He is being admitted for ECT evaluation and further psychiatric inpatient st abization. Currently, he will not answer any questions. He is nonverbal and fairly catatonic, but does respond and obey simple commands, like deep breathe and roll over. PAST MEDICAL HISTORY: 1. Schizoaffective disorder with catatonic features. 2. Graves disease. 3. Asperger's with developmental delay. 4. Craniosynostosis. PAST SURGICAL HISTORY: Tonsillectomy, hernia repair, previous PEG tube. MEDICATIONS: Please see med reconciliation list. ALLERGIES: Olanzapine, PTU, methazolamide, and risperidone. SOCIAL HISTORY: No reported drug or alcohol abuse. He lives at [facility]. He has a supportive mother. REVIEW OF SYSTEMS: Unobtainable due to patient's catatonia. FAMILY HISTORY: Noncontributory. PHYSICAL EXAM: VITAL SIGNS: Afebrile, heart rate is 93, blood pressure 132/74, respirations 15. He is 95% on room air. GENERAL: He is a well-developed 37-year-old. He does not appear to be in dist ress; however, he is fairly catatonic. He will not answer my questions or have any eye contact; crabtree huang, he does obey simple commands. HEENT: Atraumatic. Pupils are equal. Mucous membranes are mois t. NECK: Supple. No adenopathy cervically. HEART: Regular rate and rhythm. No murmur, gallop, o r rub. LUNGS: Clear bilaterally. ABDOMEN: Soft, nontender. Normal bowel sounds. EXTREMITIES: N o cyanosis. No edema. MUSCULOSKELETAL: No joint deformities. NEUROLOGIC: He does move all 4 extr emities equally. SKIN: Intact. PSYCHIATRIC: He is catatonic. LABORATORY DATA: CBC is unremarkable. Chemistries normal. ASSESSMENT AND PLAN: 1. A 37-year-old with schizoaffective disorder and catatonia is admitted for inpatient psychiatric s tabilization. He is medically stable without any further recommendations at this time. He will like ly need to undergo further electroconvulsive therapy, and I do not see any need for further evaluatio n since he has been participating in electroconvulsive therapy recently. 2. History of Graves disease. Reviewed the chart, and his last TSH was normal in April of this y ear. Will not repeat it at this time. 3. Asperger syndrome with developmental delay. He is currently in assisted living, and his mother i s quite supportive at this time. Thank you for this consultation. Please contact Hospital Medicine for any further needs. /[id number]/MODL
[2018-06-22] MEDS ORDERED: CITRIC ACID/SODIUM CITRATE 30 ML UDCUP ONE (08:59)
[2018-06-22] MEDS ORDERED: ONDANSETRON DISINTEGRATING 4 MG TAB ONE (08:59)
[2018-06-22] MEDS ORDERED: ONDANSETRON DISINTEGRATING 4 MG TAB PO PRN (09:11)
[2018-06-22] MEDS ORDERED: CITRIC ACID/SODIUM CITRATE 30 ML UDCUP PO PRN (09:11)
[2018-06-22] MEDS: NS 1,000 ML IV PRN (09:29)
--- NOTE | 2018-06-22 09:47 | POSTANESTH ---
Post Anesthetic Evaluation Cardiovascular Status: Normal, Stable Respiratory Status: Normal, Stable Level of Consciousness/Mental Status: Other, See Comment (Pt non verbal at this time) Pain Control: Adequate, Prn Tx Ordered Nausea/Vomiting Control: Adequate, Prn Tx Ordered Complications Possibly Related to Anesthesia: None Noted
--- NOTE | 2018-06-22 09:48 | PDANEPAE ---
ECT Pre Anesthetic Evaluation Allergies/Adverse Reactions: olanzapine [From Zyprexa] Allergy (Severe, Verified 06/21/18 12:18) catatonea propylthiouracil Allergy (Severe, Verified 06/21/18 12:18) impulsivity clozapine Allergy (Mild, Verified 06/21/18 12:18) anger methazolamide Allergy (Unknown, Verified 06/21/18 12:18) Unknown risperidone [From Risperdal] Allergy (Unknown, Verified 06/21/18 12:18) Unknown Patient ID confirmed: Yes H&P reviewed: Yes Pre-anesthetic history reviewed: Yes Heart: regular rate and rhythym Lungs: clear to auscultation Mallampati Score: Unable to assesss ASA Status: III Home Medications: Medication Instructions Recorded LORazepam [Ativan (*)] 1 mg PO TID #90 tab 05/15/18 Divalproex ER [Depakote ER 500 MG 500 mg PO BID 06/21/18 (*)] Medication review: completed Patient interviewed: Yes (Pt non verbal at this time) Patient examined: Yes See previous record: Yes Anesthetic plan discussed with patient: Yes Anesthetic risks discussed with patient: Yes ECT Pre-Anesthetic History - Height & Weight Height: 177.8 cm Weight: 92.986 kg BMI: 29.41 - Anesthesia History Hx Anesthesia Complications (with details): Denies. Family Hx Anesthesia Complications: Denies. - Tobacco/Alcohol/Drug Use Smoking Status: Former smoker Hx Drug/Substance Abuse: No Alcohol Use: No - Prior Surgeries/Hospitalizations Prior Surgeries: craniosynostosis (6mo old), tonsillectomy (3yo), umbilical hernia (5yo), knee scope (15yo) Prior Medical Hospitalizations: Denies. - Pulmonary History ECT Hx Asthma: No Hx Abnormal Chest X-Ray: No Hx Oxygen in Use at Home: No - Cardiovascular History Hx Hypertension: No Currently Uses Hypertension Medication: No Hx Arrhythmias: No Hx Palpitations: No Hx Chest Pain: No Hx Coronary Artery / Peripheral Vascular Disease: No Hx Blood Clot: No - Neurologic History Hx Cerebrovascular Accident: No Hx CT Scan Or MRI Of The Brain: No Hx Epilepsy, Convulsions, Seizures, Or Blackouts: No Hx Frequent Or Severe Headaches: No Hx Numbness: No Hx Neurologic Disorder: No Neurologic History Comment: autism - Dental History Current Dental Issues: Dentures Dental History Comment: top and bottom - Endocrine History Hx Diabetes: No Current Daily Insulin Injections: No Hx Thyroid Problems: Yes Endocrine History Comment: hyperthyroidism resolved in 2009 - Renal/Urologic History Hx Renal Disorders: No Hx Urinary Tract Problems: No - Liver History Hx Hepatic Disorders: No - Cancer History Hx Cancer: No - Hematology History Hx Unexplained Bleeding Of Any Type: No Hx Ease Of Bruising: No Hx Anemia: No - Gastrointestinal History Hx Gastroesophogeal Reflux Disease: No Hx Ulcers: No Hx Hiatal Hernia: No Hx Difficulty Swallowing: No - Musculoskeletal Hisory Hx Chronic Pain: No Hx Arthritis: No - Opthalmic History Hx Glaucoma: No Visual Assistive Devices: Glasses Hx Opthalmic Disorders: No - Other Health History Physical Disabililty: No Recent Cough, Cold, or Fever: No Significant Weight Loss In The Last 4 Months: No Possible the Patient Might be : No
[2018-06-22] MEDS ORDERED: NALOXONE HCL 0.4 MG/ML INJ IVP PRN (09:50)
[2018-06-22] MEDS ORDERED: PROMETHAZINE HCL 25 MG TAB PO PRN (09:50)
[2018-06-22] MEDS ORDERED: HYDROCODONE/APAP 5/325 TAB PO PRN (09:50)
--- NOTE | 2018-06-22 09:55 | PDECTPN ---
ECT Progress Note Patient Problems: Problems Problem Status Onset Code Catatonic state Acute F06.1 Schizoaffective disorder Acute F25.9 Schizoaffective disorder, bipolar type, with catatonia Acute F25.0, F06.1 Schizophrenia Acute F20.9 Date: 06/22/18 ECT provider: Forrest Mancilla Anesthesia: Symone Jamison Stimulus dose (%): 100 Pulse width: 0.5 ECT EMG (sec): 22 ECT EEG (sec): 36 ECT treatment type: bilateral Next ECT date: 06/24/18 Next ECT time: 09:00 O/P psychiatrist follow up with : Dahiana Lewis O/P psychiatrist follow up: phone, voice message Home medications: Medication Instructions Recorded LORazepam [Ativan (*)] 1 mg PO TID #90 tab 05/15/18 Divalproex ER [Depakote ER 500 MG 500 mg PO BID 06/21/18 (*)] Medication review: completed Current treatment plan: acute phase Treatment plan frequency: 3 times per week ECT narrative: 06/22/18 Please see admit dictation
[2018-06-22] MEDS: DIVALPROEX ER 500 MG TAB PO SCH (12:37)
[2018-06-22] MEDS: LORazepam 1 MG TAB PO SCH ×3 (12:38→20:09)
--- NOTE | 2018-06-22 13:47 | BAPA ---
[f rep st] ADMISSION PSYCHIATRIC ASSESSMENT IDENTIFYING DATA: The patient is a 37-year-old single white male, well known to this radio news writer, who has been treating him with maintenance ECT and through multiple prior hospitalizations over the last 8 y ears. His outpatient psychiatrist at [facility] is Anant Lewis MD. His most recent adm ission to [facility] was in late April and he was discharged on May 15, 2018. During this patient's last hospitalization for similar presentation, he underwent a total of 4 acute bilateral treatments followed by further acute treatments as an outpatient while under his mother's c are and living in assisted living. He remained on his Depakote 1500 mg a day in divided doses, as we ll as Ativan 1 mg three times daily. He then transitioned to weekly ECT treatments, but nonetheless, seemed to be steadily backsliding over these last few weeks. Dr. Lewis reduced his Depakote from 1 500 to 1000 mg given mother's suspicion that this was worsening his condition (she has historically m isattributed the patient's worsening to some aspect of his treatment rather than an inherent aspect o f his illness itself). This weekend, he became more catatonic and was virtually nonverbal and ultimately went AWOL from his home, where Mother had been managing him since his last treatment. This happened despite a recent in crease in his treatment frequency wherein he had a couple of treatments done acutely this past and Friday. There is no clear medical contribution. His lab testing in the emergency room inclu ding CBC and CMP were within normal limits. His urine drug screen was positive only for the benzodia zepine he is on. Valproic acid level today was shown to be 58. He has been compliant with medicatio n as far as Mother can tell and she monitors that fairly closely. There is no substance use that cou ld be contributing. PAST PSYCH HISTORY: Please see prior consultations FAMILY HISTORY: Please see prior consultations DRUG AND ALCOHOL HISTORY: Please see prior consultations SOCIAL HISTORY: Please see prior consultations MEDICAL HISTORY: Please see prior consultations. The patient has already received history and physi andreas by Kalee Emerson which, likewise, reveals no acute change in any medical status. He remains with his history of Graves disease with a normal TSH from last April, and history of craniosynostosis. MENTAL STATUS EXAM: The patient is a 37-year-old white male, appearing his stated age. He is somewh at unkempt and disheveled, mute, but able to respond with a brief nod of his head or shoulder shrug t o "yes/no" questions. His affect is flat. He is able to follow requisite instructions required to u ndergo ECT, showing no negativism or resistance to undergoing the treatment. Judgment and insight ar e clearly impaired. Impulse control is impaired given his going AWOL from his mother's home, althoug h he is absent of aggressive behavior or purposeless pacing that has marked other admissions to the [facility]. It is impossible to obtain meaningful history from him at this time. ADMITTING DIAGNOSES: Neptune I: Schizoaffective disorder, bipolar type; catatonia; Graves disease by history; craniosynostos is by history; autistic spectrum disorder by history. PLAN: Historically, the patient has best responded to further acute ECT treatments, which is the [facility] plan for this admission. I have consulted with Dr. Lewis, however, and given a recent increase i n paranoia and hallucinations, it may be worth retrying a different atypical antipsychotic and discon tinuing the Depakote that has apparently provided no meaningful benefits. Jovanna is not on formular y, but I have samples that could be initiated. I will need, however, to clear this with Mother, who has historically been very averse to his being on medication and is prone to misattribute worsening t o medication rather than seeing them as exacerbations of his psychotic and mood disorder itself. Ren nously, the patient has proved refractory to even fairly frequent maintenance ECT treatment. Hence, it will be important to find psychopharmacologic adjuncts to use with the ECT. At this rate, he may find it harder to be managed in an assisted-living program as well. Sadly, there are not a lot of al ternatives for other [facility]-sponsored group homes or residential treatment centers. He may be a carlos date for state hospitalization, but even this is difficult to obtain a bed in. /[id number]/MODL
--- NOTE | 2018-06-22 14:57 | ASMTCMCOM ---
CM Note CM Note Notes: CC out reached MOC (Angela) at ; Spoke to MOC regarding move and timeframe, etc. She had no additional questions at this time.* Date Signed: 06/22/2018 01:32 PM Electronically Signed By:Helio Harrison
--- NOTE | 2018-06-22 15:32 | PDMN ---
Medical Necessity Medical necessity: Pt meets inpt criteria per MD order and [facility] B-014, Schizophrenia Spectrum Disorders, Adult: Inpatient Care, 6 days. 37 y/o admitted for inpt psychiatric stabilization of schizoaffective disorder, bipolar type and catatonia. Add'l med hx includes Graves disease, craniosynostosis, and autism spectrum disorder.
[2018-06-23] MEDS: LORazepam 0.5 MG TAB PO PRN ×2 (06:21→14:26)
[2018-06-23] MEDS: LORazepam 1 MG TAB PO SCH ×3 (07:47→21:50)
--- NOTE | 2018-06-23 13:54 | ASMTCMCOM ---
CM Note CM Note Notes: The patient moved from [address] [place] [address] [place] [address] with [facility] In[facility]. The patient didn't have questions or concerns at this time. The patient shrugged his shoulders when this insurance underwriter sales inquired about his mood. The patient continued pacing in the hallway. Date Signed: 06/23/2018 01:53 PM Electronically Signed By:Elise Palomino
--- NOTE | 2018-06-23 16:14 | SOAPPROG ---
SOAP Progress Note Assessment/Plan: Assessment: Schizoaffective Disorder, Bipolar type; catatonia; Plan: Pt more engaged and interactive, albeit still with odd, blunted affect, paucity of speech, and irrelevent, ideosyncratic TC. But, he at least was modestly verbally productive, and without agitation. Gave psychoed re Vraylar and provided handout on med for pt and mother, who is visiting later, to peruse. Plan for acute ECT in am. Start Vraylar with mother and pt consent. 06/23/18 16:11 Objective: Vital Signs Temp Pulse Resp BP Pulse Ox 36.4 C 74 15 131/70 H 96 06/23/18 06:00 06/23/18 06:00 06/23/18 06:00 06/23/18 06:00 06/23/18 06:00 06/22/18 06/23/18 06/24/18 05:59 05:59 05:59 Intake Total 450 Balance 450 Laboratory Tests 06/22/18 06/22/18 06/22/18 10:20 10:20 10:20 Iron 107.0 LDL Cholesterol, Calc Valproic Acid 57.7 Thyroperoxidase Ab Pending Thyroglobulin Ab Screen Pending 06/22/18 11:00 Iron LDL Cholesterol, Calc 117 H Valproic Acid Thyroperoxidase Ab Thyroglobulin Ab Screen ICD10 Worksheet Patient Problems: Problems Problem Status Onset Catatonic state Acute Schizoaffective disorder Acute Schizoaffective disorder, bipolar type, with catatonia Acute Schizophrenia Acute
[2018-06-23] MEDS ORDERED: ONDANSETRON DISINTEGRATING 4 MG TAB PO PRN (16:17)
[2018-06-23] MEDS ORDERED: NS 1,000 ML IV PRN (16:17)
[2018-06-23] MEDS ORDERED: CITRIC ACID/SODIUM CITRATE 30 ML UDCUP PO PRN (16:17)
[2018-06-24] MEDS ORDERED: fentaNYL 100 MCG/2 ML INJ ONE (06:57)
[2018-06-24] MEDS ORDERED: METHOHEXITAL SODIUM 100 MG/10 ML SYR IVP ONE (06:57)
[2018-06-24] MEDS ORDERED: LORazepam 2 MG/ML INJ ONE (06:57)
[2018-06-24] MEDS: NS 1,000 ML IV PRN (09:27)
--- NOTE | 2018-06-24 09:39 | POSTANESTH ---
Post Anesthetic Evaluation Cardiovascular Status: Normal, Stable Respiratory Status: Normal, Stable Level of Consciousness/Mental Status: Alert and Oriented (Pt not responding to questions, just as he wasn't pre-treatment.) Pain Control: Adequate, Prn Tx Ordered Nausea/Vomiting Control: Adequate, Prn Tx Ordered Complications Possibly Related to Anesthesia: None Noted
--- NOTE | 2018-06-24 09:48 | PDECTPN ---
ECT Progress Note Patient Problems: Problems Problem Status Onset Code Catatonic state Acute F06.1 Schizoaffective disorder Acute F25.9 Schizoaffective disorder, bipolar type, with catatonia Acute F25.0, F06.1 Schizophrenia Acute F20.9 Date: 06/24/18 ECT provider: Forrest Mancilla Anesthesia: Symone Jamison Stimulus dose (%): 100 Pulse width: 0.5 ECT EMG (sec): 18 ECT EEG (sec): 72 ECT treatment type: bilateral QIDS-SR Total Score: 0 QIDS-SR Question #12 Score: 0 MMSE Total Score (Max = 21): 21 Next ECT date: 06/26/18 Next ECT time: 09:00 O/P psychiatrist follow up with DrSoo: Dahiana Lewis O/P psychiatrist follow up: phone, voice message Home medications: Medication Instructions Recorded LORazepam [Ativan (*)] 1 mg PO TID #90 tab 05/15/18 Divalproex ER [Depakote ER 500 MG 500 mg PO BID 06/21/18 (*)] Current treatment plan: acute phase Treatment plan frequency: 3 times per week ECT narrative: 06/22/18 Please see admit dictation 06/24/18 Pt interviewed pre ECT. He was virtually mute again, and could not even provide a yes/no answer to whether he had discussed the vraylar option with his mother. WIll call her directly as she has Medical POA anyway and can provide consent. He is otherwise flat in affect, and passively follows instructions around ECT, circled all zeros on his QIDS.
[2018-06-24] MEDS ORDERED: ACETAMINOPHEN 500 MG TAB PO PRN (10:00)
[2018-06-24] MEDS ORDERED: PROMETHAZINE HCL 25 MG TAB PO PRN (10:00)
[2018-06-24] MEDS ORDERED: HYDROCODONE/APAP 5/325 TAB PO PRN (10:00)
[2018-06-24] MEDS ORDERED: NALOXONE HCL 0.4 MG/ML INJ IVP PRN (10:00)
--- NOTE | 2018-06-24 10:02 | PDANEPAE ---
ECT Pre Anesthetic Evaluation Allergies/Adverse Reactions: olanzapine [From Zyprexa] Allergy (Severe, Verified 06/21/18 12:18) catatonea propylthiouracil Allergy (Severe, Verified 06/21/18 12:18) impulsivity clozapine Allergy (Mild, Verified 06/21/18 12:18) anger methazolamide Allergy (Unknown, Verified 06/21/18 12:18) Unknown risperidone [From Risperdal] Allergy (Unknown, Verified 06/21/18 12:18) Unknown Patient ID confirmed: Yes H&P reviewed: Yes Pre-anesthetic history reviewed: Yes Mallampati Score: Class 3 ASA Status: III Home Medications: Medication Instructions Recorded LORazepam [Ativan (*)] 1 mg PO TID #90 tab 05/15/18 Divalproex ER [Depakote ER 500 MG 500 mg PO BID 06/21/18 (*)] Medication review: completed Patient interviewed: Yes (Not responding to questions.) Patient examined: Yes See previous record: Yes Anesthetic plan discussed with patient: Yes Anesthetic risks discussed with patient: Yes ECT Pre-Anesthetic History - Height & Weight Height: 177.8 cm Weight: 92.986 kg BMI: 29.41 - Anesthesia History Hx Anesthesia Complications (with details): Denies. Family Hx Anesthesia Complications: Denies. - Tobacco/Alcohol/Drug Use Smoking Status: Former smoker Hx Drug/Substance Abuse: No Alcohol Use: No - Prior Surgeries/Hospitalizations Prior Surgeries: craniosynostosis (6mo old), tonsillectomy (3yo), umbilical hernia (5yo), knee scope (15yo) Prior Medical Hospitalizations: Denies. - Pulmonary History ECT Hx Asthma: No Hx Abnormal Chest X-Ray: No Hx Oxygen in Use at Home: No - Cardiovascular History Hx Hypertension: No Currently Uses Hypertension Medication: No Hx Arrhythmias: No Hx Palpitations: No Hx Chest Pain: No Hx Coronary Artery / Peripheral Vascular Disease: No Hx Blood Clot: No - Neurologic History Hx Cerebrovascular Accident: No Hx CT Scan Or MRI Of The Brain: No Hx Epilepsy, Convulsions, Seizures, Or Blackouts: No Hx Frequent Or Severe Headaches: No Hx Numbness: No Hx Neurologic Disorder: No Neurologic History Comment: autism - Dental History Current Dental Issues: Dentures Dental History Comment: top and bottom - Endocrine History Hx Diabetes: No Current Daily Insulin Injections: No Hx Thyroid Problems: Yes Endocrine History Comment: hyperthyroidism resolved in 2008 - Renal/Urologic History Hx Renal Disorders: No Hx Urinary Tract Problems: No - Liver History Hx Hepatic Disorders: No - Cancer History Hx Cancer: No - Hematology History Hx Unexplained Bleeding Of Any Type: No Hx Ease Of Bruising: No Hx Anemia: No - Gastrointestinal History Hx Gastroesophogeal Reflux Disease: No Hx Ulcers: No Hx Hiatal Hernia: No Hx Difficulty Swallowing: No - Musculoskeletal Hisory Hx Chronic Pain: No Hx Arthritis: No - Opthalmic History Hx Glaucoma: No Visual Assistive Devices: Glasses Hx Opthalmic Disorders: No - Other Health History Physical Disabililty: No Recent Cough, Cold, or Fever: No Significant Weight Loss In The Last 4 Months: No Possible the Patient Might be : No
[2018-06-24] MEDS: LORazepam 1 MG TAB PO SCH ×2 (18:19→22:27)
[2018-06-25] MEDS: LORazepam 0.5 MG TAB PO PRN (06:19)
[2018-06-25] MEDS: LORazepam 1 MG TAB PO SCH ×3 (08:46→19:58)
--- NOTE | 2018-06-25 12:44 | ASMTCMCOM ---
CM Note CM Note Notes: CC checked in with ct. who reported that he is OK. CC inquired about how he is adjusting to the new unit and he said "it's open". Ct. said that he likes his room. Ct. continues pacing in the hallway. Date Signed: 06/25/2018 12:43 PM Electronically Signed By:Helena Velazquez
--- NOTE | 2018-06-25 14:29 | PDECTPN ---
ECT Progress Note Patient Problems: Problems Problem Status Onset Code Catatonic state Acute F06.1 Schizoaffective disorder Acute F25.9 Schizoaffective disorder, bipolar type, with catatonia Acute F25.0, F06.1 Schizophrenia Acute F20.9 Date: 06/25/18 ECT provider: Forrest Mancilla Anesthesia: Symone Jamison QIDS-SR Total Score: 0 QIDS-SR Question #12 Score: 0 MMSE Total Score (Max = 21): 21 O/P psychiatrist follow up with Dr.: Dahiana Lewis O/P psychiatrist follow up: phone, voice message Home medications: Medication Instructions Recorded LORazepam [Ativan (*)] 1 mg PO TID #90 tab 05/15/18 Divalproex ER [Depakote ER 500 MG 500 mg PO BID 06/21/18 (*)] Current treatment plan: acute phase ECT narrative: 06/22/18 Please see admit dictation 06/24/18 Pt interviewed pre ECT. He was virtually mute again, and could not even provide a yes/no answer to whether he had discussed the vraylar option with his mother. WIll call her directly as she has Medical POA anyway and can provide consent. He is otherwise flat in affect, and passively follows instructions around ECT, circled all zeros on his QIDS. 06/25/18 met with pt who looks better, more verbal and engaged. I asked him what the experience is like for him, when he goes into the catatonic state: he provided an ideosyncratic, odd response: "its like when I played golf" When explored more, he acknowledged that it is not subjectively frightening. Per mother, she states he looked scared. Mom provided consent to started Vraylar. Will provide first dose tonite using samples. She is aware of R/B/A's.
[2018-06-25] MEDS ORDERED: VRAYLAR 3 MG PO SCH (19:30)
[2018-06-26] MEDS ORDERED: fentaNYL 100 MCG/2 ML INJ ONE (06:55)
[2018-06-26] MEDS ORDERED: LORazepam 2 MG/ML INJ ONE (06:55)
[2018-06-26] MEDS ORDERED: METHOHEXITAL SODIUM 100 MG/10 ML SYR IVP ONE (06:56)
[2018-06-26] MEDS ORDERED: ONDANSETRON DISINTEGRATING 4 MG TAB ONE (09:02)
[2018-06-26] MEDS ORDERED: CITRIC ACID/SODIUM CITRATE 30 ML UDCUP ONE (09:02)
[2018-06-26] MEDS: NS 1,000 ML IV PRN (09:15)
[2018-06-26] MEDS ORDERED: NS 1,000 ML IV PRN (09:35)
[2018-06-26] MEDS ORDERED: ONDANSETRON DISINTEGRATING 4 MG TAB PO PRN (09:35)
[2018-06-26] MEDS ORDERED: CITRIC ACID/SODIUM CITRATE 30 ML UDCUP PO PRN (09:35)
--- NOTE | 2018-06-26 09:35 | POSTANESTH ---
Post Anesthetic Evaluation Cardiovascular Status: Normal, Stable Respiratory Status: Normal, Stable Level of Consciousness/Mental Status: Can Participate in Eval, Alert and Oriented (Still not verbalizing answers, but more interactive than on 06/24/18.) Pain Control: Adequate, Prn Tx Ordered Nausea/Vomiting Control: Adequate, Prn Tx Ordered Complications Possibly Related to Anesthesia: None Noted
[2018-06-26] MEDS ORDERED: IBUPROFEN 600 MG TAB PO PRN (09:36)
[2018-06-26] MEDS ORDERED: PROMETHAZINE HCL 25 MG TAB PO PRN (09:36)
[2018-06-26] MEDS ORDERED: NALOXONE HCL 0.4 MG/ML INJ IVP PRN (09:36)
[2018-06-26] MEDS ORDERED: HYDROCODONE/APAP 5/325 TAB PO PRN (09:36)
--- NOTE | 2018-06-26 09:36 | PDHPUP ---
History & Physical Update H&P update statement: This history and physical update is based on an assessment of the patient which was completed after admission or registration (within 24 hours), but prior to the surgery/procedure. H&P update: H&P reviewed & patient examined
--- NOTE | 2018-06-26 09:36 | PDANEPAE ---
ECT Pre Anesthetic Evaluation Notes: Pt more communicative today. Allergies/Adverse Reactions: olanzapine [From Zyprexa] Allergy (Severe, Verified 06/21/18 12:18) catatonea propylthiouracil Allergy (Severe, Verified 06/21/18 12:18) impulsivity clozapine Allergy (Mild, Verified 06/21/18 12:18) anger methazolamide Allergy (Unknown, Verified 06/21/18 12:18) Unknown risperidone [From Risperdal] Allergy (Unknown, Verified 06/21/18 12:18) Unknown Patient ID confirmed: Yes H&P reviewed: Yes Pre-anesthetic history reviewed: Yes Heart: regular rate and rhythym Lungs: clear to auscultation Mallampati Score: Class 2 ASA Status: III Home Medications: Medication Instructions Recorded LORazepam [Ativan (*)] 1 mg PO TID #90 tab 05/15/18 Divalproex ER [Depakote ER 500 MG 500 mg PO BID 06/21/18 (*)] Medication review: completed Patient interviewed: Yes Patient examined: Yes See previous record: Yes Anesthetic plan discussed with patient: Yes Anesthetic risks discussed with patient: Yes ECT Pre-Anesthetic History - Height & Weight Height: 177.8 cm Weight: 92.986 kg BMI: 29.41 - Anesthesia History Hx Anesthesia Complications (with details): Denies. Family Hx Anesthesia Complications: Denies. - Tobacco/Alcohol/Drug Use Smoking Status: Former smoker Hx Drug/Substance Abuse: No Alcohol Use: No - Prior Surgeries/Hospitalizations Prior Surgeries: craniosynostosis (6mo old), tonsillectomy (3yo), umbilical hernia (5yo), knee scope (15yo) Prior Medical Hospitalizations: Denies. - Pulmonary History ECT Hx Asthma: No Hx Abnormal Chest X-Ray: No Hx Oxygen in Use at Home: No - Cardiovascular History Hx Hypertension: No Currently Uses Hypertension Medication: No Hx Arrhythmias: No Hx Palpitations: No Hx Chest Pain: No Hx Coronary Artery / Peripheral Vascular Disease: No Hx Blood Clot: No - Neurologic History Hx Cerebrovascular Accident: No Hx CT Scan Or MRI Of The Brain: No Hx Epilepsy, Convulsions, Seizures, Or Blackouts: No Hx Frequent Or Severe Headaches: No Hx Numbness: No Hx Neurologic Disorder: No Neurologic History Comment: autism - Dental History Current Dental Issues: Dentures Dental History Comment: top and bottom - Endocrine History Hx Diabetes: No Current Daily Insulin Injections: No Hx Thyroid Problems: Yes Endocrine History Comment: hyperthyroidism resolved in 2009 - Renal/Urologic History Hx Renal Disorders: No Hx Urinary Tract Problems: No - Liver History Hx Hepatic Disorders: No - Cancer History Hx Cancer: No - Hematology History Hx Unexplained Bleeding Of Any Type: No Hx Ease Of Bruising: No Hx Anemia: No - Gastrointestinal History Hx Gastroesophogeal Reflux Disease: No Hx Ulcers: No Hx Hiatal Hernia: No Hx Difficulty Swallowing: No - Musculoskeletal Hisory Hx Chronic Pain: No Hx Arthritis: No - Opthalmic History Hx Glaucoma: No Visual Assistive Devices: Glasses Hx Opthalmic Disorders: No - Other Health History Physical Disabililty: No Recent Cough, Cold, or Fever: No Significant Weight Loss In The Last 4 Months: No Possible the Patient Might be : No
--- NOTE | 2018-06-26 09:45 | PDECTPN ---
ECT Progress Note Patient Problems: Problems Problem Status Onset Code Catatonic state Acute F06.1 Schizoaffective disorder Acute F25.9 Schizoaffective disorder, bipolar type, with catatonia Acute F25.0, F06.1 Schizophrenia Acute F20.9 Date: 06/26/18 ECT provider: Forrest Mancilla Anesthesia: Symone Jamison Stimulus dose (%): 100 Pulse width: 0.5 ECT EMG (sec): 18 ECT EEG (sec): 29 ECT treatment type: bilateral QIDS-SR Total Score: 0 QIDS-SR Question #12 Score: 0 MMSE Total Score (Max = 21): 18 Next ECT date: 06/29/18 Next ECT time: 09:15 O/P psychiatrist follow up with Dr.: Dahiana Lewis O/P psychiatrist follow up: phone, voice message Home medications: Medication Instructions Recorded LORazepam [Ativan (*)] 1 mg PO TID #90 tab 05/15/18 Divalproex ER [Depakote ER 500 MG 500 mg PO BID 06/21/18 (*)] Medication review: completed Current treatment plan: acute phase Treatment plan frequency: 3 times per week ECT narrative: 06/22/18 Please see admit dictation 06/24/18 Pt interviewed pre ECT. He was virtually mute again, and could not even provide a yes/no answer to whether he had discussed the vraylar option with his mother. WIll call her directly as she has Medical POA anyway and can provide consent. He is otherwise flat in affect, and passively follows instructions around ECT, circled all zeros on his QIDS. 06/25/18 met with pt who looks better, more verbal and engaged. I asked him what the experience is like for him, when he goes into the catatonic state: he provided an ideosyncratic, odd response: "its like when I played golf" When explored more, he acknowledged that it is not subjectively frightening. Per mother, she states he looked scared. Mom provided consent to started Vraylar. Will provide first dose tonite using samples. She is aware of R/B/A's. 06/26 WIll plan to start Vraylar tonight, assuming samples are received and let mother try to get Rx filled at pharmacy. Mother aware of risks. Including metabolic and TD. Pt more verbal and engaged, but still quiet improverished and ideosyncratic/odd in his TC.
[2018-06-26] MEDS: LORazepam 1 MG TAB PO SCH ×3 (11:07→19:19)
--- NOTE | 2018-06-26 12:50 | ASMTBHDC ---
Notes Note: Notes: CC met with pt. after he returned from ECT. Pt. reports feeling "I'm here". Pt. stated ECT went "fine" and denied headache and nausea Pt. requested some Mt. Dew. Pt. reports sleeping "fine". Pt. stated he is getting enough to eat, and shrugged when asked if he is going to groups. Pt. reports no issues with his current medications. Pt. stated he has no issues while on the unit, adding he is trying to find something to do. Pt. shared his feelings about the new unit. Pt. denied SI, HI, AVH and paranoia. Pt. presents as mostly alert, slightly delayed, somewhat talkative, and cooperative. Staff report pt. sleeping 9.5 hours and being medication compliant. CC faxed a copy of the pt's new medication prescription to [facility]. CC to speak with provider about pt's needed follow up appointments. Pt. may discharge on Friday06/29/18, CC to setup follow up appointments as needed. Date Signed: 06/26/2018 12:49 PM Electronically Signed By:Tanesha Boudreaux
[2018-06-26] MEDS: ACETAMINOPHEN 325 MG TAB PO PRN (16:42)
[2018-06-27] MEDS: LORazepam 1 MG TAB PO SCH ×3 (08:06→19:20)
--- NOTE | 2018-06-27 16:38 | ASMTCMCOM ---
CM Note CM Note Notes: Pt. reports hearing jazz music today. Pt. stated he has "lots of jazz music". Pt. stated he slept "most of the way through" adding he is adjusting to sleeping in a new place. Pt. stated he is getting enough to eat, adding he doesn't want to eat too much. Pt. stated he took a shower today. Pt. reports he has lost "quite a bit of weight" adding around 10-15lbs unintentionally by walking so much. Pt. reports not attending groups, adding he doesn't have a reason, and is "trying to stay busy". Pt. reports feeling "jittery" due to being out of his routine. Pt. stated after ECT it feels "more like a dream". Pt. denied SI, HI, AVH and paranoia. Pt. stated people at his home say he has AVH. Pt. stated if "music on everything's fine". Pt. stated his mom will visit today. Pt. presents as alert, calm, friendly, talkative, groomed, and cooperative. Staff report pt. sleeping 10 hours and being medication complaint. Pt. was observed dancing today on the unit. Pt. will have ECT on Friday and then discharge. Pt. has his next ECT on 07/06/18. Pt's appointment with Dr. Lewis was rescheduled form 06/29/18 to 07/22/18 at 2:30pm. Pt. is on the cancellation list to see Dr. Lewis. Date Signed: 06/27/2018 04:37 PM Electronically Signed By:Tanesha Boudreaux
--- NOTE | 2018-06-27 17:27 | SOAPPROG ---
SOAP Progress Note Assessment/Plan: Assessment: Per Dr. Mancilla's notes: 06/22/18 Please see admit dictation 06/24/18 Pt interviewed pre ECT. He was virtually mute again, and could not even provide a yes/no answer to whether he had discussed the vraylar option with his mother. WIll call her directly as she has Medical POA anyway and can provide consent. He is otherwise flat in affect, and passively follows instructions around ECT, circled all zeros on his QIDS. 06/25/18 met with pt who looks better, more verbal and engaged. I asked him what the experience is like for him, when he goes into the catatonic state: he provided an ideosyncratic, odd response: "its like when I played golf" When explored more, he acknowledged that it is not subjectively frightening. Per mother, she states he looked scared. Mom provided consent to started Vraylar. Will provide first dose tonite using samples. She is aware of R/B/A's. 06/26 WIll plan to start Vraylar tonight, assuming samples are received and let mother try to get Rx filled at pharmacy. Mother aware of risks. Including metabolic and TD. Pt more verbal and engaged, but still quiet improverished and ideosyncratic/odd in his TC. WEEKEND PLAN: 06/27/18 17:18 1. Patient much more verbal and interactive today. He has significantly increased psychomotor activity. MD actually observed patient dancing in hallway outside group room while music was playing. 2. Patient took Vraylar for first time and denies any SE's. 3. Plan to continue ECT Subjective: MD spoke to patient while he continued dancing in boyd outside group room. Patient had smile on his face and was most engaged in conversation MD has witnessed during several previous hospitalizations. His speech is still not fluent or verbose, but it is much more spontaneous than MD has witnessed in past. Patient is also able to make eye contact and sustain conversation. Patient reports feeling "jittery" because he's not in his normal routine. Objective: Vital Signs Temp Pulse Resp BP Pulse Ox 36.6 C 101 H 20 117/69 91 L 06/27/18 06:00 06/27/18 06:00 06/27/18 06:00 06/27/18 06:00 06/27/18 06:00 06/26/18 06/27/18 06/28/18 05:59 05:59 05:59 Intake Total 400 Balance 400 MSE: Affect: More range of affect Mood: "Jittery" TP: Mostly goal-directed TC : Denies SI/HI, no delusions Insight/Judgment: Improving - Time Spent With Patient Time Spent With Patient: 15" - Pending Discharge Pending Discharge Within 24 Hours: No Pending Discharge Within 48 Hours: No ICD10 Worksheet Patient Problems: Problems Problem Status Onset Catatonic state Acute Schizoaffective disorder Acute Schizoaffective disorder, bipolar type, with catatonia Acute Schizophrenia Acute
[2018-06-27] MEDS: ACETAMINOPHEN 325 MG TAB PO PRN (18:19)
[2018-06-28] MEDS: LORazepam 1 MG TAB PO SCH ×3 (07:35→19:47)
--- NOTE | 2018-06-28 15:51 | ASMTCMCOM ---
CM Note CM Note Notes: Pt. reports feeling "fine". Pt. stated he "slept though [the night]". Pt. reports getting "plenty" to eat. Pt. reports not attending groups. Pt. stated he is having no issues with his medications, stating "not that I'm aware of". Pt. reports no issues while on the unit. Pt. stated his goal is "getting out". Pt. informed about ECT tomorrow at 9:15am. Pt. denied SI, HI, AVH and paranoia. Pt. presents as alert, calm, friendly, somewhat engaging, slight delays in responses at times, pacing with CC, groomed and cooperative. Staff report pt. sleeping 10 hours and being medication compliant. Pt. is scheduled for ECT on Friday at 9:15am. Per provider, pt. will discharge after ECT on Friday. Pt. will have a follow up ECT appointment on Friday07/06/18, CC to secure the time of this appointment. Pt. has a follow up appointment with Dr. Lewis on 07/22/18 @ 2:30pm, and is also on their cancellation list in hope he can meet earlier. Date Signed: 06/28/2018 03:50 PM Electronically Signed By:Tanesha Boudreaux
--- NOTE | 2018-06-28 16:40 | SOAPPROG ---
SOAP Progress Note Assessment/Plan: Assessment: Per Dr. Mancilla's notes: 06/22/18 Please see admit dictation 06/24/18 Pt interviewed pre ECT. He was virtually mute again, and could not even provide a yes/no answer to whether he had discussed the vraylar option with his mother. WIll call her directly as she has Medical POA anyway and can provide consent. He is otherwise flat in affect, and passively follows instructions around ECT, circled all zeros on his QIDS. 06/25/18 met with pt who looks better, more verbal and engaged. I asked him what the experience is like for him, when he goes into the catatonic state: he provided an ideosyncratic, odd response: "its like when I played golf" When explored more, he acknowledged that it is not subjectively frightening. Per mother, she states he looked scared. Mom provided consent to started Vraylar. Will provide first dose tonite using samples. She is aware of R/B/A's. 06/26 WIll plan to start Vraylar tonight, assuming samples are received and let mother try to get Rx filled at pharmacy. Mother aware of risks. Including metabolic and TD. Pt more verbal and engaged, but still quiet improverished and ideosyncratic/odd in his TC. WEEKEND PLAN: 06/27/18 17:18 1. Patient much more verbal and interactive today. He has significantly increased psychomotor activity. MD actually observed patient dancing in hallway outside group room while music was playing. 2. Patient took Vraylar for first time and denies any SE's. 3. Plan to continue ECT 06/28/18 16:36 1. Patient continues to be socially engaged with staff, less so with peers. His speech is more fluent, logical and coherent. 2. Patient slept 10 hrs and is eating adequate amount of food. 3. Patient denies any SE's from new medication, Vraylar. 4. Patient is scheduled for ECT on Friday. 5. Possible d/c on Friday after ECT. Subjective: Patient is more interactive with staff. He noticed RN was limping on unit and he volunteered a story about having a knee injury when he was a young boy. Patient plans to return to [facility] after ECT tomorrow. Objective: Vital Signs Temp Pulse Resp BP Pulse Ox 36.9 C 103 H 16 111/73 94 06/28/18 06:00 06/28/18 06:00 06/28/18 06:00 06/28/18 06:00 06/28/18 06:00 06/27/18 06/28/18 06/29/18 05:59 05:59 05:59 Intake Total 400 Balance 400 MSE: Affect: Euthymic Mood: "OK" TP: Linear, goal-directed TC: Denies any SI /HI Insight/Judgment: Fair - Time Spent With Patient Time Spent With Patient: 15" - Pending Discharge Pending Discharge Within 24 Hours: Yes Pending Discharge Within 48 Hours: No Pending Discharge Date: 06/29/18 Pending Discharge Time: 11:00 ICD10 Worksheet Patient Problems: Problems Problem Status Onset Catatonic state Acute Schizoaffective disorder Acute Schizoaffective disorder, bipolar type, with catatonia Acute Schizophrenia Acute
[2018-06-29] MEDS: LORazepam 1 MG TAB PO SCH ×2 (07:45→14:44)
[2018-06-29] MEDS ORDERED: ONDANSETRON DISINTEGRATING 4 MG TAB PO PRN (09:42)
[2018-06-29] MEDS ORDERED: NS 1,000 ML IV PRN (09:42)
[2018-06-29] MEDS ORDERED: CITRIC ACID/SODIUM CITRATE 30 ML UDCUP PO PRN (09:42)
--- NOTE | 2018-06-29 10:19 | PDANEPAE ---
ECT Pre Anesthetic Evaluation Allergies/Adverse Reactions: olanzapine [From Zyprexa] Allergy (Severe, Verified 06/21/18 12:18) catatonea propylthiouracil Allergy (Severe, Verified 06/21/18 12:18) impulsivity clozapine Allergy (Mild, Verified 06/21/18 12:18) anger methazolamide Allergy (Unknown, Verified 06/21/18 12:18) Unknown risperidone [From Risperdal] Allergy (Unknown, Verified 06/21/18 12:18) Unknown Patient ID confirmed: Yes H&P reviewed: Yes Pre-anesthetic history reviewed: Yes Heart: regular rate and rhythym, no murmur, rub, or gallop Lungs: no respiratory distress, no rales or rhonchi Mallampati Score: Class 1 ASA Status: II Home Medications: Medication Instructions Recorded LORazepam [Ativan (*)] 1 mg PO TID #90 tab 05/15/18 Divalproex ER [Depakote ER 500 MG 500 mg PO BID 06/21/18 (*)] Medication review: completed Patient interviewed: Yes Patient examined: Yes Anesthetic plan discussed with patient: Yes Anesthetic risks discussed with patient: Yes ECT Pre-Anesthetic History - Height & Weight Height: 177.8 cm Weight: 90.2 kg BMI: 28.53 - Anesthesia History Hx Anesthesia Complications (with details): Denies. Family Hx Anesthesia Complications: Denies. - Tobacco/Alcohol/Drug Use Smoking Status: Former smoker Hx Drug/Substance Abuse: No Alcohol Use: No - Prior Surgeries/Hospitalizations Prior Surgeries: craniosynostosis (6mo old), tonsillectomy (3yo), umbilical hernia (5yo), knee scope (15yo) Prior Medical Hospitalizations: Denies. - Pulmonary History ECT Hx Asthma: No Hx Abnormal Chest X-Ray: No Hx Oxygen in Use at Home: No - Cardiovascular History Hx Hypertension: No Currently Uses Hypertension Medication: No Hx Arrhythmias: No Hx Palpitations: No Hx Chest Pain: No Hx Coronary Artery / Peripheral Vascular Disease: No Hx Blood Clot: No - Neurologic History Hx Cerebrovascular Accident: No Hx CT Scan Or MRI Of The Brain: No Hx Epilepsy, Convulsions, Seizures, Or Blackouts: No Hx Frequent Or Severe Headaches: No Hx Numbness: No Hx Neurologic Disorder: No Neurologic History Comment: autism - Dental History Current Dental Issues: Dentures Dental History Comment: top and bottom - Endocrine History Hx Diabetes: No Current Daily Insulin Injections: No Hx Thyroid Problems: Yes Endocrine History Comment: hyperthyroidism resolved in 2009 - Renal/Urologic History Hx Renal Disorders: No Hx Urinary Tract Problems: No - Liver History Hx Hepatic Disorders: No - Cancer History Hx Cancer: No - Hematology History Hx Unexplained Bleeding Of Any Type: No Hx Ease Of Bruising: No Hx Anemia: No - Gastrointestinal History Hx Gastroesophogeal Reflux Disease: No Hx Ulcers: No Hx Hiatal Hernia: No Hx Difficulty Swallowing: No - Musculoskeletal Hisory Hx Chronic Pain: No Hx Arthritis: No - Opthalmic History Hx Glaucoma: No Visual Assistive Devices: Glasses Hx Opthalmic Disorders: No - Other Health History Physical Disabililty: No Recent Cough, Cold, or Fever: No Significant Weight Loss In The Last 4 Months: No Possible the Patient Might be : No
[2018-06-29] MEDS ORDERED: LORazepam 2 MG/ML INJ ONE (10:20)
[2018-06-29] MEDS ORDERED: fentaNYL 100 MCG/2 ML INJ ONE (10:20)
--- NOTE | 2018-06-29 10:36 | POSTANESTH ---
Post Anesthetic Evaluation Cardiovascular Status: Normal, Stable, Similar to Pre-Op Cond Respiratory Status: Normal, Stable, Similar to Pre-op Cond. Level of Consciousness/Mental Status: Moderately Sleepy Pain Control: Adequate, Prn Tx Ordered Nausea/Vomiting Control: Adequate, Prn Tx Ordered Complications Possibly Related to Anesthesia: None Noted
--- NOTE | 2018-06-29 10:41 | PDECTPN ---
ECT Progress Note Patient Problems: Problems Problem Status Onset Code Catatonic state Acute F06.1 Schizoaffective disorder Acute F25.9 Schizoaffective disorder, bipolar type, with catatonia Acute F25.0, F06.1 Schizophrenia Acute F20.9 Date: 06/29/18 ECT provider: Forrest Mancilla Anesthesia: Sally Stoica Stimulus dose (%): 100 Pulse width: 0.5 ECT EMG (sec): 20 ECT EEG (sec): 140 ECT treatment type: bilateral QIDS-SR Total Score: 0 QIDS-SR Question #12 Score: 0 MMSE Total Score (Max = 21): 19 Next ECT date: 07/03/18 Next ECT time: 10:45 O/P psychiatrist follow up with Dr.: Dahiana Lewis O/P psychiatrist follow up: phone, voice message Home medications: Medication Instructions Recorded LORazepam [Ativan (*)] 1 mg PO TID #90 tab 05/15/18 Divalproex ER [Depakote ER 500 MG 500 mg PO BID 06/21/18 (*)] Medication review: completed Current treatment plan: acute phase Treatment plan frequency: 2 times per week ECT narrative: 06/22/18 Please see admit dictation 06/24/18 Pt interviewed pre ECT. He was virtually mute again, and could not even provide a yes/no answer to whether he had discussed the vraylar option with his mother. WIll call her directly as she has Medical POA anyway and can provide consent. He is otherwise flat in affect, and passively follows instructions around ECT, circled all zeros on his QIDS. 06/25/18 met with pt who looks better, more verbal and engaged. I asked him what the experience is like for him, when he goes into the catatonic state: he provided an ideosyncratic, odd response: "its like when I played golf" When explored more, he acknowledged that it is not subjectively frightening. Per mother, she states he looked scared. Mom provided consent to started Vraylar. Will provide first dose tonite using samples. She is aware of R/B/A's. 06/26 WIll plan to start Vraylar tonight, assuming samples are received and let mother try to get Rx filled at pharmacy. Mother aware of risks. Including metabolic and TD. Pt more verbal and engaged, but still quiet improverished and ideosyncratic/odd in his TC. 06/29 See discharge summary that will be dictated. Read and appreciated RN and MD notes from Weekend. Pt more verbal then. Was today with RN, but less so with MD.
--- NOTE | 2018-06-29 12:19 | ASMTBHDC ---
Notes Note: Notes: Pt. reports feeling "fine". Pt. reports sleeping "just fine". Pt. reports no issues from ECT today. Pt. reports getting enough to eat and not attending groups. Pt. reports no issues with his medications. Pt. reports his goal is to go home. Pt. denied SI, HI, AVH and paranoia. Pt. stated "fine" when informed about his next ECT appointment. Pt. presents as alert, semi engaging, calm, lacking eye contact, slightly delayed and cooperative. Staff report pt. sleeping 9 hours and being medication compliant. Pt.'s next ECT appointment is 07/03/18 at 10:45am. Pt. has an appointment with Dr. Lewis on 07/14/18 at 11:00am. Date Signed: 06/29/2018 12:16 PM Electronically Signed By:Tanesha Boudreaux
--- NOTE | 2018-06-29 13:13 | GDS ---
[f rep st] DISCHARGE SUMMARY IDENTIFYING DATA: The patient is a 37-year-old single white male, well known to this information writer, who has been treating him with maintenance ECT and through multiple prior hospitalizations over the last 8 y ears. His outpatient psychiatrist at [facility] is Anant Lewis MD. His most recent adm ission to [facility] prior to this one was in late April 2018. He was admitted at this time on June 21, 2018, and discharged June 29. REASON FOR ADMISSION: The patient had been having fairly frequent maintenance treatments and had rec ently finished a brief acute course in late April, when he developed increased catatonic symptoms. He was virtually nonverbal and went AWOL from his home where mother had been managing him since his last maintenance ECT treatment given some increased bizarre behaviors. Although he was not agitated or aggressive, he does have a history of cycling down into that at times, usually preceded by such a change as he is experiencing upon admission. Urine drug screen was only positive for benzodiazepine that he is prescribed. Valproic acid level on admission was 58, revealing adherence to that medicat ion. Lorazepam and Depakote were his only 2 psychiatric medications. Routine physical exam performe d by Kalee Emerson, revealed no acute medical changes to his known illnesses, which include Graves dis ease, history of craniosynostosis and Asperger syndrome. Routine lab work revealed a complete blood count that was within normal limits. Bio Chem profile was within normal limits. Iron level was 107. Lipid profile was done at baseline as he was to start a new atypical antipsychotic, Vraylar. He christianson d slightly elevated LDL at 117 and slightly decreased HDL at 35, triglycerides were 59, total cholest [place]antana was 164. Urine toxicology was negative except for benzodiazepine. Thyroid peroxidase antibodie s and thyroglobulin antibody screen were within normal limits. HOSPITAL COURSE: The patient underwent 4 acute bilateral ECT treatments. In discussion with mother and Dr. Lewis, it was decided to discontinue his Depakote, which did not seem to have any added bene fit over these last many months that he has been on the medication, and given an increase in recent p aranoia and possible hallucinations, it was decided to restart a new atypical antipsychotic, Vraylar, which was started at 1.5 mg p.o. q.h.s. In this information writer's recollection in reviewing his records, it appears as if he had been most stable historically when he was on the Ativan plus clozapine, but his mother had been insistent upon his coming off about medication and of course, it does have significan t side-effects, which the Vraylar has much less above. Dr. Lewis and this information writer discussed the Vray lar as a worthwhile medication to try given the benefits he had received from his other antipsychotic , clozapine. Mother continues to show some resistance to treatments whatever they may be, as her herbert s is to assume that any symptoms that he reveals are a function of treatments rather than some underl allen illness itself. For instance, she believed clozapine "made him angry and agitated" with no insi ght that his illness itself produced those symptoms. DISCHARGE MEDICATIONS: Vraylar 1.5 mg p.o. at bedtime, lorazepam 1 mg p.o. t.i.d. DISPOSITION: The patient will return to assisted living. It is clear that he would benefit from a [facility] therapeutic residential environment such as a correction, but there are no available options for patient with Medicaid and mother cannot afford such [id number] options as may exist. DISCHARGE DIAGNOSES: Ruston I: Schizoaffective disorder, bipolar type; catatonia [place]; history of G raves disease; craniosynostosis; history of autism spectrum disorder. /[id number]/MODL
[2018-06-29 13:47] VITALS: BP 111/59
== END 2018-06-29 14:50 | disposition home or self-care (01) | DRG 885 ==
LOC: BBEH 16:45
PROVIDERS: ADMIT Psychiatry & Neurology Psychiatry; ATTEND Psychiatry & Neurology Psychiatry
PROC: GZB4ZZZ Other Electroconvulsive Therapy (ICD-10-PCS; principal; 2018-06-22)
PROC: GZB4ZZZ Other Electroconvulsive Therapy (ICD-10-PCS; 2018-06-24)
PROC: GZB4ZZZ Other Electroconvulsive Therapy (ICD-10-PCS; 2018-06-25)
PROC: GZB4ZZZ Other Electroconvulsive Therapy (ICD-10-PCS; 2018-06-26)
PROC: GZB4ZZZ Other Electroconvulsive Therapy (ICD-10-PCS; 2018-06-29)
DX: F20.2 Catatonic schizophrenia (principal); F25.0 Schizoaffective disorder, bipolar type; F25.1 Schizoaffective disorder, depressive type; F84.5 Asperger's syndrome; E05.00 Thyrotoxicosis with diffuse goiter without thyrotoxic crisis or storm
CPT/HCPCS: 80305; 86376-90; 86800-90; G0480; J2060; J3010